=== PATIENT | female | born 1970 | race Caucasian/White ===

== ENCOUNTER 2023-02-04 13:00 | Outpatient (RCR) | payer BC, OTHER, SELFPAY | END 2023-06-04 23:59 | disposition home or self-care (01) | PROVIDERS: PCP Family Medicine; Visit Provider Physician Assistant Medical | DX: R32 Unspecified urinary incontinence (principal); N30.10 Interstitial cystitis (chronic) without hematuria; M54.50 Low back pain, unspecified; R10.2 Pelvic and perineal pain; N94.10 Unspecified dyspareunia; M79.18 Myalgia, other site; R53.1 Weakness; M53.3 Sacrococcygeal disorders, not elsewhere classified; M25.552 Pain in left hip; M25.551 Pain in right hip; N32.9 Bladder disorder, unspecified; Z51.89 Encounter for other specified aftercare | CPT/HCPCS: 97110; 97140 ==

== ENCOUNTER 2023-06-22 13:00 | Outpatient (RCR) | payer BC, SELFPAY | END 2023-10-20 23:59 | disposition home or self-care (01) | PROVIDERS: PCP Family Medicine; Visit Provider Physician Assistant Medical | DX: M79.18 Myalgia, other site (principal); R35.0 Frequency of micturition; N32.89 Other specified disorders of bladder; M54.50 Low back pain, unspecified; M25.552 Pain in left hip; M25.551 Pain in right hip; M53.3 Sacrococcygeal disorders, not elsewhere classified; R29.898 Other symptoms and signs involving the musculoskeletal system; Z51.89 Encounter for other specified aftercare | CPT/HCPCS: 97140; 97162 ==

== ENCOUNTER 2024-01-11 11:37 | Outpatient (CLI) | payer BC, SELFPAY ==
--- OUTSIDE RECORDS SUMMARY | 2024-01-15 19:14 | XMS_ITS | Data Portability ---
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 Plan of Treatment Reminders Order Date Submit Date Provider Last Modified By Organization Details Last Modified Time Details Appointments None recorded. Lab urinalysi s, dipstick 2022 023 [facility], [address], [address], [place], [address], 3 15:54:11 urinalysi s, microscop ic 2022 023 [facility], [address], [address], [place], [address], 4 05:01:52 culture, urine 2022 023 [facility], [address], [address], [place], [address], 3 11:21:33 urinalysi s, dipstick 2022 023 [facility], [address], [address], [place], [address], 3 16:23:41 culture, urine 2022 023 [facility], [address], [address], [place], [address], 3 15:46:03 infectiou s disease panel 2022 023 [email or web address] [facility], [address], [address], [place], [address], 15:19:39 Referral [email or web address] [email or web address] physical therapy referral - Please call patient to schedule Pelvic Floor Physical Therapy. Thank you 2022 023 [email or web address] [facility], [address], [place], [address], 3 14:20:24 Procedures None recorded. Surgeries None recorded. Imaging US, renal 2022 023 [facility], [address] [place], [address], 3 11:12:02 Medication Orders compounde d medicatio n 2022 023 [facility], [address] [place] [address], [address], [place], [place], [id number], 3 20:38:35 nitrofura ntoin macrocrys андрей 50 mg capsule 2022 023 [id number], [address] [place], [place], [id number], 3 16:54:58 Patient TargetsNo targets recorded. Patient Instructions Encounter Date Encounter Id Patient Instructions Last Modified By Organization Details Last Modified Time 04/05/2023 [id number] cystoscopy negative fu with Kierra as needed for pelvic pain/rUTIs/GSM. [email or web address] Not available 03/31/2023 15:40:43 01/14/2023 [id number] Recurrent UTIs: -Discussed recurrent UTIs and gave [...] have her see Dr. Arreguin for cysto. [email or web address] Not available 01/14/2023 17:02:42 Reason for Referral [...] uriscan NEGATI VE negati ve Not Available [facility] [address] [place] [address], [place], [address], 01/14/2023 16:23:41 01/15/20 23 01/14/2023 UA WITHO UT MICRO - CS URISC AN bilirubin - uriscan NEGATI VE mg/dL negati ve Not Available [facility] [address] [place] [facility] [address], [place], [address], 01/14/2023 16:23:41 01/15/20 23 01/14/2023 UA WITHO UT MICRO - CS URISC AN urobilinogen - uriscan NORMAL mg/dL normal Not Available [facility] [address] [place] [address] [address], [place], [address], 01/14/2023 16:23:41 01/15/20 23 01/14/2023 UA WITHO UT MICRO - CS URISC AN ketones - uriscan NEGATI VE mg/dL negati ve Not Available [facility] [address] [place] [address] [address], [place], [address], 01/14/2023 16:23:41 01/15/20 23 01/14/2023 UA WITHO UT MICRO - CS URISC AN protein - uriscan NEGATI VE mg/dL negati ve Not Available [facility] [address] [place] [address] [address], [place], [address], 01/14/2023 16:23:41 01/15/20 23 01/14/2023 UA WITHO UT MICRO - CS URISC AN nitrites - uriscan NEGATI VE negati ve Not Available [facility] [address] [place] [address] [address], [place], [address], 01/14/2023 16:23:41 01/15/20 23 01/14/2023 UA WITHO UT MICRO - CS URISC AN glucose - uriscan NEGATI VE mg/dL negati ve Not Available [facility] [address] [place] [address] [address], [place], [address], 01/14/2023 16:23:41 01/15/20 23 01/14/2023 UA WITHO UT MICRO - CS URISC AN pH - uriscan 5.50 5.00-9 .00 Not Available [facility] [address] [place] [address] [address], [place], [address], 01/14/2023 16:23:41 01/15/20 23 01/14/2023 UA WITHO UT MICRO - CS URISC AN sp. gravity - uriscan 1.01 1.01-1 .03 Not Available [facility] [address] [facility] [address], [place], [address], 01/14/2023 16:23:41 01/15/20 23 01/14/2023 UA WITHO UT MICRO - CS URISC AN leukocytes - uriscan NEGATI VE negati ve Not Available [facility] [address] [facility] [address] [address], [place], [address], 01/14/2023 16:23:41 01/15/20 23 01/14/2023 UA WITHO UT MICRO - CS URISC AN color - uriscan YELLOW lt. yellow ;yello w Not Available [facility] [address] [facility] [address], [place], [address], 01/14/2023 16:23:41 01/15/20 23 01/14/2023 UA WITHO UT MICRO - CS URISC AN clarity - uriscan CLEAR clear Not Available [facility] [address] [facility] [address], [place], [address], 01/14/2023 16:23:41 01/15/20 23 01/14/2023 UA WITHO UT MICRO - CS URISC AN total urine volume (mL) 60 /mL Not Available [facility] [address] [facility] [address], [place], [address], 01/14/2023 16:23:41 01/15/20 23 01/14/2023 URINE CULTU RE final report MICROB IOLOGY RESULT S abnormal Not Available [facility] [address] [facility] [address] [address], [place], [address], 01/17/2023 15:46:03 04/05/20 23 04/05/2023 UA WITHO UT MICRO - CS URISC AN blood - uriscan NEGATI VE negati ve Not Available [facility] [address] [facility] [address], [place], [address], 04/05/2023 15:54:11 04/05/20 23 04/05/2023 UA WITHO UT MICRO - CS URISC AN bilirubin - uriscan NEGATI VE mg/dL negati ve Not Available [facility] [address] [place] [facility] [address], [place], [address], 04/05/2023 15:54:11 04/05/20 23 04/05/2023 UA WITHO UT MICRO - CS URISC AN urobilinogen - uriscan NORMAL mg/dL normal Not Available [facility] [address] [facility] [address], [place], [address], 04/05/2023 15:54:11 04/05/20 23 04/05/2023 UA WITHO UT MICRO - CS URISC AN ketones - uriscan NEGATI VE mg/dL negati ve Not Available [facility] [address] [facility] [address], [place], [address], 04/05/2023 15:54:11 04/05/20 23 04/05/2023 UA WITHO UT MICRO - CS URISC AN protein - uriscan NEGATI VE mg/dL negati ve Not Available [facility] [address] [facility] [address], [place], [address], 04/05/2023 15:54:11 04/05/20 23 04/05/2023 UA WITHO UT MICRO - CS URISC AN nitrites - uriscan NEGATI VE negati ve Not Available [facility] [address] [facility] [address], [place], [address], 04/05/2023 15:54:11 04/05/20 23 04/05/2023 UA WITHO UT MICRO - CS URISC AN glucose - uriscan NEGATI VE mg/dL negati ve Not Available [facility] [address] [facility] [address], [place], [address], 04/05/2023 15:54:11 04/05/20 23 04/05/2023 UA WITHO UT MICRO - CS URISC AN pH - uriscan 5.50 5.00-9 .00 Not Available [facility] [address] [facility] [address], [place], [address], 04/05/2023 15:54:11 04/05/20 23 04/05/2023 UA WITHO UT MICRO - CS URISC AN sp. gravity - uriscan <=1.01 1.01-1 .03 Not Available [facility] [address] [place] [address] [address], [place], [address], 04/05/2023 15:54:11 04/05/20 23 04/05/2023 UA WITHO UT MICRO - CS URISC AN leukocytes - uriscan NEGATI VE negati ve Not Available [facility] [address] [place] [address] [address], [place], [address], 04/05/2023 15:54:11 04/05/20 23 04/05/2023 UA WITHO UT MICRO - CS URISC AN color - uriscan YELLOW lt. yellow ;yello w Not Available [facility] [address] [facility] [address], [place], [address], 04/05/2023 15:54:11 04/05/20 23 04/05/2023 UA WITHO UT MICRO - CS URISC AN clarity - uriscan CLEAR clear Not Available [facility] [address] [facility] [address], [place], [address], 04/05/2023 15:54:11 04/05/20 23 04/05/2023 UA WITHO UT MICRO - CS URISC AN total urine volume (mL) 100 /mL Not Available [facility] [address] [place] [address] [address], [place], [address], 04/05/2023 15:54:11 04/05/20 23 04/05/2023 URINE CULTU RE final report MICROB IOLOGY RESULT S Not Available [facility] [address] [place] [address] [address], [place], [address], 04/07/2023 11:21:33 01/07/20 23 10/16/2021 CT, abdom en + pelvi s, w/o contr ast No observ ation record ed. [email or web address] Not Available 01/06/2023 12:36:55 01/07/20 23 03/05/2022 US, abdom en, limit ed No observ ation record ed. [email or web address] Not Available 01/06/2023 12:36:55 01/19/20 23 01/18/2023 US, renal No observ ation record ed. [email or web address] [facility] [address], [place], [address], 01/18/2023 12:50:36 Result Notes None recorded. Procedures Surgical History Date Name Laterality Status Provider Name and Address Organization Details Recorded Time 04/05/20 23 Cystoscopy- female completed Nona Arreguin MD [address] [place] [address],[address], [place], [address], [facility] 03/31/2023 15:39:24 04/05/20 23 In and Out Catheterization- female completed Nona Arreguin MD [address] [place] [address],[address], [place], [address], [facility] 04/05/2023 15:44:49 01/15/20 23 Past Data Reviewed completed LISA IYER [address] [place] [address],[address], [place], [address], [facility] 01/13/2023 14:23:39 01/15/20 23 In and Out Catheterization- female completed LSIA IYER [address] [place] [address],[address], [place], [address], [facility] 01/14/2023 16:59:22 08/10/19 20 Oncology colorectal [...] available 01/06/2023 12:36:55 01/18/2023 US, renal completed [email or web address] [address] [place], [address], 01/18/2023 12:50:36 Procedure Notes None recorded. Medical [...] Address Organization Details Last Updated DateTime 01/14/2023 [id number] 09668 g 26.5 kg/m2 157.48 cm Not Available [...] When Did You Quit Smoking? 1-5yearssincel astcikeeley [email or web address] Information not available 01/14/2023 Number Of Pregnancies [...] neoplasm of ovary Medical History Condition Response High Blood Pressure N Kidney Stones N Depression Y Lung Disease N GERD/Acid Reflux N Sexually Transmitted Infection Y Cancer N High Cholesterol N Diabetes N Bleeding Disorder N Heart Disease N Gynecological History Statement/Question Response Irregular periods N Leaking urine with intercourse N Heavy periods N Sexually Active? Y Pain with intercourse Y Obstetrics History GPAL:G 0 P 0 0 0 0 Immunizations Vaccine Type Date Status Provider Name and Address Organization Details Recorded Time zoster recombinant 04/24/2020 completed Raven Villanueva [facility] 01/14/2023 16:12:49 zoster recombinant 06/25/2020 completed Raven Villanueva [facility] 01/14/2023 16:12:49 Past Encounters Encounter ID Performer Location Encounter Start Date Encounter Closed Date Diagnosis/Indication Diagnosis SNOMED-CT Code [id number] LISA IYER [address] [address] 01/14/2023 16:10:00 01/14/2023 17:10:08 Recurrent urinary tract infection [id number] Pelvic and perineal pain [id number] Myalgia of pelvic floor [id number] Nona Arreguin MD [facility] [address] [place] [address] 04/05/2023 15:26:30 04/05/2023 15:52:22 Pelvic and perineal pain [id number] Myalgia of pelvic floor 603782120 Chronic cystitis 6323064 2 Health Concerns Section Related Observation LastModified by Organization Detai ls LastModified Time None Recorded Concern Status LastModified by Organization Details LastModified Time None Recorded Advance Directives Directive None Recorded Payers Encounter Date Sequence Insurance Name Policy Number Policy Abrams Covered Member ID Abrams Member ID Guarantor Name 04/05/2023 1 [employer] [id number] Vince Newman [id number] Kailey Newman 01/14/2023 1 [facility] [id number] Vince Newman [id number] Kailey Newman Notes Date Note Type [...] this. History of IC - diagnosed in [place]. No scope recently. Last one at least [...] Incontinence Impact Questionnaire (IIQ-7): 0 LISA IYER [address] [place] [address],[address], [place], [address], [facility] 01/14/2023 17:02:53 04/05/2023 text/html HPI Notes: [...] this. History of IC - diagnosed in [place]. No scope recently. Last one at least [...] was on elavil --stopped Nona Arreguin MD [address] [facility], [place], [address], [place] [facility] 04/05/2023 15:45:43 OBGyn Episode No OBEpisode recorded.
--- OUTSIDE RECORDS SUMMARY | 2024-01-15 19:14 | XMS_ITS | Clinical Summary ---
Author Organization [employer] Address [place], [place] [address] Care Team Providers Care Ornamenter Name Role Phone Jolly Calabrese Unavailable Jovanna Kline DO Primary Care Provider [phone] Allergies Active Allergy Reactions Criticality Noted Date [...] last 3 months 15 Tablet 4 Active oxyCODONE (ROXICODONE) 5 mg [...] 01/11/2024 11:20 AM CDT Nurse/Clinic Staff Only [facility] [address] [place] [address] Chest Pain (Walked in with chest pain) 01/10/2024 10:35 AM CDT Office Visit [facility] [address] [place] [address] Jovanna Kline DO Physical (53 year old female); Medication Management 01/10/2024 9:40 AM CDT Ancillary Procedure [facility] [address] [place] [address] Arrived 01/10/2024 Travel 01/07/2024 1:50 PM CDT Nurse/Clinic Staff Only [facility] [address] [place] [address] Blood Pressure (140/71) 01/07/2024 Nurse Triage [facility] [address] [place] [address] Jovanna Kline DO High Blood Pressure; Chest Pain 01/07/2024 Travel 01/03/2024 12:31 PM CDT - 01/03/2024 4:09 PM CDT Emergency [facility] [address] [place] [address] Rufus Eastman PA Nausea (Primary Dx); Sleep difficulties; Feeling unwell Discharge Disposition: Home Self Care 01/03/2024 12:20 PM CDT Office Visit [facility] [address] [facility] [place] [id number] UTI; Fast Heartbeat; Shortness Of Breath; Nausea; Weak 01/03/2024 Travel 12/30/2023 Telephone [facility] [address] [place] [address] uJ Maynard, Results 12/27/2023 1:35 PM CDT Office Visit [facility] [address] [place] [address] Ju Maynard, Urinary Problem (Bladder pain, lower back pain, started 3 days ago) 12/27/2023 Travel 12/14/2023 Refill [facility] [address] [place] [address] Jovanna Kline DO Refill Request (Estradiol 0.01% vag cream) 11/24/2023 Telephone [facility] [address] [place] [address] Royer Malcolm MD Results 11/22/2023 1:25 PM CDT Office Visit [facility] [address] [place] [address] Royer Malcolm MD Urinary Problem (Took a home UTI test on 11/21/2023 and was POSITIVE. /Symptoms started about 2 weeks ago. Urgency frequency, up at night 3-4 times. Pressure pain, nausea. ) 11/22/2023 Travel 10/25/2023 Refill [facility] [address] [place] [address] Jovanna Kline DO Refill Request (Pregabalin) from [...] Outcome GA Total Labor Labor/2nd/3rd Weight Sex Type Anes PTL Jeimy A1 A5 Name Clin Term Term Term Term Last Filed Vital [...] 01/17/2024 8:15 AM CDT Nurse/Clinic Staff Only [facility] [address] [place] [address] 01/17/2024 10:10 AM CDT Office Visit [facility] [address] [place] [address] Jovanna Kline Jeimy, DO [address] [facility] [address] Health Maintenance Due Date Last Done Comments COVID-19 vaccine series ( season) 2023 Influenza for age 50-64 04/09/2024 05/15/20 13, 06/23/2010, 07/05/2009, Additional history exists BMI (ht and wt on same day) for age 18+ 01/09/2025 01/10/2024, 04/21/2023, 09/02/2022, Additional history exists Mammogram for age 45-75 01/09/2025 01/10/20 24, 06/19/2022, 04/30/2021, Additional history exists Depression screening for age 12+ 01/10/2025 01/11/2024, 01/10/2024, 12/03/2022, Additional history exists Tetanus booster 01/14/2026 01/15/2016, 12/31/2004 Fecal testing sDNA-FIT (Cologuard) for age 45-75 12/15/2026 12/16/2023, 05/23/2020 Lipids for age 45-75 01/09/2029 01/10/2024, 04/24/2020, 11/10/2018 Pap test for age 21-65 01/09/2029 , 02/25/2018, 02/25/2018 Tdap Completed 01/15/2016 Zoster (shingles) series for age 50+ Completed 06/25/2020, 04/24/2020 HIV for age 15-65 Completed 12/03/2022 Hepatitis C screening for age 18-79 Completed 12/03/2022 Pneumococcal series for age 6-64 Aged Out No longer eligible based on patient's age to complete this topic Procedures Procedure Name Priority Date/Time Associated Diagnosis Comments HPV THIN PREP Routine 01/10/2024 12:13 PM CDT Screening for cervical cancer T4,FREE Routine 01/10/2024 12:04 PM CDT Tachycardia VITAMIN D 25 (DEFICIENCY) Routine 01/10/2024 12:04 PM CDT Vitamin D deficiency LIPID PANEL W REFLEX MEASURED LDL Routine 01/10/2024 12:04 PM CDT Screening cholesterol level TSH WITH REFLEX Routine 01/10/2024 12:04 PM CDT Tachycardia URINE CULTURE Routine 01/10/2024 11:44 AM CDT Interstitial cystitis Recurrent UTI UA W/ SEDIMENT EXAM REFLEXED PER CRITERIA Routine 01/10/2024 11:44 AM CDT Interstitial cystitis Recurrent UTI XR MAMMO ERIKA BILAT SCREEN Routine 01/10/2024 9:56 AM CDT Visit for screening mammogram TROPONIN T (HS) ONE TIME Timed 01/03/2024 [...] CDT Need for hepatitis C screening test from Last 3 Months or Most Recently Relevant to Health Maintenance Results * HPV HIGH RISK (01/10/2024 12:13 PM CDT) TYPE 16 Negative Negative 01/13/2024 5:15 PM CDT [facility] TYPE 18 Negative Negative 01/13/2024 5:15 PM CDT [facility] OTHER HIGH RISK TYPES Negative Negative 01/13/2024 5:15 PM CDT [facility] Other (Cervical) Non-Blood / Unknown 01/10/2024 12:13 PM CDT 01/11/2024 2:12 PM CDT Narrative [facility] - 01/13/2024 5:15 PM CDT HPV types 16, 18, 31, 33, 35, 39, 45, 51, 52, 56, 58, 59, 66 and 68 DNA were undetectable or below the pre-set threshold. Methodology: Prosper Kg 4800 HPV Test Jovanna Kline DO MICROBIOLOGY [facility] [address] [place] [address], * (ABNORMAL) TSH WITH REFLEX (01/10/2024 12:04 PM CDT) TSH <0.01(L) 0.27 - 4.20 uIU/mL 01/11/2024 9:37 AM CDT [facility] Blood BLOOD SPECIMEN / Unknown Venipuncture / Unknown 01/10/2024 12:04 PM CDT 01/10/2024 12:05 PM CDT Narrative [facility] - 01/11/2024 9:37 AM CDT In Adults, TSH values between 5.00 and 10.00 uIU/ml do not necessarily indicate the presence of Hypothyroidism. Correlation with clinical findings such as presence of goiter and/or Thyroperoxidase (TPO) Antibody may be helpful. For more information please refer to SILVER 2004; 291: 228-238. JovannaCuroverse JadielBonsai AI DO CHEMISTRY Performing Organization Address City/[facility]/ZIP Co de Phone Number [facility] [address] [place] [address], [place] * LIPID PANEL W REFLEX MEASURED LDL (01/10/2024 12:04 PM CDT) [facility] CHOLESTEROL,TOTAL 171 100 - 199 mg/dL 01/11/2024 9:36 AM CDT [facility] Comment: Cholesterol, Total Reference Ranges Desirable <200 mg/dL Borderline 200-239 mg/dL High >=240 mg/dL TRIGLYCERIDES 116 <150 mg/dL 01/11/2024 9:36 AM CDT [facility] HDL CHOLESTEROL 64 >40 mg/dL 9:36 AM CDT [facility] NON-HDL CHOLESTEROL 107 <145 mg/dl 01/11/2024 9:36 AM CDT [facility] [employer] [facility] CHOL/HDL RATIO 2.67 <4.50 01/11/2024 9:36 AM CDT [facility] TR[facility] LDL CHOLESTEROL 84 <=130 mg/dL 01/11/2024 9:36 AM CDT [facility] VLDL CHOLESTEROL 23 <=30 mg/dL 01/11/2024 9:36 AM CDT [facility] TR[facility] PROVIDER ORDERED STATUS RANDOM 01/11/2024 9:36 AM CDT [facility] [employer] [facility] Blood BLOOD SPECIMEN / Unknown Venipuncture / Unknown 01/10/2024 12:04 PM CDT 01/10/2024 12:05 PM CDT [employer] CHEMISTRY Performing Organization Address City/[facility]/ZIP Co de Phone Number [facility] [address] [place] [address], [place] * (ABNORMAL) VITAMIN D 25 (DEFICIENCY) (01/10/2024 12:04 PM CDT) VITAMIN D TOTAL 101.0(H) 20.0 - 80.0 ng/mL 01/11/2024 3:12 PM CDT [facility] Blood BLOOD SPECIMEN / Unknown Venipuncture / Unknown 01/10/2024 12:04 PM CDT 01/10/2024 12:05 PM CDT Narrative [facility] - 01/11/2024 3:12 PM CDT ? Vitamin D Status Deficiency: ? <20 ng/mL Insufficiency: ?20-29 ng/mL Sufficiency: ?30-80 ng/mL Possible Toxicity: ??>80 ng/mL Based on [place] of Medicine recommendations Biotin supplements may cause clinically significant interference for this test assay. ??If interference is suspected, it is strongly recommended that biotin is discontinued for at least one week prior to retesting. Jovanna Kline DO SEND OUTS Performing Organization Address City/[facility]/ZIP Co de Phone Number [facility] [address] [place] [address] * (ABNORMAL) T4,FREE (01/10/2024 12:04 PM CDT) T4,FREE 3.05(H) 0.93 - 1.70 ng/dL 01/11/2024 9:37 AM CDT [facility] Blood BLOOD SPECIMEN / Unknown Venipuncture / Unknown 01/10/2024 12:04 PM CDT 01/10/2024 12:05 PM CDT Jovanna Kline DO CHEMISTRY [facility] [address] [place] [address], * URINE CULTURE (01/10/2024 11:44 AM CDT) Only the most recent of5 resultswithin the time period is included. CULTURE No growth (<1,000 CFU/mL) 01/12/2024 10:07 AM CDT [facility] Urine URINE SPECIMEN / Unknown Non-Blood / Unknown 01/10/2024 11:44 AM CDT 01/10/2024 11:45 AM CDT Jovanna Kline DO MICROBIOLOGY [facility] [address] [place] [address], [place] * UA W/ SEDIMENT EXAM REFLEXED PER CRITERIA (01/10/2024 11:44 AM CDT) Only the most recent of4 resultswithin the time period is included. COLOR Yellow Yellow Color 01/10/2024 11:48 AM CDT [facility] CLARITY Clear Clear Clarity 01/10/2024 11:48 AM CDT [facility] SPECIFIC GRAVITY,URINE 1.010 1.010, 1.015, 1.020, 1.025 01/10/2024 11:48 AM CDT [facility] PH,URINE 7.0 6.0, 7.0, 8.0, 5.5, 6.5, 7.5, 8.5 01/10/2024 11:48 AM CDT [facility] UROBILINOGEN, QUALITATIVE Normal Normal EU/dl 01/10/2024 11:48 AM CDT [facility] PROTEIN, URINE Negative Negative mg/dL 01/10/2024 11:48 AM CDT [facility] GLUCOSE, URINE Negative Negative mg/dL 01/10/2024 11:48 AM CDT [facility] KETONES,URINE Negative Negative mg/dL 01/10/2024 11:48 AM CDT [facility] BILIRUBIN,URI NE Negative Negative 01/10/2024 11:48 AM CDT [facility] OCCULT BLOOD,URINE Negative Negative 01/10/2024 11:48 AM CDT [facility] NITRITE Negative Negative 01/10/2024 11:48 AM CDT [facility] LEUKOCYTE ESTERASE Negative Negative 01/10/2024 11:48 AM CDT [facility] Urine URINE SPECIMEN / Unknown Non-Blood / Unknown 01/10/2024 11:44 AM CDT 01/10/2024 11:45 AM CDT Jovanna Jeimy Duvallq DO URINE [facility] [address] [place] [address], * XR MAMMO ERIKA BILAT SCREEN (01/10/2024 9:56 AM CDT) Anatomical Region Laterality Modality BREASTS, Breast Left, Breast Right Bilateral Mammography Impressions 01/11/2024 3:24 PM CDT ??There is no radiographic evidence for malignancy. ??Recommend annual mammograms. MAMMOGRAM ASSESSMENT: ??ACR 1 Negative PATIENTS: You will also receive a letter with your examination results in an easy to read format. ??If you have questions about your results, please contact your referring provider. Narrative 01/11/2024 3:24 PM CDT For Patients: As a result of the 21st Century Cures Act, medical imaging exams and procedure reports are released immediately into your electronic medical record. You may view this report before your referring provider. If you have questions, please contact your health care provider. XR MAMMO ERIKA BILAT SCREEN [[id number]] CLINICAL HISTORY: ??This is an asymptomatic 53 y.o. patient. INDICATION FOR EXAM: Mammogram Screening. TECHNIQUE: CC & MLO views were obtained. ??This study was evaluated with the assistance of Computer-Aided Detection. Breast Tomosynthesis was used in interpretation. COMPARISON FILM: [facility] FINDINGS: ??The breasts are heterogeneously dense, which may obscure small masses. There are no dominant masses, suspicious micro calcifications or areas of architectural distortion. Jovanna Jeimy Jadielqra DO MAMMO * (ABNORMAL) TROPONIN T (HS) ONE TIME (01/03/2024 3:03 PM CDT) [facility] TROPONIN T HS 11(H) 6-10 ng/L ng/L 01/03/2024 3:25 PM CDT [facility] Blood BLOOD SPECIMEN / Unknown Butterfly / Unknown 01/03/2024 3:03 PM CDT 01/03/2024 3:06 PM CDT Rufus GONZALEZ CHEMISTRY Performing Organization Address City/[facility]/ZIP Co de Phone Number [facility] [address] [place] [address] * COVID-19 MOLECULAR (01/03/2024 2:10 PM CDT) [facility] COVID 19 [place]INA MOLECULAR Not detected Not detected 01/03/2024 2:34 PM CDT [facility] TESTING LABORATORY [facility] 01/03/2024 2:34 PM CDT [facility] Comment:Specimen submitted t o [facility] Laboratory for testing. Other SPECIMEN FROM NASOPHARYNGEAL STRUCTURE / Unknown Non-Blood / Unknown 01/03/2024 2:10 PM CDT 01/03/2024 2:14 PM CDT Rufus GONZALEZ MICROBIOLOG Y Performing Organization Address [facility]/ZIP Co de Phone Number [facility] [address] [place] [address] * XR CHEST 1 VIEW PORTABLE (01/03/2024 1:14 PM CDT) Anatomical Region Laterality Modality HEART, THORAX, CHEST Digital Rad iography 01/03/2024 1:44 PM CDT Impressions 01/03/2024 1:44 PM CDT No consolidation. Dictated by Dustin James MD @ 01/03/2024 1:44:01 PM (Electronically Signed) Narrative 01/03/2024 1:44 PM CDT For Patients: ??As a result of the Century Cures Act, medical imaging exams and [...] 01/03/2024 1:44:01 PM (Electronically Signed) Rufus GONZALEZ [facility] * TROPONIN T (HS) ACUTE W/2HR REFLEX (01/03/2024 12:56 PM CDT) TROPONIN T HS 10 6-10 ng/L ng/L 01/03/2024 1:26 PM CDT [facility] Blood BLOOD SPECIMEN / Unknown Venipuncture / Unknown 01/03/2024 12:56 PM CDT 01/03/2024 1:00 PM CDT [facility] - 01/03/2024 1:26 PM [...] emergency department patient population. Rufus GONZALEZ CHEMISTRY [facility] [address] [place] [id number] * (ABNORMAL) CBC WITH AUTO DIFFERENTIAL (01/03/2024 12:56 PM CDT) [facility] WHITE BLOOD COUNT 11.1(H) 4.5 - 11.0 thou/cu mm 01/03/2024 1:03 PM CDT [facility] RED BLOOD COUNT 5.61(H) 4.00 - 5.20 mil/cu mm 01/03/2024 1:03 PM CDT [facility] HEMOGLOBIN 15.8 12.0 - 16.0 g/dL 01/03/2024 1:03 PM T [facility] HEMATOCRIT 47.0 33.0 - 51.0 % 01/03/2024 1:03 PM [facility] MCV 84 80 - 100 fL 01/03/2024 1:03 PM [facility] MCH 28.2 26.0 - 34.0 pg 01/03/2024 1:03 PM [facility] MCHC 33.6 32.0 - 36.0 g/dL 01/03/2024 1:03 PM [facility] RDW 13.0 11.5 - 15.5 % 01/03/2024 1:03 PM [facility] PLATELET COUNT 277 140 - 440 thou/cu mm 01/03/2024 1:03 PM [facility] MPV 10.1 6.5 - 11.0 fL 01/03/2024 1:03 PM [facility] % NEUT 81.7 % 01/03/2024 1:03 PM [facility] % LYMPH 12.3 % 01/03/2024 1:03 PM [facility] % MONO 5.2 % 01/03/2024 1:03 PM [facility] % EOS 0.5 % 01/03/2024 1:03 PM [facility] % BASO 0.3 % 01/03/2024 1:03 PM [facility] ABSOLUTE NEUTROPHILS 9.1(H) 1.7 - 7.0 thou/cu mm 01/03/2024 1:03 PM [facility] ABSOLUTE LYMPHOCYTES 1.4 0.9 - 2.9 thou/cu mm 01/03/2024 1:03 PM [facility] ABSOLUTE MONOCYTES 0.6 <0.9 thou/cu mm 01/03/2024 1:03 PM [facility] ABSOLUTE EOSINOPHILS 0.1 <0.5 thou/cu mm 01/03/2024 1:03 PM [facility] ABSOLUTE BASOPHILS 0.0 <0.3 thou/cu mm 01/03/2024 1:03 PM [facility] Blood BLOOD SPECIMEN / Unknown Venipuncture / Unknown 01/03/2024 12:56 PM CDT 01/03/2024 1:00 PM CDT Rufus GONZALEZ HEMATOLOGY [facility] [address] [place] [address] * LACTATE VENOUS (01/03/2024 12:56 PM CDT) Pathologist [facility] LACTATE,VENOUS 1.7 0.5 - 2.0 mmol/L 01/03/2024 1:24 PM CDT [facility] Blood BLOOD SPECIMEN / Unknown Venipuncture / Unknown 01/03/2024 12:56 PM CDT 01/03/2024 1:00 PM CDT Rufus GONZALEZ CHEMISTRY Performing Organization Address [facility]/ZIP Co de Phone Number [facility] [address] [place] [address] * (ABNORMAL) C-REACTIVE PROTEIN (01/03/2024 12:56 PM CDT) [facility] C-REACTIVE PROTEIN 0.6(H) <0.5 mg/dL 01/03/2024 1:26 PM CDT [facility] Blood BLOOD SPECIMEN / Unknown Venipuncture / Unknown 01/03/2024 12:56 PM CDT 01/03/2024 1:00 PM CDT Rufus GONZALEZ CHEMISTRY [facility] [address] [place] [address] * PROTIME-INR (01/03/2024 12:56 PM CDT) Pathologist [facility] INR 1.1 <1.3 01/03/2024 1:27 PM CDT [facility] PROTIME 12.3 10.3 - 12.3 sec 01/03/2024 1:27 PM CDT [facility] Blood BLOOD SPECIMEN / Unknown Venipuncture / Unknown 01/03/2024 12:56 PM CDT 01/03/2024 1:00 PM CDT Narrative [facility] - 01/03/2024 1:27 PM [...] UFH. Rufus GONZALEZ HEMATOLOGY Performing Organization Address [facility] de Phone Number [facility] [address] [place] [address] * MAGNESIUM (01/03/2024 12:56 PM CDT) MAGNESIUM 1.6 1.6 - 2.6 mg/dL 01/03/2024 1:26 PM CDT [facility] Blood BLOOD SPECIMEN / Unknown Venipuncture / Unknown 01/03/2024 12:56 PM CDT 01/03/2024 1:00 PM CDT Rufus GONZALEZ CHEMISTRY Performing Organization Address [facility] Co de Phone Number [facility] [address] [place] [address] * (ABNORMAL) HEPATIC FUNCTION PANEL (01/03/2024 12:56 PM CDT) ALBUMIN 4.5 4.0 - 4.9 g/dL 01/03/2024 1:26 PM CDT [facility] PROTEIN,TOTAL 7.5 6.0 - 8.0 g/dL 01/03/2024 1:26 PM CDT [facility] BILIRUBIN,TOTAL 0.9 0.0 - 1.2 mg/dL 01/03/2024 1:26 PM T [facility] BILIRUBIN,DIRECT 0.2 0.0 - 0.3 mg/dL 01/03/2024 1:26 PM [facility] BILIRUBIN,INDIRE CT 0.7 0.2 - 0.8 mg/dL 01/03/2024 1:26 PM [facility] ALK PHOSPHATASE 47 35 - 104 IU/L 01/03/2024 1:26 PM [facility] ALT (SGPT) 42(H) 10 - 35 IU/L 01/03/2024 1:26 PM [facility] AST (SGOT) 32 10 - 35 IU/L 01/03/2024 1:26 PM [facility] Blood BLOOD SPECIMEN / Unknown Venipuncture / Unknown 01/03/2024 12:56 PM CDT 01/03/2024 1:00 PM CDT Rufus GONZALEZ CHEMISTRY [facility] [address] [place] [address] * (ABNORMAL) BASIC METABOLIC PANEL (01/03/2024 12:56 PM CDT) SODIUM 138 136 - 145 mmol/L 01/03/2024 1:26 PM [facility] POTASSIUM 3.7 3.5 - 5.1 mmol/L 01/03/2024 1:26 PM [facility] CHLORIDE 102 98 - 107 mmol/L 01/03/2024 1:26 PM [facility] CO2,TOTAL 22 22 - 29 mmol/L 01/03/2024 1:26 PM [facility] ANION GAP 14 5 - 18 01/03/2024 1:26 PM [facility] GLUCOSE 148(H) 70 - 99 mg/dL 01/03/2024 1:26 PM [facility] CALCIUM 10.2(H) 8.6 - 10.0 mg/dL 01/03/2024 1:26 PM CDT [facility] BUN 13 6 - 20 mg/dL 01/03/2024 1:26 PM CDT [facility] CREATININE 0.63 0.50 - 0.90 mg/dL 01/03/2024 1:26 PM CDT [facility] BUN/CREAT RATIO 21(H) 10 - 20 1:26 PM CDT [facility] eGFR >90 >90 mL/min/1.7 3m2 01/03/2024 1:26 PM CDT [facility] Comment:As of 2021, eG FR is [...] CDT Rufus GONZALEZ CHEMISTRY Performing Organization Address City/[facility]/ZIP Co de Phone Number [facility] [address] [place] [address] * EKG 12 LEAD (01/03/2024 12:43 PM CDT) [facility] Interpretation Normal sinus rhythm Normal ECG No previous ECGs available BEYOND NOW Ventricular Rate 96 BPM BEYOND NOW Atrial Rate 96 BPM BEYOND NOW P-R Interval 126 ms BEYOND NOW QRS Duration 64 ms BEYOND NOW QT 328 ms BEYOND NOW QTc 414 ms BEYOND NOW P [place] 65 degrees BEYOND NOW R [place] 46 degrees BEYOND NOW T [place] 51 degrees BEYOND NOW 01/03/2024 12:4 3 PM CDT 01/03/2024 6:48 PM CDT Rufus GONZALEZ EKG ORD Performing Organization Address City/[facility]/ZIP Co de Phone Number BEY[facility] NOW [place], [place] * (ABNORMAL) URINALYSIS MICROSCOPIC (12/27/2023 1:39 PM CDT) [facility] RBC 0-2 0-2, None Seen /HPF 12/27/2023 1:53 PM CDT [facility] WBC 11-25(A) 0-2, 3-5, None Seen /HPF 12/27/2023 1:53 PM CDT [facility] BACTERIA Many(A) None Seen, Rare, Few Bacteria/H PF 12/27/2023 1:53 PM CDT [facility] EPITHELIAL CELLS Many(A) None Seen, Few Epi/HPF 12/27/2023 1:53 PM CDT [facility] Urine URINE SPECIMEN / Unknown Non-Blood / Unknown 12/27/2023 1:39 PM CDT 12/27/2023 1:46 PM CDT Ju Maynard DO URINE [facility] [address] [place] [address], * SDNA-FIT EXTERNAL (COLOGUARD) [[id number]] (12/16/2023 7:40 AM CDT) NONINV COLON CA DNA+OCC BLD SCRN STL-IMP Negative Negative 12/23/2023 5:48 PM CDT [employer] (CLIA #:[id number]) Comment: NEGATIVE TEST RESULT. A negative Cologuard [...] cancer. ??Following a negative Cologuard result, the [place] [employer] and U.S. Multi-Society Task Force screening guidelines recommend a Cologuard re-screening interval of 3 years. References: [place] [employer] Guideline for Colorectal Cancer Screening: https://www.cancer.org/cancer/kjzwz-yaiojg-levmmt/qnmcmvjnb-xkyiytuxf-rnwrjkk/ac s-rec ommendations.html.; Bala DK, Fozia CR, Gonzalo HardinK, Colorectal Cancer Screening: Recommendations for Physicians and Patients from the U.S. Multi-Society Task Force on Colorectal Cancer Screening , Am J Gastroenterology 2017; 112:7610-6225. TEST DESCRIPTION: Composite algorithmic analysis of stool [...] (Radha Mehta al, N Engl J Med 2014;370(14):7636-1995.) Cologuard may produce a false negative or false positive result (no colorectal cancer or precancerous polyp present at colonoscopy follow up). A negative Cologuard test result does not guarantee the absence of CRC or advanced adenoma (pre-cancer). The current Cologuard screening interval is every 3 years. ([place] [employer] and [place] Multi-Society Task Force). Cologuard performance data in a 10,000 patient pivotal study using colonoscopy as the reference method can be accessed at the following location: [email or web address]. Additional description of the Cologuard test process, warnings and precautions can be found at [email or web address]. Stool specimen (specimen) ([facility]) 12/16/2023 7:40 AM CDT 12/17/2023 12:25 PM CDT Jovanna Kline DO URINE Moblication (CLIA #:[id number]) [place] [address], * LC HCV ANTIBODY RFX TO QUANT PCR (12/03/2022 12:00 PM CDT) HCV Ab Non Reactive Non Reactive 12/05/2022 3:08 PM CDT [facility] ([facility]) Blood BLOOD SPECIMEN / Unknown Venipuncture / Unknown 12/03/2022 12:00 PM CDT 12/03/2022 12:02 PM CDT Narrative [facility] ([facility]ET) - 12/05/2022 3:08 PM CDT Performed at: ??01 - [address] ??[id number] Sales Branch Manager: Nelson Ruff MD, Phone: ??[phone] Justin [facility] (CET) [address] [place] [address], * LC HIV-1/O/2, 4TH GENERATION (12/03/2022 12:00 PM CDT) HIV Scr 4th Gen Non Reactive Non Reactive 12/05/2022 12:[address] [facility] ([facility]ET) Comment: HIV Negative HIV-1/HIV-2 antibodies and HIV-1 p24 antigen were NOT detected. There is no laboratory evidence of HIV infection. Blood BLOOD SPECIMEN / Unknown Venipuncture / Unknown 12/03/2022 12:00 PM CDT 12/03/2022 12:02 PM CDT [facility]ative [facility] - 12/05/2022 12:08 PM CDT Performed at: ??01 - [address] ??[id number] Sales Branch Manager: Nelson Ruff MD, Phone: ??[phone] Justin [facility] from Last 3 Months or Most Recently Relevant to Health Maintenance Care Teams Ornamenter Relationship Specialty Start Date End Date J[place]anna [place] [address] PCP - General Family Practice 09/02/22 Jolly Calabrese PA Physician Base Filler Operator 10/23/21
== END 2024-01-11 11:38 | disposition home or self-care (01) ==
LOC: AMB 01-15 19:11
PROVIDERS: PCP Family Medicine; Visit Provider Family Medicine
DX: R07.89 Other chest pain (principal)
CPT/HCPCS: A0425; A0427

== ENCOUNTER 2024-01-11 12:11 | Emergency (ER) | payer BC, SELFPAY ==
[2024-01-11] VITALS (14 sets, daily range): BP systolic 135–151; BP diastolic 77–85; PULSE 93–106; RESP 16; TEMP 36.2; O2SAT 95–100
--- OUTSIDE RECORDS SUMMARY | 2024-01-11 12:55 | XMS_ITS | Clinical Summary ---
Author Organization [facility] Address [place], [place] [address] Care Team Providers Care Vp Account Director Name Role Phone Jolly Calabrese Unavailable [phone] Jovanna Kline DO Primary Care Provider [phone] Allergies Active Allergy Reactions Criticality Noted Date Comments Adhesive Rash 07/25/2021 Meperidine Hallucinations 09/08/2016 Hydrocodone Rash,Itching 11/15/2010 Sulfa (Sulfonamide Antibiotics) Stomach Upset 09/08/2016 Sulfamethoxazole Other - Describe In Comment Field 11/15/2010 Cerner listed no reaction. Medications Medication Sig Dispensed Refills Start Date End Date Status nystatin powder (MYCOSTATIN) powderIndications :Candidiasis of anus Apply 1 Strip topically to affected area(s) 3 times daily. 60 g 5 8 Active phenazopyridine (PYRIDIUM) 100 mg tabletIndications :Chronic interstitial cystitis Take 1 tablet by mouth 3 times daily after meals. As needed for painful urination. 10 tablet 5 8 Active medication order composerIndicatio ns:Dyspareunia in female,Pelvic floor tension Diazepam [address] 1 vaginal suppository into the vagina once nightly or as directed 14 Suppository 1 Active lidocaine (XYLOCAINE) 2 % gelIndications:Pe lvic floor tension Insert into the urethra once daily if needed (for use with Therawand). 30 mL 1 1 Active liothyronine (CYTOMEL) 5 mcg tablet Take 1 Tablet by mouth once daily. 2 Active medication order composer Testosterone 10mg/gm cream-apply 1 click (1/4 gram)around vaginal area in the morning [address] times weekly prescribed [address] Dr. Yao Davis 0 2 Active triamcinolone (ARISTOCORT; KENALOG) 0.1 % creamIndications: Rash Apply topically to affected area(s) 3 times daily. 80 g 2 2 Active hydrOXYzine HCL (ATARAX) 25 mg tabletIndications :Anxiety disorder, unspecified type,Itching Take 1 Tablet (25 mg) by mouth every 6 hours if needed for Itching. 30 Tablet 2 2 Active ondansetron (ZOFRAN) 8 mg tabletIndications :Nausea Take 1 Tablet (8 mg) by mouth every 8 hours if needed for Nausea/Vomiting. 30 Tablet 2 Active progesterone micronized (PROMETRIUM) 100 mg capsule Take 1 Capsule (100 mg) by mouth at bedtime. 24 Capsule 2 Active nystatin (MYCOSTATIN) ointmentIndicatio ns:Yeast dermatitis Apply topically to affected area(s) two times daily. 60 g 3 Active diazePAM (Valium) 5 mg tablet take 1 suppository per rectum as needed for rectal spasms 1 Active Lactobacillus acidophilus 10 billion cell cap take as directed 1 Active valACYclovir (VALTREX) 1 gram tabletIndications :History of herpes genitalis Take 1 Tablet (1 g) by mouth once daily. 90 Tablet 3 Active polyethylene glycol-electrolyt e (GOLYTELY) 236-22.74-6.74 -5.86 gram suspensionIndicat ions:Encounter for screening colonoscopy Drink 2 liters the day before the procedure and 2 liters 6 hours prior to procedure. 4000 mL 3 Active amitriptyline (ELAVIL) 10 mg tabletIndications :Insomnia, idiopathic,Chroni c pain syndrome Take 2 Tablets (20 mg) by mouth at bedtime. 180 Tablet 3 3 Active cyclobenzaprine (FLEXERIL) 10 mg tabletIndications :Fibromyalgia TAKE 1 TABLET(10 MG) BY MOUTH AT BEDTIME NEEDED FOR MUSCLE SPASM 30 Tablet 5 4 Active pregabalin (LYRICA) 150 mg capsuleIndication s:Fibromyalgia Take 1 Capsule (150 mg) by mouth two times daily. 180 Capsule 1 4 Active nitrofurantoin macrocrystaL (MACRODANTIN) 50 mg capsule Take 50 mg by mouth once daily. Active estradioL (ESTRACE) 0.01% (0.1 mg/g) vaginal creamIndications: Vaginal atrophy Use a pea sized amount on labia at bedtime 42.5 g 4 Active metoclopramide HCl (REGLAN) 10 mg tabletIndications :Nausea Take 1 Tablet (10 mg) by mouth every 6 hours if needed for Nausea/Vomiting. 20 Tablet 4 Active oxyCODONE (ROXICODONE) 5 mg immediate release tabletIndications :Chronic pain syndrome Take 1 Tablet (5 mg) by mouth 3 times daily if needed for Pain. 15 tablets to last 3 months 15 Tablet 4 Active estradioL (ESTRACE) 0.01% (0.1 mg/g) vaginal creamIndications: Vaginal atrophy USE A PEA SIZED AMOUNT ON LABIA AT BEDTIME 42.5 g 1 3 12/14/19 24 Discontinue d(Reorder (E-cancel not sent)) oxyCODONE (ROXICODONE) 5 mg immediate release tabletIndications :Chronic pain syndrome Take 1 Tablet (5 mg) by mouth 3 times daily if needed for Pain. 15 tablets to last 3 months 15 Tablet 4 01/10/20 24 Discontinue d(Reorder (E-cancel not sent)) ciprofloxacin HCl (CIPRO) 500 mg tabletIndications :Dysuria Take 1 Tablet (500 mg) by mouth two times daily for 7 days. 14 Tablet 4 12/30/19 24 Discontinue d(*Medicati on adjustment) ciprofloxacin HCl (CIPRO) 750 mg tabletIndications :Dysuria Take 1 Tablet (750 mg) by mouth two times daily for 5 days. 10 Tablet 4 01/04/20 24 Hospital, Clinic, or Other Facility Administered Medication Ordered Dose Route Frequency Start Date End Date Status cefTRIAXone (ROCEPHIN) Intramuscular injection 1 gIndications:urinary tract infection 1 g IM ONE TIME 12/27/2023 12/27/2023 Ended Active Problems Problem Noted Date Diagnosed Date UTI (urinary tract infection), uncomplicated Overview: November 2023: Greater than 100,000 Klebsiella species. Treated with ciprofloxacin. Controlled substance agreement signed 11/10/2018 Overview: Signed 11/10/2018 Takes 1 tablet per day for chronic pain of either ms contin or percocet depending on severity of pain Interstitial cystitis 03/01/2018 Fibromyalgia 03/01/2018 Anxiety disorder 01/05/2018 Chronic pain syndrome 01/05/2018 Depressive disorder 10/13/2010 Overview: Overview: DEPRESSIVE DISORDER NEC Major depressive disorder, single episode, mild 02/23/2007 Overview: Overview: DEPRESS DISORDER-MILD Encounters Date Type Department Care Team Description 01/11/2024 11:20 AM CDT Nurse/Clinic Staff Only [address] [place] [address] Chest Pain (Walked in with chest pain) 01/10/2024 10:35 AM CDT Office Visit [address] [address] Jovanna Kline DO Physical (53 year old female); Medication Management 01/10/2024 9:40 AM CDT Ancillary Procedure [address] [address] Arrived 01/10/2024 Travel 01/07/2024 1:50 PM CDT Nurse/Clinic Staff Only [address] [address] Blood Pressure (140/71) 01/07/2024 Nurse Triage [address] [address] Jovanna Kline DO High Blood Pressure; Chest Pain 01/07/2024 Travel 01/03/2024 12:31 PM CDT - 01/03/2024 4:09 PM CDT Emergency [facility] [address] [place] [address] Rufus Eastman PA Nausea (Primary Dx); Sleep difficulties; Feeling unwell Discharge Disposition: Home Self Care 01/03/2024 12:20 PM CDT Office Visit [facility] [address] [place] [phone] UTI; Fast Heartbeat; Shortness Of Breath; Nausea; Weak 01/03/2024 Travel 12/30/2023 Telephone [facility] [address] [place] [address] Ju Maynard, Results 12/27/2023 1:35 PM CDT Office Visit [facility] [address] [place] [address] Ju Maynard, Urinary Problem (Bladder pain, lower back pain, started 3 days ago) 12/27/2023 Travel 12/14/[address] [address] Jovanna Kline DO Refill Request (Estradiol 0.01% vag cream) 11/24/2023 Telephone [facility] [address] [place] [address] Royer Malcolm MD Results 11/22/2023 1:25 PM CDT Office Visit [facility] [address] [place] [address] Royer Malcolm MD Urinary Problem (Took a home UTI test on 11/21/2023 and was POSITIVE. /Symptoms started about 2 weeks ago. Urgency frequency, up at night 3-4 times. Pressure pain, nausea. ) 11/22/2023 Travel 10/25/2023 Refill [facility] [address] [place] [address] Jovanna Kline DO Refill Request (Pregabalin) from Last 3 Months Immunizations Name Administration Dates Next Due DT (Age < 7 years) 12/31/2004 Influenza A (H1N1), Inactivated 07/05/2009,06/23 Influenza Virus, Unspecified 05/15/2013, 06/23/2010,04/23/2009,07/09/20 06,06/02/2004 Td (Age >=7 Years) 12/31/2004 Tdap 01/15/2016 Zoster (Shingrix-RZV, recombinant) 06/25/2020, Family History Medical History Relation Name Comments Alcoholism Brother Liver disease Brother Diabetes Father Lung cancer Father Cancer-breast Maternal Grandmother Obesity Mother Osteoarthritis Mother Other Mother back issues Cancer-pancreatic Paternal Grandfather Stroke Paternal Grandfather Cerebra l Art Occlusion Asthma Paternal Grandmother Diabetes Paternal Grandmother Relation Name Status Comments Brother Alive Father Alive Maternal Grandfather Maternal Grandmother Alive Mother Alive Paternal Grandfather Paternal Grandmother Alive Social History Tobacco Use Types Packs/Day Years Used Date Smoking Tobacco: Former Cigarettes Q uit: 10/21/2018 Smokeless Tobacco: Never Tobacco Cessation:Counseling Given: No Alcohol Use Standard Drinks/Week Comments Not Currently 2 (1 standard drink = 0.6 oz pur e alcohol) PHQ-2 Answer Date Recorded PHQ-2 TOTAL SCORE 4 01/10/2024 Social Connections Answer Date Recorded Frequency of Communication with Friends and Fami ly 0 12/27/2023 Financial Resource Strain Answer Date R ecorded Difficulty of Paying Living Expenses 3 12/27/2023 Difficulty of Paying Living Expenses Not on file 12/27/2023 Food Insecurity Answer Date Recorded Worried About Running Out of Food in the Last Ye ar 1 12/27/2023 Transportation Needs Answer Date Record ed Lack of Transportation (Medical) 1 12/27/2023 Housing Stability Answer Date Recorded Unable to Pay for Housing in the Last Year 1 12/27/2023 Sex and Gender Information Value Date Recorded Sex Assigned at Not on file Gender Identity Not on file Sexual Orientation Not on file Obstetrics History Para Term AB IAB SAB Ectopic Multiple Livin g Live Births 4 4 4 Date Outcome GA Total Labor Labor/2nd/3rd Weight Sex Delivery Anes PTL Jeimy A1 A5 Name Cl in Term Term Term Term Last Filed Vital Signs Vital Sign Reading Time Taken Comments Blood Pressure 157/80 01/11/2024 11:25 AM CDT Pulse 129 01/11/2024 11:25 AM CDT Temperature 37.2 ??C (98.9 ??F) 01/11/2024 11:25 AM C DT Respiratory Rate 24 01/03/2024 12:35 PM CDT Oxygen Saturation 98% 01/11/2024 11:25 AM CDT Inhaled Oxygen Concentration - - Weight 65.4 kg (144 lb 3.2 oz) 01/10/2024 10:45 AM CDT Height 157.2 cm (5' 1.89) 01/10/2024 10:45 AM C DT Body Mass Index 26.47 01/10/2024 10:45 AM CDT Plan of Treatment Upcoming Encounters Date Type Department Care Team (Late st Contact Info) Description 01/17/2024 8:15 AM CDT Nurse/Clinic Staff Only [facility] [address] [place] [address] Health Maintenance Due Date Last Done Comments Pap test for age 21-65 02/25/2023 02/25/2018, 2017 COVID-19 vaccine series (2022- season) 2023 Mammogram for age 45-75 06/19/2023 06/19/20 22, 04/30/2021, 04/29/2020, Additional history exists Influenza for age 50-64 04/09/2024 05/15/20 13, 06/23/2010, 07/05/2009, Additional history exists BMI (ht and wt on same day) for age 18+ 01/09/2025 01/10/2024, 04/21/2023, 09/02/2022, Additional history exists Depression screening for age 12+ 01/10/2025 01/11/2024, 01/10/2024, 12/03/2022, Additional history exists Tetanus booster 01/14/2026 01/15/2016, 12/31/2004 Fecal testing sDNA-FIT (Cologuard) for age 45-75 12/15/2026 12/16/2023, 05/23/2020 Lipids for age 45-75 01/09/2029 01/10/2024, 04/24/2020, 11/10/2018 Tdap Completed 01/15/2016 Zoster (shingles) series for age 50+ Completed 06/25/2020, 04/24/2020 HIV for age 15-65 Completed 12/03/2022 Hepatitis C screening for age 18-79 Completed 12/03/2022 Pneumococcal series for age 6-64 Aged Out No longer eligible based on patient's age to complete this topic Procedures Procedure Name Priority Date/Time Associated Diagnosis Comments T4,FREE Routine 01/10/2024 12:04 PM CDT Tachycardia LIPID PANEL W REFLEX MEASURED LDL Routine 01/10/2024 12:04 PM CDT Screening cholesterol level TSH WITH REFLEX Routine 01/10/2024 12:04 PM CDT Tachycardia UA W/ SEDIMENT EXAM REFLEXED PER CRITERIA Routine 01/10/2024 11:44 AM CDT Interstitial cystitis Recurrent UTI TROPONIN T (HS) ONE TIME Timed 01/03/2024 3:03 PM CDT COVID-19 MOLECULAR STAT 01/03/2024 2: 10 PM CDT XR CHEST 1 VIEW PORTABLE STAT 01/03/2024 1:14 PM CDT CBC WITH AUTO DIFFERENTIAL STAT 01/03/2024 12:56 PM CDT TROPONIN T (HS) ACUTE W/2HR REFLEX STAT 01/03/2024 12:56 PM CDT PROTIME-INR STAT 01/03/2024 12:56 PM CDT MAGNESIUM STAT 01/03/2024 12:56 PM CDT C-REACTIVE PROTEIN STAT 01/03/2024 12 :56 PM CDT LACTATE VENOUS Today 01/03/2024 12:56 PM CDT HEPATIC FUNCTION PANEL STAT 01/03/2024 12:56 PM CDT BASIC METABOLIC PANEL STAT 01/03/2024 12:56 PM CDT CBC WITH AUTO DIFFERENTIAL STAT 01/03/2024 12:56 PM CDT EKG 12 LEAD STAT 01/03/2024 12:43 PM CDT URINE CULTURE RADHA 01/03/2024 12:23 PM CDT URINE CULTURE STAT 01/03/2024 12:23 PM CDT Urinary tract infection symptoms UA W/ SEDIMENT EXAM REFLEXED PER CRITERIA STAT 01/03/2024 12:23 PM CDT Urinary tract infection symptoms URINALYSIS MICROSCOPIC Routine 12/27/2023 1:39 PM CDT Dysuria URINE CULTURE Routine 12/27/2023 1:39 PM CDT Dysuria UA W/ SEDIMENT EXAM REFLEXED PER CRITERIA Routine 12/27/2023 1:39 PM CDT Dysuria SDNA-FIT EXTERNAL (COLOGUARD) Routine 12/16/2023 7:40 AM CDT Screening for colorectal cancer URINE CULTURE Add On 11/22/2023 1:11 PM CDT Urinary tract infection symptoms UA W/ SEDIMENT EXAM REFLEXED PER CRITERIA Routine 11/22/2023 1:11 PM CDT Urinary tract infection symptoms LC HIV-1/O/2, 4TH GENERATION Routine 12/03/2022 12:00 PM CDT Screening for HIV (human immunodeficiency virus) LC HCV ANTIBODY RFX TO QUANT PCR Routine 12/03/2022 12:00 PM CDT Need for hepatitis C screening test XR MAMMO ERIKA BILAT SCREEN Routine 06/19/2022 4:01 PM CARGO BRACER Routine adult health maintenance RESEARCH CLERK THIN PREP PAP SCREEN IMAGED Routine 02/25/2018 4:56 PM CDT Screening for malignant neoplasm of cervix from Last 3 Months or Most Recently Relevant to Health Maintenance Results * (ABNORMAL) TSH WITH REFLEX (01/10/2024 12:04 PM CDT) TSH <0.01(L) 0.27 - 4.20 uIU/mL 01/11/2024 9:37 AM CDT [facility] Blood BLOOD SPECIMEN / Unknown Venipuncture / Unknown 01/10/2024 12:04 PM CDT 01/10/2024 12:05 PM CDT [facility] - 01/11/2024 9:37 AM CDT In Adults, TSH values between 5.00 and 10.00 uIU/ml do not necessarily indicate the presence of Hypothyroidism. Correlation with clinical findings such as presence of goiter and/or Thyroperoxidase (TPO) Antibody may be helpful. For more information please refer to SILVER 2004; 291: 228-238. Jovanna Kline DO CHEMISTRY [facility] [address] [place] [address], * LIPID PANEL W REFLEX MEASURED LDL (01/10/2024 12:04 PM CDT) CHOLESTEROL,TOTAL 171 100 - 199 mg/dL 01/11/2024 9:36 AM CDT [facility] Comment: Cholesterol, Total Reference Ranges Desirable <200 mg/dL Borderline 200-239 mg/dL High >=240 mg/dL TRIGLYCERIDES 116 <150 mg/dL 01/11/2024 9:36 AM CDT [facility] HDL CHOLESTEROL 64 >40 mg/dL 9:36 AM CDT [facility] NON-HDL CHOLESTEROL 107 <145 mg/dl 01/11/2024 9:36 AM CDT [facility] CHOL/HDL RATIO 2.67 <4.50 01/11/2024 9:36 AM CDT [facility] LDL CHOLESTEROL 84 <=130 mg/dL 01/11/2024 9:36 AM CDT [facility] VLDL CHOLESTEROL 23 <=30 mg/dL 01/11/2024 9:36 AM CDT [facility] PROVIDER ORDERED STATUS RANDOM 01/11/2024 9:36 AM CDT [facility] Blood BLOOD SPECIMEN / Unknown Venipuncture / Unknown 01/10/2024 12:04 PM CDT 01/10/2024 12:05 PM CDT [facility] Performing Organization Address [facility] Co de Phone Number [facility] [address] [place] [address], [place] * (ABNORMAL) T4,FREE (01/10/2024 12:04 PM CDT) T4,FREE 3.05(H) 0.93 - 1.70 ng/dL 01/11/2024 9:37 AM CDT [facility] Blood BLOOD SPECIMEN / Unknown Venipuncture / Unknown 01/10/2024 12:04 PM CDT 01/10/2024 12:05 PM CDT [facility] CHE[facility] Performing Organization Address [facility] Co de Phone Number [facility] [address] [place] [address], [place] * UA W/ SEDIMENT EXAM REFLEXED PER CRITERIA (01/10/2024 11:44 AM CDT) Only the most recent of4 resultswithin the time period is included. COLOR Yellow Yellow Color 01/10/2024 11:48 AM CDT [facility] CLARITY Clear Clear Clarity 01/10/2024 11:48 AM CDT [facility] SPECIFIC GRAVITY,URINE 1.010 1.010, 1.015, 1.020, 1.025 01/10/2024 11:48 AM CDT [facility] PH,URINE 7.0 6.0, 7.0, 8.0, 5.5, 6.5, 7.5, 8.5 01/10/2024 11:48 AM CDT [facility] UROBILINOGEN, QUALITATIVE Normal Normal EU/dl 01/10/2024 11:48 AM CDT [facility] PROTEIN, URINE Negative Negative mg/dL 01/10/2024 11:48 AM CDT [facility] GLUCOSE, URINE Negative Negative mg/dL 01/10/2024 11:48 AM CDT [facility] KETONES,URINE Negative Negative mg/dL 01/10/2024 11:48 AM CDT [facility] BILIRUBIN,URI NE Negative Negative 01/10/2024 11:48 AM CDT [facility] OCCULT BLOOD,URINE Negative Negative 01/10/2024 11:48 AM CDT [facility] NITRITE Negative Negative 01/10/2024 11:48 AM CDT [facility] LEUKOCYTE ESTERASE Negative Negative 01/10/2024 11:48 AM CDT [facility] Urine URINE SPECIMEN / Unknown Non-Blood / Unknown 01/10/2024 11:44 AM CDT 01/10/2024 11:45 AM CDT Jovanna Jeimy Duvallrudi DO URINE [facility] [address] [place] [address], * (ABNORMAL) TROPONIN T (HS) ONE TIME (01/03/2024 3:03 PM CDT) TROPONIN T HS 11(H) 6-10 ng/L ng/L 01/03/2024 3:25 PM CDT [facility] Blood BLOOD SPECIMEN / Unknown Butterfly / Unknown 01/03/2024 3:03 PM CDT 01/03/2024 3:06 PM CDT Rufus GONZALEZ CHEMISTRY [facility] [address] [place] [address] * COVID-19 MOLECULAR (01/03/2024 2:10 PM CDT) COVID 19 ALEJANDRO MOLECULAR Not detected Not detected 01/03/2024 2:34 PM CDT [facility] TESTING LABORATORY [facility] 01/03/2024 2:34 PM CDT [facility] Comment:Specimen submitted t o [facility] for testing. Other SPECIMEN FROM NASOPHARYNGEAL STRUCTURE / Unknown Non-Blood / Unknown 01/03/2024 2:10 PM CDT 01/03/2024 2:14 PM CDT Rufus GONZALEZ MICROBIOLOG Y [facility] [address] [place] [address] * XR CHEST 1 VIEW PORTABLE (01/03/2024 1:14 PM CDT) Anatomical Region Laterality Modality HEART, THORAX, CHEST Digital Rad iography 01/03/2024 1:44 PM CDT Impressions 01/03/2024 1:44 PM CDT No consolidation. Dictated by Dustin James MD @ 01/03/2024 1:44:01 PM (Electronically Signed) Narrative 01/03/2024 1:44 PM CDT For Patients: ??As a result of the Cures Act, medical imaging exams and procedure reports are released immediately into your electronic medical record. ??You may view this report before your referring provider. ??If you have questions, please contact your health care provider. INDICATION: Chest pain. TECHNIQUE: Chest 1 views. COMPARISON: January 2022. FINDINGS: Lungs: Normal lung volume. No consolidation. The tracheobronchial tree and hilar structures are unremarkable. Pleura: No pleural effusion or pneumothorax. Heart and Mediastinum: Normal heart size. The great vessels of the thorax are unremarkable. Bones: No acute displaced osseous process. Procedure Note Dustin James MD - 01/03/2024 For Patients: As a result of the Cures Act, medical imagingexams and procedure reports are released immediately into your electronicmedical record. You may view this report before your referring provider.If you have questions, please contact your health care provider. INDICATION: Chest pain. TECHNIQUE: Chest 1 views. COMPARISON: January 2022. FINDINGS: Lungs: Normal lung volume. No consolidation. The tracheobronchial tree andhilar structures are unremarkable. Pleura: No pleural effusion or pneumothorax. Heart and Mediastinum: Normal heart size. The great vessels of the thoraxare unremarkable. Bones: No acute displaced osseous process. IMPRESSION: No consolidation. Dictated by Dustin James MD @ 01/03/2024 1:44:01 PM (Electronically Signed) Rufus GONZALEZ [facility] * TROPONIN T (HS) ACUTE W/2HR REFLEX (01/03/2024 12:56 PM CDT) TROPONIN T HS 10 6-10 ng/L ng/L 01/03/2024 1:26 PM CDT [facility] Blood BLOOD SPECIMEN / Unknown Venipuncture / Unknown 01/03/2024 12:56 PM CDT 01/03/2024 1:00 PM CDT [facility] - 01/03/2024 1:26 PM CDT hs-cTnT (Elecsys Troponin T Gen 5) concentration (s) above the sex-specific 99th percentile (16 ng/L or greater for males or 11 ng/L or greater for females) are indicative of myocardial injury. If initial hs-cTnT <=100 ng/L at presentation, a 0h/2h ABSOLUTE (ng/L) delta change (rising or falling) of >=10 ng/L suggests a significant change, whereas a 0h/2h delta change <=3 ng/L suggests no significant change. If initial hs-cTnT >100 ng/L at presentation, a 0h/2h/ RELATIVE (percent, %) delta change of 20% is suggested to distinguish patients with acute vs. chronic myocardial injury. There are multiple etiologies that can cause hs-cTnT increases above the 99th percentile (myocardial injury) other than acute myocardial infarction. Clinical context and careful clinical evaluation are critical for diagnosis and risk-stratification. The diagnosis of acute myocardial infarction requires a rising and/or falling pattern in hs-cTnT concentrations with at least one value above the sex-specific 99th percentile PLUS at least one of the following clinical criteria: ischemic symptoms, new or presumed new significant ST-T wave changes or new LBBB, development of pathological Q waves, imaging evidence of new loss of viable myocardium or new regional wall motion abnormality, or identification of intracoronary atherothrombosis or an acute angiographic culprit on coronary angiography. In appropriate low-risk patients with a non-ischemic electrocardiogram without active chest pain with a symptom onset >3-hours without recurrence, a single initial hs-cTnT<6 ng/L identifies patient with a very low risk in emergency department patient population. Rufus GONZALEZ CHEMISTRY [facility] [address] [place] [address] * (ABNORMAL) CBC WITH AUTO DIFFERENTIAL (01/03/2024 12:56 PM CDT) WHITE BLOOD COUNT 11.1(H) 4.5 - 11.0 thou/cu mm 01/03/2024 1:03 PM [facility] RED BLOOD COUNT 5.61(H) 4.00 - 5.20 mil/cu mm 01/03/2024 1:03 PM [facility] HEMOGLOBIN 15.8 12.0 - 16.0 g/dL 01/03/2024 1:03 PM [facility] HEMATOCRIT 47.0 33.0 - 51.0 % 01/03/2024 1:03 PM [facility] MCV 84 80 - 100 fL 01/03/2024 1:03 PM [facility] MCH 28.2 26.0 - 34.0 pg 01/03/2024 1:03 PM [facility] MCHC 33.6 32.0 - 36.0 g/dL 01/03/2024 1:03 PM [facility] RDW 13.0 11.5 - 15.5 % 01/03/2024 1:03 PM [facility] PLATELET COUNT 277 140 - 440 thou/cu mm 01/03/2024 1:03 PM [facility] MPV 10.1 6.5 - 11.0 fL 01/03/2024 1:03 PM [facility] % NEUT 81.7 % 01/03/2024 1:03 PM [facility] % LYMPH 12.3 % 01/03/2024 1:03 PM [facility] % MONO 5.2 % 01/03/2024 1:03 PM [facility] % EOS 0.5 % 01/03/2024 1:03 PM [facility] % BASO 0.3 % 01/03/2024 1:03 PM [facility] ABSOLUTE NEUTROPHILS 9.1(H) 1.7 - 7.0 thou/cu mm 01/03/2024 1:03 PM [facility] ABSOLUTE LYMPHOCYTES 1.4 0.9 - 2.9 thou/cu mm 01/03/2024 1:03 PM [facility] ABSOLUTE MONOCYTES 0.6 <0.9 thou/cu mm 01/03/2024 1:03 PM [facility] ABSOLUTE EOSINOPHILS 0.1 <0.5 thou/cu mm 01/03/2024 1:03 PM [facility] ABSOLUTE BASOPHILS 0.0 <0.3 thou/cu mm 01/03/2024 1:03 PM [facility] [facility] Blood BLOOD SPECIMEN / Unknown Venipuncture / Unknown 01/03/2024 12:56 PM CDT 01/03/2024 1:00 PM CDT Rufus GONZALEZ HEMATOLOGY [facility] [address] [place] [address] * LACTATE VENOUS (01/03/2024 12:56 PM CDT) LACTATE,VENOUS 1.7 0.5 - 2.0 mmol/L 01/03/2024 1:24 PM T [facility] Blood BLOOD SPECIMEN / Unknown Venipuncture / Unknown 01/03/2024 12:56 PM CDT 01/03/2024 1:00 PM CDT Rufus GONZALEZ CHEMISTRY Performing Organization Address [facility] Co de Phone Number [facility] [address] [place] [address] * (ABNORMAL) C-REACTIVE PROTEIN (01/03/2024 12:56 PM CDT) C-REACTIVE PROTEIN 0.6(H) <0.5 mg/dL 01/03/2024 1:26 PM CDT [facility] Blood BLOOD SPECIMEN / Unknown Venipuncture / Unknown 01/03/2024 12:56 PM CDT 01/03/2024 1:00 PM CDT Rufus GONZALEZ CHEMISTRY Performing Organization Address [facility] de Phone Number [facility] [address] [place] [address] * PROTIME-INR (01/03/2024 12:56 PM CDT) Pathologist [facility] INR 1.1 <1.3 01/03/2024 1:27 PM CDT [facility] PROTIME 12.3 10.3 - 12.3 sec 01/03/2024 1:27 PM CDT [facility] Blood BLOOD SPECIMEN / Unknown Venipuncture / Unknown 01/03/2024 12:56 PM CDT 01/03/2024 1:00 PM CDT Narrative [facility] - 01/03/2024 1:27 PM CDT ?Therapeutic Range 2.0-3.0 for most anticoagulated patients 2.5-3.5 or 4.0 for high risk patients The INR is only used for patients on stable oral anticoagulant therapy. It makes no significant contribution to the diagnosis or treatment of patients whose Protime is prolonged for other reasons. INR results are increased when heparin levels exceed 1.0 U/mL, which corresponds to an aPTT >125 seconds if the patient is on UFH. Rufus GONZALEZ HEMATOLOGY Performing Organization Address City/[facility]/ZIP Co de Phone Number [facility] [address] [place] [address] * MAGNESIUM (01/03/2024 12:56 PM CDT) MAGNESIUM 1.6 1.6 - 2.6 mg/dL 01/03/2024 1:26 PM T [facility] Blood BLOOD SPECIMEN / Unknown Venipuncture / Unknown 01/03/2024 12:56 PM CDT 01/03/2024 1:00 PM CDT Rufus GONZALEZ CHEMISTRY Performing Organization Address [facility] Co de Phone Number [facility] [address] [place] [address] * (ABNORMAL) HEPATIC FUNCTION PANEL (01/03/2024 12:56 PM CDT) ALBUMIN 4.5 4.0 - 4.9 g/dL 01/03/2024 1:26 PM [facility] PROTEIN,TOTAL 7.5 6.0 - 8.0 g/dL 01/03/2024 1:26 PM [facility] BILIRUBIN,TOTAL 0.9 0.0 - 1.2 mg/dL 01/03/2024 1:26 PM [facility] BILIRUBIN,DIRECT 0.2 0.0 - 0.3 mg/dL 01/03/2024 1:26 PM [facility] BILIRUBIN,INDIRE CT 0.7 0.2 - 0.8 mg/dL 01/03/2024 1:26 PM [facility] ALK PHOSPHATASE 47 35 - 104 IU/L 01/03/2024 1:26 PM [facility] ALT (SGPT) 42(H) 10 - 35 IU/L 01/03/2024 1:26 PM [facility] AST (SGOT) 32 10 - 35 IU/L 01/03/2024 1:26 PM [facility] Blood BLOOD SPECIMEN / Unknown Venipuncture / Unknown 01/03/2024 12:56 PM CDT 01/03/2024 1:00 PM CDT Rufus GONZALEZ CHEMISTRY [facility] [address] [place] [address] * (ABNORMAL) BASIC METABOLIC PANEL (01/03/2024 12:56 PM CDT) SODIUM 138 136 - 145 mmol/L 01/03/2024 1:26 PM [facility] POTASSIUM 3.7 3.5 - 5.1 mmol/L 01/03/2024 1:26 PM [facility] CHLORIDE 102 98 - 107 mmol/L 01/03/2024 1:26 PM [facility] CO2,TOTAL 22 22 - 29 mmol/L 01/03/2024 1:26 PM [facility] ANION GAP 14 5 - 18 01/03/2024 1:26 PM [facility] GLUCOSE 148(H) 70 - 99 mg/dL 01/03/2024 1:26 PM [facility] CALCIUM 10.2(H) 8.6 - 10.0 mg/dL 01/03/2024 1:26 PM [facility] BUN 13 6 - 20 mg/dL 01/03/2024 1:26 PM [facility] CREATININE 0.63 0.50 - 0.90 mg/dL 01/03/2024 1:26 PM [facility] BUN/CREAT RATIO 21(H) 10 - 20 1:26 PM [facility] eGFR >90 >90 mL/min/1.7 3m2 01/03/2024 1:26 PM [facility] Comment:As of 2021, eG FR is calculated by the CKD-EPI creatinine equation without race adjustment. ??eGFR can be influenced by muscle mass, exercise, and diet. ??The reported eGFR is an estimation only and is only applicable if the renal function is stable. Blood BLOOD SPECIMEN / Unknown Venipuncture / Unknown 01/03/2024 12:56 PM CDT 01/03/2024 1:00 PM CDT Rufus GONZALEZ CHEMISTRY Performing Organization Address [facility] de Phone Number [facility] [address] [place] [address] * EKG 12 LEAD (01/03/2024 12:43 PM CDT) Pathologist [facility] Interpretation Normal sinus rhythm Normal ECG No previous ECGs available BEYOND NOW Ventricular Rate 96 BPM BEYOND NOW Atrial Rate 96 BPM BEYOND NOW P-R Interval 126 ms BEYOND NOW QRS Duration 64 ms BEYOND NOW QT 328 ms [facility]YOND NOW QTc 414 ms BEYOND NOW P Twining 65 degrees BEYOND NOW R Twining 46 degrees BEYOND NOW T Twining 51 degrees BEYOND NOW 01/03/2024 12:4 3 PM CDT 01/03/2024 6:48 PM CDT Rufus GONZALEZ EKG ORD Performing Organization Address [facility] Phone Number [place], [place] * URINE CULTURE (01/03/2024 12:23 PM CDT) Only the most recent of4 resultswithin the time period is included. Pathologist [facility] CULTURE No growth (<1,000 CFU/mL) 01/04/2024 2:03 PM CDT [facility] Urine URINE SPECIMEN / Unknown Non-Blood / Unknown 01/03/2024 12:23 PM CDT 01/03/2024 12:27 PM CDT Rufus GONZALEZ MICROBIOLOG Y Performing Organization Address [facility] Co de Phone Number [facility] [address] [place] [address], [place] * (ABNORMAL) URINALYSIS MICROSCOPIC (12/27/2023 1:39 PM CDT) RBC 0-2 0-2, None Seen /HPF 12/27/2023 1:53 PM CDT [facility] WBC 11-25(A) 0-2, 3-5, None Seen /HPF 12/27/2023 1:53 PM CDT [facility] BACTERIA Many(A) None Seen, Rare, Few Bacteria/H PF 12/27/2023 1:53 PM CDT [facility] EPITHELIAL CELLS Many(A) None Seen, Few Epi/HPF 12/27/2023 1:53 PM CDT [facility] Urine URINE SPECIMEN / Unknown Non-Blood / Unknown 12/27/2023 1:39 PM CDT 12/27/2023 1:46 PM CDT Ju Maynard DO URINE [facility] [address] [place] [address], * SDNA-FIT EXTERNAL (COLOGUARD) [[id number]] (12/16/2023 7:40 AM CDT) NONINV COLON CA DNA+OCC BLD SCRN STL-IMP Negative Negative 12/23/2023 5:48 PM CDT [facility] (CLIA #:[id number]) Comment: NEGATIVE TEST RESULT. A negative Cologuard result indicates a low likelihood that a colorectal cancer (CRC) or advanced adenoma (adenomatous polyps with more advanced pre-malignant features) ??is present. The chance that a person with a negative Cologuard test has a colorectal cancer is less than 1 in 1500 (negative predictive value >99.9%) or has an ??advanced adenoma is less than ??5.3% (negative predictive value 94.7%). These data are based on a prospective cross-sectional study of 10,000 individuals at average risk for colorectal cancer who were screened with both Cologuard and colonoscopy. (Radha Mehta al, N Engl J Med 2014;370(14):1286- 1297) The normal value (reference range) for this assay is negative. COLOGUARD RE-SCREENING RECOMMENDATION: Periodic colorectal cancer screening is an important part of preventive healthcare for asymptomatic individuals at average risk for colorectal cancer. ??Following a negative Cologuard result, the [place] [employer] and U.S. Multi-Society Task Force screening guidelines recommend a Cologuard re-screening interval of 3 years. References: [place] [employer] Guideline for Colorectal Cancer Screening: https://www.cancer.org/cancer/rntre-ohvdtf-kjaert/lzwrduriy-dcgihvcqf-xxpnelk/ac s-rec ommendations.html.; Bala DK, Fozia PITTS, Gonzalo HardinK, Colorectal Cancer Screening: Recommendations for Physicians and Patients from the U.S. Multi-Society Task Force on Colorectal Cancer Screening , Am J Gastroenterology 2017; 112:7264-1759. TEST DESCRIPTION: Composite algorithmic analysis of stool DNA-biomarkers with hemoglobin immunoassay. ?? Quantitative values of individual biomarkers are not reportable and are not associated with individual biomarker result reference ranges. Cologuard is intended for colorectal cancer screening of adults of either sex, 45 years or older, who are at average-risk for colorectal cancer (CRC). Cologuard has been approved for use by the U.S. FDA. The performance of Cologuard was established in a cross sectional study of average-risk adults aged 50-84. Cologuard performance in patients ages 45 to 49 years was estimated by sub-group analysis of near-age groups. Colonoscopies performed for a positive result may find as the most clinically significant lesion: colorectal cancer [4.0%], advanced adenoma (including sessile serrated polyps greater than or equal to 1cm diameter) [20%] or non- advanced adenoma [31%]; or no colorectal neoplasia [45%]. These estimates are derived from a prospective cross-sectional screening study of 10,000 individuals at average risk for colorectal cancer who were screened with both Cologuard and colonoscopy. (Radha Mehta al, N Engl J Med 2014;370(14):7919-7120.) Cologuard may produce a false negative or false positive result (no colorectal cancer or precancerous polyp present at colonoscopy follow up). A negative Cologuard test result does not guarantee the absence of CRC or advanced adenoma (pre-cancer). The current Cologuard screening interval is every 3 years. ([place] [employer] and U.S. Multi-Society Task Force). Cologuard performance data in a 10,000 patient pivotal study using colonoscopy as the reference method can be accessed at the following location: www.Fligoo.Fwd: Power/results. Additional description of the Cologuard test process, warnings and precautions can be found at www.cologuard.com. Stool specimen (specimen) (Rectum) 12/16/2023 7:40 AM CDT 12/17/2023 12:25 PM CDT Jovanna Kline URINE [facility] (CLIA #:[id number]) [place] [address], * LC HCV ANTIBODY RFX TO QUANT PCR (12/03/2022 12:00 PM CDT) Pathologist [facility] HCV Ab Non Reactive Non Reactive 12/05/2022 3:08 PM CDT [facility] ([facility]) Blood BLOOD SPECIMEN / Unknown Venipuncture / Unknown 12/03/2022 12:00 PM CDT 12/03/2022 12:02 PM CDT Narrative [facility] ([facility]) - 12/05/2022 3:08 PM CDT Performed at: ??01 - [address] ??[id number] Transmission Worker: Nelson Ruff MD, Phone: ??[phone] Justin GONZALEZ LABORATORY [facility] ([facility]) [address] [place] [address] * LC HIV-1/O/2, 4TH GENERATION (12/03/2022 12:00 PM CDT) Pathologist [facility] HIV Scr 4th Gen Non Reactive Non Reactive 12/05/2022 12:08 PM CDT [facility] ([facility]) Comment: HIV Negative HIV-1/HIV-2 antibodies and HIV-1 p24 antigen were NOT detected. There is no laboratory evidence of HIV infection. Blood BLOOD SPECIMEN / Unknown Venipuncture / Unknown 12/03/2022 12:00 PM CDT 12/03/2022 12:02 PM CDT Narrative [facility] ([facility]) - 12/05/2022 12:08 PM CDT Performed at: ??01 - [facility] [address] [place] [address] ??[phone] Transmission Worker: Nelson Ruff MD, Phone: ??[phone] Justin GONZALEZ LABORATORY [facility] ([facility]) [facility] [place] [address], * XR MAMMO ERIKA BILAT SCREEN (06/19/2022 4:01 PM CAR[facility]) Anatomical Region Laterality Modality BREASTS, Breast Left, Breast Right Bilateral Mammography Impressions 06/22/2022 4:20 PM CAR[facility]ER ??There is no radiographic evidence for malignancy. ??Recommend annual mammograms. MAMMOGRAM ASSESSMENT: ??ACR 1 Negative PATIENTS: You will also receive a letter with your examination results in an easy to read format. ??If you have questions about your results, please contact your referring provider. Narrative 06/22/2022 4:20 PM [facility] For Patients: As a result of the 21st Century Cures Act, medical imaging exams and procedure reports are released immediately into your electronic medical record. You may view this report before your referring provider. If you have questions, please contact your health care provider. XR MAMMO ERIKA BILAT SCREEN [[id number]] CLINICAL HISTORY: ??This is an asymptomatic 52 y.o. patient. INDICATION FOR EXAM: Mammogram Screening. TECHNIQUE: CC & MLO views were obtained. ??This study was evaluated with the assistance of Computer-Aided Detection. Breast Tomosynthesis was used in interpretation. COMPARISON FILM: Yes 04/30/21 [employer] 04/29/20 [employer] FINDINGS: ??The breasts are heterogeneously dense, which may obscure small masses. There are no dominant masses, suspicious micro calcifications or areas of architectural distortion. Jovanna Kline DO MAMMO * RESEARCH CLERK THIN PREP PAP SCREEN IMAGED [[id number]] (02/25/2018 4:56 PM CDT) Case Report Gynecologic Cytology Report ? Case: [id number] ? Authorizing Provider: ??Myriam Patel, ??Collected: ? 02/25/2018 1656 ? PA ? Ordering Location: ? [facility] ?? Received: ?02/25/2018 1703 ? Clinic ? First Screen: ?Darian, Killian ? Pathologist: ? Kamila Wasserman DO ? Specimen: ?RESEARCH CLERK ThinPrep Vial Screening, Cervical ? 03/09/2018 7:14 AM CDT [facility]-C ENTRAL LABORATORY INTERPRETATION/ RESULT NEGATIVE FOR INTRAEPITHELIAL LESION OR MALIGNANCY (NIL) (none) 03/09/2018 7:14 AM CDT [facility]-C ENTRAL LABORATORY IMEN ADEQUACY Satisfactory for evaluation 03/09/2018 7:14 AM CDT [facility]-C ENTRAL LABORATORY HPV REQUEST HPV and PAP 03/09/2018 7:14 AM CDT [facility]-C ENTRAL LABORATORY Date of LMP s/p hysterectomy 018 7:14 AM CDT [facility]-C ENTRAL LABORATORY Last Pap Date 200903/09/2018 7:14 AM CDT [facility]-C ENTRAL LABORATORY Last Pap Result First Pap/Unknown 7:14 AM CDT [facility]-C ENTRAL LABORATORY Abnormal Pap or Dana Bx in last 5 years No 03/09/2018 7:14 AM CDT [facility]-C ENTRAL LABORATORY Menstrual Status Postmenopausal 03/09/2018 7:14 AM CDT [facility]-C ENTRAL LABORATORY Dana Bx Done Today No 03/09/2018 7:14 AM CDT [facility]-C ENTRAL LABORATORY Additional Information None given 03/09/2018 7:14 AM CDT [facility]-C ENTRAL LABORATORY Automated Review Successful 03/09/2018 7:14 AM CDT [facility] Comment:Specimen processed s uccessfully by automated lead shipper device, ThinPrep Imaging System, [employer] ANCILLARY TESTING RESEARCH CLERK HPV Ordered, Please see separate report 03/09/2018 7:14 AM CDT [facility] Note The pap test is a screening technique, not a diagnostic procedure. ??It is used primarily to screen for squamous cancers and precursor lesions. ??Published studies have shown that it is subject to both false negative and false positive results. ??The pap test should not be used as the sole means to diagnose or exclude pre-malignant and malignant lesions. Cytology is screened and interpreted at [facility] - [address], [place] [address] and [facility] - [address]; [place] [address] and [facility] - [address]; [place] [address] and [facility] [address]; [place] [address] 03/09/2018 7:14 AM CDT [facility] Other (Cervical) Non-Blood / Unknown 02/25/2018 4:56 PM CDT 02/25/2018 5:03 PM CDT Myriam GONZALEZ PATHOLOGY/CYT OLOG[facility] [address] [place] [address], [place] from Last 3 Months or Most Recently Relevant to Health Maintenance Care Teams Vp Account Director Relationship Specialty Start Date End Date Jovanna Kline DO [facility] [place], [place] [id number] PCP - General Family Practice 09/02/22 Jolly Calabrese PA Physician Math Specialist 10/23/21
--- OUTSIDE RECORDS SUMMARY | 2024-01-11 12:55 | XMS_ITS | Data Portability ---
Author Organization [facility], [facility] Address [address] [place] [address] Care Team Providers Care Photo Tech Name Role Phone MONICA CAO Primary Care Provider Assessment No assessment recorded. Plan of Treatment Reminders Order Date Submit Date Provider Last Modified By Organization Details Last Modified Time Details Appointments None recorded. Lab urinalysi s, dipstick 2022 023 [facility], [address], [address], [place], [address], 3 15:54:11 urinalysi s, microscop ic 2022 023 [facility], [address], [address], [place], [address], 4 05:01:52 culture, urine 2022 023 [facility], [address], [address], [place], [address], 3 11:21:33 urinalysi s, dipstick 2022 023 [facility], [address], [address], [place], [address], 3 16:23:41 culture, urine 2022 023 [facility], [address], [address], [place], [address], 3 15:46:03 infectiou s disease panel 2022 023 [email or web address] [facility], [address] [facility], [address], [place], [address], 15:19:39 Referral [email or web address] logy physical therapy referral - Please call patient to schedule Pelvic Floor Physical Therapy. Thank you 2022 023 [facility], [address], [place], [address], 3 14:20:24 Procedures None recorded. Surgeries None recorded. Imaging US, renal 2022 023 [facility], [address] [place], [address], 3 11:12:02 Medication Orders compounde d medicatio n 2022 023 [facility], [address] [place] [address], [address], [place], [place], [id number], 3 20:38:35 nitrofura ntoin macrocrys андрей 50 mg capsule 2022 023 [id number], [address], [place], [id number], 3 16:54:58 Patient TargetsNo targets recorded. Patient Instructions Encounter Date Encounter Id Patient Instructions Last Modified By Organization Details Last Modified Time 04/05/2023 [id number] cystoscopy negative fu with Kierra as needed for pelvic pain/rUTIs/GSM. [email or web address] Not available 03/31/2023 15:40:43 01/14/2023 [id number] Recurrent UTIs: -Discussed recurrent UTIs and gave handout. -Symptomatic of infection today. Will do standard urine culture and PCR testing for atypicals. Will do this on straight cath specimen. UA with no infection so will treat according to cultures. -Discussed prophylactic antibiotics to break cycle of infection. We still start low-dose antibiotic x 3 months. Recommended nitrofurantoin 50mg daily as she gets yeast infections with keflex. -Continue vaginal estrogen three times per week at night. -Discussed cranberry tablets and probiotics. -Taking D-mannose -Will obtain renal US to evaluate for nidus for infection Pelvic pain/myalgia of pelvic floor: -History of IC. Has seen many urologists previously. -Has been on amitriptyline, thinks this made it more difficult to empty bladder so stopped this. Using hydroxyzine. -Discussed vaginal valium, has done this previously with benefit so Rx sent to pharmacy. -Discussed heating pads, hot tub soaks -Avoid bladder irritants, adequate fluids -Previously did hydrodistention and PTNM -Recommend resuming PFPT. Has session set up in 2 weeks. May need new referral so this was placed. -Has not had cysto for at least 15 years so will have her see Dr. Arreguin for cysto. [email or web address] Not available 01/14/2023 17:02:42 Reason for Referral Urogynecology Physical Thera py Referral for Myalgia of pelvic floor Please call patient to schedule Pelvic Floor Physical Therapy. Thank you Referring Physician: Ruchi Plaza, Urology, Encounter Date: 01/14/2023 Results Created Date Observation Date Name Description Value Unit Range Abnormal Flag LastModifiedBy Organization Detail LastModifiedTime 01/15/2001/14/2023 UA WITHO UT MICRO - CS URISC AN blood - uriscan NEGATI VE negati ve Not Available [facility] [address] [facility] [address], [place], [address], 01/14/2023 16:23:41 01/15/20 23 01/14/2023 UA WITHO UT MICRO - CS URISC AN bilirubin - uriscan NEGATI VE mg/dL negati ve Not Available [facility] [address] [facility] [address], [place], [address], 01/14/2023 16:23:41 01/15/20 23 01/14/2023 UA WITHO UT MICRO - CS URISC AN urobilinogen - uriscan NORMAL mg/dL normal Not Available [facility] [address] [place] [address] [address], [place], [address], 01/14/2023 16:23:41 01/15/20 23 01/14/2023 UA WITHO UT MICRO - CS URISC AN ketones - uriscan NEGATI VE mg/dL negati ve Not Available [facility] [address] [place] [address] [address], [place], [address], 01/14/2023 16:23:41 01/15/20 23 01/14/2023 UA WITHO UT MICRO - CS URISC AN protein - uriscan NEGATI VE mg/dL negati ve Not Available [facility] [address] [place] [address] [address], [place], [address], 01/14/2023 16:23:41 01/15/20 23 01/14/2023 UA WITHO UT MICRO - CS URISC AN nitrites - uriscan NEGATI VE negati ve Not Available [facility] [address] [place] [address] [address], [place], [address], 01/14/2023 16:23:41 01/15/20 23 01/14/2023 UA WITHO UT MICRO - CS URISC AN glucose - uriscan NEGATI VE mg/dL negati ve Not Available [facility] [address] [place] [address] [address], [place], [address], 01/14/2023 16:23:41 01/15/20 23 01/14/2023 UA WITHO UT MICRO - CS URISC AN pH - uriscan 5.50 5.00-9 .00 Not Available [facility] [address] [place] [address] [address], [place], [address], 01/14/2023 16:23:41 01/15/20 23 01/14/2023 UA WITHO UT MICRO - CS URISC AN sp. gravity - uriscan 1.01 1.01-1 .03 Not Available [facility] [address] [facility] [address], [place], [address], 01/14/2023 16:23:41 01/15/20 23 01/14/2023 UA WITHO UT MICRO - CS URISC AN leukocytes - uriscan NEGATI VE negati ve Not Available [facility] [address] [facility] [address], [place], [address], 01/14/2023 16:23:41 01/15/20 23 01/14/2023 UA WITHO UT MICRO - CS URISC AN color - uriscan YELLOW lt. yellow ;yello w Not Available [facility] [address] [facility] [address], [place], [address], 01/14/2023 16:23:41 01/15/20 23 01/14/2023 UA WITHO UT MICRO - CS URISC AN clarity - uriscan CLEAR clear Not Available [facility] [address] [facility] [address], [place], [address], 01/14/2023 16:23:41 01/15/20 23 01/14/2023 UA WITHO UT MICRO - CS URISC AN total urine volume (mL) 60 /mL Not Available [facility] [address] [facility] [address], [place], [address], 01/14/2023 16:23:41 01/15/20 23 01/14/2023 URINE CULTU RE final report MICROB IOLOGY RESULT S abnormal Not Available [facility] [address] [facility] [address], [place], [address], 01/17/2023 15:46:03 04/05/20 23 04/05/2023 UA WITHO UT MICRO - CS URISC AN blood - uriscan NEGATI VE negati ve Not Available [facility] [address] [facility] [address], [place], [address], 04/05/2023 15:54:11 04/05/20 23 04/05/2023 UA WITHO UT MICRO - CS URISC AN bilirubin - uriscan NEGATI VE mg/dL negati ve Not Available [facility] [address] [facility] [address], [place], [address], 04/05/2023 15:54:11 04/05/20 23 04/05/2023 UA WITHO UT MICRO - CS URISC AN urobilinogen - uriscan NORMAL mg/dL normal Not Available [facility] [address] [facility] [address], [place], [address], 04/05/2023 15:54:11 04/05/20 23 04/05/2023 UA WITHO UT MICRO - CS URISC AN ketones - uriscan NEGATI VE mg/dL negati ve Not Available [facility] [address] [facility] [address], [place], [address], 04/05/2023 15:54:11 04/05/20 23 04/05/2023 UA WITHO UT MICRO - CS URISC AN protein - uriscan NEGATI VE mg/dL negati ve Not Available [facility] [address] [facility] [address], [place], [address], 04/05/2023 15:54:11 04/05/20 23 04/05/2023 UA WITHO UT MICRO - CS URISC AN nitrites - uriscan NEGATI VE negati ve Not Available [facility] [address] [facility] [address], [place], [address], 04/05/2023 15:54:11 04/05/20 23 04/05/2023 UA WITHO UT MICRO - CS URISC AN glucose - uriscan NEGATI VE mg/dL negati ve Not Available [facility] [address] [facility] [address], [place], [address], 04/05/2023 15:54:11 04/05/20 23 04/05/2023 UA WITHO UT MICRO - CS URISC AN pH - uriscan 5.50 5.00-9 .00 Not Available [facility] [address] [facility] [address], [place], [address], 04/05/2023 15:54:11 04/05/20 23 04/05/2023 UA WITHO UT MICRO - CS URISC AN sp. gravity - uriscan <=1.01 1.01-1 .03 Not Available [facility] [address] [place] [address] [address], [place], [address], 04/05/2023 15:54:11 04/05/20 23 04/05/2023 UA WITHO UT MICRO - CS URISC AN leukocytes - uriscan NEGATI VE negati ve Not Available [facility] [address] [place] [address] [address], [place], [address], 04/05/2023 15:54:11 04/05/20 23 04/05/2023 UA WITHO UT MICRO - CS URISC AN color - uriscan YELLOW lt. yellow ;yello w Not Available [facility] [address] [facility] [address], [place], [address], 04/05/2023 15:54:11 04/05/20 23 04/05/2023 UA WITHO UT MICRO - CS URISC AN clarity - uriscan CLEAR clear Not Available [facility] [address] [facility] [address], [place], [address], 04/05/2023 15:54:11 04/05/20 23 04/05/2023 UA WITHO UT MICRO - CS URISC AN total urine volume (mL) 100 /mL Not Available [facility] [address] [place] [address] [address], [place], [address], 04/05/2023 15:54:11 04/05/20 23 04/05/2023 URINE CULTU RE final report MICROB IOLOGY RESULT S Not Available [facility] [address] [place] [address] [address], [place], [address], 04/07/2023 11:21:33 01/07/20 23 10/16/2021 CT, abdom en + pelvi s, w/o contr ast No observ ation record ed. [email or web address] Not Available 01/06/2023 12:36:55 01/07/20 23 03/05/2022 US, abdom en, limit ed No observ ation record ed. [email or web address] Not Available 01/06/2023 12:36:55 01/19/20 23 01/18/2023 US, renal No observ ation record ed. [email or web address] [facility] [address], [place], [address], 01/18/2023 12:50:36 Result Notes None recorded. Procedures Surgical History Date Name Laterality Status Provider Name and Address Organization Details Recorded Time 04/05/20 23 Cystoscopy- female completed Nona Arreguin MD [address] [place] [address],[address], [address], [facility] 03/31/2023 15:39:24 04/05/20 23 In and Out Catheterization- female completed Nona Arreguin MD [address] [place] [address],[address], [place], [address], [facility] 04/05/2023 15:44:49 01/15/20 23 Past Data Reviewed completed LISA IYER [address] [place] [address],[address], [place], [address], [facility] 01/13/2023 14:23:39 01/15/20 23 In and Out Catheterization- female completed LISA IYER [address] [place] [address],[address], [place], [address], [facility] 01/14/2023 16:59:22 08/10/19 20 Oncology colorectal scr completed Not Available Health Note 01/13/2023 16:55:40 08/10/19 10 Occult blood feces completed Not Available Health Note 01/13/2023 16:55:40 Cystoscopy completed Not Available Health Note 0 01/13/2023 16:55:40 delivery completed Not Available Health Note 01/13/2023 16:55:40 Partial hysterectomy completed Not Available Health Note 01/13/2023 16:55:40 Imaging Results Imaging Date Name Status LastModified by Organiz ation Details LastModified Time 10/16/2021 CT, abdomen + pelvis, w/o contrast completed Information not available 01/06/2023 12:36:55 03/05/2022 US, abdomen, limited completed Information not available 01/06/2023 12:36:55 01/18/2023 US, renal completed [email or web address] [address] [place], [address], 01/18/2023 12:50:36 Procedure Notes None recorded. Medical Equipment None Reported. Allergies No known drug allergies Medications Name Sig Start Date Stop Date Status Note LastModified by Organization Details LastModified Time compounded medication 1 Supp per vagina QHS at bedtime 2022 active Not Available Not Available Not Avai lable cyclobenzap rine 10 mg tablet active Not Available Not Available Not Available amoxicillin 500 mg capsule TAKE 2 CAPSULES BY MOUTH TO START THEN 1 CAPSULE EVERY 8 HOURS UNTIL ALL TAKEN 01/14 completed Not Available Not Available Not Available clotrimazol e 10 mg fam DISSOLVE 1 LOZENGE IN MOUTH FIVE TIMES DAILY FOR 14 DAYS active Not Available Not Available No t Available bupropion HCl SR 150 mg tablet,12 hr sustained-r elease active Not Available Not Available Not Available nitrofurant oin macrocrysta l 50 mg capsule TAKE 1 CAPSULE BY MOUTH EVERY DAY active Not Available Not Available No t Available ketoconazol e 2 % shampoo WASH LEG AND TRUNK IN THE SHOWER 3-4X WEEKLY LATHER AND LET SIT FOR SEVERAL MINUTES BEFORE RINSING active Not Available Not Available No t Available amitriptyli ne 75 mg tablet active Not Available Not Available Not Available nystatin 100,000 unit/gram topical ointment APPLY TOPICALLY TO THE AFFECTED AREA TWICE DAILY active Not Available Not Available No t Available fluconazole 150 mg tablet TAKE 1 TABLET BY MOUTH FOR 1 DOSE. REPEAT IN 3 DAYS IF NEEDED active Not Available Not Available No t Available valacyclovi r 1 gram tablet active Not Available Not Available Not Available ondansetron HCl 8 mg tablet active Not Available Not Available Not Available ondansetron HCl 4 mg tablet active Not Available Not Available Not Available ciprofloxac in 250 mg tablet 01/14 completed Not Available Not Available Not Available peg-electro lyte solution 420 gram oral solution active Not Available Not Available Not Available liothyronin e 5 mcg tablet TAKE 2 TABLETS BY MOUTH EVERY MORNING AND 1 TABLET EVERY EVENING ON AN EMPTY STOMACH active Not Available Not Available No t Available amitriptyli ne 50 mg tablet active Not Available Not Available Not Available triamcinolo ne acetonide 0.1 % topical cream APPLY THIN LAYER TO AFFECTED AREA ON TRUNK AND LEGS TWICE A DAY FOR 2 WEEKS AT A TIME , TAKE A 2 WEEK BREAK. REPEAT NEEDED FOR FLARES active Not Available Not Available No t Available oxycodone-a cetaminophe n 5 mg-325 mg tablet TAKE 1 TABLET BY MOUTH DAILY NEEDED FOR SEVERE PAIN active Not Available Not Available No t Available amoxicillin 875 mg tablet 01/14 completed Not Available Not Available Not Available famotidine 20 mg tablet active Not Available Not Available Not Available amitriptyli ne 25 mg tablet TAKE 1 TABLET BY MOUTH AT BEDTIME FOR 1 WEEK. THEN INCREASE TO 2 TABLETS BY MOUTH AT BEDTIME THEREAFTE R active Not Available Not Available No t Available amitriptyli ne 10 mg tablet active Not Available Not Available Not Available phenazopyri dine 100 mg tablet TAKE 1 TABLET BY MOUTH THREE TIMES DAILY AFTER MEALS FOR 3 DAYS active Not Available Not Available No t Available cephalexin 500 mg capsule 01/14 completed Not Available Not Available Not Available nortriptyli ne 10 mg capsule active Not Available Not Available Not Available conjugated estrogens 0.625 mg/gram vaginal cream ESTROGEN CREAM 3 times a week active Not Available Not Available No t Available gabapentin 300 mg capsule active Not Available Not Available Not Available hydroxyzine HCl 25 mg tablet active Not Available Not Available Not Available estradiol 0.01% (0.1 mg/gram) vaginal cream USE A PEA SIZED AMOUNT ON LABIA AT BEDTIME active Not Available Not Available No t Available ondansetron 4 mg disintegrat ing tablet active Not Available Not Available N ot Available progesteron e micronized 100 mg capsule TAKE 1 CAPSULE BY MOUTH EVERY EVENING active Not Available Not Available No t Available oxycodone 5 mg tablet active Not Available Not Available No t Available nitrofurant oin monohydrate /macrocryst als 100 mg capsule TAKE 1 CAPSULE BY MOUTH EVERY 12 HOURS FOR 5 DAYS active Not Available Not Available No t Available pregabalin 150 mg capsule active Not Available Not Available Not Available testosteron e 25mg of 1% 1/day active Not Available Not Available No t Available progesteron e 150 1/day active Not Available Not Available No t Available liothyronin e 5mcg 2 in the am 1 in pm active Not Available Not Available No t Available Vitals Date Recorded Body weight Body mass index (BMI) Body height Provider Name and Address Organization Details Last Updated DateTime 01/14/2023 92716.94249 14184 g 26.5 kg/m2 157.48 cm Not Available Health Note 01/14/2023 16:11:29 Social History Question Answer Notes LastModified by Organizat ion Details LastModified Time Tobacco Smoking Status Former Smoker Not Available Health Note 01/13/2023 16:55:41 What Is Your Level Of Alcohol Consumption? Occasional [email or web address] Information not available 01/13/2023 What Is Your Level Of Caffeine Consumption? Occasional [email or web address] Information not available 01/13/2023 How Much Tobacco Do You Chew? None [email or web address] Information not available 01/13/2023 Do You Or Have You Ever Used E-cigarettes Or Vape? Former User Of Electronic Cigarettes [email or web address] Information not available 01/13/2023 When Did You Quit Smoking? 1-5yearssincel astcikeeley [email or web address] Information not available 01/14/2023 Number Of Pregnancies 4 [email or web address] Information not available 01/13/2023 Number Of Vaginal Deliveries 3 [email or web address] Information not available 01/13/2023 Number Of Caesarean Sections 1 [email or web address] Information not available 01/13/2023 Could You Be ? No [email or web address] Information not available 01/13/2023 What Was The Date Of Your Most Recent Tobacco Screening? 01/14/2023 [email or web address] Information not available 01/13/2023 What Is Your Relationship Status? [email or web address] Information not available 01/13/2023 Are You Sexually Active? Yes [email or web address] Information not available 01/13/2023 Do You Or Have You Ever Used Smokeless Tobacco? Never Used Smokeless Tobacco [email or web address] Information not available 01/13/2023 Do You Use Any Illicit Or Recreational Drugs? No [email or web address] Information not available 01/13/2023 How Many Years Have You Smoked Tobacco? 15 [email or web address] Information not available 01/13/2023 Sex: Female Functional Status None recorded. Mental Status None recorded. Family History Relationship Description Onset Age of this Age Resolved Age Notes Maternal Grandmother Family history of breast cancer Father Family history of diabetes mellitus Unspecified Relation Family history of neoplasm of ovary Medical History Condition Response Diabetes N Sexually Transmitted Infection Y Bleeding Disorder N High Blood Pressure N Kidney Stones N Cancer N Depression Y Lung Disease N High Cholesterol N GERD/Acid Reflux N Heart Disease N Gynecological History Statement/Question Response Irregular periods N Leaking urine with intercourse N Heavy periods N Sexually Active? Y Pain with intercourse Y Obstetrics History GPAL:G 0 P 0 0 0 0 Immunizations Vaccine Type Date Status Provider Name and Address Organization Details Recorded Time zoster recombinant 04/24/2020 completed Raven Villanueva [facility] 01/14/2023 16:12:49 zoster recombinant 06/25/2020 completed Raven Villanueva [facility] 01/14/2023 16:12:49 Past Encounters Encounter ID Performer Location Encounter Start Date Encounter Closed Date Diagnosis/Indication Diagnosis SNOMED-CT Code [id number] LISA IYER [address] [address] 01/14/2023 16:10:00 01/14/2023 17:10:08 Recurrent urinary tract infection [id number] Pelvic and perineal pain [id number] Myalgia of pelvic floor [id number] Nona Arreguin MD [facility] [address] [place] [id number] 04/05/2023 15:26:30 04/05/2023 15:52:22 Pelvic and perineal pain [id number] Myalgia of pelvic floor [id number] Chronic cystitis [id number] 2 Health Concerns Section Related Observation LastModified by Organization Detai ls LastModified Time None Recorded Concern Status LastModified by Organization Details LastModified Time None Recorded Advance Directives Directive None Recorded Payers Encounter Date Sequence Insurance Name Policy Number Policy Abrams Covered Member ID Abrams Member ID Guarantor Name 04/05/2023 1 [employer] [id number] Vince Newman [id number] Kailey Newman 01/14/2023 1 [facility] [id number] Vince Newman [id number] Kailey Newman Notes Date Note Type Note Provider Name and Address Organization Details Recorded Time 01/14/2023 text/html HPI Notes: Vin washburn seen today for recurrent UTI's. Thinks she has an infection today. Pain in flanks, urgency, going 30 times per day. Pain with urination. Usually uses medical marijuana which can help Pain in her back is not new and continues to be at 6/10 Recently stopped amitriptyline because she thought she couldn't empty her bladder while taking this. History of IC - diagnosed in [place]. No scope recently. Last one at least 15 years ago Symptoms with UTI: urgency and pain Improves with antibiotics: yes History of kidney stones: no Previous abdominal surgeries: oopherectomy, , cyst removal Takes vaginal estrogen cream 3 times per week Has seen ID and he said he didn't know if she has ever had a true infection as it is always the same infection. Sexually active: yes - occasionally has dyspareunia Has not done PFPT lately. Seems to help. Has session set up in 2 weeks again Fluids: 6-8 glasses per day Constipation: occasional Has done hydrodistention (15 years ago) Has done PTNM before Has done abx instillations in her bladder for her UTI's in the past Has recurrent yeast infections and C. diff previously for infections Urine testin11/28/22: >100k E. coli (pansensitive) 11/18/22: 50-100k Coli (pansensitive) 09/02/22: >100k E. coli (pansensitive) Imagin10/15/21: CT w/o Kidney/ureters: Kidneys are normal in caliber. No kidney or ureteral stones and no hydronephrosis. No sign of perinephric inflammation. Ureters are normal in caliber. Cr 0.86 Urogenital Distress Inventory (HENRY-6): 6 Incontinence Impact Questionnaire (IIQ-7): 0 LISA IYER [address] [place] [address],[address], [place], [address], [facility] 01/14/2023 17:02:53 04/05/2023 text/html HPI Notes: Vin washburn seen today for recurrent UTI's. Thinks she has an infection today. Pain in flanks, urgency, going 30 times per day. Pain with urination. Usually uses medical marijuana which can help Pain in her back is not new and continues to be at 6/10 Recently stopped amitriptyline because she thought she couldn't empty her bladder while taking this. History of IC - diagnosed in [place]. No scope recently. Last one at least 15 years ago Symptoms with UTI: urgency and pain Improves with antibiotics: yes History of kidney stones: no Previous abdominal surgeries: oopherectomy, , cyst removal Takes vaginal estrogen cream 3 times per week Has seen ID and he said he didn't know if she has ever had a true infection as it is always the same infection. Sexually active: yes - occasionally has dyspareunia Has not done PFPT lately. Seems to help. Has session set up in 2 weeks again Fluids: 6-8 glasses per day Constipation: occasional Has done hydrodistention (15 years ago) Has done PTNM before Has done abx instillations in her bladder for her UTI's in the past Has recurrent yeast infections and C. diff previously for infections Urine testin11/28/22: >100k E. coli (pansensitive) 11/18/22: 50-100k Coli (pansensitive) 09/02/22: >100k E. coli (pansensitive) Imagin10/15/21: CT w/o Kidney/ureters: Kidneys are normal in caliber. No kidney or ureteral stones and no hydronephrosis. No sign of perinephric inflammation. Ureters are normal in caliber. Cr 0.86 Urogenital Distress Inventory (HENRY-6): 6 Incontinence Impact Questionnaire (IIQ-7): 0 04-05-23 here for cysto IC and UTIs CT neg on extrogren cream doing PT was on elavil --stopped Nona Arreguin MD [address] [facility],[address], [place], [address], [place] [facility] 04/05/2023 15:45:43 OBGyn Episode No OBEpisode recorded.
[2024-01-11 13:11] LABS: Amphetamine Screen Urine Negative (Negative); Barbiturate Screen Urine Negative (Negative); Benzodiazepines Screen Urine Negative (Negative); Cannabinoid Screen Urine POSITIVE (Negative); Cocaine Screen Urine Negative (Negative); Methadone Screen Urine Negative (Negative); Methamphetamines Screen Urine Negative (Negative); Opiate Screen Urine Negative (Negative); Oxycodone Screen Urine POSITIVE (Negative); Phencyclidine Screen Urine Negative (Negative); Tricyclic Antidepressant Urine POSITIVE (Negative)
[2024-01-11 13:26] LABS: Troponin, Point-of-Care* 0.01 ng/ml (0.01-0.04)
[2024-01-11 13:36] LABS: Chloride* 104 mmol/L (96-114); INR 0.98 (0.91-1.10); Partial Thromboplastin Time* 30 Seconds (23-33); Potassium* 3.9 mmol/L (3.6-5.1); Prothrombin Time 13.6 Seconds; Sodium* 140 mmol/L (135-149)
[2024-01-11] MEDS: 0.9 % SODIUM CHLORIDE 1000 ml 1,000 ML IV (13:36)
[2024-01-11 13:39] LABS: Anion Gap 10 mEq/L (7-15); Blood Urea Nitrogen* 12 mg/dL (7-30); Carbon Dioxide* 26 mmol/L (20-32); Creatinine* 0.6 mg/dL (0.5-1.5); Estimated Glomerular Filt Rate 107 ml/min
[2024-01-11 13:40] LABS: Calcium* 9.9 mg/dL (8.4-10.6); Glucose* 94 mg/dL (60-115)
[2024-01-11 13:44] LABS: D Dimer Quantitative* 0.22 ug/ml (0.00-0.50)
[2024-01-11 14:09] LABS: Basophils Absolute Auto 0.03 K/uL (0.00-0.30); Basophils Percent Auto 0.3 % (0.0-3.0); Eosinophils Absolute Auto 0.07 K/uL (0.00-0.50); Eosinophils Percent Auto 0.7 % (0.0-7.0); Hematocrit 43.7 % (33.0-51.0); Hemoglobin* 14.1 gm/dL (12.0-16.0); Immature Granulocytes Abs Auto 0.01 K/uL (0.00-0.30); Immature Granulocytes Pct Auto 0.1 %; Lymphocytes Percent Auto 17.2 % (20-44); Mean Corpuscular HGB Conc 32 gm/dL (32-36); Mean Corpuscular Hemoglobin 28 pg (26-34); Mean Corpuscular Volume 85 fL (80-100); Monocytes Percent Auto 6.6 % (0.0-11.0); Neutrophils Percent Auto 75.1 % (42.0-72.0); Platelet Count* 277 K/uL (140-440); Red Blood Count 5.12 m/uL (4.00-5.20); White Blood Count* 9.93 K/uL (4.50-11.00)
[2024-01-11 14:11] LABS: Slide Review Reflex No
--- NOTE | 2024-01-11 14:22 | ED.CHESTPAIN ---
HPI - Chest Pain General Chief Complaint: Chest Pain Stated Complaint: chest pain Time Seen by Provider: 01/11/24 12:32 Source: patient, EMS, RN notes reviewed and old records reviewed Mode of arrival: EMS Limitations: no limitations History of Present Illness HPI narrative: Pt was at [facility] today for appt related to ongoing hyperthyroidism . Had some pressure in her chest, amb was called. Amb did give pt 324mg of ASA and 1 tab of SL Nitro. Nitro did not improve pt's chest pressure. Pt rates pressure in chest at 3/ 10. Pt has ongoing health issues including interstitial cystitis and fibromyalgia, chronic pain issues. Pt's brother yesterday. BG was 129 per EMS. 20G IV Patient is a very nice lady, who presents here with the chest discomfort, she was initially at the clinic, transferred over here by EMS, because of these symptoms. She describes pressure in her chest. She is unsure if this is her heart she tells me. She has had this on off for quite some time. Not seemingly worse with exertion. She was being followed up there for possible hyperthyroidism, she has noted she is mildly tachycardic her has a fast heart rate, denies any fevers or chills, denies any leg swelling. She has had no syncopal episodes. She does not describe radiation of the pain anywhere. Denies any significant shortness of breath with this, but feels that she would have a hard time doing regular stress test with this tachycardia. She did not take any medications for this. No previous history of heart issues. Personal denies a history of smoking, illicit drug use, hyperlipidemia, hypertension, or diabetes MD complaint: chest pain and chest discomfort Onset (ago): hour(s) Timing of current episode: constant Prior episodes: Yes Onset: during rest and during exertion Pain location: substernal and left chest Pain radiation: none Severity: moderate Quality: tightness, heaviness and sharp Relieving factors: nothing Exacerbating factors: nothing Treatment prior to arrival: aspirin Risk Factors Coronary artery disease risk factors: none Thoracic aortic dissection risk factors: none Related Data On Oral Contraceptives: No Home Medications ?Medication ?Instructions ?Recorded ?Confirmed amitriptyline 10 mg tablet mg PO 01/11/24 cyclobenzaprine 10 mg tablet 10 mg PO QPM 01/11/24 01/11/24 estradiol 0.01% (0.1 mg/gram) vaginal QPM 01/11/24 vaginal cream liothyronine 5 mcg tablet mcg PO 01/11/24 metoclopramide HCl 10 mg tablet 10 mg PO Q6H PRN nausea/vomiting 01/11/24 01/11/24 nitrofurantoin macrocrystal 50 mg 50 mg PO DAILY 01/11/24 01/11/24 capsule oxycodone 5 mg tablet PO 01/11/24 pregabalin 150 mg capsule 150 mg PO BID 01/11/24 01/11/24 triamcinolone acetonide 0.1 % 1 applic topical BID-TID 01/11/24 01/11/24 topical cream valacyclovir 1 gram tablet 1,000 mg PO DAILY 01/11/24 01/11/24 Previous Rx's ?Medication ?Instructions ?Recorded atenolol 50 mg tablet 50 mg PO DAILY #30 tabs 01/11/24 Allergies Allergy/AdvReac Type Severity Reaction Status Date / Time adhesive Allergy Unknown Verified 01/11/24 12:34 hydrocodone Allergy Unknown Verified 01/11/24 12:34 meperidine [From Demerol] Allergy Unknown Verified 01/11/24 12:34 Sulfa (Sulfonamide Allergy Unknown Verified 01/11/24 12:34 Antibiotics) Review of Systems Status of ROS Reports: 10 or more systems reviewed and unremarkable except as noted in History and below [facility] Social History Smoking Status: Current some day smoker Non-prescribed substance use: marijuana (any form) Exam Narrative Exam Narrative: I find her in room 8 she is in no apparent distress. Speaking to me normally, pupils equal round reactive to light there is no scleral icterus redness or TMs are normal, oropharynx is normal her JVP is flat her neck is supple full range of motion her chest is good air entry bilaterally no wheezing crackles noted her heart sounds are normal. Abdomen is soft there is no guarding no organomegaly bowel sounds are normal P she moves all extremities independently well she does not have a tremor, palpation of her thyroid shows a little bit full, but there is no specific pain with palpation. Skin reveals no rashes Const Vital Signs, click to edit/add: Vital Signs - 24 hr 01/11/24 12:17 01/11/24 12:34 01/11/24 12:35 Temperature 97.2 F L Pulse Rate 93 105 H Pulse Rate [Pulse Oximeter] 101 H Respiratory Rate 16 Blood Pressure 151/79 H Blood Pressure [Right Upper Arm] 139/85 Pulse Oximetry 98 98 95 Oxygen Delivery Method Room Air 01/11/24 12:38 01/11/24 12:45 01/11/24 13:30 Temperature Pulse Rate 100 95 Pulse Rate [Pulse Oximeter] Respiratory Rate Blood Pressure Blood Pressure [Right Upper Arm] Pulse Oximetry 99 100 99 Oxygen Delivery Method 01/11/24 13:34 01/11/24 13:45 01/11/24 14:00 Temperature Pulse Rate 95 105 H 102 H Pulse Rate [Pulse Oximeter] Respiratory Rate Blood Pressure 135/77 Blood Pressure [Right Upper Arm] Pulse Oximetry 95 98 100 Oxygen Delivery Method 01/11/24 14:25 01/11/24 14:26 01/11/24 14:30 Temperature Pulse Rate 106 H 98 100 Pulse Rate [Pulse Oximeter] Respiratory Rate Blood Pressure 135/78 Blood Pressure [Right Upper Arm] Pulse Oximetry 99 99 99 Oxygen Delivery Method 01/11/24 14:45 Temperature Pulse Rate 100 Pulse Rate [Pulse Oximeter] Respiratory Rate Blood Pressure Blood Pressure [Right Upper Arm] Pulse Oximetry 100 Oxygen Delivery Method Documenting provider has reviewed patient's vital signs: yes Course Vital Signs Vital signs: Initial Vital Signs Temperature 97.2 F L 01/11/24 12:17 Temperature Source Temporal Artery Scan 01/11/24 12:17 Pulse Rate 101 H 01/11/24 12:17 Respiratory Rate 16 01/11/24 12:17 Blood Pressure 139/85 01/11/24 12:17 Blood Pressure Mean 103 01/11/24 12:17 Blood Pressure Position Sitting 01/11/24 12:17 Pulse Oximetry 98 01/11/24 12:17 Oxygen Delivery Method Room Air 01/11/24 12:17 Vital Signs Temperature 97.2 F L 01/11/24 12:17 Pulse Rate 101 H 01/11/24 12:17 Respiratory Rate 16 01/11/24 12:17 Blood Pressure 139/85 01/11/24 12:17 Pulse Oximetry 98 01/11/24 12:17 Oxygen Delivery Method Room Air 01/11/24 12:17 Temperature 97.2 F L 01/11/24 12:17 Pulse Rate 100 01/11/24 14:45 Respiratory Rate 16 01/11/24 12:17 Blood Pressure 135/78 01/11/24 14:26 Pulse Oximetry 100 01/11/24 14:45 Oxygen Delivery Method Room Air 01/11/24 12:17 Medications Administered Medications: Discontinued Medications Generic Name Dose Route Start Last Admin Trade Name Andra PRN Reason Stop Dose Admin Atenolol 50 mg 01/11/24 14:34 01/11/24 14:50 Atenolol 50 Mg Tablet PO 01/11/24 14:35 50 mg ONCE ONE Administration Sodium Chloride 1,000 mls @ 1,000 mls/hr 01/11/24 12:45 01/11/24 14:30 0.9 % Sodium Chloride 1000 Ml IV 01/11/24 13:44 Infused .Q1H TAM Infusion MDM - Chest Pain MDM Narrative Medical decision making narrative: During the evaluation of this patient I considered multiple differential diagnosis is. The life-threatening differential diagnosis include coronary disease/GA, pulmonary embolism, pneumothorax, pneumonia, and aortic dissection. Other differential diagnosis included but were not limited to pericarditis, myocarditis, chest wall pain, GERD, esophageal rupture, rib fracture contusion, pleurisy, as well as other etiologies. Her laboratory work from a ladder shows she has an elevated free T4. I do believe there is the likelihood this is part and parcel with hyperthyroidism. She probably will need further workup for this, reassuring that her initial troponin is normal for follow-up troponin is normal I do not think there is a myocardial component to this. Pending the chest x-ray of normal size. I discussed with her the use of beta-roxanne, I think some atenolol would be helpful or propranolol. Is more long-acting. And less of a chance to induced bronchospasm. Pending her 2nd set of enzymes being normal. I think we can let her go home. Medical Records Data Attestation: I reviewed the patient's medical records. Lab Data Attestation: I reviewed the patient's lab results. Labs: Lab Results 01/11/24 01/11/24 01/11/24 Range/Units 13:05 15:00 Unknown WBC 9.93 (4.50-11.00) K/uL RBC 5.12 (4.00-5.20) m/uL Hgb 14.1 (12.0-16.0) gm/dL Hct 43.7 (33.0-51.0) % MCV 85 (80-100) fL MCH 28 (26-34) pg MCHC 32 (32-36) gm/dL RDW Coeff of Lauri 12.0 (11.5-15.5) % Plt Count 277 (140-440) K/uL Neut % (Auto) 75.1 H (42.0-72.0) % Lymph % (Auto) 17.2 L (20-44) % Ferry % (Auto) 6.6 (0.0-11.0) % Eos % (Auto) 0.7 (0.0-7.0) % Baso % (Auto) 0.3 (0.0-3.0) % Neut # (Auto) 7.50 H (1.7-7.0) K/uL Lymph # (Auto) 1.70 (0.90-2.90) K/uL Ferry # (Auto) 0.70 (0.00-0.90) K/UL Eos # (Auto) 0.07 (0.00-0.50) K/uL Baso # (Auto) 0.03 (0.00-0.30) K/uL Abs Immat Gran (auto) 0.01 (0.00-0.30) K/uL Imm/Tot Granulo (auto) 0.1 % INR 0.98 (0.91-1.10) APTT 30 (23-33) Seconds D-Dimer Quant (PE/DVT) 0.22 (0.00-0.50) ug/ml Sodium 140 (135-149) mmol/L Potassium 3.9 (3.6-5.1) mmol/L Chloride 104 (96-114) mmol/L Carbon Dioxide 26 (20-32) mmol/L Anion Gap 10 (7-15) mEq/L BUN 12 (7-30) mg/dL Creatinine 0.6 (0.5-1.5) mg/dL Estimated GFR 107 ml/min Glucose 94 (60-115) mg/dL Lactate 2.0 H (0.5-1.9) mmol/L Calcium 9.9 (8.4-10.6) mg/dL C-Reactive Protein 1.0 (0.5-1.0) mg/dL Urine Opiates Screen Negative (Negative) Ur Oxycodone Screen POSITIVE A (Negative) Urine Methadone Screen Negative (Negative) Ur Barbiturates Screen Negative (Negative) U Tricyclic Antidepress POSITIVE A (Negative) Ur Phencyclidine Scrn Negative (Negative) Ur Amphetamines Screen Negative (Negative) U Methamphetamines Scrn Negative (Negative) U Benzodiazepines Scrn Negative (Negative) Urine Cocaine Screen Negative (Negative) U Marijuana (THC) Screen POSITIVE A (Negative) Ur Drug Screen Comment See Note POC Troponin I 0.01 0.02 (0.01-0.04) ng/ml ECG Data Attestation: I personally reviewed and interpreted this ECG as follows: ECG interpretation date: 01/11/24 Prior ECG tracings: not available for review Interpretation: EKG shows normal sinus rhythm with a ventricular rate of 98, no acute ST wave changes, QRS QT and CO intervals are normal Assessment: Normal EKG 2nd in EKG shows stability, with no acute ST wave changes Discharge Plan Discharge Clinical Impression: Chest pain, Hyperthyroidism Patient Disposition: Home w/ Parent or Adult Condition: Stable Instructions: Chest Pain (DC), Hyperthyroidism (ED) Additional Instructions: Your troponins are negative, EKG looks very reassuring, chest x-ray looks reassuring also. However there is from your blood work at the [facility] evidence of hyperthyroidism. Would suggest use of the medication, this will slow down her heart can make you tired. This is not a treatment for the hyperthyroidism in just a symptomatic treatment. He still will need follow-up for the hyperthyroidism with your primary care physician and possibly endocrinology if ongoing. We generally recommend stress testing after being seen for chest pain in the emergency room. This can come through your regular physician. There are variety of nonwalking options for this. Activity Level: Light activity Prescriptions: New atenolol 50 mg tablet 50 mg PO DAILY Qty: 30 3RF No Action cyclobenzaprine 10 mg tablet 10 mg PO QPM nitrofurantoin macrocrystal 50 mg capsule 50 mg PO DAILY valacyclovir 1 gram tablet 1,000 mg PO DAILY liothyronine 5 mcg tablet PO triamcinolone acetonide 0.1 % cream 1 applic topical BID-TID amitriptyline 10 mg tablet PO estradiol 0.01 % (0.1 mg/gram) cream vaginal QPM metoclopramide HCl 10 mg tablet 10 mg PO Q6H PRN (Reason: nausea/vomiting) oxycodone 5 mg tablet PO pregabalin 150 mg capsule 150 mg PO BID Follow Up/Referrals: Rangel Spaulding MD [Staff Physician] - Jovanna Kline DO [Primary Care Provider] - Stand Alone Forms: [employer] Info Instructions
--- NOTE | 2024-01-11 14:28 | CRLHL7_ITS ---
For Patients: As a result of the Century Cures Act, medical imaging exams and procedure reports are released immediately into your electronic medical record. You may view this report before your referring provider. If you have questions, please contact your health care provider. Indication: Chest pain Technique: Chest 2 views Comparison: None Findings/Impression: Cardiovascular and mediastinum: Heart size and vasculature are normal in caliber and appearance. Mediastinum is within normal limits. Lungs and pleural spaces: Lungs are clear. No sign of infiltrate or mass. No sign of pleural effusion. No pneumothorax. Bones and soft tissues: No significant findings. Dictated by Killian Stuart MD @ 01/11/2024 3:32:56 PM (Electronically Signed)
[2024-01-11] MEDS: atenoloL 50 MG TABLET PO (14:50)
[2024-01-11 15:20] LABS: Troponin, Point-of-Care* 0.02 ng/ml (0.01-0.04)
== END 2024-01-11 15:34 | disposition home or self-care (01) ==
PROVIDERS: Emergency Provider Family Medicine; PCP Family Medicine
DX: R07.9 Chest pain, unspecified (principal); E03.9 Hypothyroidism, unspecified
CPT/HCPCS: 36415; 71046; 80048; 80306; 83605; 84484; 85025; 85379; 85610; 85730; 86140; 93005; 94761; 96360; 99284; 99285; A9270; J7030

== ENCOUNTER 2024-10-09 20:08 | Emergency (ER) | payer BC, SELFPAY ==
--- OUTSIDE RECORDS SUMMARY | 2024-10-09 20:11 | XMS_ITS | Data Portability ---
Author Organization [facility], [facility] Address [address] [place] [address] Care Team Providers Care Bonbon Cream Warmer Name Role Phone MONICA CAO Primary Care Provider [phone] Assessment No assessment recorded. Plan of Treatment Reminders Order Date Submit Date Provider Last Modified By Organization Details Last Modified Time Details Appointments None recorded. Lab urinalysi s, dipstick 2022 023 [facility], [address], [address], [place], [address], 3 15:54:11 urinalysi s, microscop ic 2022 023 [facility], [address], [address], [place], [address], 4 05:01:52 culture, urine 2022 023 [facility], [address], [address], [place], [address], 3 11:21:33 urinalysi s, dipstick 2022 023 [facility], [address], [address], [place], [address], 3 16:23:41 culture, urine 2022 023 [facility], [address], [address], [place], [address], 3 15:46:03 infectiou s disease panel 2022 023 [email or web address] [facility], [address], [address], [place], [address], 3 15:19:39 Referral urogyneco logy physical therapy referral - Please call patient to schedule Pelvic Floor Physical Therapy. Thank you [email or web address] [facility], [address], [place], [address], 3 14:20:24 Procedures None recorded. Surgeries None recorded. Imaging US, renal 2022 023 [facility], [address] [place], [address], 3 11:12:02 Medication Orders compounde d medicatio n 2022 023 [facility], [address] [place] [address], [address], [place], [place], [id number], 3 20:38:35 nitrofura ntoin macrocrys андрей 50 mg capsule 2022 023 [id number], [address] [place], [place], [id number], 3 16:54:58 Patient TargetsNo targets recorded. Patient Instructions Encounter Date Encounter Id Patient Instructions Last Modified By Organization Details Last Modified Time 01/14/2023 [id number] Recurrent UTIs: -Discussed recurrent UTIs and gave [...] have her see Dr. Arreguin for cysto. [email or web address] Not available 01/14/2023 17:02:42 04/05/2023 [id number] cystoscopy negative fu with Kierra as needed for pelvic pain/rUTIs/GSM. [email or web address] Not available 03/31/2023 15:40:43 Reason for Referral Urogynecology Physical Thera py Referral for Myalgia of pelvic floor Please call patient to schedule Pelvic Floor Physical Therapy. Thank you Referring Physician: Ruchi Plaza, Urology, Encounter Date: 01/14/2023 Results Created Date Observation Date Name Description Value Unit Range Abnormal Flag Note LastModifiedBy Organization Detail LastModifiedTime 01/15/2001/14/2023 UA WITHO UT MICRO - CS URISC AN blood - uriscan NEGATI VE negati ve Not Available [facility] [address] [facility] [address], [place], [address], 01/14/2023 16:23:41 01/15/2001/14/2023 UA WITHO UT MICRO - CS URISC AN bilirubin - uriscan NEGATI VE mg/dL negati ve Not Available [facility] [address] [facility] [address], [place], [address], 01/14/2023 16:23:41 01/15/20 23 01/14/2023 UA WITHO UT MICRO - CS URISC AN urobilinogen - uriscan NORMAL mg/dL normal Not Available [facility] [address] [place] [address] [address], [place], [address], 01/14/2023 16:23:41 01/15/20 23 01/14/2023 UA WITHO UT MICRO - CS URISC AN ketones - uriscan NEGATI VE mg/dL negati ve Not Available [facility] [address] [place] [address] [address], [place], [address], 01/14/2023 16:23:41 01/15/20 23 01/14/2023 UA WITHO UT MICRO - CS URISC AN protein - uriscan NEGATI VE mg/dL negati ve Not Available [facility] [address] [place] [address] [address], [place], [address], 01/14/2023 16:23:41 01/15/20 23 01/14/2023 UA WITHO UT MICRO - CS URISC AN nitrites - uriscan NEGATI VE negati ve Not Available [facility] [address] [place] [address] [address], [place], [address], 01/14/2023 16:23:41 01/15/20 23 01/14/2023 UA WITHO UT MICRO - CS URISC AN glucose - uriscan NEGATI VE mg/dL negati ve Not Available [facility] [address] [place] [address] [address], [place], [address], 01/14/2023 16:23:41 01/15/20 23 01/14/2023 UA WITHO UT MICRO - CS URISC AN pH - uriscan 5.50 5.00-9 .00 Not Available [facility] [address] [place] [address] [address], [place], [address], 01/14/2023 16:23:41 01/15/20 23 01/14/2023 UA WITHO UT MICRO - CS URISC AN sp. gravity - uriscan 1.01 1.01-1 .03 Not Available [facility] [address] [facility] [address], [place], [address], 01/14/2023 16:23:41 01/15/20 23 01/14/2023 UA WITHO UT MICRO - CS URISC AN leukocytes - uriscan NEGATI VE negati ve Not Available [facility] [address] [place] [address] [address], [place], [address], 01/14/2023 16:23:41 01/15/20 23 01/14/2023 UA WITHO UT MICRO - CS URISC AN color - uriscan YELLOW lt. yellow ;yello w Not Available [facility] [address] [place] [address] [address], [place], [address], 01/14/2023 16:23:41 01/15/20 23 01/14/2023 UA WITHO UT MICRO - CS URISC AN clarity - uriscan CLEAR clear Not Available [facility] [address] [place] [address] [address], [place], [address], 01/14/2023 16:23:41 01/15/20 23 01/14/2023 UA WITHO UT MICRO - CS URISC AN total urine volume (mL) 60 /mL ----- ----- ----- ----- ----- ----- ----- ----- ----- ----- ----- ----- ----- ----- ---- *Plea se note the follo wing minim um quant ities for addit ional urine testi ng: - Atypi cals: 3 mL - Cytol ogy: 20 mL - GC/CH : 2 mL - FISH: 30 mL - Atypi cals w/ GC/CH : 5 mL - Cytol ogy PLUS FISH: 50 mL - Urine Cultu re: 3 mL ----- ----- ----- ----- ----- ----- ----- ----- ----- ----- ----- ----- ----- ----- ---- This lab resul t is being provi ded to you and your provi abram at the same time in compl iance with the Centu ry Cures Act. Your provi abram may not have had time to revie w and make recom menda tions based on the resul t. Jordan tong allow up to one week for provi abram revie w. Not Available [facility] [address], [place], [address], 01/14/2023 16:23:41 01/15/20 23 01/14/2023 URINE CULTU RE final report MICROB IOLOGY RESULT S abnormal SOURC E Karen jammie ed- [facility] KNOWN ALLER GIES see chart TREAT MENT see chart MEDIA PLATE D AT: Media plate d on 023 @ 3:54 PM COLON Y COUNT 20,00 0-50, 000 cfu/m l RESUL T Esche angela a coli (Isol ate 1) Sensi tivit y Toña sis [place] te 1 ----- ----- ----- ----- ----- ----- ----- - AMOX/ K CLAV <=8/4 *S AMP/S ULBAC SWANSON >16/8 R AMPIC ILLIN >16 R AZTRE ONAM <=4*S CEFAZ NEVIN 4*S CEFTA ZIDIM E <=1*S CEFTR IAXON E <=1*S CEFUR OXIME 8*S CIPRO FLOXA ZACHARIAH >2 R LEVOF LOXAC IN >4 R NITRO FURAN TOIN <=32* S PIP/T AZO <=16* S TETRA CYCLI NE <=4*S TRIME TH/REBOLLAR LFA >2/38 R TRIME THOPR IM >8 R Orga nisms that are susce ptibl e to tetra cycli ne are gener ally also susce ptibl e to doxyc yclin e and minoc yclin e. Any subst ituti on of drugs which have not been teste d for sensi tivit y shoul d be consi dered based on appro ulysses usage of the drugs . Infor sammy olivia on doxyc yclin e and minoc yclin e can be found in the Physi jorgito' s Desk Refer ence or from the [facility]. S= Susce ptibl e;I= Inter media te;R= Resis tant; ESBL= Resis tance due to confi rmed ESBL This lab resul t is being provi ded to you and your provi abram at the same time in compl iance with the Centu ry Cures Act. Your provi abram may not have had time to revie w and make recom menda tions based on the resul t. Plejitendra e allow up to one week for provi abram revie w. Not Available [facility] [address] [facility] [address], [place], [address], 01/17/2023 15:46:03 04/05/20 23 04/05/2023 UA WITHO UT MICRO - CS URISC AN blood - uriscan NEGATI VE negati ve Not Available [facility] [address] [place] [address] [address], [place], [address], 04/05/2023 15:54:11 04/05/20 23 04/05/2023 UA WITHO UT MICRO - CS URISC AN bilirubin - uriscan NEGATI VE mg/dL negati ve Not Available [facility] [address] [facility] [address], [place], [address], 04/05/2023 15:54:11 04/05/20 23 04/05/2023 UA WITHO UT MICRO - CS URISC AN urobilinogen - uriscan NORMAL mg/dL normal Not Available [facility] [address] [facility] [address], [place], [address], 04/05/2023 15:54:11 04/05/20 23 04/05/2023 UA WITHO UT MICRO - CS URISC AN ketones - uriscan NEGATI VE mg/dL negati ve Not Available [facility] [address] [facility] [address], [place], [address], 04/05/2023 15:54:11 04/05/20 23 04/05/2023 UA WITHO UT MICRO - CS URISC AN protein - uriscan NEGATI VE mg/dL negati ve Not Available [facility] [address] [place] [address] [address], [place], [address], 04/05/2023 15:54:11 04/05/20 23 04/05/2023 UA WITHO UT MICRO - CS URISC AN nitrites - uriscan NEGATI VE negati ve Not Available [facility] [address] [place] [address] [address], [place], [address], 04/05/2023 15:54:11 04/05/20 23 04/05/2023 UA WITHO UT MICRO - CS URISC AN glucose - uriscan NEGATI VE mg/dL negati ve Not Available [facility] [address] [place] [address] [address], [place], [address], 04/05/2023 15:54:11 04/05/20 23 04/05/2023 UA WITHO UT MICRO - CS URISC AN pH - uriscan 5.50 5.00-9 .00 Not Available [facility] [address] [place] [address] [address], [place], [address], 04/05/2023 15:54:11 04/05/20 23 04/05/2023 UA WITHO UT MICRO - CS URISC AN sp. gravity - uriscan <=1.01 1.01-1 .03 Not Available [facility] [address] [place] [address] [address], [place], [address], 04/05/2023 15:54:11 04/05/20 23 04/05/2023 UA WITHO UT MICRO - CS URISC AN leukocytes - uriscan NEGATI VE negati ve Not Available [facility] [address] [place] [address] [address], [place], [address], 04/05/2023 15:54:11 04/05/20 23 04/05/2023 UA WITHO UT MICRO - CS URISC AN color - uriscan YELLOW lt. yellow ;yello w Not Available [facility] [address] [facility] [address], [place], [address], 04/05/2023 15:54:11 04/05/20 23 04/05/2023 UA WITHO UT MICRO - CS URISC AN clarity - uriscan CLEAR clear Not Available [facility] [address], [place], [address], 04/05/2023 15:54:11 04/05/2004/05/2023 UA WITHO UT MICRO - CS URISC AN total urine volume (mL) 100 /mL ----- ----- ----- ----- ----- ----- ----- ----- ----- ----- ----- ----- ----- ----- ---- *Ramsey kendall note the follo wing minim um quant ities for addit ional urine testi ng: - Atypi cals: 3 mL - Cytol ogy: 20 mL - GC/CH : 2 mL - FISH: 30 mL - Atypi cals w/ GC/CH : 5 mL - Cytol ogy PLUS FISH: 50 mL - Urine Cultu re: 3 mL ----- ----- ----- ----- ----- ----- ----- ----- ----- ----- ----- ----- ----- ----- ---- This lab resul t is being provi ded to you and your provi abram at the same time in compl iance with the 21st Centu ry Cures Act. Your provi abram may not have had time to revie w and make recom menda tions based on the roque Ortega e allow up to one week for provi abram revie w. Not Available [facility] [address] [facility] [address], [place], [address], 04/05/2023 15:54:11 04/05/20 23 04/05/2023 URINE CULTU RE final report MICROB IOLOGY RESULT S SOURC E Karen teriz ed- [facility] KNOWN ALLER GIES see chart TREAT MENT see chart MEDIA PLATE D AT: Media plate d on 2022 @ 3:07 PM RESUL T No Growt h This lab resul t is being provi ded to you and your provi abram at the same time in compl iance with the Centu ry Cures Act. Your provi abram may not have had time to revie w and make recom menda tions based on the resul t. Pleas e allow up to one week for provi abram revie w. Not Available [facility] [address] [facility] [address], [place], [address], 04/07/2023 11:21:33 01/07/20 23 10/16/2021 CT, abdom en + pelvi s, w/o contr ast No observ ation record ed. [email or web address] Not Available 2022 12:36:55 01/07/20 23 03/05/2022 US, abdom en, limit ed No observ ation record ed. [email or web address] Not Available 2022 12:36:55 01/19/20 23 01/18/2023 US, renal No observ ation record ed. [email or web address] [address], [address], 01/18/2023 12:50:36 Result Notes None recorded. Procedures Surgical History Date Name Laterality Status Provider Name and Address Organization Details Recorded Time 023 Cystoscopy- female completed Nona Arreguin MD [address] [facility],[address], [place], [address], [place] [facility] 03/31/2023 15:39:24 023 In and Out Catheterization- female completed Nona Arreguin MD [address] [facility],[address], [place], [address], [facility] 04/05/2023 15:44:49 023 Past Data Reviewed completed LISA IYER [address] [facility],[address], [place], [address], [facility] 01/13/2023 14:23:39 023 In and Out Catheterization- female completed LISA IYER [address] [facility],[address], [place], [address], [facility] 01/14/2023 16:59:22 020 Oncology colorectal scr completed Not Available Health Note 01/13/2023 16:55:40 010 Occult blood feces completed Not Available Health Note 01/13/2023 16:55:40 Cystourethroscopy completed Not Available Health Note 01/13/2023 16:55:40 delivery completed Not Available Health Note 01/13/2023 16:55:40 Partial hysterectomy completed Not Available Health Note 01/13/2023 16:55:40 Imaging Results Imaging Date Name Status LastModified by Organiz ation Details LastModified Time 10/16/2021 CT, abdomen + pelvis, w/o contrast completed Information not available 01/06/2023 12:36:55 03/05/2022 US, abdomen, limited completed Information not available 01/06/2023 12:36:55 01/18/2023 US, renal completed [email or web address] [address], [address], 01/18/2023 12:50:36 Procedure Notes None recorded. Medical [...] Address Organization Details Last Updated DateTime 01/14/2023 86133.76115 21547 g 26.5 kg/m2 157.48 cm Not Available [...] 01/13/2023 When Did You Quit Smoking? 1-5yearssincel sultana Information not available 01/14/2023 Number Of Pregnancies [...] Age of this Age Resolved Age Notes LastModified by Organization Details LastModified Time Maternal Grandmother Family history of breast cancer [email or web address] Not available 2022 16:55:38 Father Family history of diabetes mellitus [email or web address] Not available 2022 16:55:38 Unspecified Relation Family history of neoplasm of ovary [email or web address] Not available 2022 16:55:38 Medical History Condition Response Diabetes N Sexually Transmitted Infection Y Bleeding Disorder N High Blood Pressure N Kidney Stones N Cancer N Lung Disease N Depression Y High Cholesterol N GERD/Acid Reflux N Heart Disease N Gynecological History Statement/Question Response Irregular periods N Leaking urine with intercourse N Heavy periods N Sexually Active? Y Pain with intercourse Y Obstetrics History GPAL:G 0 P 0 0 0 0 Immunizations Vaccine Type Date Status Note Provider Nam e and Address Organization Details Recorded Time zoster recombinant 04/24/2020 completed DEACON Dexter [facility] 01/14/2023 16:12:49 zoster recombinant 06/25/2020 completed DEACON Dexter - [facility] 01/14/2023 16:12:49 Past Encounters Encounter ID Performer Location Encounter Start Date Encounter Closed Date Diagnosis/Indication Diagnosis SNOMED-CT Code Diagnosis ICD10 Code Diagnosis Note [id number] LISA IYER [employer] [address] [place] [address],[facility] e [address] [place] [phone] 01/14/2023 16:10:00 01/14/2023 17:10:08 Recurrent urinary tract infection 649835677 N39.0 new, worse Pelvic and perineal pain 208525185 R10.2 chronic, worse 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 M79.18 chronic, worse [id number] MD Renée [employer] [address] [place] [phone] 04/05/2023 15:26:30 04/05/2023 15:52:22 Pelvic and perineal pain 443789591 R10.2 chronic, worse Myalgia of pelvic floor 382169655 M79.18 chronic, worse Chronic cystitis 3997559 2 N30.20 chornic worse Health Concerns Section Related Observation LastModified by Organization Detai ls LastModified Time None Recorded Concern Status LastModified by Organization Details LastModified Time None Recorded Advance Directives Directive None Recorded Payers Encounter Date Sequence Insurance Name Policy Number Policy Abrams Covered Member ID Abrams Member ID Guarantor Name 01/14/2023 1 [facility] [id number] Vince Newman [id number] Kailey Newman 04/05/2023 1 [facility] [id number] Vince Newman [id number] Kailey A Trent Notes Date Note Type Note Provider Name and Address Organization Details Recorded Time 01/14/2023 text/html Patient seen toclarissa will for recurrent UTI's.Thinks she has an infection today. Pain in flanks, urgency, going 30 times per day. Pain with urination.Usually uses medical marijuana which can helpPain in her back is not new and continues to be at 6/10Recently stopped amitriptyline because she thought she couldn't empty her bladder while taking this.History of IC - diagnosed in [place]. No scope recently. Last one at least 15 years agoSymptoms with UTI: urgency and painImproves with antibiotics: yesHistory of kidney stones: noPrevious abdominal surgeries: oopherectomy, , cyst removalTakes vaginal estrogen cream 3 times per weekHas seen ID and he said he didn't know if she has ever had a true infection as it is always the same infection.Sexually active: yes - occasionally has dyspareuniaHas not done PFPT lately. Seems to help. Has session set up in 2 weeks againFluids: 6-8 glasses per dayConstipation: occasionalHas done hydrodistention (15 years ago)Has done PTNM beforeHas done abx instillations in her bladder for her UTI's in the pastHas recurrent yeast infections and C. diff previously for infections Urine testin11/28/22: >100k E. coli (pansensitive)11/18/22 : 50-100k Coli (pansensitive)09/02/22 : >100k E. coli (pansensitive) Imagin10/15/21: CT w/oKidney/ureters: Kidneys are normal in caliber. No kidney or ureteral stones and no hydronephrosis. No sign of perinephric inflammation. Ureters are normal in caliber. Cr 0.86 Urogenital Distress Inventory (HENRY-6): 6Incontinence Impact Questionnaire (IIQ-7): 0 LISA IYER [address] [place] [address],[facility] [address], [address], [facility] 01/14/2023 17:02:53 04/05/2023 text/html Patient seen shanelle will for recurrent UTI's.Thinks she has an infection today. Pain in flanks, urgency, going 30 times per day. Pain with urination.Usually uses medical marijuana which can helpPain in her back is not new and continues to be at 6/10Recently stopped amitriptyline because she thought she couldn't empty her bladder while taking this.History of IC - diagnosed in [place]. No scope recently. Last one at least 15 years agoSymptoms with UTI: urgency and painImproves with antibiotics: yesHistory of kidney stones: noPrevious abdominal surgeries: oopherectomy, , cyst removalTakes vaginal estrogen cream 3 times per weekHas seen ID and he said he didn't know if she has ever had a true infection as it is always the same infection.Sexually active: yes - occasionally has dyspareuniaHas not done PFPT lately. Seems to help. Has session set up in 2 weeks againFluids: 6-8 glasses per dayConstipation: occasionalHas done hydrodistention (15 years ago)Has done PTNM beforeHas done abx instillations in her bladder for her UTI's in the pastHas recurrent yeast infections and C. diff previously for infections Urine testin11/28/22: >100k E. coli (pansensitive)11/18/22 : 50-100k Coli (pansensitive)09/02/22 : >100k E. coli (pansensitive) Imagin10/15/21: CT w/Roseanneney/ureters: Kidneys are normal in caliber. No kidney or ureteral stones and no hydronephrosis. No sign of perinephric inflammation. Ureters are normal in caliber. Cr 0.86 Urogenital Distress Inventory (HENRY-6): 6Incontinence Impact Questionnaire (IIQ-7): 0 04-05-23here for cystoIC and UTIsCT negon extrogren creamdoing PTwas on elavil --stopped Nona Arreguin MD [address] [facility],[address], [place], [address], [facility] 04/05/2023 15:45:43 OBGyn Episode No OBEpisode recorded.
[2024-10-09 20:21] VITALS: BP 160/92; PULSE 91; RESP 16; TEMP 36.8; O2SAT 100; BMI 29.7
[2024-10-09 20:28] LABS: Appearance Urine Turbid (Clear); Bilirubin Urine Negative (Negative); Blood Urine Negative (Negative); Color Urine Yellow (Yellow); Glucose Urine Negative (Negative); Ketones Urine Negative (Negative); Leukocyte Esterase Urine Trace (Negative); Nitrite Urine Negative (Negative); Protein Urine Negative (Negative); Specific Gravity Urine 1.015 (1.000-1.030); Urobilinogen Urine 0.2 (0.2-1.0); pH Urine 7.5 (5.0-8.5)
[2024-10-09 20:35] LABS: Bacteria Urine Moderate; RBC Urine 0-2 (0-2); Squamous Epithelial Cell Urine Few (None-Few)
--- NOTE | 2024-10-09 21:01 | ED.FEMALEGU ---
HPI - Female Genitourinary General Chief complaint: Urogenital Problems, Female Stated complaint: severe UTI, back pain Time Seen by Provider: 10/09/24 20:35 History of Present Illness HPI Narrative: This 54-year-old female comes in reporting symptoms of dysuria and states that she has recurrent urinary tract infections. She reports more pain in her abdominal and low back area then typically she experiences. She arrives here with normal vital signs. Her symptoms began today. Related Data Home Medications ?Medication ?Instructions ?Recorded ?Confirmed amitriptyline 10 mg tablet mg PO 01/11/24 03/18/24 cyclobenzaprine 10 mg tablet 10 mg PO QPM 01/11/24 03/18/24 estradiol 0.01% (0.1 mg/gram) vaginal QPM 01/11/24 03/18/24 vaginal cream liothyronine 5 mcg tablet mcg PO 01/11/24 03/18/24 metoclopramide HCl 10 mg tablet 10 mg PO Q6H PRN nausea/vomiting 01/11/24 03/18/24 nitrofurantoin macrocrystal 50 mg 50 mg PO DAILY 01/11/24 03/18/24 capsule oxycodone 5 mg tablet PO 01/11/24 03/18/24 pregabalin 150 mg capsule 150 mg PO BID 01/11/24 03/18/24 triamcinolone acetonide 0.1 % 1 applic topical BID-TID 01/11/24 03/18/24 topical cream valacyclovir 1 gram tablet 1,000 mg PO DAILY 01/11/24 03/18/24 Previous Rx's ?Medication ?Instructions ?Recorded atenolol 50 mg tablet 50 mg PO DAILY #30 tabs 01/11/24 fluconazole 150 mg tablet 150 mg PO Q3D 2 doses #2 tabs 03/18/24 nystatin 100,000 unit/gram topical 1 applic topical BID #30 grams 03/18/24 cream ciprofloxacin HCl 500 mg tablet 500 mg PO BID #14 tabs 10/09/24 (Cipro) fluconazole 100 mg tablet 100 mg PO DAILY #10 tabs 10/09/24 (Diflucan) Allergies Allergy/AdvReac Type Severity Reaction Status Date / Time adhesive Allergy Unknown Verified 03/18/24 14:17 hydrocodone Allergy Unknown Verified 03/18/24 14:17 meperidine (From Demerol) Allergy Unknown Verified 03/18/24 14:17 Sulfa (Sulfonamide Allergy Unknown Verified 03/18/24 14:17 Antibiotics) Review of Systems Status of ROS: Reports: 10 or more systems reviewed and unremarkable except as noted in History and below Narrative: Constitutional: No fevers, no weight gain or loss. Eyes: No discharge. No vision changes. HENT: No congestion, no sore throat, no ear pain. Cardiovascular: No chest pain, no palpitations. Respiratory: No shortness of breath, no wheezes, no cough. Gastrointestinal: No diarrhea. Abdominal pain with nausea and vomiting. Genitourinary: No dysuria, no hematuria. Musculoskeletal: Normal range of motion. Skin: No rashes, no pruritis. Neurological: No dizziness, weakness, sensory change, speech change. Endo/Heme/Allergies: No bruising or bleeding. No polydipsia. Pysch: no suicidality, no anxiety, no insomnia. All other systems reviewed and are negative. [facility] Social History Smoking Status: Current some day smoker Non-prescribed substance use: marijuana (any form) Exam Narrative: Exam Narrative: Constitutional: Well-developed, well-nourished, no acute distress. HEENT: Normocephalic, atraumatic. Neck: Normal range of motion. Nontender. Supple. Heart: Regular. No murmurs. Normal rate. Intact distal pulses. Lungs: Clear to auscultation. No chest discomfort. No wheezes, rhonchi, or rales. Abdomen: Normal bowel sounds. Nontender. No rebound tenderness. Genitalia: Deferred. Back: No midline tenderness. Normal range of motion. Extremities: Normal range of motion. No injury. Skin: Intact. No rash. Warm. No erythema or pallor. Neurologic: No altered sensation. No weakness. Alert and oriented. Psychiatric: No suicidality. No anxiety or depression. No insomnia. Nursing notes and vitals signs are reviewed. Const: Vital Signs, click to edit/add: Vital Signs - 24 hr 10/09/24 20:21 Temperature 98.2 F Pulse Rate [Pulse Oximeter] 91 Respiratory Rate 16 Blood Pressure [Ri ght Upper Arm] 160/92 H Pulse Oximetry 100 Oxygen Delivery Me thod Room Air Course Vital Signs Vital signs: Initial Vital Signs Temperature 98.2 F 10/09/24 20:21 Temperature Source Temporal Artery Scan 10/09/24 20:21 Pulse Rate 91 10/09/24 20:21 Respiratory Rate 16 10/09/24 20:21 Blood Pressure 160/92 H 10/09/24 20:21 Blood Pressure Mean 114 H 10/09/24 20:21 Blood Pressure Position Sitting 10/09/24 20:21 Pulse Oximetry 100 10/09/24 20:21 Oxygen Delivery Method Room Air 10/09/24 20:21 Vital Signs Temperature 98.2 F 10/09/24 20:21 Pulse Rate 91 10/09/24 20:21 Respiratory Rate 16 10/09/24 20:21 Blood Pressure 160/92 H 10/09/24 20:21 Pulse Oximetry 100 10/09/24 20:21 Oxygen Delivery Method Room Air 10/09/24 20:21 Temperature 98.2 F 10/09/24 20:21 Pulse Rate 91 10/09/24 20:21 Respiratory Rate 16 10/09/24 20:21 Blood Pressure 160/92 H 10/09/24 20:21 Pulse Oximetry 100 10/09/24 20:21 Oxygen Delivery Method Room Air 10/09/24 20:21 MDM - Female Genitourinary MDM Narrative Medical decision making narrative: This patient comes in reporting dysuria symptoms and states that she has frequent recurrent urinary tract infections. She arrives here with normal vital signs and her exam is reassuring. Urinalysis does show some evidence of urinary tract infection. Her symptoms just started today so the findings on urinalysis may be increasing over time. The patient did receive an intramuscular injection of Rocephin an oral dose of Zofran 4 mg. I did provide prescriptions for Keflex and Diflucan. Lab Data Labs: Lab Results 10/09/24 Range/Units 20:20 Urine Color Yellow (Yellow) Urine Appearance Turbid A (Clear) Urine pH 7.5 (5.0-8.5) Ur Specific [place] 1.015 (1.000-1.030) Urine Protein Negative (Negative) Urine Glucose (UA) Negative (Negative) Urine Ketones Negative (Negative) Urine Blood Negative (Negative) Urine Nitrite Negative (Negative) Urine Bilirubin Negative (Negative) Urine Urobilinogen 0.2 (0.2-1.0) Ur Leukocyte Esterase Trace A (Negative) Urine RBC 0-2 (0-2) Urine WBC 5-10 A (0-5) Ur Squamous Epith Cells Few (None-Few) Urine Bacteria Moderate A (None) Discharge Plan Discharge Clinical Impression: Urinary tract infection Patient Disposition: Home, Self-Care Condition: Stable Additional Instructions: Take medication as prescribed. Follow up with MD return if worsening symptoms occur. Prescriptions: New fluconazole [Diflucan] 100 mg tablet 100 mg PO DAILY Qty: 10 0RF ciprofloxacin HCl [Cipro] 500 mg tablet 500 mg PO BID Qty: 14 0RF No Action nystatin 100,000 unit/gram cream 1 applic topical BID Qty: 30 0RF fluconazole 150 mg tablet 150 mg PO Q3D Qty: 2 0RF Rx Instructions: Take one tablet on first day. OK to repeat dose in 72 hours if symptoms persist. Follow up if symptoms persist after second dose. cyclobenzaprine 10 mg tablet 10 mg PO QPM nitrofurantoin macrocrystal 50 mg capsule 50 mg PO DAILY valacyclovir 1 gram tablet 1,000 mg PO DAILY liothyronine 5 mcg tablet PO triamcinolone acetonide 0.1 % cream 1 applic topical BID-TID amitriptyline 10 mg tablet PO estradiol 0.01 % (0.1 mg/gram) cream vaginal QPM metoclopramide HCl 10 mg tablet 10 mg PO Q6H PRN (Reason: nausea/vomiting) oxycodone 5 mg tablet PO pregabalin 150 mg capsule 150 mg PO BID atenolol 50 mg tablet 50 mg PO DAILY Qty: 30 3RF Follow Up/Referrals: Jovanna Kline DO [Primary Care Provider] - Stand Alone Forms: [facility] Inst[facility]
[2024-10-09] MEDS: ONDANSETRON ODT 4 MG TAB PO (21:18)
[2024-10-09] MEDS: LIDOCAINE 1% 5 ml (pf) 5 ML VIAL 2.1 ML IM (21:19)
[2024-10-09] MEDS: cefTRIAXone 1 GM VIAL IM (21:19)
--- OUTSIDE RECORDS SUMMARY | 2024-10-09 21:29 | XMS_ITS | Clinical Summary ---
Author Organization [facility] Address [address] [place] [id number] Care Team Providers Care Brilliandeer Looper Name Role Phone Jolly Calabrese Unavailable [phone] Jovanna Kline DO Primary Care Provider [phone] Ward Che Unavailable [phone] Allergies Active Allergy Reactions Criticality Noted Date Comments Adhesive Rash 07/25/2021 Meperidine Hallucinations 09/08/2016 Hydrocodone Rash,Itching 11/15/2010 Sulfa (Sulfonamide Antibiotics) Stomach Upset 09/08/2016 Sulfamethoxazole Other - Describe In Comment Field 11/15/2010 Cerner listed no reaction. Medications nystatin powder (MYCOSTATIN) powderIndication s:Candidiasis of anus Apply 1 Strip topically to affected area(s) 3 times daily. 60 g 5 02/26/20 18 Active phenazopyridine (PYRIDIUM) 100 mg tabletIndication s:Chronic interstitial cystitis Take 1 tablet by mouth 3 times daily after meals. As needed for painful urination. 10 tablet 5 02/26/20 18 Active medication order composerIndicati ons:Dyspareunia in female,Pelvic floor tension Diazepam [address] 1 vaginal suppository into the vagina once nightly or as directed 14 Suppository 05/22/20 21 Active lidocaine (XYLOCAINE) 2 % gelIndications:P elvic floor tension Insert into the urethra once daily if needed (for use with Therawand). 30 mL 1 05/22/20 21 Active triamcinolone (ARISTOCORT; KENALOG) 0.1 % creamIndications :Rash Apply topically to affected area(s) 3 times daily. 80 g 2 10/09/19 22 Active hydrOXYzine HCL (ATARAX) 25 mg tabletIndication s:Anxiety disorder, unspecified type,Itching Take 1 Tablet (25 mg) by mouth every 6 hours if needed for Itching. 30 Tablet 2 01/24/20 22 Active ondansetron (ZOFRAN) 8 mg tabletIndication s:Nausea Take 1 Tablet (8 mg) by mouth every 8 hours if needed for Nausea/Vomiting . 30 Tablet 02/21/20 22 Active nystatin (MYCOSTATIN) ointmentIndicati ons:Yeast dermatitis Apply topically to affected area(s) two times daily. 60 g 09/02/19 23 Active diazePAM (Valium) 5 mg tablet take 1 suppository per rectum as needed for rectal spasms 07/25/20 21 Active Lactobacillus acidophilus 10 billion cell cap take as directed 07/25/20 21 Active valACYclovir (VALTREX) 1 gram tabletIndication s:History of herpes genitalis Take 1 Tablet (1 g) by mouth once daily. 90 Tablet 03/22/20 23 Active polyethylene glycol-electroly te (GOLYTELY) 236-22.74-6.74 -5.86 gram suspensionIndica tions:Encounter for screening colonoscopy Drink 2 liters the day before the procedure and 2 liters 6 hours prior to procedure. 4000 mL 07/21/20 23 Active atenoloL (TENORMIN) 25 mg tabletIndication s:Tachycardia,Hy perthyroidism Take 1 tablet (25 mg) once daily; take up to 1 additional tablet (25 mg) daily as needed for heart rate >100. 90 Tablet 2 01/17/20 24 Active cyclobenzaprine (FLEXERIL) 10 mg tabletIndication s:Fibromyalgia Take 1 Tablet (10 mg) by mouth 2 times daily if needed for Muscle Spasm. 60 Tablet 5 04/11/20 24 Active estradioL (ESTRACE) 1 mg tabletIndication s:Vasomotor symptoms due to menopause Take 1 Tablet (1 mg) by mouth once daily. 90 Tablet 3 05/02/20 24 Active estradioL (ESTRACE) 0.01% (0.1 mg/g) vaginal creamIndications :Vaginal atrophy Insert 1 g into the vagina every Wednesday and Wednesday. Use a pea sized amount on labia at bedtime 42.5 g 2 05/05/20 24 Active fluconazole (DIFLUCAN) 150 mg tabletIndication s:Vaginal yeast infection Take one tablet now and repeat 1 tablet in 72 hours if symptoms have not resolved. 2 Tablet 06/01/20 24 Active oxyCODONE (ROXICODONE) 5 mg immediate release tabletIndication s:Chronic pain syndrome Take 1 Tablet (5 mg) by mouth 3 times daily if needed for Pain (May use 2 tablets for severe pain as needed). 30 Tablet 07/28/20 24 Active methIMAzole (TAPAZOLE) 5 mg tabletIndication s:Graves' disease Take 1 Tablet (5 mg) by mouth once daily. 90 Tablet 1 08/10/19 25 Active nortriptyline (PAMELOR) 25 mg capsuleIndicatio ns:Fibromyalgia, Chronic pain syndrome Take 1 Capsule (25 mg) by mouth at bedtime. 90 Capsule 3 08/18/19 25 Active methenamine hippurate (HIPREX) 1 gram tabletIndication s:Recurrent UTI Take 1 Tablet (1 g) by mouth two times daily. 180 Tablet 3 08/24/19 25 Active pregabalin (LYRICA) 150 mg capsuleIndicatio ns:Fibromyalgia TAKE 1 CAPSULE BY MOUTH IN THE AM AND 2 CAPSULES BY MOUTH IN THE EVENING BEFORE BEDTIME 90 Capsule 5 09/05/19 25 Active fluconazole (DIFLUCAN) 150 mg tabletIndication s:Vaginal discharge Take one tablet now and repeat second tablet in 72 hours if symptoms persist 2 Tablet 09/21/19 25 Active Active Problems Problem Noted Date Diagnosed Date Recurrent UTI 06/29/2024 Overview (06/29/2024): Darionro works best. Hyperthyroidism 02/17/2024 Overview (02/17/2024): Positive TSI, no nodules on RAIU Pap smear for cervical cancer screening 01/21/20 24 Overview (01/21/2024): 01/2024 NIL/HPV negative Plan: PAP/HPV due 01/2029 UTI (urinary tract infection), uncomplicated Overview (11/24/2023): November 2023: Greater than 100,000 Klebsiella species. Treated with ciprofloxacin. Controlled substance agreement signed 11/10/2018 Overview (11/10/2018): Signed 11/10/2018 Takes 1 tablet per day for chronic pain of either ms contin or percocet depending on severity of pain Interstitial cystitis 03/01/2018 Fibromyalgia 03/01/2018 Anxiety disorder 01/05/2018 Chronic pain syndrome 01/05/2018 Depressive disorder 10/13/2010 Overview (02/25/2018): Overview: DEPRESSIVE DISORDER NEC Major depressive disorder, single episode, mild 02/23/2007 Overview (02/25/2018): Overview: DEPRESS DISORDER-MILD Encounters Date Type Department Care Team Description 10/06/2024 Travel 09/21/2024 2:20 PM LEGAL ASSISTANT E-Visit [facility] [address] [place] [address] Jovanna Kline, DO eVisit for Vaginal Discharge / Irritation 09/19/2024 7:30 AM LEGAL ASSISTANT Nurse/Clinic Staff Only [address] [address] Testing (HST Return/Download.) 09/18/2024 2:15 PM LEGAL ASSISTANT Nurse/Clinic Staff Only [address] [address] Testing (HST Set-up) 09/18/2024 Procedure Only [facility] [address] [place] [address] Ward Castillo MD Results (HST) 09/18/2024 Travel 09/04/2024 Refill [facility] [address] [place] [address] Jovanna Kline DO Refill Request (Pregabalin) 08/24/2024 3:00 PM LEGAL ASSISTANT Office Visit [facility] [address] [place] [address] Amie Lindo MD Consult (Recurring UTI) 08/24/2024 Travel 08/18/2024 2:10 PM LEGAL ASSISTANT Office Visit [facility] [address] [facility] [place] [address] Jovanna Kline DO Medication Management (Oxycodone renew - change amitriptyline to nortriptyline due to weight gain) 08/18/2024 Travel 08/08/2024 4:15 PM LEGAL ASSISTANT Orders Only [address] [address] Lab, [facility] <No scans attached> 08/08/2024 Travel 08/07/2024 Refill [facility] [address] [facility] [place] [address] Jovanna Kline DO Refill Request (Pregabalin) 07/20/2024 4:10 PM LEGAL ASSISTANT Orders Only [address] [address] Lab, [facility] Lab 07/20/2024 Travel from Last 3 Months Immunizations Name Administration [...] 10/21/2018 Smokeless Tobacco: Never Tobacco Cessation:Counseling Given: Yes Alcohol Use Standard Drinks/Week Comments Not Currently 2 (1 standard drink = 0.6 oz pur e alcohol) PHQ-2 Answer Date Recorded PHQ-2 TOTAL SCORE 4 01/10/2024 Social Connections Answer Date Recorded Do you often feel lonely or isolated from those around you? 0 12/27/2023 Financial Resource Strain Answer Date R ecorded Difficulty of Paying Living Expenses 3 12/27/2023 Difficulty of Paying Living Expenses Not on file 12/27/2023 Food Insecurity Answer Date Recorded Do you worry your food will run out before you are able to buy more? 1 12/27/2023 Transportation Needs Answer Date Record ed Does lack of transportation keep you from medica l appointments? 1 12/27/2023 Does lack of transportation keep you from work, meetings or getting things that you need? 1 12/27/2023 Housing Stability Answer Date Recorded What is your housing situation today? 1 12/27/2023 Interpersonal Safety Answer Date Record ed Are you being hit, kicked, p ushed or yelled at (see row info)? No 01/03/2024 Interpersonal Safety Abuse 12 - 18 Not on file 01/03/2024 Interpersonal Safety Ambulatory Vulnerability No t on file 01/03/2024 Utilities Answer Date Recorded Do you have trouble paying f or utilities (for example, heat, electricity, water, phone)? 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 Not on file Not on file Not on file Obstetrics History Para Term AB IAB SAB Ectopic Multiple Livin g Live Births 4 4 4 Date Outcome GA Total Labor Labor/2nd/3rd Weight Sex Type Anes PTL Jeimy A1 A5 Name Clin Term Term Term Term Last Filed Vital Signs Vital Sign Reading Time Taken Comments Blood Pressure 124/88 08/24/2024 3:02 PM LEGAL ASSISTANT Pulse 84 08/24/2024 3:02 PM LEGAL ASSISTANT Temperature 36.9 C (98.5 F) 06/20/2024 4:37 PM LEGAL ASSISTANT Respiratory Rate 18 06/20/2024 4:37 PM LEGAL ASSISTANT Oxygen Saturation 100% 08/18/2024 2:11 PM LEGAL ASSISTANT Inhaled Oxygen Concentration - - Weight 69.9 kg (154 lb) 08/24/2024 3:02 PM LEGAL ASSISTANT Height 159.4 cm (5' 2.75) 08/24/2024 3:02 PM CS T Body Mass Index 27.5 08/24/2024 3:02 PM LEGAL ASSISTANT Plan of Treatment Upcoming Encounters Date Type Department Care Team (Late st Contact Info) Description 10/27/2024 2:20 PM CDT Telemedicine [facility] [address] [place] [address] Ward Che PA [address] [place] [address] 11/13/2024 4:00 PM CDT Office Visit [facility] [address] [place] [address] Ward Castillo MD [address] [place] [address] Health Maintenance Due Date Last Done Comments Pneumococcal series for age 50+ (1 of - PCV) 2019 COVID-19 vaccine series (2023- season) 2024 Influenza for age 50-64 04/09/2024 05/15/20 13, 06/23/2010, 07/05/2009, Additional history exists Mammogram for age 45-75 01/09/2025 01/10/20 24, 06/19/2022, 04/30/2021, Additional history exists Depression screening for age 12+ 01/10/2025 01/11/2024, 01/10/2024, 12/03/2022, Additional history exists BMI (ht and wt on same day) for age 18+ 08/24/2025 08/24/2024, 01/10/2024, 04/21/2023, Additional history exists Tetanus booster 01/14/2026 01/15/2016, 12/31/2004 Fecal testing sDNA-FIT ([place]ne guard) for age 45-75 12/15/2026 12/16/2023, 05/23/2020 Lipids for age 45-75 01/09/2029 01/10/2024, 04/24/2020, 11/10/2018 Pap test for age 21-65 01/09/2029 , 01/10/2024, 02/25/2018, Additional history exists Tdap Completed 01/15/2016 Zoster (shingles) series for age 50+ Completed 06/25/2020, 04/24/2020 HIV for age 15-65 Completed 12/03/2022 Hepatitis C screening for ag e 18-79 Completed 12/03/2022 Procedures Procedure Name Priority Date/Time Associated Diagnosis Comments ALT (SGPT) Routine 10/06/2024 4:26 PM LEGAL ASSISTANT Graves' disease AST (SGOT) Routine 10/06/2024 4:26 PM LEGAL ASSISTANT Graves' disease CBC WITH AUTO DIFFERENTIAL Routine 10/06/2024 4:26 PM LEGAL ASSISTANT Graves' disease T3,TOTAL Routine 10/06/2024 4:26 PM LEGAL ASSISTANT Graves' disease T4,FREE Routine 10/06/2024 4:26 PM LEGAL ASSISTANT Graves' disease TSH Routine 10/06/2024 4:26 PM LEGAL ASSISTANT Graves' disease HOME SLEEP TEST TYPE 3 PORTABLE Routine 09/18/2024 11:59 PM LEGAL ASSISTANT Suspected sleep apnea TSH Routine 08/08/2024 4:11 PM LEGAL ASSISTANT Graves' disease T3,TOTAL Routine 08/08/2024 4:11 PM LEGAL ASSISTANT Graves' disease T4,FREE Routine 08/08/2024 4:11 PM LEGAL ASSISTANT Graves' disease URINE CULTURE Routine 07/20/2024 3:50 PM LEGAL ASSISTANT Recurrent UTI BALLISTICS EXPERT FORENSIC THIN PREP PAP SCREEN IMAGED Routine 01/10/2024 12:13 PM CDT Screening for cervical cancer LIPID PANEL W REFLEX MEASURED LDL Routine 01/10/2024 12:04 PM CDT Screening cholesterol level XR MAMMO ERIKA BILAT SCREEN Routine 01/10/2024 9:56 AM CDT Visit for screening mammogram SDNA-FIT EXTERNAL (COLOGUARD) Routine 12/16/2023 7:40 AM CDT Screening for colorectal cancer LC HIV-1/O/2, 4TH GENERATION Routine 12/03/2022 12:00 PM CDT Screening for HIV (human immunodeficiency virus) LC HCV ANTIBODY RFX TO QUANT PCR Routine 12/03/2022 12:00 PM CDT Need for hepatitis C screening test from Last 3 Months or Most Recently Relevant to Health Maintenance Results * TSH (10/06/2024 4:26 PM LEGAL ASSISTANT) Only the most recent of2 resultswithin the time period is included. Pathologist [facility] TSH 1.63 mIU/L [facility] Comment: Reference Range > or = 20 Years 0.40-4.50 Ranges First trimester 0.26-2.66 Second trimester 0.55-2.73 Third trimester 0.43-2.91 Blood BLOOD SPECIMEN / Unknown 10/06/2024 4:26 PM LEGAL ASSISTANT 10/06/2024 4:28 PM LEGAL ASSISTANT Narrative [facility] - 10/07/2024 5:08 AM LEGAL ASSISTANT FASTING:NO FASTING: NO us Ward GONZALEZ CHEMISTRY Final Resu lt [facility] [address] [place] [address], [facility] [address] [place] [address] * CBC AND DIFFERENTIAL (10/06/2024 4:26 PM LEGAL ASSISTANT) Pathologist [facility] WHITE BLOOD CELL COUNT 10.0 3.8 - 10.8 Thousand/u L [facility] RED BLOOD CELL COUNT 4.75 3.80 - 5.10 Million/uL [facility] HEMOGLOBIN 13.4 11.7 - 15.5 g/dL [facility] HEMATOCRIT 41.7 35.0 - 45.0 % [facility] MCV 87.8 80.0 - 100.0 fL [facility] MCH 28.2 27.0 - 33.0 pg [facility] MCHC 32.1 32.0 - 36.0 g/dL [facility] Comment: For adults, a slight decrease in the calculated MCHC value (in the range of 30 to 32 g/dL) is most likely not clinically significant; however, it should be interpreted with caution in correlation with other red cell parameters and the patient's clinical condition. RDW 13.2 11.0 - 15.0 % [facility] PLATELET COUNT 315 140 - 400 Thousand/u L [facility] MPV 10.8 7.5 - 12.5 fL [facility] ABSOLUTE NEUTROPHILS 5,930 1,500 - 7,800 cells/uL [facility] ABSOLUTE LYMPHOCYTES 2,920 850 - 3,900 cells/uL [facility] ABSOLUTE MONOCYTES 650 200 - 950 cells/uL [facility] ABSOLUTE EOSINOPHILS 420 15 - 500 cells/uL [facility] ABSOLUTE BASOPHILS 80 0 - 200 cells/uL [facility] NEUTROPHILS 59.3 % [facility] LYMPHOCYTES 29.2 % [facility] MONOCYTES 6.5 % [facility] EOSINOPHILS 4.2 % [facility] BASOPHILS 0.8 % [facility] Blood BLOOD SPECIMEN / Unknown 10/06/2024 4:26 PM LEGAL ASSISTANT 10/06/2024 4:28 PM LEGAL ASSISTANT Narrative [facility] - 10/07/2024 2:58 AM LEGAL ASSISTANT FASTING:NO FASTING: NO us Ward Che PA HEMATOLOGY Final Resu lt [facility] [address] [place] [address], [place] [phone] [facility] [address] [address] * T3,TOTAL (10/06/2024 4:26 PM LEGAL ASSISTANT) Only the most recent of2 resultswithin the time period is included. Pathologist [facility] T3, TOTAL 106 76 - 181 ng/dL [facility] Blood BLOOD SPECIMEN / Unknown 10/06/2024 4:26 PM LEGAL ASSISTANT 10/06/2024 4:28 PM LEGAL ASSISTANT Narrative [facility] - 10/07/2024 5:08 AM LEGAL ASSISTANT FASTING:NO FASTING: NO Ward GONZALEZ CHEMISTRY Final Resu lt [facility] [address] [place] [address], [facility] [address] [place] [address] * ALT (SGPT) (10/06/2024 4:26 PM LEGAL ASSISTANT) [facility] ALT 15 6 - 29 U/L [facility] Blood BLOOD SPECIMEN / Unknown 10/06/2024 4:26 PM LEGAL ASSISTANT 10/06/2024 4:28 PM LEGAL ASSISTANT Narrative [facility] - 10/07/2024 3:29 AM LEGAL ASSISTANT FASTING:NO FASTING: NO Ward GONZALEZ CHEMISTRY Final Resu lt [facility] [address] [place] [address], [facility] [address] [place] [address] * AST (SGOT) (10/06/2024 4:26 PM LEGAL ASSISTANT) AST 19 10 - 35 U/L [facility] Blood BLOOD SPECIMEN / Unknown 10/06/2024 4:26 PM LEGAL ASSISTANT 10/06/2024 4:28 PM LEGAL ASSISTANT Narrative [facility] - 10/07/2024 3:29 AM LEGAL ASSISTANT FASTING:NO FASTING: NO Ward GONZALEZ CHEMISTRY Final Resu lt [facility] [address] [place] [address], [facility] [address] [place] [address] * T4,FREE (10/06/2024 4:26 PM LEGAL ASSISTANT) Only the most recent of2 resultswithin the time period is included. T4, FREE 0.9 0.8 - 1.8 ng/dL [facility] Blood BLOOD SPECIMEN / Unknown 10/06/2024 4:26 PM LEGAL ASSISTANT 10/06/2024 4:28 PM LEGAL ASSISTANT Narrative [facility] - 10/07/2024 5:08 AM LEGAL ASSISTANT FASTING:NO FASTING: NO Ward GONZALEZ CHEMISTRY Final Resu lt Performing Organization Address [facility]/ZIP Co de Phone Number [facility] [address] [place] [address], [facility] [address] [place] [address] * HOME SLEEP TEST TYPE 3 PORTABLE (09/18/2024 11:59 PM LEGAL ASSISTANT) Ward Medrano MD - 09/18/2024 11:59 PM LEGAL ASSISTANT Ward Castillo MD 09/19/2024 4:53 PM Home Sleep Test Name: Kailey Newman Location: [facility] Study notes: This is a single night home sleep apnea test. The study is performed in the context of a clinical suspicion for sleep apnea. Kailey Newman ( 1970) is studied using a T3 Device using nasal pressure transducer, thoracoabdominal respiratory impedence plethysmography belts, pulse oximetry, snore microphone and actigraphy for body position. The study is scored by a RPSGT and interpreted by a Diplomate of the [place] [employer]. Raw summary data is scanned into this report as a separate document. An epoch by epoch review of the data has been performed by the interpreting physician. Scored following the AASM Manual for the Scoring of Sleep and Associated Events, V3. Respiratory Event Index (PRERNA) Oxygen Desaturation Index (VAN) REI4% 2.1 ODI4%: 3 REI3% 4.4 ODI3%: 7.2 Supine PRERNA: 10.1 Curt Saturation 85 % Lateral PRERNA: 0.6 Time Below 88% 4.4 minutes Weight: Wt Readings from Last 1 Encounters: 08/24/24 69.9 kg (154 lb) Other data: Recording Duration: 524.9 minutes Time in Bed: 489.4 minutes Estimated sleep efficiency [%]: 96 % Oximeter Quality: 99.5 % Flow Quality: 100.0 % RIP Quality: 100.0 % Supine time: 189.6 minutes Average SpO2: 93.2 % Pulse Average: 67.4 bpm Additional Comments: None IMPRESSION: Excessive Daytime Sleepiness (780.54, G47.10) - No Evidence of Obstructive Sleep Apnea RECOMMENDATIONS: - This is a negative home sleep study. - A formal polysomnogram should be considered given a high false negative rate to home sleep testing. - However, if there is low clinical suspicion for obstructive sleep apnea, a negative home sleep test can be diagnostic. - Consider a referral to [facility] for patients with a BMI > 30. - Follow-up with a provider to discuss results is recommended. - Patients should be advised to avoid critical tasks, such as driving, whenever drowsy. - Patients should try to achieve at least 7-8 hours of sleep on a consistent basis. - The PRERNA is a surrogate for AHI. For reimbursement and/or prior authorization purposes, it would be appropriate to list the PRERNA as an AHI when the latter is accepted, but not the former. Ward Meltone, Board of Sleep Medicine Recording Information Recording Date: 09/18/2024 Analysis Start Time: 10:35 PM Recording Tags: Analysis Stop Time: 6:45 AM Device Type: T3S Analysis Duration (TRT): 8h 9m Est. Total Sleep Time: 8h 2m Position and Analysis Time Duration Percentage Supine (in TST): 189.6 m 39.3 % Non-Supine (in TST): 292.9 m 60.7 % Upright (in TRT): 6.8 m 1.4 % Movement (in TST): 20.5 m 4.2 % Invalid Data (Excluded): 0 m 0 % Respiratory Indices Index Total Supine Non-supine Count Apneas + Hypopneas (REI3%): 4.4 /h 10.1 /h 0.6 /h 35 Apneas + Hypopneas (REI4%) 2.1 /h /h /h Apneas: 0 /h 0 /h 0 /h 0 Obstructive (OA): 0 /h 0 /h 0 /h 0 Mixed (MA): 0 /h 0 /h 0 /h 0 Central (CA): 0 /h 0 /h 0 /h 0 Hypopneas 3%: 4.4 /h 10.1 /h 0.6 /h 35 Hypopneas 4%: 0 /h 32 /h 3 /h 0 Respiration Rate (per m): 14.4 /m 14.5 /m 14.3 /m Percentage of Sleep Duration Snore: 3.9 % 3.6 % 4.1 % 18.8 m Flow Limitation: 0 % 0 % 0 % 0 m Average Snore Volume 65.7 dB Percent of time greater than 80dB: Percent of 5.9 % Oxygen Saturation (SpO2) Total Supine Non-supine Oxygen Desaturation Index (VAN): 7.2 /h 16.1 /h 1.4 /h Average SpO2: 93.2 % 92.1 % 94 % Minimum SpO2: 85 % 85 % 90 % SpO2 Duration < 90% 2.9 % (13.8m) 7.3 % 0 % SpO2 Duration <= 88% 0.9 % (4.4m) 2.3 % 0 % Pulse in TST Quality Average: 67.4 bpm Oximeter: 99.5 % Maximum: 96 bpm Nasal Cannula: 100 % Minimum: 56 bpm Abdomen RIP: 100 % Duration < 40 bpm: 0 m Thorax RIP: 100 % Duration > 100 bpm: 0 m Aurelia Kline DO [facility] Final Result * URINE CULTURE (07/20/2024 3:50 PM LEGAL ASSISTANT) CULTURE 10-50,000 CFU/mL of multiple organisms, probable contaminants 07/21/2024 3:49 PM LEGAL ASSISTANT [facility] Urine URINE SPECIMEN / Unknown Non-Blood / Unknown 07/20/2024 3:50 PM LEGAL ASSISTANT 07/20/2024 4:23 PM LEGAL ASSISTANT [facility] Jadielmaribel MC MICROBIOLOGY Final Result [facility] [address] [place] [address], [place] * BALLISTICS EXPERT FORENSIC THIN PREP PAP SCREEN IMAGED [[id number]] (01/10/2024 12:13 PM CDT) Case Report Gynecologic Cytology Report Case: [id number] Authorizing Provider: Jovanna Kline DO Collected: 01/10/2024 1213 Ordering Location: [facility] Received: 01/10/2024 1213 Clinic First Screen: Charo Paredes Specimen: BALLISTICS EXPERT FORENSIC ThinPrep Vial Screening, Cervical 01/20/2024 8:40 AM CDT [facility] INTERPRETATION/ RESULT NEGATIVE FOR INTRAEPITHELIAL LESION OR MALIGNANCY (NIL) (none) 01/20/2024 8:40 AM CDT [facility] IMEN ADEQUACY Satisfactory for evaluation Endocervical component present 01/20/2024 8:40 AM CDT [facility] [facility] HPV REQUEST HPV and PAP 01/20/2024 8:40 AM CDT [facility] Date of LMP postmenopausal 4 8:40 AM CDT [facility] Last Pap Date 02/25/18 01/20/2024 8:40 AM CDT [facility] Last Pap Result NIL 8:40 AM CDT [facility] Abnormal Pap or [place] Bx in last 5 years No 01/20/2024 8:40 AM CDT [facility] Menstrual Status Postmenopausal 01/20/2024 8:40 AM CDT [facility] [place] Bx Done Today No 01/20/2024 8:40 AM CDT [facility] Additional Information None given 01/20/2024 8:40 AM CDT [facility] Comment: Cytology is screened at [facility] - [address], [place] [address] and [facility] - [address], [place] [address] and [facility] - [address] [place] [address]ed [address] [facility] Laboratory - [address], [place] [address] Automated Review Successful 01/20/2024 8:40 AM T [facility] Comment:Specimen processed s uccessfully by automated nutrition instructor device, ThinPrep Imaging System, [employer] ANCILLARY TESTING BALLISTICS EXPERT FORENSIC HPV Ordered, Please see separate report 01/20/2024 8:40 AM T [facility] Note The pap test is a screening technique, not a diagnostic procedure. It is used primarily to screen for squamous cancers and precursor lesions. Published studies have shown that it is subject to both false negative and false positive results. The pap test should not be used as the sole means to diagnose or exclude pre-malignant and malignant lesions. 01/20/2024 8:40 AM CDT [facility] Other (Cervical) Non-Blood / Unknown 01/10/2024 12:13 PM CDT 01/10/2024 12:13 PM CDT us Jovanna Kline DO PATHOLOGY/CYTOLOGY Final Resu lt [facility] [address] [place] [address], [place] * LIPID PANEL W REFLEX MEASURED LDL (01/10/2024 12:04 PM CDT) CHOLESTEROL,TOTAL 171 100 - 199 mg/dL 01/11/2024 9:36 AM CDT [facility] Comment: Cholesterol, Total Reference Ranges Desirable <200 mg/dL Borderline 200-239 mg/dL High >=240 mg/dL TRIGLYCERIDES 116 <150 mg/dL 01/11/2024 9:36 AM CDT [facility] HDL CHOLESTEROL 64 >40 mg/dL 9:36 AM CDT [facility] NON-HDL CHOLESTEROL 107 <145 mg/dl 01/11/2024 9:36 AM CDT [facility] CHOL/HDL RATIO 2.67 <4.50 01/11/2024 9:36 AM CDT [facility] LDL CHOLESTEROL 84 <=130 mg/dL 01/11/2024 9:36 AM CDT [facility] VLDL CHOLESTEROL 23 <=30 mg/dL 01/11/2024 9:36 AM CDT [facility] PROVIDER ORDERED STATUS RANDOM 01/11/2024 9:36 AM CDT [facility] Blood BLOOD SPECIMEN / Unknown Venipuncture / Unknown 01/10/2024 12:04 PM CDT 01/10/2024 12:05 PM CDT Jovanna Kline DO CHEMISTRY Final Result [facility] [address] [place] [address], [place] * XR MAMMO ERIKA BILAT SCREEN (01/10/2024 9:56 AM CDT) Anatomical Region Laterality Modality BREASTS, Breast Left, Breast Right Bilateral Mammography Impressions 01/11/2024 3:24 PM CDT There is no radiographic evidence for malignancy. Recommend annual mammograms. MAMMOGRAM ASSESSMENT: ACR 1 Negative PATIENTS: You will also receive a letter with your examination results in an easy to read format. If you have questions about your results, please [...] care provider. XR MAMMO ERIKA BILAT SCREEN [[id number]] CLINICAL HISTORY: This is an asymptomatic 53 y.o. patient. INDICATION FOR EXAM: Mammogram Screening. TECHNIQUE: CC & MLO views were obtained. This study was evaluated with the assistance of Computer-Aided Detection. Breast Tomosynthesis was used in interpretation. COMPARISON FILM: Yes 06/19/22 [facility] 04/30/21 [facility] FINDINGS: The breasts are heterogeneously dense, which may obscure small masses. There are no dominant masses, suspicious micro calcifications or areas of architectural distortion. us Jovanna Jeimy Shaqra DO MAMMO Final Result * SDNA-FIT EXTERNAL (COLOGUARD) [[id number]] (12/16/2023 7:40 AM CDT) NONINV COLON CA DNA+OCC BLD SCRN STL-IMP Negative Negative 12/23/2023 5:48 PM CDT [facility] (CLIA #:[id number]) Comment: NEGATIVE TEST RESULT. A negative Cologuard result indicates a low likelihood that a colorectal cancer (CRC) or advanced adenoma (adenomatous polyps with more advanced pre-malignant features) is present. The chance that a person with a negative Cologuard test has a colorectal cancer is less than 1 in 1500 (negative predictive value >99.9%) or has an advanced adenoma is less than 5.3% (negative predictive value 94.7%). These data are based on a prospective cross-sectional study of 10,000 individuals at average risk for colorectal cancer who were screened with both Cologuard and colonoscopy. (Radha Mehta al, N Engl J Med 2014;370(14):3770-1176) The normal value (reference range) for this assay is negative. COLOGUARD RE-SCREENING RECOMMENDATION: Periodic colorectal cancer screening is an important part of preventive healthcare for asymptomatic individuals at average risk for colorectal cancer. Following a negative Cologuard result, the [place] [employer] and U.S. Multi-Society Task Force screening guidelines recommend a Cologuard re-screening interval of 3 years. References: [place] [employer] Guideline for Colorectal Cancer Screening: https://www.cancer.org/cancer/eneze-iedbla-dnygup/dvwxjtbdu-zxhrrrylk-twalljd/ac s-rec ommendations.html.; Bala DK, Fozia CR, Gonzalo HardinK, Colorectal Cancer Screening: Recommendations for Physicians and Patients from the U.S. Multi-Society Task Force on Colorectal Cancer Screening , Am J Gastroenterology 2017; 112:3449-5138. TEST DESCRIPTION: Composite algorithmic analysis of stool DNA-biomarkers with hemoglobin immunoassay. Quantitative values of individual biomarkers are not [...] (Radha Mehta al, N Engl J Med 2014;370(14):7556-1172.) Cologuard may produce a false negative or false positive result (no colorectal cancer or precancerous polyp present at colonoscopy follow up). A negative Cologuard test result does not guarantee the absence of CRC or advanced adenoma (pre-cancer). The current Cologuard screening interval is every 3 years. ([place] [employer] and U.S. Multi-Society Task Force). Cologuard performance data in a 10,000 patient pivotal study using colonoscopy as the reference method can be accessed at the following location: www.GoNetYourself.com/results. Additional description of the Cologuard test process, warnings and precautions can be found at www.cologuard.com. Stool specimen (specimen) (Rectum) 12/16/2023 7:40 AM CDT 12/17/2023 12:25 PM CDT Jovanna Duvallrudi DO URINE Final Result [facility] (CLIA #:[id number]) [place] [address], * LC HCV ANTIBODY RFX TO QUANT PCR (12/03/2022 12:00 PM CDT) HCV Ab Non Reactive Non Reactive 12/05/2022 3:08 PM CDT [facility] Blood BLOOD SPECIMEN / Unknown Venipuncture / Unknown 12/03/2022 12:00 PM CDT 12/03/2022 12:02 PM CDT Narrative [facility] ([facility]) - 12/05/2022 3:08 PM CDT Performed at: [address] [place] [id number] Electric[employer] Supervisor: Nelson Ruff MD, Phone: [phone] [facility] Fin al Result Performing Organization Address City/[facility]/ZIP Co de Phone Number [facility] ([facility]) [address] [place] [phone], * LC HIV-1/O/2, 4TH GENERATION (12/03/2022 12:00 PM CDT) HIV Scr 4th Gen Non Reactive Non Reactive 12/05/2022 12:08 PM CDT [facility] ([facility]) Comment: HIV Negative HIV-1/HIV-2 antibodies and HIV-1 p24 antigen were NOT detected. There is no laboratory evidence of HIV infection. Blood BLOOD SPECIMEN / Unknown Venipuncture / Unknown 12/03/2022 12:00 PM CDT 12/03/2022 12:02 PM CDT Narrative [facility] ([facility]) - 12/05/2022 12:08 PM CDT Performed at: 01 - [address] [id number] Electric[employer] Supervisor: Nelson Ruff MD, Phone: [phone] us [facility] Fin al Result [facility] ([facility]) [facility] [place] [address], from Last 3 Months or Most Recently Relevant to Health Maintenance Insurance [facility] Care Teams Brilliandeer Looper Relationship Specialty Start Date End Date J[place] [address] PCP - General Family Practice 09/02/22 Jolly Calabrese PA Physician Eyelet Cutter 10/23/21 Ward Che PA [address] [place] [address] Endocrinology Physician Eyelet Cutter 06/29/24
== END 2024-10-09 21:27 | disposition home or self-care (01) ==
LOC: ED 21:26
PROVIDERS: Emergency Provider Emergency Medicine Emergency Medical Services; PCP Family Medicine
DX: N39.0 Urinary tract infection, site not specified (principal)
CPT/HCPCS: 81001; 87086; 96372; 99284; A9270; J0696

== ENCOUNTER 2024-10-14 13:59 | Emergency (ER) | payer BC, SELFPAY ==
--- OUTSIDE RECORDS SUMMARY | 2024-10-14 14:02 | XMS_ITS | Clinical Summary ---
Author Organization [employer] [facility] Address [address] [place] [id number] Care Team Providers Care Electronic Heat Seal Operator Name Role Phone Jolly Calabrese Unavailable [phone] Jovanna Kline DO Primary Care Provider Ward Che Unavailable [phone] Allergies Active Allergy Reactions Criticality Noted Date Comments Adhesive Rash 07/25/2021 Meperidine Hallucinations 09/08/2016 Hydrocodone Rash,Itching 11/15/2010 Sulfa (Sulfonamide Antibiotics) Stomach Upset 09/08/2016 Sulfamethoxazole Other - Describe In Comment Field 11/15/2010 Cerner listed no reaction. Medications nystatin powder (MYCOSTATIN) powderIndications: Candidiasis of anus Apply 1 Strip topically to affected area(s) 3 times daily. 60 g 5 02/26/20 18 Active phenazopyridine (PYRIDIUM) 100 mg tabletIndications: Chronic interstitial cystitis Take 1 tablet by mouth 3 times daily after meals. As needed for painful urination. 10 tablet 5 02/26/20 18 Active medication order composerIndication s:Dyspareunia in female,Pelvic floor tension Diazepam [address] 1 vaginal suppository into the vagina once nightly or as directed 14 Suppository 05/22/20 21 Active lidocaine (XYLOCAINE) 2 % gelIndications:Pel marce floor tension Insert into the urethra once daily if needed (for use with Therawand). 30 mL 1 05/22/20 21 Active triamcinolone (ARISTOCORT; KENALOG) 0.1 % creamIndications:R kathleen Apply topically to affected area(s) 3 times daily. 80 g 2 10/09/19 22 Active hydrOXYzine HCL (ATARAX) 25 mg tabletIndications: Anxiety disorder, unspecified type,Itching Take 1 Tablet (25 mg) by mouth every 6 hours if needed for Itching. 30 Tablet 2 01/24/20 22 Active ondansetron (ZOFRAN) 8 mg tabletIndications: Nausea Take 1 Tablet (8 mg) by mouth every 8 hours if needed for Nausea/Vomitin g. 30 Tablet 02/21/20 22 Active nystatin (MYCOSTATIN) ointmentIndication s:Yeast dermatitis Apply topically to affected area(s) two times daily. 60 g 09/02/19 23 Active diazePAM (Valium) 5 mg tablet take 1 suppository per rectum as needed for rectal spasms 07/25/20 21 Active Lactobacillus acidophilus 10 billion cell cap take as directed 07/25/20 21 Active valACYclovir (VALTREX) 1 gram tabletIndications: History of herpes genitalis Take 1 Tablet (1 g) by mouth once daily. 90 Tablet 03/22/20 23 Active polyethylene glycol-electrolyte (GOLYTELY) 236-22.74-6.74 -5.86 gram suspensionIndicati ons:Encounter for screening colonoscopy Drink 2 liters the day before the procedure and 2 liters 6 hours prior to procedure. 4000 mL 07/21/20 23 Active atenoloL (TENORMIN) 25 mg tabletIndications: Tachycardia,Hypert hyroidism Take 1 tablet (25 mg) once daily; take up to 1 additional tablet (25 mg) daily as needed for heart rate >100. 90 Tablet 2 01/17/20 24 Active cyclobenzaprine (FLEXERIL) 10 mg tabletIndications: Fibromyalgia Take 1 Tablet (10 mg) by mouth 2 times daily if needed for Muscle Spasm. 60 Tablet 5 04/11/20 24 Active estradioL (ESTRACE) 1 mg tabletIndications: Vasomotor symptoms due to menopause Take 1 Tablet (1 mg) by mouth once daily. 90 Tablet 3 05/02/20 24 Active estradioL (ESTRACE) 0.01% (0.1 mg/g) vaginal creamIndications:V aginal atrophy Insert 1 g into the vagina every Wednesday and [place]. Use a pea sized amount on labia at bedtime 42.5 g 2 05/05/20 24 Active fluconazole (DIFLUCAN) 150 mg tabletIndications: Vaginal yeast infection Take one tablet now and repeat 1 tablet in 72 hours if symptoms have not resolved. 2 Tablet 06/01/20 24 Active oxyCODONE (ROXICODONE) 5 mg immediate release tabletIndications: Chronic pain syndrome Take 1 Tablet (5 mg) by mouth 3 times daily if needed for Pain (May use 2 tablets for severe pain as needed). 30 Tablet 07/28/20 24 Active methIMAzole (TAPAZOLE) 5 mg tabletIndications: Graves' disease Take 1 Tablet (5 mg) by mouth once daily. 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 90 Capsule 3 08/18/19 25 Active methenamine hippurate (HIPREX) 1 gram tabletIndications: Recurrent UTI Take 1 Tablet (1 g) by mouth two times daily. 180 Tablet 3 08/24/19 25 Active pregabalin (LYRICA) 150 mg capsuleIndications :Fibromyalgia TAKE 1 CAPSULE BY MOUTH IN THE AM AND 2 CAPSULES BY MOUTH IN THE EVENING BEFORE BEDTIME 90 Capsule 5 09/05/19 25 Active fluconazole (DIFLUCAN) 150 mg tabletIndications: Vaginal discharge Take one tablet now and repeat second tablet in 72 hours if symptoms persist 2 Tablet 09/21/19 25 Active ciprofloxacin (CIPRO) 500 mg tablet Take 1 Tablet by mouth two times daily. 10/11/19 25 Active ondansetron (ZOFRAN ODT) [address] 4 mg on the tongue every 8 hours if needed for Nausea/Vomitin g. Active metoclopramide HCl (REGLAN) 10 mg tabletIndications: Nausea Take 1 Tablet (10 mg) by mouth every 6 hours if needed for Nausea/Vomitin g. 12 Tablet 10/13/19 25 Active HYDROmorphone 2 mg tabletIndications: Flank pain,Bladder pain Take 1 Tablet (2 mg) by mouth every 4 hours if needed for Pain. 12 Tablet 10/14/19 25 Active Hospital, Clinic, or Other Facility Administered Medication Ordered Dose Route Frequency Start Date End Date Status ketorolac 30 mg injection (TORADOL)Indications:Flank pain 30 mg IM ONE TIME 10/11/2024 10/11/2024 Ended Active Problems Problem Noted Date Diagnosed Date Recurrent UTI 06/29/2024 Overview (06/29/2024): Cipro works best. Hyperthyroidism 02/17/2024 Overview (02/17/2024): Positive TSI, no nodules on RAIU Pap smear for cervical cancer screening 01/21/20 Overview (01/21/2024): 01/2024 NIL/HPV negative Plan: PAP/HPV [...] Encounters Date Type Department Care Team Description 10/13/2024 8:30 AM TRENCHER DRIVER - 10/13/2024 10:46 AM TRENCHER DRIVER Emergency [facility] [address] [place] [address] Sacha Wren MD Flank pain (Primary Dx); Bladder pain; Nausea Discharge Disposition: Home Self Care 10/13/2024 Telephone [facility] [address] [facility] [address] [place] [address] Amie Lindo MD Questions (appointment//nurse visit) 10/13/2024 Telephone [facility] [address] [facility] [address] [place] [address] Amie Lindo MD Appointment 10/13/2024 Travel 10/12/2024 10:14 AM TRENCHER DRIVER - 10/12/2024 1:51 PM TRENCHER DRIVER Emergency [facility] [address] [place] [address] Miko Siddiqui MD Pain of upper extremity, unspecified laterality (Primary Dx); Back pain, unspecified back location, unspecified back pain laterality, unspecified chronicity; Myalgia; Nausea; Abdominal pain, unspecified abdominal location Discharge Disposition: Home Self Care 10/12/2024 Nurse Triage [facility] [address] [facility] [address] [place] [address] Amie Lindo MD Medication Management (methenamine hippurate (HIPREX) 1 gram tablet) 10/11/2024 3:00 PM TRENCHER DRIVER Ancillary Procedure [facility] [address] [place] [address] Arrived 10/11/2024 1:15 PM TRENCHER DRIVER Office Visit [address] [address] Yao Vail MD ER Follow up ([facility], 10/09/2024, UTI - symptoms getting worse) 10/11/2024 Travel 10/11/2024 Nurse Triage [facility] [address] [place] [address] Sir Klinei Jeimy, DO Flank Pain; Urinary Tract Infection 10/06/2024 Travel 09/21/2024 2:20 PM TRENCHER DRIVER E-Visit [facility] [address] [place] [address] Eliud Jovanna Jeimy, DO eVisit for Vaginal Discharge / Irritation 09/19/2024 7:30 AM TRENCHER DRIVER Nurse/Clinic Staff Only [address] [address] Testing (HST Return/Download.) 09/18/2024 2:15 PM TRENCHER DRIVER Nurse/Clinic Staff Only [facility] [address] [place] [address] Testing (HST Set-up) 09/18/2024 Procedure Only [facility] [address] [place] [address] Ward Castillo MD Results (HST) 09/18/2024 Travel 09/04/2024 Refill [facility] [address] [place] [address] Jadielqra Jovanna Jeimy, DO Refill Request (Pregabalin) 08/24/2024 3:00 PM TRENCHER DRIVER Office Visit [facility] [address] [address] Amie Lindo MD Consult (Recurring UTI) 08/24/2024 Travel 08/18/2024 2:10 PM TRENCHER DRIVER Office Visit [facility] [address] [place] [address] [place] Jovanna Jeimy, DO Medication Management (Oxycodone renew - change amitriptyline to nortriptyline due to weight gain) 08/18/2024 Travel 08/08/2024 4:15 PM TRENCHER DRIVER Orders Only [address] [address] Lab, [facility] <No scans attached> 08/08/2024 Travel 08/07/2024 Refill [facility] [address] [place] [address] Eliud Jovanna Jeimy, DO Refill Request (Pregabalin) 07/20/2024 4:10 PM TRENCHER DRIVER Orders Only [address] [place] [address] Lab, [facility] Lab 07/20/2024 Travel from Last 3 Months Immunizations Immunization Administration Dates Next Due DT (Age < [...] or yelled at (see row info)? No 10/13/2024 Interpersonal Safety Abuse 12 - 18 Not on file 10/13/2024 Interpersonal Safety Ambulatory Vulnerability No t on file 10/13/2024 Utilities Answer Date Recorded Do you have trouble paying f or utilities (for example, heat, electricity, water, phone)? 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 Not on file Not on file Not on file Obstetrics History Para Term AB IAB SAB Ectopic Multiple Livin g Live Births 4 4 4 Date Outcome GA Total Labor Labor/2nd/3rd Weight Sex Type Anes PTL Jeimy A1 A5 Name Clin Term Term Term Term Last Filed Vital Signs Vital Sign Reading Time Taken Comments Blood Pressure 145/91 10/13/2024 10:10 AM TRENCHER DRIVER Pulse 90 10/13/2024 10:10 AM TRENCHER DRIVER Temperature 36.7 C (98 F) 10/13/2024 8:36 AM TRENCHER DRIVER Respiratory Rate 20 10/13/2024 8:36 AM TRENCHER DRIVER Oxygen Saturation 97% 10/13/2024 10:10 AM TRENCHER DRIVER Inhaled Oxygen Concentration - - Weight 70.8 kg (156 lb) 10/13/2024 8:47 AM TRENCHER DRIVER Height 162.6 cm (5' 4) 10/13/2024 8:47 AM TRENCHER DRIVER Body Mass Index 26.78 10/13/2024 8:47 AM TRENCHER DRIVER Plan of Treatment Upcoming Encounters Date Type Department Care Team (Late st Contact Info) Description 10/16/2024 11:25 AM CDT Office Visit [facility] [address] [place] [address] Jovanna Kline Jeimy, DO [address] [place] [address] 10/16/2024 3:00 PM CDT Nurse/Clinic Staff Only [address] [facility] [place] [address] 10/27/2024 2:20 PM CDT Telemedicine [address] [place] [id number] Ward Che PA [address] [place] [address] 11/13/2024 4:00 PM CDT Office Visit [facility] [address] [place] [address] Ward Castillo MD [address] [place] [address] Health Maintenance Due Date Last Done Comments Pneumococcal series for age 50+ (1 of 1 - PCV) 2019 COVID-19 vaccine series ( - 2023- season) 2024 Influenza Vaccine (#1) 2024 3, 06/23/2010, 04/23/2009, Additional history exists Mammogram for age 45-75 01/09/2025 01/10/20 24, 06/19/2022, 04/30/2021, Additional history exists Depression screening for age 12+ 01/10/2025 01/11/2024, 01/10/2024, 12/03/2022, Additional history exists BMI (ht and wt on same day) for age 18+ 08/24/2025 08/24/2024, 01/10/2024, 04/21/2023, Additional history exists Tetanus booster 01/14/2026 01/15/2016, 12/31/2004 Fecal testing sDNA-FIT ([place] guard) for age 45-75 12/15/2026 12/16/2023, 05/23/2020 Lipids for age 45-75 01/09/2029 01/10/2024, 04/24/2020, 11/10/2018 Pap test for age 21-65 01/09/2029 , 01/10/2024, 02/25/2018, Additional history exists Tdap Completed 01/15/2016 Zoster (shingles) series for age 50+ Completed 06/25/2020, 04/24/2020 HIV for age 15-65 Completed 12/03/2022 Hepatitis C screening for ag e 18-79 Completed 12/03/2022 Procedures Procedure Name Priority Date/Time Associated Diagnosis Comments UA W/ SEDIMENT EXAM REFLEXED PER CRITERIA STAT 10/13/2024 9:10 AM TRENCHER DRIVER PROCALCITONIN STAT 10/13/2024 8:57 AM TRENCHER DRIVER C-REACTIVE PROTEIN STAT 10/13/2024 8: 57 AM TRENCHER DRIVER CBC W PLT NO DIFF STAT 10/13/2024 8:5 7 AM TRENCHER DRIVER TROPONIN T (HS) ONE TIME Timed 10/12/2024 12:43 PM TRENCHER DRIVER EKG 12 LEAD STAT 10/12/2024 10:52 AM TRENCHER DRIVER TROPONIN T (HS) ACUTE W/2HR REFLEX STAT 10/12/2024 10:43 AM TRENCHER DRIVER HEPATIC FUNCTION PANEL STAT 10/12/2024 10:43 AM TRENCHER DRIVER LIPASE STAT 10/12/2024 10:43 AM TRENCHER DRIVER BASIC METABOLIC PANEL STAT 10/12/2024 10:43 AM TRENCHER DRIVER CBC W PLT NO DIFF STAT 10/12/2024 10: [address] ABDOMEN PELVIS STONE PROTOCOL WO STAT 10/11/2024 2:31 PM TRENCHER DRIVER Flank pain [facility] ([facility]) Routine 10/11/2024 2:13 PM TRENCHER DRIVER Flank pain URINALYSIS MICROSCOPIC Routine 10/11/2024 2:11 PM TRENCHER DRIVER Flank pain URINE CULTURE Routine 10/11/2024 2:11 PM TRENCHER DRIVER Flank pain CBC WITH AUTO DIFFERENTIAL Routine 10/11/2024 2:11 PM TRENCHER DRIVER Flank pain HEPATIC FUNCTION PANEL Routine 10/11/2024 2:11 PM TRENCHER DRIVER Flank pain BASIC METABOLIC PANEL Routine 10/11/2024 2:11 PM TRENCHER DRIVER Flank pain COVID/FLU/RSV PANEL Routine 10/11/2024 2 :04 PM TRENCHER DRIVER Cough, unspecified type ALT (SGPT) Routine 10/06/2024 4:26 PM TRENCHER DRIVER Graves' disease AST (SGOT) Routine 10/06/2024 4:26 PM TRENCHER DRIVER Graves' disease CBC WITH AUTO DIFFERENTIAL Routine 10/06/2024 4:26 PM TRENCHER DRIVER Graves' disease T3,TOTAL Routine 10/06/2024 4:26 PM TRENCHER DRIVER Graves' disease T4,FREE Routine 10/06/2024 4:26 PM TRENCHER DRIVER Graves' disease TSH Routine 10/06/2024 4:26 PM TRENCHER DRIVER Graves' disease HOME SLEEP TEST TYPE 3 PORTABLE Routine 09/18/2024 11:59 PM TRENCHER DRIVER Suspected sleep apnea TSH Routine 08/08/2024 4:11 PM TRENCHER DRIVER Graves' disease T3,TOTAL Routine 08/08/2024 4:11 PM TRENCHER DRIVER Graves' disease T4,FREE Routine 08/08/2024 4:11 PM TRENCHER DRIVER Graves' disease URINE CULTURE Routine 07/20/2024 3:50 PM TRENCHER DRIVER Recurrent UTI APPLICATIONS SUPPORT LEAD THIN PREP PAP SCREEN IMAGED Routine 01/10/2024 [...] Relevant to Health Maintenance Results * (ABNORMAL) UA W/ SEDIMENT EXAM REFLEXED PER CRITERIA (10/13/2024 9:10 AM [facility]) COLOR Yellow Yellow Color 10/13/2024 9:16 AM [facility] CLARITY Clear Clear Clarity 10/13/2024 9:16 AM [facility] SPECIFIC GRAVITY,URINE <=1.005(A) 1.010, 1.015, 1.020, 1.025 10/13/2024 9:16 AM [facility] PH,URINE 6.0 6.0, 7.0, 8.0, 5.5, 6.5, 7.5, 8.5 10/13/2024 9:16 AM [facility] UROBILINOGEN, QUALITATIVE Normal Normal EU/dl 10/13/2024 9:16 AM [facility] PROTEIN, URINE Negative Negative mg/dL 10/13/2024 9:16 AM [facility] GLUCOSE, URINE Negative Negative mg/dL 10/13/2024 9:16 AM [facility] KETONES,URINE Negative Negative mg/dL 10/13/2024 9:16 AM [facility] BILIRUBIN,URI NE Negative Negative 10/13/2024 9:16 AM [facility] OCCULT BLOOD,URINE Negative Negative 10/13/2024 9:16 AM [facility] NITRITE Negative Negative 10/13/2024 9:16 AM [facility] LEUKOCYTE ESTERASE Negative Negative 10/13/2024 9:16 AM [facility] Urine URINE SPECIMEN / Unknown Non-Blood / Unknown 10/13/2024 9:10 AM TRENCHER DRIVER 10/13/2024 9:13 AM TRENCHER DRIVER us Sacha Wren MD URINE Geetha l Result [facility] [address] [place] [id number] * PROCALCITONIN (10/13/2024 8:57 AM TRENCHER DRIVER) PROCALCITONIN 0.02 ng/ml 10/13/2024 9:47 AM TRENCHER DRIVER [facility] Blood BLOOD SPECIMEN / Unknown Butterfly / Unknown 10/13/2024 8:57 AM TRENCHER DRIVER 10/13/2024 9:15 AM TRENCHER DRIVER Narrative [facility] - 10/13/2024 9:47 AM TRENCHER DRIVER Procalcitonin for initial assessment of Lower Respiratory Tract Infection: Results Interpretation <0.10 ng/mL Antibiotic therapy strongly discoraged. Indicates absent of bacterial infection. * 0.10 - 0.25 ng/mL Antibiotic therapy discouraged. Bacterial infection unlikely. * 0.26 - 0.50 ng/mL Antibiotic therapy encouraged. Bacterial infection possible. >0.50 ng/mL Antibiotic therapy strongly encouraged. Suggestive of presence of bacterial infection. *Antibiotic therapy should be considered regardless of PCT result if the patient is clinically unstable, is at high risk for adverse outcome, has strong evidence of bacterial pathogen, or the clinical context indicates antibiotic therapy is warranted. If antibiotics are withheld, reassess if symptoms persist/worsen and/or repeat PCT measurement within 6-24 hours. In order to assess treatment success and to support a decision to discontinue antibiotic therapy, follow up samples should be tested once every 1-2 days, based upon physician discretion taking into account patient's evolution and progress. Procalcitonin for initial assessment of severe sepsis risk: Results Interpretation <0.5 ng/ml A PCT level below 0.5 ng/ml on the first day of ICU admission is associated with a low risk for progression to severe sepsis and/or septic shock. > 2.0 ng/mL A PCT level above 2.0 ng/mL on the first day of ICU admission is associated with a high risk for progression to severe sepsis and/or septic shock. Note: Concentrations < 0.5 ng/mL do not exclude an infection, on account of localized infections (without systemic signs) which can be associated with such low concentrations, or a systemic infection in its initial stages(< 6 hours). Furthermore, increased procalcitonin can occur without infection. PCT concentrations between 0.5 and 2.0 ng/mL should be interpreted taking into account the patient's history. It is recommended to retest PCT within 6-24 hours if any concentrations < 2 ng/mL are obtained. Sacha Wren MD SEND OUTS Geetha gonsalez Result [facility] [address] [place] [address] * (ABNORMAL) CBC W PLT NO DIFF (10/13/2024 8:57 AM TRENCHER DRIVER) Only the most recent of2 resultswithin the time period is included. WHITE BLOOD COUNT 10.0 4.5 - 11.0 thou/cu mm 10/13/2024 9:37 AM [facility] RED BLOOD COUNT 5.09 4.00 - 5.20 mil/cu mm 10/13/2024 9:37 AM [facility] HEMOGLOBIN 14.2 12.0 - 16.0 g/dL 10/13/2024 9:37 AM [facility] HEMATOCRIT 45.0 33.0 - 51.0 % 10/13/2024 9:37 AM [facility] MCV 88 80 - 100 fL 10/13/2024 9:37 AM [facility] MCH 27.9 26.0 - 34.0 pg 10/13/2024 9:37 AM [facility] MCHC 31.6(L) 32.0 - 36.0 g/dL 10/13/2024 9:37 AM [facility] RDW 14.7 11.5 - 15.5 % 10/13/2024 9:37 AM [facility] PLATELET COUNT 266 140 - 440 thou/cu mm 10/13/2024 9:37 AM [facility] MPV 10.5 6.5 - 11.0 fL 10/13/2024 9:37 AM TRENCHER DRIVER [facility] Blood BLOOD SPECIMEN / Unknown Butterfly / Unknown 10/13/2024 8:57 AM TRENCHER DRIVER 10/13/2024 9:33 AM TRENCHER DRIVER Sacha Wren MD HEMATOLOGY Geetha l Result Performing Organization Address City/[facility]/ZIP Co de Phone Number [facility] [address] [place] [address] * (ABNORMAL) C-REACTIVE PROTEIN (10/13/2024 8:57 AM TRENCHER DRIVER) [facility] C-REACTIVE PROTEIN 1.3(H) <0.5 mg/dL 10/13/2024 9:35 AM TRENCHER DRIVER [facility] Blood BLOOD SPECIMEN / Unknown Butterfly / Unknown 10/13/2024 8:57 AM TRENCHER DRIVER 10/13/2024 9:15 AM TRENCHER DRIVER Sacha Wren MD CHEMISTRY Geetha l Result Performing Organization Address [facility]/ZIP Co de Phone Number [facility] [address] [place] [address] * TROPONIN T (HS) ONE TIME (10/12/2024 12:43 PM TRENCHER DRIVER) [facility] TROPONIN T HS 7 6-10 ng/L ng/L 10/12/2024 1:07 PM TRENCHER DRIVER [facility] Blood BLOOD SPECIMEN / Unknown Butterfly / Unknown 10/12/2024 12:43 PM TRENCHER DRIVER 10/12/2024 12:46 PM TRENCHER DRIVER Miko Siddiqui MD CHEMISTRY Final R esult Performing Organization Address [facility]/ZIP Co de Phone Number [facility] [address] [place] [address] * EKG 12 LEAD (10/12/2024 10:52 AM TRENCHER DRIVER) [facility] Interpretation Normal sinus rhythm Normal ECG When compared with ECG of 03-Jan-2024 12:43, No significant change was found no ST elevation BEYOND NOW Ventricular Rate 84 BPM BEYOND NOW Atrial Rate 84 BPM BEYOND NOW P-R Interval 138 ms BEYOND NOW QRS Duration 70 ms BEYOND NOW QT 360 ms BEYOND NOW QTc 425 ms BEYOND NOW P [place] 53 degrees BEYOND NOW R [place] 51 degrees BEYOND NOW T [place] 44 degrees BEYOND NOW 10/12/2024 10:5 2 AM TRENCHER DRIVER 10/12/2024 11:15 AM TRENCHER DRIVER Miko Siddiqui MD EKG ORD Final R esult BEYOND NOW [place], [place] * TROPONIN T (HS) ACUTE W/2HR REFLEX (10/12/2024 10:43 AM TRENCHER DRIVER) TROPONIN T HS <6 6-10 ng/L ng/L 10/12/2024 11:11 AM TRENCHER DRIVER [facility] Blood BLOOD SPECIMEN / Unknown Venipuncture / Unknown 10/12/2024 10:43 AM TRENCHER DRIVER 10/12/2024 10:48 AM TRENCHER DRIVER Narrative [facility] - 10/12/2024 11:11 AM TRENCHER DRIVER hs-cTnT (Elecsys Troponin T Gen 5) concentration [...] low risk in emergency department patient population. Miko Siddiqui MD CHEMISTRY [facility] Performing Organization Address [facility]/ZIP Co de Phone Number [facility] [address] [place] [address] * LIPASE (10/12/2024 10:43 AM TRENCHER DRIVER) LIPASE 29.8 13.0 - 60.0 IU/L 10/12/2024 11:11 AM [facility] Blood BLOOD SPECIMEN / Unknown Venipuncture / Unknown 10/12/2024 10:43 AM TRENCHER DRIVER 10/12/2024 10:48 AM TRENCHER DRIVER Miko Siddiqui MD CHEMISTRY Final R esult Performing Organization Address [facility] Co de Phone Number [facility] [address] [place] [address] * HEPATIC FUNCTION PANEL (10/12/2024 10:43 AM TRENCHER DRIVER) Only the most recent of2 resultswithin the time period is included. ALBUMIN 4.5 4.0 - 4.9 g/dL 10/12/2024 11:11 AM [facility] PROTEIN,TOTAL 7.6 6.0 - 8.0 g/dL 10/12/2024 11:11 AM [facility] BILIRUBIN,TOTAL 0.5 0.0 - 1.2 mg/dL 10/12/2024 11:11 AM [facility] BILIRUBIN,DIRECT 0.2 0.0 - 0.2 mg/dL 10/12/2024 11:11 AM [facility] BILIRUBIN,INDIRE CT 0.3 0.2 - 0.8 mg/dL 10/12/2024 11:11 AM [facility] ALK PHOSPHATASE 46 35 - 104 IU/L 10/12/2024 11:11 AM [facility] ALT (SGPT) 13 10 - 35 IU/L 10/12/2024 11:11 AM [facility] AST (SGOT) 19 10 - 35 IU/L 10/12/2024 11:11 AM [facility] Blood BLOOD SPECIMEN / Unknown Venipuncture / Unknown 10/12/2024 10:43 AM TRENCHER DRIVER 10/12/2024 10:48 AM [facility] Miko Siddiqui MD CHEMISTRY Final R esult [facility] [address] [place] [address] * (ABNORMAL) BASIC METABOLIC PANEL (10/12/2024 10:43 AM [facility]) Only the most recent of2 resultswithin the time period is included. SODIUM 138 136 - 145 mmol/L 10/12/2024 11:11 AM [facility] LABORATORY POTASSIUM 4.4 3.5 - 5.1 mmol/L 10/12/2024 11:11 AM [facility] CHLORIDE 104 98 - 107 mmol/L 10/12/2024 11:11 AM [facility] CO2,TOTAL 27 22 - 29 mmol/L 10/12/2024 11:11 AM [facility] ANION GAP 7 5 - 18 10/12/2024 11:11 AM [facility] GLUCOSE 125(H) 70 - 99 mg/dL 10/12/2024 11:11 AM [facility] CALCIUM 9.4 8.8 - 10.4 mg/dL 10/12/2024 11:11 AM [facility] Comment: Reference ranges for this test were updated on 06/13/2024 to reflect our healthy population more accurately. Reference range changes are not retroactively applied to results, but previous results using the same methodology can be interpreted in the context of the new reference range. BUN 4(L) 6 - 20 mg/dL 10/12/2024 11:11 AM [facility] CREATININE 0.76 0.50 - 0.90 mg/dL 10/12/2024 11:11 AM [facility] BUN/CREAT RATIO 5(L) 10 - 20 11:11 AM [facility] eGFR >90 >90 mL/min/1. 73m2 10/12/2024 11:11 AM [facility] Comment:As of 2021, eG FR is calculated by the CKD-EPI creatinine equation without race adjustment. eGFR can be influenced by muscle mass, exercise, and diet. The reported eGFR is an estimation only and is only applicable if the renal function is stable. Blood BLOOD SPECIMEN / Unknown Venipuncture / Unknown 10/12/2024 10:43 AM TRENCHER DRIVER 10/12/2024 10:48 AM TRENCHER DRIVER us Miko Siddiqui MD CHEMISTRY Final R esult [facility] [address] [place] [address] * CT ABDOMEN PELVIS STONE PROTOCOL WO (10/11/2024 2:31 PM TRENCHER DRIVER) Anatomical Region Laterality Modality Abdomen, Pelvis, AORTA, LIVER, SPLEEN Computed Tomography 10/11/2024 3:00 PM TRENCHER DRIVER Impressions 10/11/2024 3:00 PM TRENCHER DRIVER No acute intra-abdominal process identified. No renal stones. No hydronephrosis. Please note that all CT scans at this facility use dose modulation, iterative reconstruction, and/or weight-based dosing when appropriate to reduce radiation dose to as low as reasonably achievable. Dictated by Kamran Blanco MD @ 10/11/2024 3:00:01 PM (Electronically Signed) Narrative 10/11/2024 3:00 PM TRENCHER DRIVER For Patients: As a result of the Cures Act, medical imaging exams and procedure reports are released immediately into your electronic medical record. You may view this report before your referring provider. If you have questions, please contact your health care provider. INDICATION: Flank pain. UTI. TECHNIQUE: CT abdomen and pelvis without contrast. COMPARISON: October 16, 2021. FINDINGS: Limited evaluation of the intra-abdominal solid organs without IV contrast. Lower chest: Unremarkable. Liver: Normal in size and attenuation. No suspicious masses. Gallbladder and bile ducts: No stones or inflammation. No biliary dilatation. Pancreas: Unremarkable. No mass or inflammation. Spleen: Normal in size. No masses. Adrenal glands: Normal in size. No nodules. Kidneys: Normal in size. No suspicious masses, stones, or hydronephrosis. GI tract: Unremarkable. Normal in caliber. No sign of mass or inflammation. Normal appendix. Vasculature: Abdominal aorta is normal in caliber. Lymph nodes: No lymphadenopathy. Peritoneum/Abdominal Wall: Unremarkable. No sign of mass or infiltration. No free air or significant free fluid. Pelvis: Unremarkable. No pelvic masses. Bones: Unremarkable for age. Procedure Note BlancoKamran MD - 10/11/2024 For Patients: As a result of the Cures Act, medical imagingexams and procedure reports are released immediately into your electronicmedical record. You may view this report before your referring provider.If you have questions, please contact your health care provider. INDICATION: Flank pain. UTI. TECHNIQUE: CT abdomen and pelvis without contrast. COMPARISON: October 16, 2021. FINDINGS: Limited evaluation of the intra-abdominal solid organs without IVcontrast. Lower chest: Unremarkable. Liver: Normal in size and attenuation. No suspicious masses. Gallbladder and bile ducts: No stones or inflammation. No biliarydilatation. Pancreas: Unremarkable. No mass or inflammation. Spleen: Normal in size. No masses. Adrenal glands: Normal in size. No nodules. Kidneys: Normal in size. No suspicious masses, stones, or hydronephrosis. GI tract: Unremarkable. Normal in caliber. No sign of mass orinflammation. Normal appendix. Vasculature: Abdominal aorta is normal in caliber. Lymph nodes: No lymphadenopathy. Peritoneum/Abdominal Wall: Unremarkable. No sign of mass or infiltration.No free air or significant free fluid. Pelvis: Unremarkable. No pelvic masses. Bones: Unremarkable for age. IMPRESSION: No acute intra-abdominal process identified. No renal stones. Nohydronephrosis. Please note that all CT scans at this facility use dose modulation,iterative reconstruction, and/or weight-based dosing when appropriate toreduce radiation dose to as low as reasonably achievable. Dictated by Kamran Blanco MD @ 10/11/2024 3:00:01 PM (Electronically Signed) Yao Vail MD CT Final Result * POCT Urinalysis Dipstick Only (10/11/2024 2:13 PM TRENCHER DRIVER) Pathologist [facility] PH 6.0 5.0 - 8.0 [facility] SPECIFIC GRAVITY < OR = 1.005 1.001 - 1.035 [facility] Comment: Specific [place] values resulted are outside the analytical measurement range of this device. Recommend repeat/additional testing as clinically indicated. GLUCOSE NEGATIVE NEGATIVE [facility] BILIRUBIN NEGATIVE NEGATIVE [facility] KETONES NEGATIVE NEGATIVE [facility] OCCULT BLOOD NEGATIVE NEGATIVE [facility] PROTEIN NEGATIVE NEGATIVE [facility] NITRITE NEGATIVE NEGATIVE [facility] LEUKOCYTE ESTERASE NEGATIVE NEGATIVE [facility] Urine URINE SPECIMEN / Unknown 10/11/2024 2:13 PM TRENCHER DRIVER 10/11/2024 2:13 PM TRENCHER DRIVER Yao Vail MD URINE Final Result [facility] [address] [place] [address], [facility] [address] [place] [address] * URINALYSIS MICROSCOPIC (10/11/2024 2:11 PM TRENCHER DRIVER) Pathologist [facility] RBC 0-2 0-2, None Seen /HPF 10/11/2024 11:20 PM TRENCHER DRIVER [facility] WBC 0-2 0-2, 3-5, None Seen /HPF 10/11/2024 11:20 PM TRENCHER DRIVER [facility] BACTERIA None Seen None Seen, Rare, Few Bacteria/ HPF 10/11/2024 11:20 PM TRENCHER DRIVER [facility] EPITHELIAL CELLS None Seen None Seen, Few Epi/HPF 10/11/2024 11:20 PM TRENCHER DRIVER [facility] HYALINE CASTS 0-2 0-2, 3-5 /LPF 10/11/2024 11:20 PM TRENCHER DRIVER [facility] Urine URINE SPECIMEN / Unknown Non-Blood / Unknown 10/11/2024 2:11 PM TRENCHER DRIVER 10/11/2024 2:11 PM TRENCHER DRIVER Yoa Vail MD URINE Final Result Performing Organization Address [facility] Co de Phone Number [facility] [address] [place] [address], [place] * URINE CULTURE (10/11/2024 2:11 PM TRENCHER DRIVER) Only the most recent of2 resultswithin the time period is included. CULTURE No growth (<1,000 CFU/mL) 10/13/2024 9:31 AM TRENCHER DRIVER [facility] Urine URINE SPECIMEN / Unknown Non-Blood / Unknown 10/11/2024 2:11 PM TRENCHER DRIVER 10/11/2024 2:11 PM TRENCHER DRIVER us Yao Vail MD MICROBIOLOGY Final Result Performing Organization Address City/[facility] Co de Phone Number [facility] [address] [place] [address], * CBC AND DIFFERENTIAL (10/11/2024 2:11 PM TRENCHER DRIVER) Only the most recent of2 resultswithin the time period is included. WHITE BLOOD CELL COUNT 10.8 3.8 - 10.8 Thousand/u L [facility] RED BLOOD CELL COUNT 5.03 3.80 - 5.10 Million/uL [facility] HEMOGLOBIN 14.4 11.7 - 15.5 g/dL [facility] HEMATOCRIT 44.3 35.0 - 45.0 % [facility] MCV 88.1 80.0 - 100.0 fL [facility] MCH 28.6 27.0 - 33.0 pg [facility] MCHC 32.5 32.0 - 36.0 g/dL [facility] Comment: For adults, a slight decrease in the calculated MCHC value (in the range of 30 to 32 g/dL) is most likely not clinically significant; however, it should be interpreted with caution in correlation with other red cell parameters and the patient's clinical condition. RDW 13.1 11.0 - 15.0 % [facility] PLATELET COUNT 318 140 - 400 Thousand/u L [facility] MPV 11.0 7.5 - 12.5 fL [facility] ABSOLUTE NEUTROPHILS 7,700 1,500 - 7,800 cells/uL [facility] ABSOLUTE LYMPHOCYTES 2,344 850 - 3,900 cells/uL [facility] ABSOLUTE MONOCYTES 626 200 - 950 cells/uL [facility] ABSOLUTE EOSINOPHILS 86 15 - 500 cells/uL [facility] ABSOLUTE BASOPHILS 43 0 - 200 cells/uL [facility] NEUTROPHILS 71.3 % [facility] LYMPHOCYTES 21.7 % [facility] MONOCYTES 5.8 % [facility] EOSINOPHILS 0.8 % [facility] BASOPHILS 0.4 % [facility] Blood BLOOD SPECIMEN / Unknown 10/11/2024 2:11 PM TRENCHER DRIVER 10/11/2024 2:12 PM TRENCHER DRIVER Yao Vail MD HEMATOLOGY Final Result [employer] [facility] [address] [place] [address], [facility] [address] [place] [address] * COVID/FLU/RSV PANEL (10/11/2024 2:04 PM TRENCHER DRIVER) COVID 19 [facility] Negative Negative 10/11/2024 11:37 PM TRENCHER DRIVER [facility] Comment:All PCR tests are chauhan bject to false negative result due to variability in viral load and collection technique. A negative result does not rule out a SARS-CoV-2 infection. Clinical correlation required. INFLUENZA A PCR Negative 11:37 PM TRENCHER DRIVER [facility] INFLUENZA B PCR Negative 11:37 PM TRENCHER DRIVER [facility] Respiratory Syncytial Virus Negative 10/11/2024 11:37 PM TRENCHER DRIVER [facility] Swab NASOPHARYNGEAL SWAB / Unknown Non-Blood / Unknown 10/11/2024 2:04 PM TRENCHER DRIVER 10/11/2024 2:04 PM TRENCHER DRIVER Yao Vail MD MICROBIOLOGY Final Result [facility] [address] [place] [address], * TSH (10/06/2024 4:26 PM TRENCHER DRIVER) Only the most recent of2 resultswithin the time period is included. Pathologist [facility] TSH 1.63 mIU/L [facility] Comment: Reference Range > or = 20 Years 0.40-4.50 Ranges First trimester 0.26-2.66 Second trimester 0.55-2.73 Third trimester 0.43-2.91 Blood BLOOD SPECIMEN / Unknown 10/06/2024 4:26 PM TRENCHER DRIVER 10/06/2024 4:28 PM TRENCHER DRIVER Narrative [facility] - 10/07/2024 5:08 AM TRENCHER DRIVER FASTING:NO FASTING: NO Ward GONZALEZ CHEMISTRY Final Resu lt [employer] [address] [address], [facility] [address] [place] [address] * T3,TOTAL (10/06/2024 4:26 PM TRENCHER DRIVER) Only the most recent of2 resultswithin the time period is included. T3, TOTAL 106 76 - 181 ng/dL [facility] Blood BLOOD SPECIMEN / Unknown 10/06/2024 4:26 PM TRENCHER DRIVER 10/06/2024 4:28 PM TRENCHER DRIVER Narrative [facility] - 10/07/2024 5:08 AM TRENCHER DRIVER FASTING:NO FASTING: NO Ward GONZALEZ CHEMISTRY Final Resu lt [facility] [address] [place] [address], [place] [phone] [facility] [address] [place] [address] * ALT (SGPT) (10/06/2024 4:26 PM TRENCHER DRIVER) ALT 15 6 - 29 U/L [facility] Blood BLOOD SPECIMEN / Unknown 10/06/2024 4:26 PM TRENCHER DRIVER 10/06/2024 4:28 PM TRENCHER DRIVER Narrative [facility] - 10/07/2024 3:29 AM TRENCHER DRIVER FASTING:NO FASTING: NO Ward GONZALEZ CHEMISTRY Final Resu lt [facility] [address] [place] [address], [place] [phone] [facility] [address] [place] [address] * AST (SGOT) (10/06/2024 4:26 PM TRENCHER DRIVER) AST 19 10 - 35 U/L [facility] Blood BLOOD SPECIMEN / Unknown 10/06/2024 4:26 PM TRENCHER DRIVER 10/06/2024 4:28 PM TRENCHER DRIVER Narrative [facility] - 10/07/2024 3:29 AM TRENCHER DRIVER FASTING:NO FASTING: NO Ward GONZALEZ CHEMISTRY Final Resu lt Performing Organization Address [facility]/ZIP Co de Phone Number [facility] [address] [place] [address], [facility] [address] [place] [address] * T4,FREE (10/06/2024 4:26 PM TRENCHER DRIVER) Only the most recent of2 resultswithin the time period is included. T4, FREE 0.9 0.8 - 1.8 ng/dL [facility] [place] Blood BLOOD SPECIMEN / Unknown 10/06/2024 4:26 PM TRENCHER DRIVER 10/06/2024 4:28 PM TRENCHER DRIVER Narrative [facility] - 10/07/2024 5:08 AM TRENCHER DRIVER FASTING:NO FASTING: NO Ward GONZALEZ CHEMISTRY Final Resu lt Performing Organization Address [facility]/ZIP Co de Phone Number [employer] [facility] [address] [place] [address], [employer] [facility] [address] [place] [address] * HOME SLEEP TEST TYPE 3 PORTABLE (09/18/2024 11:59 PM TRENCHER DRIVER) Ward Medrano MD - 09/18/2024 11:59 PM TRENCHER DRIVER Ward Castillo MD 09/19/2024 4:53 PM Home Sleep Test Name: Kailey Newman Location: [facility] Study notes: This is a single night [...] and interpreted by a Diplomate of the [place] Board of Sleep Medicine. Raw summary data [...] > 100 bpm: 0 m [facility] Final Result * APPLICATIONS SUPPORT LEAD THIN PREP PAP SCREEN IMAGED [[id number]] (01/10/2024 12:13 PM CDT) Case Report Gynecologic Cytology Report Case: [id number] Authorizing Provider: Jovanna Kline DO Collected: 01/10/2024 1213 Ordering Location: [facility] Received: 01/10/2024 1213 Clinic First Screen: Charo Paredes Specimen: APPLICATIONS SUPPORT LEAD ThinPrep Vial Screening, Cervical 01/20/2024 8:40 AM CDT [facility] INTERPRETATION/ RESULT NEGATIVE FOR INTRAEPITHELIAL LESION OR MALIGNANCY (NIL) (none) 01/20/2024 8:40 AM CDT [facility] IMEN ADEQUACY Satisfactory for evaluation Endocervical component present 01/20/2024 8:40 AM CDT [facility] HPV REQUEST HPV and PAP 01/20/2024 8:40 AM CDT [facility] Date of LMP postmenopausal 8:40 AM CDT [facility] Last Pap Date 02/25/18 01/20/2024 8:40 AM CDT [facility] Last Pap Result NIL 8:40 AM CDT [facility] Abnormal Pap or [facility] Bx in last 5 years No 01/20/2024 8:40 AM CDT [facility] Menstrual Status Postmenopausal 01/20/2024 8:40 AM CDT [facility] Bx Done Today No 01/20/2024 8:40 AM CDT [facility] Additional Information None given 01/20/2024 8:40 AM CDT [facility] Comment: [facility] - [address], [place] [address] and [facility] - [address] [place] [address], [place] [address] and [facility] - [address] [place] [address] Interpreted at [facility] - [address], [place] [address] Automated Review Successful 01/20/2024 8:40 AM CDT [facility] Comment:Specimen processed s uccessfully by automated mechanical systems engineer device, ThinPrep Imaging System, [employer] ANCILLARY TESTING APPLICATIONS SUPPORT LEAD HPV Ordered, Please see separate report 01/20/2024 8:40 AM CDT [facility] Note The pap test is a screening technique, not a diagnostic procedure. It is used primarily to screen for squamous cancers and precursor lesions. Published studies have shown that it is subject to both false negative and false positive results. The pap test should not be used as the sole means to diagnose or exclude pre-malignant and malignant lesions. 01/20/2024 8:40 AM T [facility] Other (Cervical) Non-Blood / Unknown 01/10/2024 12:13 PM CDT 01/10/2024 12:13 PM CDT us Jovanna Kline DO PATHOLOGY/CYTOLOGY Final Resu lt [facility] [address] [place] [address], * LIPID PANEL W REFLEX MEASURED LDL (01/10/2024 12:04 PM CDT) CHOLESTEROL,TOTAL 171 100 - 199 mg/dL 01/11/2024 9:36 AM T [facility] Comment: Cholesterol, Total Reference Ranges Desirable <200 mg/dL Borderline 200-239 mg/dL High >=240 mg/dL TRIGLYCERIDES 116 <150 mg/dL 01/11/2024 9:36 AM CDT [facility] HDL CHOLESTEROL 64 >40 mg/dL 9:36 AM CDT [facility] NON-HDL CHOLESTEROL 107 <145 mg/dl 01/11/2024 9:36 AM T [facility] CHOL/HDL RATIO 2.67 <4.50 01/11/2024 9:36 AM CDT [facility] LDL CHOLESTEROL 84 <=130 mg/dL 01/11/2024 9:36 AM CDT [facility] VLDL CHOLESTEROL 23 <=30 mg/dL 01/11/2024 9:36 AM CDT [facility] PROVIDER ORDERED STATUS RANDOM 01/11/2024 9:36 AM CDT [facility] Blood BLOOD SPECIMEN / Unknown Venipuncture / Unknown 01/10/2024 12:04 PM CDT 01/10/2024 12:05 PM CDT us Jovanna Kline DO CHEMISTRY Final Result [facility] [address] [place] [address], [place] * XR MAMMO ERIKA BILAT SCREEN [...] For Patients: As a result of the Century Cures Act, medical imaging exams and procedure reports are released immediately into your electronic medical record. You may view this report before your referring provider. If you have questions, please contact your health care provider. XR MAMMO ERIKA BILAT SCREEN [[id number]] CLINICAL HISTORY: This is an asymptomatic 53 y.o. patient. INDICATION FOR EXAM: Mammogram Screening. TECHNIQUE: CC & MLO views were obtained. This study was evaluated with the assistance of Computer-Aided Detection. Breast Tomosynthesis was used in interpretation. COMPARISON FILM: Yes 06/19/22 [facility] 04/30/21 [facility] FINDINGS: The breasts are heterogeneously dense, which may obscure small masses. There are no dominant masses, suspicious micro calcifications or areas of architectural distortion. us Jovanna Kline DO MAMMO Final Result * SDNA-FIT EXTERNAL (COLOGUARD) [[id number]] (12/16/2023 7:40 AM CDT) NONINV COLON CA DNA+OCC BLD SCRN STL-IMP Negative Negative 12/23/2023 5:48 PM CDT [employer] (CLIA #:[id number]) Comment: NEGATIVE TEST RESULT. A negative Cologuard [...] (Radha Mehta al, N Engl J Med 2014;370(14):1321-7789) The normal value (reference range) for this assay is negative. COLOGUARD RE-SCREENING RECOMMENDATION: Periodic colorectal cancer screening is an important part of preventive healthcare for asymptomatic individuals at average risk for colorectal cancer. Following a negative Cologuard result, the [place] Cancer Society and U.S. Multi-Society Task Force screening guidelines recommend a Cologuard re-screening interval of 3 years. References: [place] Cancer Society Guideline for Colorectal Cancer Screening: https://www.cancer.org/cancer/lyeta-whcftz-fccmtk/jikvygbbn-pgjutatrg-zycqtga/ac s-rec ommendations.html.; Bala DK, Fozia CR, Gonzalo HardinK, Colorectal Cancer Screening: Recommendations for Physicians and Patients from the U.S. Multi-Society Task Force on Colorectal Cancer Screening , Am J Gastroenterology 2017; 112:5326-1439. TEST DESCRIPTION: Composite algorithmic analysis of stool [...] (Radha Mehta al, N Engl J Med 2014;370(14):6135-1728.) Cologuard may produce a false negative or false positive result (no colorectal cancer or precancerous polyp present at colonoscopy follow up). A negative Cologuard test result does not guarantee the absence of CRC or advanced adenoma (pre-cancer). The current Cologuard screening interval is every 3 years. ([place] Cancer Society and U.S. Multi-Society Task Force). Cologuard performance data in a 10,000 patient pivotal study using colonoscopy as the reference method can be accessed at the following location: www.mPowa.Fanzter/results. Additional description of the Cologuard test process, warnings and precautions can be found at www.Cozioguard.com. Stool specimen (specimen) (Rectum) 12/16/2023 7:40 AM CDT 12/17/2023 12:25 PM CDT us Jovanna Kline DO URINE Final Result [employer] (CLIA #:[id number]) [address] [place] [address], * LC HCV ANTIBODY RFX TO QUANT PCR (12/03/2022 12:00 PM CDT) Pathologist [facility] HCV Ab Non Reactive Non Reactive 12/05/2022 3:08 PM CDT [facility] ([facility]) Blood BLOOD SPECIMEN / Unknown Venipuncture / Unknown 12/03/2022 12:00 PM CDT 12/03/2022 12:02 PM CDT [facility] ([facility]) - 12/05/2022 3:08 PM CDT Performed at: [address] [place] [id number] Cleaning Machine Operator: Nelson Ruff MD, Phone: [phone] [facility] Fin al Result Performing Organization Address City/[facility]/ZIP Co de Phone Number [facility] ([facility]) [address] [place] [address], * HIV-1/O/2, 4TH GENERATION (12/03/2022 12:00 PM CDT) [facility] HIV Scr 4th Gen Non Reactive Non Reactive 12/05/2022 12:08 PM CDT [facility] ([facility]) Comment: HIV Negative HIV-1/HIV-2 antibodies and HIV-1 p24 antigen were NOT detected. There is no laboratory evidence of HIV infection. Blood BLOOD SPECIMEN / Unknown Venipuncture / Unknown 12/03/2022 12:00 PM CDT 12/03/2022 12:02 PM CDT [facility] ([facility]) - 12/05/2022 12:08 PM CDT Performed at: [address] [place] [id number] Cleaning Machine Operator: Nelson Ruff MD, Phone: [phone] [facility] Fin al Result Performing Organization Address City/[facility]/ZIP Co de Phone Number [facility] ([facility]) [address] [place] [address] from Last 3 Months or Most Recently Relevant to Health Maintenance Insurance [place] [address] Care Teams Electronic Heat Seal Operator Relationship Specialty Start Date End Date Jovanna Kline DO [address] [place] [phone] PCP - General Family Practice 09/02/22 Jolly Calabrese PA Physician Lead Based Paint Technician 10/23/21 Ward Che PA [address] [place] [address] Endocrinology Physician Lead Based Paint Technician 06/29/24
--- OUTSIDE RECORDS SUMMARY | 2024-10-14 14:02 | XMS_ITS | Data Portability ---
Author Organization [facility], [facility] Address [address] [place] [address] Care Team Providers Care Section Supervisor Name Role Phone MONICA CAO Primary Care Provider Assessment No assessment recorded. Plan of Treatment Reminders Order Date Submit Date Provider Last Modified By Organization Details Last Modified Time Details Appointments None recorded. Lab urinalysi s, dipstick 2022 023 [facility], [address], [address], [place], [address], 3 15:54:11 urinalysi s, microscop ic 2022 023 [facility], [address], [address], [place], [address], 4 05:01:52 culture, urine 2022 023 [facility], [address], [address], [place], [address], 3 11:21:33 urinalysi s, dipstick 2022 023 [facility], [address], [address], [place], [address], 3 16:23:41 culture, urine 2022 023 [facility], [address], [address], [place], [address], 3 15:46:03 infectiou s disease panel 2022 023 [email or web address] [facility], [address], [address], [place], [address], 3 15:19:39 Referral urogyneco logy physical therapy referral - Please call patient to schedule Pelvic Floor Physical Therapy. Thank you 2022 023 [email or web address] [facility], [address], [place], [address], 3 14:20:24 Procedures None recorded. Surgeries None recorded. Imaging US, renal 2022 023 [facility], [address] [place], [address], 3 11:12:02 Medication Orders compounde d medicatio n 2022 023 [facility], [address] [place] [address], [address], [place], [place], [id number], 3 20:38:35 nitrofura ntoin macrocrys андрей 50 mg capsule 2022 023 [id number], [address] [place], [place], [id number], 3 16:54:58 Patient TargetsNo targets recorded. Patient Instructions Encounter Date Encounter Id Patient Instructions Last Modified By Organization Details Last Modified Time 01/14/2023 [id number] Recurrent UTIs: -Discussed recurrent UTIs and gave [...] have her see Dr. Arreguin for cysto. [email or web address] Not available 01/14/2023 17:02:42 04/05/2023 [id number] cystoscopy negative fu with Kierra as needed [...] uriscan NEGATI VE negati ve Not Available [facility] [address], [place], [address], 01/14/2023 16:23:41 01/15/2001/14/2023 UA WITHO UT MICRO - CS URISC AN bilirubin - uriscan NEGATI VE mg/dL negati ve Not Available [facility] [address] [facility] [address], [place], [address], 01/14/2023 16:23:41 01/15/20 23 01/14/2023 UA WITHO UT MICRO - CS URISC AN urobilinogen - uriscan NORMAL mg/dL normal Not Available [facility] [address] [place] [address] [address], [place], [address], 01/14/2023 16:23:41 01/15/20 23 01/14/2023 UA WITHO UT MICRO - CS URISC AN ketones - uriscan NEGATI VE mg/dL negati ve Not Available [facility] [address] [place] [address] [address], [place], [address], 01/14/2023 16:23:41 01/15/20 23 01/14/2023 UA WITHO UT MICRO - CS URISC AN protein - uriscan NEGATI VE mg/dL negati ve Not Available [facility] [address] [place] [address] [address], [place], [address], 01/14/2023 16:23:41 01/15/20 23 01/14/2023 UA WITHO UT MICRO - CS URISC AN nitrites - uriscan NEGATI VE negati ve Not Available [facility] [address] [place] [address] [address], [place], [address], 01/14/2023 16:23:41 01/15/20 23 01/14/2023 UA WITHO UT MICRO - CS URISC AN glucose - uriscan NEGATI VE mg/dL negati ve Not Available [facility] [address] [place] [address] [address], [place], [address], 01/14/2023 16:23:41 01/15/20 23 01/14/2023 UA WITHO UT MICRO - CS URISC AN pH - uriscan 5.50 5.00-9 .00 Not Available [facility] [address] [place] [address] [address], [place], [address], 01/14/2023 16:23:41 01/15/20 23 01/14/2023 UA WITHO UT MICRO - CS URISC AN sp. gravity - uriscan 1.01 1.01-1 .03 Not Available [facility] [address] [facility] [address], [place], [address], 01/14/2023 16:23:41 01/15/20 23 01/14/2023 UA WITHO UT MICRO - CS URISC AN leukocytes - uriscan NEGATI VE negati ve Not Available [facility] [address] [place] [address] [address], [place], [address], 01/14/2023 16:23:41 01/15/20 23 01/14/2023 UA WITHO UT MICRO - CS URISC AN color - uriscan YELLOW lt. yellow ;yello w Not Available [facility] [address] [place] [address] [address], [place], [address], 01/14/2023 16:23:41 01/15/20 23 01/14/2023 UA WITHO UT MICRO - CS URISC AN clarity - uriscan CLEAR clear Not Available [facility] [address] [place] [address] [address], [place], [address], 01/14/2023 16:23:41 01/15/20 23 01/14/2023 UA WITHO [...] for provi abram revie w. Not Available [facility] [address], [place], [address], 01/14/2023 16:23:41 01/15/20 23 01/14/2023 URINE CULTU RE final report MICROB IOLOGY RESULT S abnormal SOURC E Karen jammie ed- [facility] KNOWN ALLER GIES see chart TREAT MENT see chart MEDIA PLATE D AT: Media plate d on 023 @ 3:54 PM COLON Y COUNT 20,00 0-50, 000 cfu/m l RESUL T Esche angela a coli (Isol ate 1) Sensi tivit y Toña sis [place] te 1 ----- ----- ----- ----- ----- [...] s Desk Refer ence or from the [facility] thumb [facility] actur er. S= Susce ptibl e;I= Inter [...] for provi abram revie w. Not Available [facility] [address] [facility] [address], [place], [address], 01/17/2023 15:46:03 04/05/20 23 04/05/2023 UA WITHO UT MICRO - CS URISC AN blood - uriscan NEGATI VE negati ve Not Available [facility] [address] [place] [address] [address], [place], [address], 04/05/2023 15:54:11 04/05/20 23 04/05/2023 UA WITHO UT MICRO - CS URISC AN bilirubin - uriscan NEGATI VE mg/dL negati ve Not Available [facility] [address] [facility] [address], [place], [address], 04/05/2023 15:54:11 04/05/20 23 04/05/2023 UA WITHO UT MICRO - CS URISC AN urobilinogen - uriscan NORMAL mg/dL normal Not Available [facility] [address] [facility] [address], [place], [address], 04/05/2023 15:54:11 04/05/20 23 04/05/2023 UA WITHO UT MICRO - CS URISC AN ketones - uriscan NEGATI VE mg/dL negati ve Not Available [facility] [address] [facility] [address], [place], [address], 04/05/2023 15:54:11 04/05/20 23 04/05/2023 UA WITHO UT MICRO - CS URISC AN protein - uriscan NEGATI VE mg/dL negati ve Not Available [facility] [address] [place] [address] [address], [place], [address], 04/05/2023 15:54:11 04/05/20 23 04/05/2023 UA WITHO UT MICRO - CS URISC AN nitrites - uriscan NEGATI VE negati ve Not Available [facility] [address] [place] [address] [address], [place], [address], 04/05/2023 15:54:11 04/05/20 23 04/05/2023 UA WITHO UT MICRO - CS URISC AN glucose - uriscan NEGATI VE mg/dL negati ve Not Available [facility] [address] [place] [address] [address], [place], [address], 04/05/2023 15:54:11 04/05/20 23 04/05/2023 UA WITHO UT MICRO - CS URISC AN pH - uriscan 5.50 5.00-9 .00 Not Available [facility] [address] [place] [address] [address], [place], [address], 04/05/2023 15:54:11 04/05/20 23 04/05/2023 UA WITHO UT MICRO - CS URISC AN sp. gravity - uriscan <=1.01 1.01-1 .03 Not Available [facility] [address] [place] [address] [address], [place], [address], 04/05/2023 15:54:11 04/05/20 23 04/05/2023 UA WITHO UT MICRO - CS URISC AN leukocytes - uriscan NEGATI VE negati ve Not Available [facility] [address] [place] [address] [address], [place], [address], 04/05/2023 15:54:11 04/05/20 23 04/05/2023 UA WITHO UT MICRO - CS URISC AN color - uriscan YELLOW lt. yellow ;yello w Not Available [facility] [address] [facility] [address], [place], [address], 04/05/2023 15:54:11 04/05/20 23 04/05/2023 UA WITHO UT MICRO - CS URISC AN clarity - uriscan CLEAR clear Not Available [facility] [address], [place], [address], 04/05/2023 15:54:11 04/05/2004/05/2023 UA WITHO UT MICRO [...] for provi abram revie w. Not Available [facility] [address] [facility] [address], [place], [address], 04/05/2023 15:54:11 04/05/20 23 04/05/2023 URINE CULTU RE final report MICROB IOLOGY RESULT S SOURC E Karen teriz ed- [facility] t KNOWN ALLER GIES see chart TREAT [...] for provi abram revie w. Not Available [facility] [address] [facility] [address], [place], [address], 04/07/2023 11:21:33 01/07/20 23 10/16/2021 CT, abdom en + pelvi s, w/o contr ast No observ ation record ed. [email or web address] Not Available 2022 12:36:55 01/07/20 23 03/05/2022 US, abdom en, limit ed No observ ation record ed. [email or web address] Not Available 2022 12:36:55 01/19/20 23 01/18/2023 US, renal No observ ation record ed. [email or web address] [address], [address], 01/18/2023 12:50:36 Result Notes None recorded. Procedures Surgical History Date Name Laterality Status Provider Name and Address Organization Details Recorded Time 023 Cystoscopy- female completed Nona Arreguin MD [address] [facility], [place], [address], [place] [facility] 03/31/2023 15:39:24 023 In and Out Catheterization- female completed Nona Arreguin MD [address] [facility],[address], [place], [address], [facility] 04/05/2023 15:44:49 023 Past Data Reviewed completed LISA IYER [address] [facility],[address], [place], [address], [facility] 01/13/2023 14:23:39 023 In and Out Catheterization- female completed LISA IYER [address] [facility],[address], [place], [address], [facility] 01/14/2023 16:59:22 020 Oncology colorectal scr [...] available 01/06/2023 12:36:55 01/18/2023 US, renal completed [email or web address] [address], [address], 01/18/2023 12:50:36 Procedure Notes None recorded. Medical [...] Address Organization Details Last Updated DateTime 01/14/2023 [id number] 01897 g 26.5 kg/m2 157.48 cm Not Available [...] When Did You Quit Smoking? 1-5yearssincel sultana [email or web address] Information not available 01/14/2023 Number Of Pregnancies [...] Time zoster recombinant 04/24/2020 completed DEACON Dexter [facility] 01/14/2023 16:12:49 zoster recombinant 06/25/2020 completed DEACON Dexter - [facility] 01/14/2023 16:12:49 Past Encounters Encounter ID Performer Location Encounter Start Date Encounter Closed Date Diagnosis/Indication Diagnosis SNOMED-CT Code Diagnosis ICD10 Code Diagnosis Note [id number] LISA IYER [facility] ???[employer] [address] [place] [address],[facility] e [address] [place] [phone] 01/14/2023 16:10:00 01/14/2023 17:10:08 Recurrent urinary tract infection 799469916 N39.0 new, worse Pelvic and perineal pain 264509637 R10.2 chronic, worse 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, worse [id number] MD Renée [facility] ???o [employer] [address] [place] [id number] 04/05/2023 15:26:30 04/05/2023 15:52:22 Pelvic and perineal pain 096480922 R10.2 chronic, worse Myalgia of pelvic floor 398982183 M79.18 chronic, worse Chronic cystitis 1987786 2 N30.20 chornic worse Health Concerns Section Related Observation LastModified by Organization Detai ls LastModified Time None Recorded Concern Status LastModified by Organization Details LastModified Time None Recorded Advance Directives Directive None Recorded Payers Encounter Date Sequence Insurance Name Policy Number Policy Abrams Covered Member ID Abrams Member ID Guarantor Name 01/14/2023 1 [facility] [id number] Vince Newman [id number] Kailey Newman 04/05/2023 1 [facility] [id number] Vince Newman [id number] Kailey A Trent Notes Date Note [...] taking this.History of IC - diagnosed in [place]. No scope recently. Last one at least [...] Inventory (HENRY-6): 6Incontinence Impact Questionnaire (IIQ-7): 0 LSIA IYER [address] [place] [address],[facility] [address], [address], [facility] 01/14/2023 17:02:53 04/05/2023 text/html Patient seen [...] taking this.History of IC - diagnosed in [place]. No scope recently. Last one at least [...] on elavil --stopped Nona Arreguin MD [address] [facility],[address], [place], [address], [facility] 04/05/2023 15:45:43 OBGyn Episode No OBEpisode recorded.
[2024-10-14 14:04] VITALS: BP 161/94; PULSE 105; RESP 20; TEMP 36.4; O2SAT 98; BMI 29.7
[2024-10-14 14:35] LABS: Appearance Urine Clear (Clear); Bilirubin Urine Negative (Negative); Blood Urine Negative (Negative); Color Urine Yellow (Yellow); Glucose Urine Negative (Negative); Ketones Urine Negative (Negative); Leukocyte Esterase Urine Negative (Negative); Nitrite Urine Positive (Negative); Protein Urine Negative (Negative); Specific Gravity Urine <= 1.005 (1.000-1.030); Urobilinogen Urine 0.2 (0.2-1.0)
[2024-10-14 14:53] LABS: Bacteria Urine Few; RBC Urine 0-2 (0-2); Squamous Epithelial Cell Urine Few (None-Few); WBC Urine 0-2 (0-5)
--- NOTE | 2024-10-14 15:13 | ED.GENADULT ---
HPI - General Adult General Chief complaint: Flank Pain Stated complaint: Fever, nausea, back pain, high BP Time Seen by Provider: 10/14/24 15:02 History of Present Illness HPI narrative: Pt reports recent eval for UTI, dc home on abx. Pt reports hx of complex UTIs related to interstitial cystitis. Seen twice at [facility] since and also at the clinic. Had CT done that was unremarkable. [facility] also did cardiac workup , they also advised pt to DC abx as they did not suspect a UTI any longer. Pt states [facility] sent her home with Dilaudid rx. Pt wants new rx for abx as she believes she still has a UTI . Oral temp in triage was 97. 5F, pt states her temp is usually 96F. Pt 's current symptoms: pain in back, flank pain, chills, nausea. 54-year-old woman presenting to the emergency department with concern of recurrent urinary tract infection. Does have a history of half-way interstitial cystitis. Has relationship with urologist as well. Contacted them and pending possible treatment. Was seen in this facility 5 days ago was suspected to have had a urinary tract infection however urine culture was negative and was recommended to stop ciprofloxacin after having taken 2 days. Currently was seen a couple of days ago with increased severe pain in the mid abdomen [facility] imaging including cardiac workup was reportedly negative. She was sent home with Dilaudid. She does have oxycodone available for primary care provider when initial cystitis related pain flares beyond a ?5?. She does not need more pain medications but is worried that is actually having a urinary tract infection. Apparently cephalexin was discussed during most recent emergency department visit but were concerned about making her worse. She has felt chilled and nauseated has not been vomiting. This pain in mid abdomen and flank. Has not technically measured a fever but notes resting temperature is usually 96 so has had temperatures up to 98 or 99. Background concern is new sexual activity with partner but that was a couple or few weeks ago. Had been given a medication she notes is an antiseptic Hytrin? by urology for the urinary tract/bladder and there was question at emergency department visit as to whether not that might be exacerbating her symptoms and was also advised to discontinue that. She has been taking phenazopyridine along with pain pills as prescribed. Has also been taking Zofran and metoclopramide. She says the only time she feels like this, and this is familiar discomfort, is when she has neglected urinary tract infection and or cystitis is flaring terribly. She did take 1 more ciprofloxacin this morning. Related Data Home Medications ?Medication ?Instructions ?Recorded ?Confirmed amitriptyline 10 mg tablet mg PO 01/11/24 03/18/24 cyclobenzaprine 10 mg tablet 10 mg PO QPM 01/11/24 03/18/24 estradiol 0.01% (0.1 mg/gram) vaginal QPM 01/11/24 03/18/24 vaginal cream liothyronine 5 mcg tablet mcg PO 01/11/24 03/18/24 metoclopramide HCl 10 mg tablet 10 mg PO Q6H PRN nausea/vomiting 01/11/24 03/18/24 nitrofurantoin macrocrystal 50 mg 50 mg PO DAILY 01/11/24 03/18/24 capsule oxycodone 5 mg tablet PO 01/11/24 03/18/24 pregabalin 150 mg capsule 150 mg PO BID 01/11/24 03/18/24 triamcinolone acetonide 0.1 % 1 applic topical BID-TID 01/11/24 03/18/24 topical cream valacyclovir 1 gram tablet 1,000 mg PO DAILY 01/11/24 03/18/24 Previous Rx's ?Medication ?Instructions ?Recorded atenolol 50 mg tablet 50 mg PO DAILY #30 tabs 01/11/24 fluconazole 150 mg tablet 150 mg PO Q3D 2 doses #2 tabs 03/18/24 nystatin 100,000 unit/gram topical 1 applic topical BID #30 grams 03/18/24 cream ciprofloxacin HCl 500 mg tablet 500 mg PO BID #14 tabs 10/09/24 (Cipro) fluconazole 100 mg tablet 100 mg PO DAILY #10 tabs 10/09/24 (Diflucan) hyoscyamine sulfate 0.125 mg tablet 0.25 mg (2 x 0.125 mg) PO QID PRN 10/14/24 cramping #30 tabs Allergies Allergy/AdvReac Type Severity Reaction Status Date / Time adhesive Allergy Unknown Verified 03/18/24 14:17 hydrocodone Allergy Unknown Verified 03/18/24 14:17 meperidine (From Demerol) Allergy Unknown Verified 03/18/24 14:17 Sulfa (Sulfonamide Allergy Unknown Verified 03/18/24 14:17 Antibiotics) Review of Systems Status of ROS: Reports: 6 or more systems reviewed and unremarkable except as noted in History and below [facility] Social History Smoking Status: Current some day smoker How often do you have a drink containing alcohol: never AUDIT-C Alcohol total score: 0 Non-prescribed substance use: marijuana (any form) Exam Narrative: Exam Narrative: Pleasant. Clearly uncomfortable. Verbose. Breathing easily Abdomen is soft. No peritoneal signs. She is tender palpation mid abdomen and to percussion right flank. On auscultation heart is in regular rate and rhythm. Const: Vital Signs, click to edit/add: Vital Signs - 24 hr 10/14/24 14:04 Temperature 97.5 F L Pulse Rate [Pulse Oximeter] 105 H Respiratory Rate 20 Blood Pressure [Ri ght Upper Arm] 161/94 H Pulse Oximetry 98 Oxygen Delivery Me thod Room Air Documenting provider has reviewed patient's vital signs: yes Course Vital Signs Vital signs: Initial Vital Signs Temperature 97.5 F L 10/14/24 14:04 Temperature Source Oral 10/14/24 14:04 Pulse Rate 105 H 10/14/24 14:04 Respiratory Rate 20 10/14/24 14:04 Blood Pressure 161/94 H 10/14/24 14:04 Blood Pressure Mean 116 H 10/14/24 14:04 Blood Pressure Position Sitting 10/14/24 14:04 Pulse Oximetry 98 10/14/24 14:04 Oxygen Delivery Method Room Air 10/14/24 14:04 Vital Signs Temperature 97.5 F L 10/14/24 14:04 Pulse Rate 105 H 10/14/24 14:04 Respiratory Rate 20 10/14/24 14:04 Blood Pressure 161/94 H 10/14/24 14:04 Pulse Oximetry 98 10/14/24 14:04 Oxygen Delivery Method Room Air 10/14/24 14:04 Temperature 97.5 F L 10/14/24 14:04 Pulse Rate 79 10/14/24 16:44 Respiratory Rate 16 10/14/24 16:44 Blood Pressure 148/91 H 10/14/24 16:44 Pulse Oximetry 97 10/14/24 16:44 Oxygen Delivery Method Room Air 10/14/24 16:44 Medications Administered Medications: Discontinued Medications Generic Name Dose Route Start Last Admin Trade Name Andra PRN Reason Stop Dose Admin Ceftriaxone Sodium 1 gm 10/14/24 16:18 10/14/24 16:43 Ceftriaxone 1 Gm Vial IM 10/14/24 16:19 1 gm ONCE ONE Administration Hyoscyamine 0.25 mg 10/14/24 15:29 10/14/24 16:44 Hyoscyamine Sulfate 0.125 Mg Tab SUBLINGUAL 10/14/24 15:30 Not Given ONCE ONE Lidocaine HCl 2.1 ml 10/14/24 16:18 10/14/24 16:43 Lidocaine 1% 5 Ml (Pf) 5 Ml Vial IM 2.1 ml DIRECTED PRN Administration Pain Ondansetron HCl 4 mg 10/14/24 15:38 10/14/24 15:50 Ondansetron Odt 4 Mg Tab PO 10/14/24 15:39 4 mg ONCE ONE Administration Medical Decision Making MDM Narrative Medical decision making narrative: Complicated past medical with chronic interstitial cystitis, chronic pain and fibromyalgia. Given recent extensive workup and absence of fever and improved vitals, just checking for potential urinary tract infection. Offering symptom relief in the meantime. No renal stones were noted in imaging. Was reluctant to take hyoscyamine. Over time in the emergency department symptoms did improve. Ketorolac she took earlier may have been related. Later in conversation says does not feel like this/as urinary tract infection. Did review records from [place] emergency department with an reassuring workup including CT imaging. Reports that also tends to have some cognitive impairment or confusion ?get like this? only when I have a urinary tract infection. Urinalysis here today is with nitrate but otherwise without sign of infection. This might represent urinary tract infection not fully treated. I would recommend culturing urine. Mrs. Newman would like to treat with Rocephin IM as has been done before and consider antibiotic changed to cephalexin. I think that is fine. Pending urine culture. See patient discharge plan for further discussion I appreciate that the ketorolac appears to have helped somewhat. It does function as anti-inflammatory. Am sending in some hyoscyamine for you that you are welcome to take if you decide for cramping type urinary tract pain. A urine culture will be pending here. Per your preference am also prescribing cephalexin from [facility] Medical Records Medical records reviewed: Yes I reviewed the patient's medical records Lab Data Lab results reviewed: Yes I reviewed the patient's lab results Labs: Lab Results 10/14/24 Range/Units 14:18 Urine Color Yellow (Yellow) Urine Appearance Clear (Clear) Urine pH 6.0 (5.0-8.5) Ur Specific Lena <= 1.005 (1.000-1.030) Urine Protein Negative (Negative) Urine Glucose (UA) Negative (Negative) Urine Ketones Negative (Negative) Urine Blood Negative (Negative) Urine Nitrite Positive A (Negative) Urine Bilirubin Negative (Negative) Urine Urobilinogen 0.2 (0.2-1.0) Ur Leukocyte Esterase Negative (Negative) Urine RBC 0-2 (0-2) Urine WBC 0-2 (0-5) Ur Squamous Epith Cells Few (None-Few) Urine Bacteria Few A (None) Discharge Plan Discharge Clinical Impression: Cystitis, Abdominal pain Patient Disposition: Home w/ Parent or Adult Condition: Improved Additional Instructions: I appreciate that the ketorolac appears to have helped somewhat. It does function as anti-inflammatory. Am sending in some hyoscyamine for you that you are welcome to take if you decide for cramping type urinary tract pain. A urine culture will be pending here. Per your preference am also prescribing cephalexin from [facility] Prescriptions: New hyoscyamine sulfate 0.125 mg tablet 0.25 mg PO QID PRN (Reason: cramping) Qty: 30 0RF No Action nystatin 100,000 unit/gram cream 1 applic topical BID Qty: 30 0RF fluconazole 150 mg tablet 150 mg PO Q3D Qty: 2 0RF Rx Instructions: Take one tablet on first day. OK to repeat dose in 72 hours if symptoms persist. Follow up if symptoms persist after second dose. cyclobenzaprine 10 mg tablet 10 mg PO QPM nitrofurantoin macrocrystal 50 mg capsule 50 mg PO DAILY valacyclovir 1 gram tablet 1,000 mg PO DAILY liothyronine 5 mcg tablet PO triamcinolone acetonide 0.1 % cream 1 applic topical BID-TID amitriptyline 10 mg tablet PO estradiol 0.01 % (0.1 mg/gram) cream vaginal QPM metoclopramide HCl 10 mg tablet 10 mg PO Q6H PRN (Reason: nausea/vomiting) oxycodone 5 mg tablet PO pregabalin 150 mg capsule 150 mg PO BID atenolol 50 mg tablet 50 mg PO DAILY Qty: 30 3RF fluconazole [Diflucan] 100 mg tablet 100 mg PO DAILY Qty: 10 0RF ciprofloxacin HCl [Cipro] 500 mg tablet 500 mg PO BID Qty: 14 0RF Follow Up/Referrals: Jovanna Kline DO [Primary Care Provider] - Stand Alone [facility] Info Instructions
--- OUTSIDE RECORDS SUMMARY | 2024-10-14 15:35 | XMS_ITS | Clinical Summary ---
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 Manager rio pain syndrome Take 1 Capsule (25 [...] Department Care Team Description 10/13/2024 8:30 AM INBOUND SALES MANAGER - 10/13/2024 10:46 AM INBOUND SALES MANAGER Emergency [facility] [address] [place] [address] Sacha Wren MD Flank pain (Primary Dx); Bladder pain; Nausea Discharge Disposition: Home Self Care 10/13/2024 Telephone [facility] [address] [facility] [address] [place] [address] Amie Lindo MD Questions (appointment//nurse visit) 10/13/2024 Telephone [facility] [address] [facility] [address] [place] [address] Amie Lindo MD Appointment 10/13/2024 Travel 10/12/2024 10:14 AM INBOUND SALES MANAGER - 10/12/2024 1:51 PM INBOUND SALES MANAGER Emergency [facility] [address] [place] [address] Miko Siddiqui MD Pain of upper extremity, unspecified laterality (Primary Dx); Back pain, unspecified back location, unspecified back pain laterality, unspecified chronicity; Myalgia; Nausea; Abdominal pain, unspecified abdominal location Discharge Disposition: Home Self Care 10/12/2024 Nurse Triage [facility] [address] [facility] [address] [place] [address] Amie Lindo MD Medication Management (methenamine hippurate (HIPREX) 1 gram tablet) 10/11/2024 3:00 PM INBOUND SALES MANAGER Ancillary Procedure [facility] [address] [place] [address] Arrived 10/11/2024 1:15 PM INBOUND SALES MANAGER Office Visit [address] [address] Yao Vail MD ER Follow up ([facility], 10/09/2024, UTI - symptoms getting worse) 10/11/2024 Travel 10/11/2024 Nurse Triage [facility] [address] [place] [address] Sir Klinei Jeimy, DO Flank Pain; Urinary Tract Infection 10/06/2024 Travel 09/21/2024 2:20 PM INBOUND SALES MANAGER E-Visit [facility] [address] [place] [address] Eliud Jovanna Jeimy, DO eVisit for Vaginal Discharge / Irritation 09/19/2024 7:30 AM INBOUND SALES MANAGER Nurse/Clinic Staff Only [address] [address] Testing (HST Return/Download.) 09/18/2024 2:15 PM INBOUND SALES MANAGER Nurse/Clinic Staff Only [facility] [address] [place] [address] Testing (HST Set-up) 09/18/2024 Procedure Only [facility] [address] [place] [address] Ward Castillo MD Results (HST) 09/18/2024 Travel 09/04/2024 Refill [facility] [address] [place] [address] Jadielqra Jovanna Jeimy, DO Refill Request (Pregabalin) 08/24/2024 3:00 PM INBOUND SALES MANAGER Office Visit [facility] [address] [address] Amie Lindo MD Consult (Recurring UTI) 08/24/2024 Travel 08/18/2024 2:10 PM INBOUND SALES MANAGER Office Visit [facility] [address] [place] [address] Troyra Jovanna Jeimy, DO Medication Management (Oxycodone renew - change amitriptyline to nortriptyline due to weight gain) 08/18/2024 Travel 08/08/2024 4:15 PM INBOUND SALES MANAGER Orders Only [address] [address] Lab, [facility] <No scans attached> 08/08/2024 Travel 08/07/2024 Refill [facility] [address] [place] [address] Eliud Jovanna Jeimy, DO Refill Request (Pregabalin) 07/20/2024 4:10 PM INBOUND SALES MANAGER Orders Only [address] [place] [address] Lab, [facility] Lab 07/20/2024 Travel from Last [...] on file Legal Sex Female 4:43 PM INBOUND SALES MANAGER Gender Identity Not on file Sexual Orientation Not on file 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 on file Not on file Not on file Obstetrics History Para Term AB IAB SAB Ectopic Multiple Livin g Live Births 4 4 4 Date Outcome GA Total Labor Labor/2nd/3rd Weight Sex Type Anes PTL Jeimy A1 A5 Name Clin Term Term Term Term Last Filed Vital Signs Vital Sign Reading Time Taken Comments Blood Pressure 145/91 10/13/2024 10:10 AM INBOUND SALES MANAGER Pulse 90 10/13/2024 10:10 AM INBOUND SALES MANAGER Temperature 36.7 C (98 F) 10/13/2024 8:36 AM INBOUND SALES MANAGER Respiratory Rate 20 10/13/2024 8:36 AM INBOUND SALES MANAGER Oxygen Saturation 97% 10/13/2024 10:10 AM INBOUND SALES MANAGER Inhaled Oxygen Concentration - - Weight 70.8 kg (156 lb) 10/13/2024 8:47 AM INBOUND SALES MANAGER Height 162.6 cm (5' 4) 10/13/2024 8:47 AM INBOUND SALES MANAGER Body Mass Index 26.78 10/13/2024 8:47 AM INBOUND SALES MANAGER Plan of Treatment Upcoming Encounters Date Type Department Care Team (Late st Contact Info) Description 10/16/2024 11:25 AM CDT Office Visit [facility] [address] [place] [address] Jovanna Kline Jeimy, DO [address] [place] [address] 10/16/2024 3:00 PM CDT Nurse/Clinic Staff Only [address] [facility] [place] [address] 10/27/2024 2:20 PM CDT Telemedicine [address] [place] [address] Ward Che PA [address] [place] [address] 11/13/2024 4:00 PM CDT Office Visit [facility] [address] [place] [address] Ward Castillo MD [address] [place] [address] Health Maintenance Due Date Last Done Comments [...] booster 01/14/2026 01/15/2016, 12/31/2004 Fecal testing sDNA-FIT ([place] guard) for age 45-75 12/15/2026 12/16/2023, 05/23/2020 [...] REFLEXED PER CRITERIA STAT 10/13/2024 9:10 AM INBOUND SALES MANAGER PROCALCITONIN STAT 10/13/2024 8:57 AM INBOUND SALES MANAGER C-REACTIVE PROTEIN STAT 10/13/2024 8: 57 AM INBOUND SALES MANAGER CBC W PLT NO DIFF STAT 10/13/2024 8:5 7 AM INBOUND SALES MANAGER TROPONIN T (HS) ONE TIME Timed 10/12/2024 12:43 PM INBOUND SALES MANAGER EKG 12 LEAD STAT 10/12/2024 10:52 AM INBOUND SALES MANAGER TROPONIN T (HS) ACUTE W/2HR REFLEX STAT 10/12/2024 10:43 AM INBOUND SALES MANAGER HEPATIC FUNCTION PANEL STAT 10/12/2024 10:43 AM INBOUND SALES MANAGER LIPASE STAT 10/12/2024 10:43 AM INBOUND SALES MANAGER BASIC METABOLIC PANEL STAT 10/12/2024 10:43 AM INBOUND SALES MANAGER CBC W PLT NO DIFF STAT 10/12/2024 10: 43 AM INBOUND SALES MANAGER CT ABDOMEN PELVIS STONE PROTOCOL WO STAT 10/11/2024 2:31 PM INBOUND SALES MANAGER Flank pain [facility] POC DIP ([facility]) Routine 10/11/2024 2:13 PM INBOUND SALES MANAGER Flank pain URINALYSIS MICROSCOPIC Routine 10/11/2024 2:11 PM INBOUND SALES MANAGER Flank pain URINE CULTURE Routine 10/11/2024 2:11 PM INBOUND SALES MANAGER Flank pain CBC WITH AUTO DIFFERENTIAL Routine 10/11/2024 2:11 PM INBOUND SALES MANAGER Flank pain HEPATIC FUNCTION PANEL Routine 10/11/2024 2:11 PM INBOUND SALES MANAGER Flank pain BASIC METABOLIC PANEL Routine 10/11/2024 2:11 PM INBOUND SALES MANAGER Flank pain COVID/FLU/RSV PANEL Routine 10/11/2024 2 :04 PM INBOUND SALES MANAGER Cough, unspecified type ALT (SGPT) Routine 10/06/2024 4:26 PM INBOUND SALES MANAGER Graves' disease AST (SGOT) Routine 10/06/2024 4:26 PM INBOUND SALES MANAGER Graves' disease CBC WITH AUTO DIFFERENTIAL Routine 10/06/2024 4:26 PM INBOUND SALES MANAGER Graves' disease T3,TOTAL Routine 10/06/2024 4:26 PM INBOUND SALES MANAGER Graves' disease T4,FREE Routine 10/06/2024 4:26 PM INBOUND SALES MANAGER Graves' disease TSH Routine 10/06/2024 4:26 PM INBOUND SALES MANAGER Graves' disease HOME SLEEP TEST TYPE 3 PORTABLE Routine 09/18/2024 11:59 PM INBOUND SALES MANAGER Suspected sleep apnea TSH Routine 08/08/2024 4:11 PM INBOUND SALES MANAGER Graves' disease T3,TOTAL Routine 08/08/2024 4:11 PM INBOUND SALES MANAGER Graves' disease T4,FREE Routine 08/08/2024 4:11 PM INBOUND SALES MANAGER Graves' disease URINE CULTURE Routine 07/20/2024 3:50 PM INBOUND SALES MANAGER Recurrent UTI MEDICAL TRANSCRIPTION THIN PREP PAP SCREEN IMAGED Routine 01/10/2024 [...] EXAM REFLEXED PER CRITERIA (10/13/2024 9:10 AM [facility]) COLOR Yellow Yellow Color 10/13/2024 9:16 AM [facility] CLARITY Clear Clear Clarity 10/13/2024 9:16 AM [facility] SPECIFIC GRAVITY,URINE <=1.005(A) 1.010, 1.015, 1.020, 1.025 10/13/2024 9:16 AM [facility] PH,URINE 6.0 6.0, 7.0, 8.0, 5.5, 6.5, 7.5, 8.5 10/13/2024 9:16 AM [facility] UROBILINOGEN, QUALITATIVE Normal Normal EU/dl 10/13/2024 9:16 AM [facility] PROTEIN, URINE Negative Negative mg/dL 10/13/2024 9:16 AM [facility] GLUCOSE, URINE Negative Negative mg/dL 10/13/2024 9:16 AM [facility] KETONES,URINE Negative Negative mg/dL 10/13/2024 9:16 AM [facility] BILIRUBIN,URI NE Negative Negative 10/13/2024 9:16 AM [facility] OCCULT BLOOD,URINE Negative Negative 10/13/2024 9:16 AM [facility] NITRITE Negative Negative 10/13/2024 9:16 AM [facility] LEUKOCYTE ESTERASE Negative Negative 10/13/2024 9:16 AM [facility] Urine URINE SPECIMEN / Unknown Non-Blood / Unknown 10/13/2024 9:10 AM INBOUND SALES MANAGER 10/13/2024 9:13 AM INBOUND SALES MANAGER us Sacha Wren MD URINE Geetha l Result [facility] [address] [place] [id number] * PROCALCITONIN (10/13/2024 8:57 AM INBOUND SALES MANAGER) PROCALCITONIN 0.02 ng/ml 10/13/2024 9:47 AM INBOUND SALES MANAGER [facility] Blood BLOOD SPECIMEN / Unknown Butterfly / Unknown 10/13/2024 8:57 AM INBOUND SALES MANAGER 10/13/2024 9:15 AM INBOUND SALES MANAGER Narrative [facility] - 10/13/2024 9:47 AM INBOUND SALES MANAGER Procalcitonin for initial assessment of Lower Respiratory [...] Wren MD SEND OUTS Geetha gonsalez Result [facility] [address] [place] [address] * (ABNORMAL) CBC W PLT NO DIFF (10/13/2024 8:57 AM INBOUND SALES MANAGER) Only the most recent of2 resultswithin the time period is included. WHITE BLOOD COUNT 10.0 4.5 - 11.0 thou/cu mm 10/13/2024 9:37 AM [facility] RED BLOOD COUNT 5.09 4.00 - 5.20 mil/cu mm 10/13/2024 9:37 AM [facility] HEMOGLOBIN 14.2 12.0 - 16.0 g/dL 10/13/2024 9:37 AM [facility] HEMATOCRIT 45.0 33.0 - 51.0 % 10/13/2024 9:37 AM [facility] MCV 88 80 - 100 fL 10/13/2024 9:37 AM [facility] MCH 27.9 26.0 - 34.0 pg 10/13/2024 9:37 AM [facility] MCHC 31.6(L) 32.0 - 36.0 g/dL 10/13/2024 9:37 AM [facility] RDW 14.7 11.5 - 15.5 % 10/13/2024 9:37 AM [facility] PLATELET COUNT 266 140 - 440 thou/cu mm 10/13/2024 9:37 AM [facility] MPV 10.5 6.5 - 11.0 fL 10/13/2024 9:37 AM INBOUND SALES MANAGER [facility] Blood BLOOD SPECIMEN / Unknown Butterfly / Unknown 10/13/2024 8:57 AM INBOUND SALES MANAGER 10/13/2024 9:33 AM INBOUND SALES MANAGER Sacha Wren MD HEMATOLOGY Geetha l Result Performing Organization Address City/[facility]/ZIP Co de Phone Number [facility] [address] [place] [address] * (ABNORMAL) C-REACTIVE PROTEIN (10/13/2024 8:57 AM INBOUND SALES MANAGER) [facility] C-REACTIVE PROTEIN 1.3(H) <0.5 mg/dL 10/13/2024 9:35 AM INBOUND SALES MANAGER [facility] Blood BLOOD SPECIMEN / Unknown Butterfly / Unknown 10/13/2024 8:57 AM INBOUND SALES MANAGER 10/13/2024 9:15 AM INBOUND SALES MANAGER Sacha Wren MD CHEMISTRY Geetha l Result Performing Organization Address [facility]/ZIP Co de Phone Number [facility] [address] [place] [address] * TROPONIN T (HS) ONE TIME (10/12/2024 12:43 PM INBOUND SALES MANAGER) [facility] TROPONIN T HS 7 6-10 ng/L ng/L 10/12/2024 1:07 PM INBOUND SALES MANAGER [facility] Blood BLOOD SPECIMEN / Unknown Butterfly / Unknown 10/12/2024 12:43 PM INBOUND SALES MANAGER 10/12/2024 12:46 PM INBOUND SALES MANAGER Miko Siddiqui MD CHEMISTRY Final R esult Performing Organization Address [facility]/ZIP Co de Phone Number [facility] [address] [place] [address] * EKG 12 LEAD (10/12/2024 10:52 AM INBOUND SALES MANAGER) [facility] Interpretation Normal sinus rhythm Normal ECG When compared with ECG of 03-Jan-2024 12:43, No significant change was found no ST elevation BEYOND NOW Ventricular Rate 84 BPM BEYOND NOW Atrial Rate 84 BPM BEYOND NOW P-R Interval 138 ms BEYOND NOW QRS Duration 70 ms BEYOND NOW QT 360 ms BEYOND NOW QTc 425 ms BEYOND NOW P Titus 53 degrees BEYOND NOW R Titus 51 degrees BEYOND NOW T Titus 44 degrees BEYOND NOW 10/12/2024 10:5 2 AM INBOUND SALES MANAGER 10/12/2024 11:15 AM INBOUND SALES MANAGER Miko Siddiqui MD EKG ORD Final R esult [place] NOW [place], [place] * TROPONIN T (HS) ACUTE W/2HR REFLEX (10/12/2024 10:43 AM INBOUND SALES MANAGER) TROPONIN T HS <6 6-10 ng/L ng/L 10/12/2024 11:11 AM INBOUND SALES MANAGER [facility] Blood BLOOD SPECIMEN / Unknown Venipuncture / Unknown 10/12/2024 10:43 AM INBOUND SALES MANAGER 10/12/2024 10:48 AM INBOUND SALES MANAGER Narrative [facility] - 10/12/2024 11:11 AM INBOUND SALES MANAGER hs-cTnT (Elecsys Troponin T Gen 5) concentration [...] population. Miko Siddiqui MD CHEMISTRY Final R [facility] Performing Organization Address [facility]/ZIP Co de Phone Number [facility] [address] [place] [address] * LIPASE (10/12/2024 10:43 AM INBOUND SALES MANAGER) LIPASE 29.8 13.0 - 60.0 IU/L 10/12/2024 11:11 AM [facility] Blood BLOOD SPECIMEN / Unknown Venipuncture / Unknown 10/12/2024 10:43 AM INBOUND SALES MANAGER 10/12/2024 10:48 AM INBOUND SALES MANAGER Miko Siddiqui MD CHEMISTRY Final R esult Performing Organization Address [facility] Co de Phone Number [facility] [address] [place] [address] * HEPATIC FUNCTION PANEL (10/12/2024 10:43 AM INBOUND SALES MANAGER) Only the most recent of2 resultswithin the time period is included. ALBUMIN 4.5 4.0 - 4.9 g/dL 10/12/2024 11:11 AM [facility] PROTEIN,TOTAL 7.6 6.0 - 8.0 g/dL 10/12/2024 11:11 AM [facility] BILIRUBIN,TOTAL 0.5 0.0 - 1.2 mg/dL 10/12/2024 11:11 AM [facility] BILIRUBIN,DIRECT 0.2 0.0 - 0.2 mg/dL 10/12/2024 11:11 AM [facility] BILIRUBIN,INDIRE CT 0.3 0.2 - 0.8 mg/dL 10/12/2024 11:11 AM [facility] ALK PHOSPHATASE 46 35 - 104 IU/L 10/12/2024 11:11 AM [facility] ALT (SGPT) 13 10 - 35 IU/L 10/12/2024 11:11 AM [facility] AST (SGOT) 19 10 - 35 IU/L 10/12/2024 11:11 AM [facility] Blood BLOOD SPECIMEN / Unknown Venipuncture / Unknown 10/12/2024 10:43 AM INBOUND SALES MANAGER 10/12/2024 10:48 AM [facility] Miko Siddiqui MD CHEMISTRY Final R esult [facility] [address] [place] [address] * (ABNORMAL) BASIC METABOLIC PANEL (10/12/2024 10:43 AM [facility]) Only the most recent of2 resultswithin the time period is included. SODIUM 138 136 - 145 mmol/L 10/12/2024 11:11 AM [facility] POTASSIUM 4.4 3.5 - 5.1 mmol/L 10/12/2024 11:11 AM [facility] CHLORIDE 104 98 - 107 mmol/L 10/12/2024 11:11 AM [facility] CO2,TOTAL 27 22 - 29 mmol/L 10/12/2024 11:11 AM [facility] ANION GAP 7 5 - 18 10/12/2024 11:11 AM [facility] GLUCOSE 125(H) 70 - 99 mg/dL 10/12/2024 11:11 AM [facility] CALCIUM 9.4 8.8 - 10.4 mg/dL 10/12/2024 11:11 AM [facility] Comment: Reference ranges for this test were updated on 06/13/2024 to reflect our healthy population more accurately. Reference range changes are not retroactively applied to results, but previous results using the same methodology can be interpreted in the context of the new reference range. BUN 4(L) 6 - 20 mg/dL 10/12/2024 11:11 AM [facility] CREATININE 0.76 0.50 - 0.90 mg/dL 10/12/2024 11:11 AM [facility] BUN/CREAT RATIO 5(L) 10 - 20 11:11 AM [facility] eGFR >90 >90 mL/min/1. 73m2 10/12/2024 11:11 AM [facility] Comment:As of 2021, eG FR is calculated by the CKD-EPI creatinine equation without race adjustment. eGFR can be influenced by muscle mass, exercise, and diet. The reported eGFR is an estimation only and is only applicable if the renal function is stable. Blood BLOOD SPECIMEN / Unknown Venipuncture / Unknown 10/12/2024 10:43 AM INBOUND SALES MANAGER 10/12/2024 10:48 AM INBOUND SALES MANAGER us Miko Siddiqui MD CHEMISTRY Final R esult [facility] [address] [place] [address] * CT ABDOMEN PELVIS STONE PROTOCOL WO (10/11/2024 2:31 PM INBOUND SALES MANAGER) Anatomical Region Laterality Modality Abdomen, Pelvis, AORTA, LIVER, SPLEEN Computed Tomography 10/11/2024 3:00 PM INBOUND SALES MANAGER Impressions 10/11/2024 3:00 PM INBOUND SALES MANAGER No acute intra-abdominal process identified. No renal stones. No hydronephrosis. Please note that all CT scans at this facility use dose modulation, iterative reconstruction, and/or weight-based dosing when appropriate to reduce radiation dose to as low as reasonably achievable. Dictated by Kamran Blanco MD @ 10/11/2024 3:00:01 PM (Electronically Signed) Narrative 10/11/2024 3:00 PM INBOUND SALES MANAGER For Patients: As a result of the [...] POCT Urinalysis Dipstick Only (10/11/2024 2:13 PM INBOUND SALES MANAGER) Pathologist [facility] PH 6.0 5.0 - 8.0 [facility] SPECIFIC GRAVITY < OR = 1.005 1.001 - 1.035 [facility] Comment: Specific [place] values resulted are outside the analytical measurement range of this device. Recommend repeat/additional testing as clinically indicated. GLUCOSE NEGATIVE NEGATIVE [facility] BILIRUBIN NEGATIVE NEGATIVE [facility] KETONES NEGATIVE NEGATIVE [facility] OCCULT BLOOD NEGATIVE NEGATIVE [facility] PROTEIN NEGATIVE NEGATIVE [facility] NITRITE NEGATIVE NEGATIVE [facility] LEUKOCYTE ESTERASE NEGATIVE NEGATIVE [facility] Urine URINE SPECIMEN / Unknown 10/11/2024 2:13 PM INBOUND SALES MANAGER 10/11/2024 2:13 PM INBOUND SALES MANAGER Yao Vail MD URINE Final Result [facility] [address] [place] [address], [facility] [address] [place] [address] * URINALYSIS MICROSCOPIC (10/11/2024 2:11 PM INBOUND SALES MANAGER) Pathologist [facility] RBC 0-2 0-2, None Seen /HPF 10/11/2024 11:20 PM INBOUND SALES MANAGER [facility] WBC 0-2 0-2, 3-5, None Seen /HPF 10/11/2024 11:20 PM INBOUND SALES MANAGER [facility] BACTERIA None Seen None Seen, Rare, Few Bacteria/ HPF 10/11/2024 11:20 PM INBOUND SALES MANAGER [facility] EPITHELIAL CELLS None Seen None Seen, Few Epi/HPF 10/11/2024 11:20 PM INBOUND SALES MANAGER [facility] HYALINE CASTS 0-2 0-2, 3-5 /LPF 10/11/2024 11:20 PM INBOUND SALES MANAGER [facility] Urine URINE SPECIMEN / Unknown Non-Blood / Unknown 10/11/2024 2:11 PM INBOUND SALES MANAGER 10/11/2024 2:11 PM INBOUND SALES MANAGER Yao Vail MD URINE Final Result Performing Organization Address [facility] Co de Phone Number [facility] [address] [place] [address], [place] * URINE CULTURE (10/11/2024 2:11 PM INBOUND SALES MANAGER) Only the most recent of2 resultswithin the time period is included. CULTURE No growth (<1,000 CFU/mL) 10/13/2024 9:31 AM INBOUND SALES MANAGER [facility] Urine URINE SPECIMEN / Unknown Non-Blood / Unknown 10/11/2024 2:11 PM INBOUND SALES MANAGER 10/11/2024 2:11 PM INBOUND SALES MANAGER us Yao Vail MD MICROBIOLOGY Final Result Performing Organization Address City/[facility] Co de Phone Number [facility] [address] [place] [address], * CBC AND DIFFERENTIAL (10/11/2024 2:11 PM INBOUND SALES MANAGER) Only the most recent of2 resultswithin the [...] BLOOD SPECIMEN / Unknown 10/11/2024 2:11 PM INBOUND SALES MANAGER 10/11/2024 2:12 PM INBOUND SALES MANAGER Yao Vail MD HEMATOLOGY Final Result [employer] [facility] [address] [place] [address], [employer] [address] [place] [address] * COVID/FLU/RSV PANEL (10/11/2024 2:04 PM INBOUND SALES MANAGER) COVID 19 [facility] Negative Negative 10/11/2024 11:37 PM INBOUND SALES MANAGER [facility] Comment:All PCR tests are chauhan bject to false negative result due to variability in viral load and collection technique. A negative result does not rule out a SARS-CoV-2 infection. Clinical correlation required. INFLUENZA A PCR Negative 11:37 PM INBOUND SALES MANAGER [facility] INFLUENZA B PCR Negative 11:37 PM INBOUND SALES MANAGER [facility] Respiratory Syncytial Virus Negative 10/11/2024 11:37 PM INBOUND SALES MANAGER [facility] Swab NASOPHARYNGEAL SWAB / Unknown Non-Blood / Unknown 10/11/2024 2:04 PM INBOUND SALES MANAGER 10/11/2024 2:04 PM INBOUND SALES MANAGER Yao Vail MD MICROBIOLOGY Final Result [facility] [address] [place] [address], * TSH (10/06/2024 4:26 PM INBOUND SALES MANAGER) Only the most recent of2 resultswithin the time period is included. Pathologist [facility] TSH 1.63 mIU/L [employer] Comment: Reference Range > or = 20 Years 0.40-4.50 Ranges First trimester 0.26-2.66 Second trimester 0.55-2.73 Third trimester 0.43-2.91 Blood BLOOD SPECIMEN / Unknown 10/06/2024 4:26 PM INBOUND SALES MANAGER 10/06/2024 4:28 PM INBOUND SALES MANAGER Narrative [facility] - 10/07/2024 5:08 AM INBOUND SALES MANAGER FASTING:NO FASTING: NO Ward GONZALEZ CHEMISTRY Final Resu lt [employer] [address] [address], [facility] [address] [place] [address] * T3,TOTAL (10/06/2024 4:26 PM INBOUND SALES MANAGER) Only the most recent of2 resultswithin the time period is included. T3, TOTAL 106 76 - 181 ng/dL [facility] d Marco Antonio Blood BLOOD SPECIMEN / Unknown 10/06/2024 4:26 PM INBOUND SALES MANAGER 10/06/2024 4:28 PM INBOUND SALES MANAGER Narrative [facility] - 10/07/2024 5:08 AM INBOUND SALES MANAGER FASTING:NO FASTING: NO Ward GONZALEZ CHEMISTRY Final Resu lt [facility] [address] [place] [address], [place] [phone] [facility] [address] [place] [address] * ALT (SGPT) (10/06/2024 4:26 PM INBOUND SALES MANAGER) ALT 15 6 - 29 U/L [facility] clarissa Coatse Blood BLOOD SPECIMEN / Unknown 10/06/2024 4:26 PM INBOUND SALES MANAGER 10/06/2024 4:28 PM INBOUND SALES MANAGER Narrative [facility] - 10/07/2024 3:29 AM INBOUND SALES MANAGER FASTING:NO FASTING: NO Ward GONZALEZ CHEMISTRY Final Resu lt [facility] [facility] [address] [place] [address], [place] [phone] [facility] [address] [place] [address] * AST (SGOT) (10/06/2024 4:26 PM INBOUND SALES MANAGER) AST 19 10 - 35 U/L [facility] Marco Antonio Blood BLOOD SPECIMEN / Unknown 10/06/2024 4:26 PM INBOUND SALES MANAGER 10/06/2024 4:28 PM INBOUND SALES MANAGER Narrative [facility] - 10/07/2024 3:29 AM INBOUND SALES MANAGER FASTING:NO FASTING: NO Ward GONZALEZ CHEMISTRY Final Resu lt Performing Organization Address [facility]/ZIP Co de Phone Number [facility] [address] [place] [address], [facility] [address] [place] [address] * T4,FREE (10/06/2024 4:26 PM INBOUND SALES MANAGER) Only the most recent of2 resultswithin the time period is included. T4, FREE 0.9 0.8 - 1.8 ng/dL [employer] [place] Blood BLOOD SPECIMEN / Unknown 10/06/2024 4:26 PM INBOUND SALES MANAGER 10/06/2024 4:28 PM INBOUND SALES MANAGER Narrative [facility] - 10/07/2024 5:08 AM INBOUND SALES MANAGER FASTING:NO FASTING: NO Ward GONZALEZ CHEMISTRY Final Resu lt Performing Organization Address [facility]/ZIP Co de Phone Number [employer] [facility] [address] [place] [address], [facility] [address] [place] [address] * HOME SLEEP TEST TYPE 3 PORTABLE (09/18/2024 11:59 PM INBOUND SALES MANAGER) Ward Medrano MD - 09/18/2024 11:59 PM INBOUND SALES MANAGER Ward Castillo MD 09/19/2024 4:53 PM Home Sleep Test Name: Kailey Newman Location: [facility] Study notes: This is a single night [...] and interpreted by a Diplomate of the [place] [employer]. Raw summary data [...] [facility] Final Result * MEDICAL TRANSCRIPTION THIN PREP PAP SCREEN IMAGED [[id number]] (01/10/2024 12:13 PM CDT) Case Report Gynecologic Cytology Report Case: [id number] Authorizing Provider: Jovanna Kline DO Collected: 01/10/2024 1213 Ordering Location: [facility] Received: 01/10/2024 1213 Clinic First Screen: Charo Paredes Specimen: MEDICAL TRANSCRIPTION ThinPrep Vial Screening, Cervical 01/20/2024 8:40 AM CDT [facility] INTERPRETATION/ RESULT NEGATIVE FOR INTRAEPITHELIAL LESION OR MALIGNANCY (NIL) (none) 01/20/2024 8:40 AM CDT [facility] IMEN ADEQUACY Satisfactory for evaluation Endocervical component present 01/20/2024 8:40 AM CDT [facility] HPV REQUEST HPV and PAP 01/20/2024 8:40 AM CDT [facility] Date of LMP postmenopausal 8:40 AM CDT [facility] Last Pap Date 02/25/18 01/20/2024 8:40 AM CDT [facility] Last Pap Result NIL 8:40 AM CDT [facility] Abnormal Pap or [place] Bx in last 5 years No 01/20/2024 8:40 AM CDT [facility] Menstrual Status Postmenopausal 01/20/2024 8:40 AM CDT [facility] [place] Bx Done Today No 01/20/2024 8:40 AM CDT [facility] Additional Information None given 01/20/2024 8:40 AM CDT [facility] Comment: [facility], Central Laboratory - [address], [place] [address] and [facility] - [address] [place] [address], [place] [address] and [facility] - [address] [place] [address] Interpreted at [facility] - [address], [place] [address] Automated Review Successful 01/20/2024 8:40 AM CDT [facility] Comment:Specimen processed s uccessfully by automated professor of finance device, ThinPrep Imaging System, [employer] ANCILLARY TESTING MEDICAL TRANSCRIPTION HPV Ordered, Please see separate report 01/20/2024 8:40 AM CDT [facility] Note The pap test is a [...] and malignant lesions. 01/20/2024 8:40 AM T [facility] Other (Cervical) Non-Blood / Unknown 01/10/2024 12:13 PM CDT 01/10/2024 12:13 PM CDT us Jovanna Kline DO PATHOLOGY/CYTOLOGY Final Resu lt [facility] [address] [place] [address], * LIPID PANEL W REFLEX MEASURED LDL (01/10/2024 12:04 PM CDT) CHOLESTEROL,TOTAL 171 100 - 199 mg/dL 01/11/2024 9:36 AM T [facility] Comment: Cholesterol, Total Reference Ranges Desirable <200 mg/dL Borderline 200-239 mg/dL High >=240 mg/dL TRIGLYCERIDES 116 <150 mg/dL 01/11/2024 9:36 AM CDT [facility] HDL CHOLESTEROL 64 >40 mg/dL 9:36 AM CDT [facility] NON-HDL CHOLESTEROL 107 <145 mg/dl 01/11/2024 9:36 AM T [facility] CHOL/HDL RATIO 2.67 <4.50 01/11/2024 9:36 AM CDT [facility] LDL CHOLESTEROL 84 <=130 mg/dL 01/11/2024 9:36 AM CDT [facility] VLDL CHOLESTEROL 23 <=30 mg/dL 01/11/2024 9:36 AM CDT [facility] PROVIDER ORDERED STATUS RANDOM 01/11/2024 9:36 AM CDT [facility] Blood BLOOD SPECIMEN / Unknown Venipuncture / Unknown 01/10/2024 12:04 PM CDT 01/10/2024 12:05 PM CDT us Jovanna Kline DO CHEMISTRY Final Result [facility] [address] [place] [address], [place] * XR MAMMO ERIKA BILAT SCREEN [...] care provider. XR MAMMO ERIKA BILAT SCREEN [[id number]] CLINICAL HISTORY: This is an asymptomatic 53 y.o. patient. INDICATION FOR EXAM: Mammogram Screening. TECHNIQUE: CC & MLO views were obtained. This study was evaluated with the assistance of Computer-Aided Detection. Breast Tomosynthesis was used in interpretation. COMPARISON FILM: Yes 06/19/22 [facility] 04/30/21 [facility] FINDINGS: The breasts are heterogeneously dense, which may obscure small masses. There are no dominant masses, suspicious micro calcifications or areas of architectural distortion. us Jovanna Kline DO MAMMO Final Result * SDNA-FIT EXTERNAL (COLOGUARD) [[id number]] (12/16/2023 7:40 AM CDT) NONINV COLON CA DNA+OCC BLD SCRN STL-IMP Negative Negative 12/23/2023 5:48 PM CDT [email or web address] (CLIA #:[id number]) Comment: NEGATIVE TEST RESULT. A negative Cologuard [...] (Radha Mehta al, N Engl J Med 2014;370(14):7560-8047) The normal value (reference range) for this assay is negative. COLOGUARD RE-SCREENING RECOMMENDATION: Periodic colorectal cancer screening is an important part of preventive healthcare for asymptomatic individuals at average risk for colorectal cancer. Following a negative Cologuard result, the [place] [employer] Society and U.S. Multi-Society Task Force screening guidelines recommend a Cologuard re-screening interval of 3 years. References: [place] [employer] Guideline for Colorectal Cancer Screening: https://www.cancer.org/cancer/txiha-ihabet-cgzsrn/ekvepnodz-whaxtcink-uaqfskx/ac s-rec ommendations.html.; Bala DK, Fozia CR, Gonzalo HardinK, Colorectal Cancer Screening: Recommendations for Physicians and Patients from the U.S. Multi-Society Task Force on Colorectal Cancer Screening , Am J Gastroenterology 2017; 112:4375-8245. TEST DESCRIPTION: Composite algorithmic analysis of stool [...] (Radha Mehta al, N Engl J Med 2014;370(14):7450-7371.) Cologuard may produce a false negative or false positive result (no colorectal cancer or precancerous polyp present at colonoscopy follow up). A negative Cologuard test result does not guarantee the absence of CRC or advanced adenoma (pre-cancer). The current Cologuard screening interval is every 3 years. ([place] [employer] Society and U.S. Multi-Society Task Force). Cologuard performance data in a 10,000 patient pivotal study using colonoscopy as the reference method can be accessed at the following location: www.Rpptrip.com.[employer]/results. Additional description of the Cologuard test process, warnings and precautions can be found at www.Influitiveoguard.com. Stool specimen (specimen) (Rectum) 12/16/2023 7:40 AM CDT 12/17/2023 12:25 PM CDT us Jovanna Kline DO URINE Final Result [email or web address] (CLIA #:[id number]) [address] [place] [address], * LC HCV ANTIBODY RFX TO QUANT PCR (12/03/2022 12:00 PM CDT) Pathologist [facility] HCV Ab Non Reactive Non Reactive 12/05/2022 3:08 PM CDT [facility] ([facility]) Blood BLOOD SPECIMEN / Unknown Venipuncture / Unknown 12/03/2022 12:00 PM CDT 12/03/2022 12:02 PM CDT [facility] ([facility]) - 12/05/2022 3:08 PM CDT Performed at: [address] [place] [address] [id number] Salvage Winder: Nelson Ruff MD, Phone: [phone] Justin GONZALEZ LABORATORY Fin al Result Performing Organization Address City/[facility]/ZIP Co de Phone Number [facility] ([facility]) [address] [place] [address], * HIV-1/O/2, 4TH GENERATION (12/03/2022 12:00 PM CDT) [facility] HIV Scr 4th Gen Non Reactive Non Reactive 12/05/2022 12:08 PM CDT [facility] ([facility]) Comment: HIV Negative HIV-1/HIV-2 antibodies and HIV-1 p24 antigen were NOT detected. There is no laboratory evidence of HIV infection. Blood BLOOD SPECIMEN / Unknown Venipuncture / Unknown 12/03/2022 12:00 PM CDT 12/03/2022 12:02 PM CDT [facility] ([facility]) - 12/05/2022 12:08 PM CDT Performed at: [address] [place] [address] [id number] Salvage Winder: Nelson Ruff MD, Phone: [phone] Justin GONZALE[facility] LABORAT[facility] Fin al Result Performing Organization Address City/[facility]/ZIP Co de Phone Number [facility] ([facility]) [address] [place] [id number] from Last 3 Months or Most Recently Relevant to Health Maintenance Insurance BLUE CROSS OF NON-OR-ITS Care Teams 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
[2024-10-14] MEDS: ONDANSETRON ODT 4 MG TAB PO (15:50)
[2024-10-14] MEDS: cefTRIAXone 1 GM VIAL IM (16:43)
[2024-10-14] MEDS: LIDOCAINE 1% 5 ml (pf) 5 ML VIAL 2.1 ML IM (16:43)
[2024-10-14 16:44] VITALS: BP 148/91; PULSE 79; RESP 16; O2SAT 97
== END 2024-10-14 16:57 | disposition home or self-care (01) ==
PROVIDERS: Emergency Provider Family Medicine; PCP Family Medicine
DX: N30.90 Cystitis, unspecified without hematuria (principal); R10.9 Unspecified abdominal pain
CPT/HCPCS: 81001; 87086; 96372; 99284; A9270; J0696

== ENCOUNTER 2024-10-16 02:19 | Emergency (ER) | payer BC, SELFPAY ==
[2024-10-16] VITALS (20 sets, daily range): BP systolic 95–146; BP diastolic 54–86; PULSE 65–90; RESP 16; TEMP 36.6; O2SAT 91–98; BMI 26.9
--- NOTE | 2024-10-16 02:32 | ED.GENADULT ---
HPI - General Adult General Chief complaint: Unspecified Complaint, Adult Stated complaint: confusion with UTI Time Seen by Provider: 10/16/24 02:32 History of Present Illness HPI narrative: chills diarrhea confusion. in and out of [facility] and this ER. on multiple abx. 54-year-old woman presenting to the emergency department again with her . Last seen here by myself a couple of days ago following repeated visits with concern of urinary tract infection. Underlying history of chronic pain and interstitial cystitis fibromyalgia. Was requesting a change of antibiotics which was done from for Cipro to cephalexin. Review of record shows that this latest urine culture was negative. Pain has escalated in her back. She feels generally weak. Actually has pain diffusely. Both arms with pain. Abdomen with pain. She is not complaining of a headache. She is complaining however of being quite confused noting how her woke up to her calling out her /prior 's name and apparently having diarrhea on the floor. She is concerned that she has C difficile and might be ?septic?. Has been feeling chills. She says that she just never has felt this bad. Continues to struggle with nausea At prior visit had noted how with infections has had altered mental status or confused before. She says ?narcotics? do not do this to her like this. had recorded treatments over the last couple of days I see that this morning she started taking ciprofloxacin again. Has return to taking her cranberry pill as well. Early this morning took a Dilaudid and another around noon. Subsequently hydroxyzine and Zofran. Cipro this evening and along with Toradol another dose of Dilaudid and azo. Took amitriptyline sounds like usually takes 25 mg but took 50 mg tonight. Later another azo and hydroxyzine and a gas pill Later information reveals remote history of C difficile colitis. Related Data Home Medications ?Medication ?Instructions ?Recorded ?Confirmed amitriptyline 10 mg tablet mg PO 01/11/24 03/18/24 cyclobenzaprine 10 mg tablet 10 mg PO QPM 01/11/24 03/18/24 estradiol 0.01% (0.1 mg/gram) vaginal QPM 01/11/24 03/18/24 vaginal cream liothyronine 5 mcg tablet mcg PO 01/11/24 03/18/24 metoclopramide HCl 10 mg tablet 10 mg PO Q6H PRN nausea/vomiting 01/11/24 03/18/24 nitrofurantoin macrocrystal 50 mg 50 mg PO DAILY 01/11/24 03/18/24 capsule oxycodone 5 mg tablet PO 01/11/24 03/18/24 pregabalin 150 mg capsule 150 mg PO BID 01/11/24 03/18/24 triamcinolone acetonide 0.1 % 1 applic topical BID-TID 01/11/24 03/18/24 topical cream valacyclovir 1 gram tablet 1,000 mg PO DAILY 01/11/24 03/18/24 Previous Rx's ?Medication ?Instructions ?Recorded atenolol 50 mg tablet 50 mg PO DAILY #30 tabs 01/11/24 fluconazole 150 mg tablet 150 mg PO Q3D 2 doses #2 tabs 03/18/24 nystatin 100,000 unit/gram topical 1 applic topical BID #30 grams 03/18/24 cream ciprofloxacin HCl 500 mg tablet 500 mg PO BID #14 tabs 10/09/24 (Cipro) fluconazole 100 mg tablet 100 mg PO DAILY #10 tabs 10/09/24 (Diflucan) hyoscyamine sulfate 0.125 mg tablet 0.25 mg (2 x 0.125 mg) PO QID PRN 10/14/24 cramping #30 tabs fidaxomicin 200 mg tablet (Dificid) 200 mg PO BID 10 days #20 tabs 10/16/24 Allergies Allergy/AdvReac Type Severity Reaction Status Date / Time adhesive Allergy Unknown Verified 03/18/24 14:17 hydrocodone Allergy Unknown Verified 03/18/24 14:17 meperidine (From Demerol) Allergy Unknown Verified 03/18/24 14:17 Sulfa (Sulfonamide Allergy Unknown Verified 03/18/24 14:17 Antibiotics) Review of Systems Status of ROS: Reports: 6 or more systems reviewed and unremarkable except as noted in History and below [facility] Social History Smoking Status: Current some day smoker How often do you have a drink containing alcohol: never AUDIT-C Alcohol total score: 0 Non-prescribed substance use: marijuana (any form) Exam Narrative: Exam Narrative: Keeping eyes closed often in conversation. Clearly uncomfortable. It appears quite lucid in this a conversation. Speaking fluidly in clearly. Oropharynx is a little sticky. Abdomen is soft. Mildly diffusely tender without peritoneal signs. Heart is in regular rate and rhythm. Lungs are clear. Pain is not reproducible to the back. Able to raise her legs from bed without difficulty. Skin is warm and dry without rash. Const: Vital Signs, click to edit/add: Vital Signs - 24 hr 10/16/24 02:29 10/16/24 03:21 10/16/24 03:38 Temperature 98 F Pulse Rate 78 77 Pulse Rate [Pulse Oximeter] 86 Respiratory Rate 16 Blood Pressure Blood Pressure [Le ft Upper Arm] 146/86 H Pulse Oximetry 98 97 Oxygen Delivery Me thod Room Air 10/16/24 03:45 10/16/24 04:00 10/16/24 04:02 Temperature Pulse Rate 82 77 80 Pulse Rate [Pulse Oximeter] Respiratory Rate Blood Pressure 119/73 Blood Pressure [Le ft Upper Arm] Pulse Oximetry 94 96 96 Oxygen Delivery Me thod 10/16/24 04:15 10/16/24 04:30 10/16/24 04:45 Temperature Pulse Rate 70 70 69 Pulse Rate [Pulse Oximeter] Respiratory Rate Blood Pressure Blood Pressure [Le ft Upper Arm] Pulse Oximetry 94 95 95 Oxygen Delivery Me thod 10/16/24 05:00 10/16/24 05:01 10/16/24 05:15 Temperature Pulse Rate 67 68 68 Pulse Rate [Pulse Oximeter] Respiratory Rate 16 Blood Pressure 95/54 L Blood Pressure [Le ft Upper Arm] Pulse Oximetry 94 95 93 Oxygen Delivery Me thod 10/16/24 05:30 10/16/24 05:45 10/16/24 06:00 Temperature Pulse Rate 65 67 79 Pulse Rate [Pulse Oximeter] Respiratory Rate Blood Pressure Blood Pressure [Le ft Upper Arm] Pulse Oximetry 93 91 91 Oxygen Delivery Me thod 10/16/24 06:01 10/16/24 07:04 10/16/24 07:05 Temperature Pulse Rate 78 89 87 Pulse Rate [Pulse Oximeter] Respiratory Rate 16 Blood Pressure 107/69 130/79 Blood Pressure [Le ft Upper Arm] Pulse Oximetry 95 97 Oxygen Delivery Me thod 10/16/24 07:15 10/16/24 07:30 Temperature Pulse Rate 83 90 Pulse Rate [Pulse Oximeter] Respiratory Rate Blood Pressure Blood Pressure [Le ft Upper Arm] Pulse Oximetry 96 97 Oxygen Delivery Me thod Documenting provider has reviewed patient's vital signs: yes Course Vital Signs Vital signs: Initial Vital Signs Temperature 98 F 10/16/24 02:29 Temperature Source Temporal Artery Scan 10/16/24 02:29 Pulse Rate 86 10/16/24 02:29 Respiratory Rate 16 10/16/24 02:29 Blood Pressure 146/86 H 10/16/24 02:29 Blood Pressure Mean 106 H 10/16/24 02:29 Blood Pressure Position Sitting 10/16/24 02:29 Pulse Oximetry 98 10/16/24 02:29 Oxygen Delivery Method Room Air 10/16/24 02:29 Vital Signs Temperature 98 F 10/16/24 02:29 Pulse Rate 86 10/16/24 02:29 Respiratory Rate 16 10/16/24 02:29 Blood Pressure 146/86 H 10/16/24 02:29 Pulse Oximetry 98 10/16/24 02:29 Oxygen Delivery Method Room Air 10/16/24 02:29 Temperature 98 F 10/16/24 02:29 Pulse Rate 90 10/16/24 07:30 Respiratory Rate 16 10/16/24 06:01 Blood Pressure 130/79 10/16/24 07:05 Pulse Oximetry 97 10/16/24 07:30 Oxygen Delivery Method Room Air 10/16/24 02:29 Medications Administered Medications: Discontinued Medications Generic Name Dose Route Start Last Admin Trade Name Freq PRN Reason Stop Dose Admin Ketamine HCl 20 mg/ Sodium 100.2 mls @ 200.4 mls/hr 10/16/24 02:46 10/16/24 04:07 Chloride IVPB 10/16/24 02:47 Infused ONCE ONE Infusion Sodium Chloride 1,000 mls @ 1,000 mls/hr 10/16/24 02:46 10/16/24 04:07 0.9 % Sodium Chloride 1000 Ml IV 10/16/24 03:45 Infused .Q1H ONE Infusion Lorazepam 0.5 mg 10/16/24 02:49 10/16/24 03:04 Lorazepam 2 Mg/Ml Inj IVP 10/16/24 02:50 0.5 mg ONCE ONE Administration Medical Decision Making MDM Narrative Medical decision making narrative: Declined COVID swab noting recently done. Could there be infection in the spine/spinal abscess? Symptoms of colitis perhaps. C difficile would be in differential and certainly would be a candidate given frequent rounds of antibiotics. Medication related otherwise? Opiate related? Recheck urinalysis. Did have stool collection from home which we will test for C difficile. Initiate IV fluids. Does appear understandably mildly anxious. Will give lorazepam and I think a dose of ketamine in this case. Labs show CRP elevated 1.5. CBC not elevated at 16.9. Have obtained blood cultures. Lactate reassuring at 1.1. I did request CT of the lumbar spine given degree of pain that she is complaining of without reproducibility. There are no lower radicular symptoms however. Complaint frequently though of just weakness in her legs in general. While not ideal test CT scan looks to be negative for infectious change in the lumbar spine. INDICATION: Severe low back pain. TECHNIQUE: CT of the lumbar spine without contrast. COMPARISON: None. FINDINGS: Vertebral alignment: 5 lumbar type vertebral bodies. Trace retrolisthesis of L3 on L4. Vertebrae: Vertebral body heights are maintained. No acute fracture. No suspicious osseous lesion. Multilevel intervertebral disc space narrowing endplate osteophytes, most pronounced and moderate L4-L5 is disc vacuum phenomena. Broad-based disc bulge and facet arthropathy L4-L5 and L5-S1 results in minimal spinal canal narrowing. Left and mild-moderate right neural foraminal stenosis at L4-L5. Extraspinal findings: Prevertebral and posterior paraspinal soft tissues are unremarkable. Visualized retroperitoneum is unremarkable. IMPRESSION: 1. No acute osseous abnormality identified in the lumbar spine. 2. Multilevel lumbar spondylosis, most pronounced at L4-L5. Please note that all CT scans at this facility use dose modulation, iterative reconstruction, and/or weight-based dosing when appropriate to reduce radiation dose to as low as reasonably achievable. Dictated by Shana Simmons MD @ 10/16/2024 4:07:53 AM C difficile is positive from stool collection Has reported improvement in her symptoms in general and has been sleeping in the ER. Will discontinue all other antibiotics and initiate Dificid Vitals well, stable during time in the emergency department. Safe for discharge. See patient discharge plan for further discussion Initiating course of <del>vancomycin</del> Dificid. Please stop all other antibiotics. Recommendations would be to not take loperamide for diarrhea in this case. Consider hydration with reconstituted powdered Powerade or Gatorade. Stay well-hydrated. Be seen for inability to maintain hydration in the setting of copious diarrhea, uncontrolled fever, uncontrolled pain. Medical Records Medical records reviewed: Yes I reviewed the patient's medical records Lab Data Lab results reviewed: Yes I reviewed the patient's lab results Labs: Lab Results 10/16/24 10/16/24 Range/Units 03:05 03:15 WBC 16.91 H (4.50-11.00) K/uL RBC 4.78 (4.00-5.20) m/uL Hgb 13.6 (12.0-16.0) gm/dL Hct 42.7 (33.0-51.0) % MCV 89 (80-100) fL MCH 29 (26-34) pg MCHC 32 (32-36) gm/dL RDW Coeff of Lauri 13.9 (11.5-15.5) % Plt Count 252 (140-440) K/uL Neut % (Auto) 83.4 H (42.0-72.0) % Lymph % (Auto) 9.3 L (20-44) % Crenshaw % (Auto) 4.5 (0.0-11.0) % Eos % (Auto) 1.7 (0.0-7.0) % Baso % (Auto) 0.3 (0.0-3.0) % Neut # (Auto) 14.10 H (1.7-7.0) K/uL Lymph # (Auto) 1.60 (0.90-2.90) K/uL Crenshaw # (Auto) 0.80 (0.00-0.90) K/UL Eos # (Auto) 0.30 (0.00-0.50) K/uL Baso # (Auto) 0.10 (0.00-0.30) K/uL Abs Immat Gran (auto) 0.10 (0.00-0.30) K/uL Imm/Tot Granulo (auto) 0.8 % Sodium 137 (135-149) mmol/L Potassium 4.0 (3.6-5.1) mmol/L Chloride 101 (96-114) mmol/L Carbon Dioxide 29 (20-32) mmol/L Anion Gap 7 (7-15) mEq/L BUN 8 (7-30) mg/dL Creatinine 0.7 (0.5-1.5) mg/dL Estimated Creat Clear 78.41 Estimated GFR 102 ml/min Glucose 138 H (60-115) mg/dL Lactate 1.1 (0.5-1.9) mmol/L Calcium 9.3 (8.4-10.6) mg/dL C-Reactive Protein 1.5 H (0.5-1.0) mg/dL Stl C. diff Tox B Gene POSITIVE A* (Negative) Stl C. diff [id number] PRESUMPTIVE NEGATIVE (Negative) Discharge Plan Discharge Clinical Impression: Clostridium difficile infection Patient Disposition: Home w/ Parent or Adult Condition: Improved Additional Instructions: Initiating course of <del>vancomycin</del> Dificid. Please stop all other antibiotics. Recommendations would be to not take loperamide for diarrhea in this case. Consider hydration with reconstituted powdered Powerade or Gatorade. Stay well-hydrated. Be seen for inability to maintain hydration in the setting of copious diarrhea, uncontrolled fever, uncontrolled pain. Prescriptions: New Dificid 200 mg tablet 200 mg PO BID 10 Days Qty: 20 0RF No Action nystatin 100,000 unit/gram cream 1 applic topical BID Qty: 30 0RF fluconazole 150 mg tablet 150 mg PO Q3D Qty: 2 0RF Rx Instructions: Take one tablet on first day. OK to repeat dose in 72 hours if symptoms persist. Follow up if symptoms persist after second dose. cyclobenzaprine 10 mg tablet 10 mg PO QPM nitrofurantoin macrocrystal 50 mg capsule 50 mg PO DAILY valacyclovir 1 gram tablet 1,000 mg PO DAILY liothyronine 5 mcg tablet PO triamcinolone acetonide 0.1 % cream 1 applic topical BID-TID amitriptyline 10 mg tablet PO estradiol 0.01 % (0.1 mg/gram) cream vaginal QPM metoclopramide HCl 10 mg tablet 10 mg PO Q6H PRN (Reason: nausea/vomiting) oxycodone 5 mg tablet PO pregabalin 150 mg capsule 150 mg PO BID atenolol 50 mg tablet 50 mg PO DAILY Qty: 30 3RF hyoscyamine sulfate 0.125 mg tablet 0.25 mg PO QID PRN (Reason: cramping) Qty: 30 0RF fluconazole [Diflucan] 100 mg tablet 100 mg PO DAILY Qty: 10 0RF ciprofloxacin HCl [Cipro] 500 mg tablet 500 mg PO BID Qty: 14 0RF Follow Up/Referrals: Jovanna Kline DO [Primary Care Provider] - Stand Alone Forms: [facility] Info Instructions
--- OUTSIDE RECORDS SUMMARY | 2024-10-16 02:57 | XMS_ITS | Clinical Summary ---
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 [address] [facility] [address] [place] [address] Amie Lindo MD Questions (appointment//nurse visit) 10/13/[address] [facility] [address] [facility] [address] [place] [address] Amie Lindo MD Appointment 10/13/2024 Travel 10/12/2024 10:14 AM MELT DOWN FURNACE OPERATOR - 10/12/2024 1:51 PM MELT DOWN FURNACE OPERATOR Emergency [facility] [address] [place] [address] Miko Siddiqui MD Pain of upper extremity, unspecified laterality (Primary Dx); Back pain, unspecified back location, unspecified back pain laterality, unspecified chronicity; Myalgia; Nausea; Abdominal pain, unspecified abdominal location Discharge Disposition: Home Self Care 10/12/[address] [facility] [address] [facility] [address] [place] [address] Amie Lindo MD Medication Management (methenamine hippurate (HIPREX) 1 gram tablet) 10/11/2024 3:00 PM MELT DOWN FURNACE OPERATOR Ancillary Procedure [facility] [address] [place] [address] Arrived 10/11/2024 1:15 PM MELT DOWN FURNACE OPERATOR Office Visit [address] [address] Yao Vail MD ER Follow up ([facility], 10/09/2024, UTI - symptoms getting worse) 10/11/2024 Travel 10/11/2024 Nurse Triage [facility] [address] [place] [address] Sir Klinei Jeimy, DO Flank Pain; Urinary Tract Infection 10/06/2024 Travel 09/21/2024 2:20 PM MELT DOWN FURNACE OPERATOR E-Visit [facility] [address] [place] [address] Eliud Jovanna Jeimy, DO eVisit for Vaginal Discharge / Irritation 09/19/2024 7:30 AM MELT DOWN FURNACE OPERATOR Nurse/Clinic Staff Only [address] [address] Testing (HST Return/Download.) 09/18/2024 2:15 PM MELT DOWN FURNACE OPERATOR Nurse/Clinic Staff Only [facility] [address] [place] [address] Testing (HST Set-up) 09/18/2024 Procedure Only [facility] [address] [place] [address] Ward Castillo MD Results (HST) 09/18/2024 Travel 09/04/2024 Refill [facility] [address] [place] [address] Jadielqra Jovanna Jeimy, DO Refill Request (Pregabalin) 08/24/2024 3:00 PM MELT DOWN FURNACE OPERATOR Office Visit [facility] [address] [address] Amie Lindo MD Consult (Recurring UTI) 08/24/2024 Travel 08/18/2024 2:10 PM MELT DOWN FURNACE OPERATOR Office Visit [facility] [address] [place] [address] Troyra Jovanna Jeimy, DO Medication Management (Oxycodone renew - change amitriptyline to nortriptyline due to weight gain) 08/18/2024 Travel 08/08/2024 4:15 PM MELT DOWN FURNACE OPERATOR Orders Only [address] [address] Lab, [facility] <No scans attached> 08/08/2024 Travel 08/07/2024 Refill [facility] [address] [place] [address] Eliud Jovanna Jeimy, DO Refill Request (Pregabalin) 07/20/2024 4:10 PM MELT DOWN FURNACE OPERATOR Orders Only [address] [place] [address] Lab, [facility] Lab 07/20/2024 Travel from Last [...] on file Legal Sex Female 4:43 PM MELT DOWN FURNACE OPERATOR Gender Identity Not on file Sexual Orientation Not on file 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 Not on file Not on file Obstetrics History Para Term AB IAB SAB Ectopic Multiple Livin g Live Births 4 4 4 Date Outcome GA Total Labor Labor/2nd/3rd Weight Sex Type Anes PTL Jeimy A1 A5 Name Clin Term Term Term Term Last Filed Vital Signs Vital Sign Reading Time Taken Comments Blood Pressure 145/91 10/13/2024 10:10 AM MELT DOWN FURNACE OPERATOR Pulse 90 10/13/2024 10:10 AM MELT DOWN FURNACE OPERATOR Temperature 36.7 C (98 F) 10/13/2024 8:36 AM MELT DOWN FURNACE OPERATOR Respiratory Rate 20 10/13/2024 8:36 AM MELT DOWN FURNACE OPERATOR Oxygen Saturation 97% 10/13/2024 10:10 AM MELT DOWN FURNACE OPERATOR Inhaled Oxygen Concentration - - Weight 70.8 kg (156 lb) 10/13/2024 8:47 AM MELT DOWN FURNACE OPERATOR Height 162.6 cm (5' 4) 10/13/2024 8:47 AM MELT DOWN FURNACE OPERATOR Body Mass Index 26.78 10/13/2024 8:47 AM MELT DOWN FURNACE OPERATOR Plan of Treatment Upcoming Encounters Date Type Department Care Team (Late st Contact Info) Description 10/16/2024 11:25 AM CDT Office Visit [facility] [address] [place] [address] Jovanna Kline Jeimy, DO [address] [place] [address] 10/16/2024 3:00 PM CDT Nurse/Clinic Staff Only [address] [facility] [place] [address] 10/27/2024 2:20 PM CDT Telemedicine [address] [place] [address] Ward Che PA [address] [place] [address] 11/13/2024 4:00 PM CDT Office Visit [facility] [address] [place] [address] Ward Castillo MD [address] [place] [address] Health Maintenance Due Date Last Done Comments [...] booster 01/14/2026 01/15/2016, 12/31/2004 Fecal testing sDNA-FIT (Crescent guard) for age 45-75 12/15/2026 12/16/2023, 05/23/2020 [...] REFLEXED PER CRITERIA STAT 10/13/2024 9:10 AM MELT DOWN FURNACE OPERATOR PROCALCITONIN STAT 10/13/2024 8:57 AM MELT DOWN FURNACE OPERATOR C-REACTIVE PROTEIN STAT 10/13/2024 8: 57 AM MELT DOWN FURNACE OPERATOR CBC W PLT NO DIFF STAT 10/13/2024 8:5 7 AM MELT DOWN FURNACE OPERATOR TROPONIN T (HS) ONE TIME Timed 10/12/2024 12:43 PM MELT DOWN FURNACE OPERATOR EKG 12 LEAD STAT 10/12/2024 10:52 AM MELT DOWN FURNACE OPERATOR TROPONIN T (HS) ACUTE W/2HR REFLEX STAT 10/12/2024 10:43 AM MELT DOWN FURNACE OPERATOR HEPATIC FUNCTION PANEL STAT 10/12/2024 10:43 AM MELT DOWN FURNACE OPERATOR LIPASE STAT 10/12/2024 10:43 AM MELT DOWN FURNACE OPERATOR BASIC METABOLIC PANEL STAT 10/12/2024 10:43 AM MELT DOWN FURNACE OPERATOR CBC W PLT NO DIFF STAT 10/12/2024 10: 43 AM MELT DOWN FURNACE OPERATOR CT ABDOMEN PELVIS STONE PROTOCOL WO STAT 10/11/2024 2:31 PM MELT DOWN FURNACE OPERATOR Flank pain [facility] P[facility] DIP ([facility]) Routine 10/11/2024 2:13 PM MELT DOWN FURNACE OPERATOR Flank pain URINALYSIS MICROSCOPIC Routine 10/11/2024 2:11 PM MELT DOWN FURNACE OPERATOR Flank pain URINE CULTURE Routine 10/11/2024 2:11 PM MELT DOWN FURNACE OPERATOR Flank pain CBC WITH AUTO DIFFERENTIAL Routine 10/11/2024 2:11 PM MELT DOWN FURNACE OPERATOR Flank pain HEPATIC FUNCTION PANEL Routine 10/11/2024 2:11 PM MELT DOWN FURNACE OPERATOR Flank pain BASIC METABOLIC PANEL Routine 10/11/2024 2:11 PM MELT DOWN FURNACE OPERATOR Flank pain COVID/FLU/RSV PANEL Routine 10/11/2024 2 :04 PM MELT DOWN FURNACE OPERATOR Cough, unspecified type ALT (SGPT) Routine 10/06/2024 4:26 PM MELT DOWN FURNACE OPERATOR Graves' disease AST (SGOT) Routine 10/06/2024 4:26 PM MELT DOWN FURNACE OPERATOR Graves' disease CBC WITH AUTO DIFFERENTIAL Routine 10/06/2024 4:26 PM MELT DOWN FURNACE OPERATOR Graves' disease T3,TOTAL Routine 10/06/2024 4:26 PM MELT DOWN FURNACE OPERATOR Graves' disease T4,FREE Routine 10/06/2024 4:26 PM MELT DOWN FURNACE OPERATOR Graves' disease TSH Routine 10/06/2024 4:26 PM MELT DOWN FURNACE OPERATOR Graves' disease HOME SLEEP TEST TYPE 3 PORTABLE Routine 09/18/2024 11:59 PM MELT DOWN FURNACE OPERATOR Suspected sleep apnea TSH Routine 08/08/2024 4:11 PM MELT DOWN FURNACE OPERATOR Graves' disease T3,TOTAL Routine 08/08/2024 4:11 PM MELT DOWN FURNACE OPERATOR Graves' disease T4,FREE Routine 08/08/2024 4:11 PM MELT DOWN FURNACE OPERATOR Graves' disease URINE CULTURE Routine 07/20/2024 3:50 PM MELT DOWN FURNACE OPERATOR Recurrent UTI SAP HANA ARCHITECT THIN PREP PAP SCREEN IMAGED Routine 01/10/2024 [...] EXAM REFLEXED PER CRITERIA (10/13/2024 9:10 AM [facility]) COLOR Yellow Yellow Color 10/13/2024 9:16 AM [facility] CLARITY Clear Clear Clarity 10/13/2024 9:16 AM [facility] SPECIFIC GRAVITY,URINE <=1.005(A) 1.010, 1.015, 1.020, 1.025 10/13/2024 9:16 AM [facility] PH,URINE 6.0 6.0, 7.0, 8.0, 5.5, 6.5, 7.5, 8.5 10/13/2024 9:16 AM [facility] UROBILINOGEN, QUALITATIVE Normal Normal EU/dl 10/13/2024 9:16 AM [facility] PROTEIN, URINE Negative Negative mg/dL 10/13/2024 9:16 AM [facility] GLUCOSE, URINE Negative Negative mg/dL 10/13/2024 9:16 AM [facility] KETONES,URINE Negative Negative mg/dL 10/13/2024 9:16 AM [facility] BILIRUBIN,URI NE Negative Negative 10/13/2024 9:16 AM [facility] OCCULT BLOOD,URINE Negative Negative 10/13/2024 9:16 AM [facility] NITRITE Negative Negative 10/13/2024 9:16 AM [facility] LEUKOCYTE ESTERASE Negative Negative 10/13/2024 9:16 AM [facility] Urine URINE SPECIMEN / Unknown Non-Blood / Unknown 10/13/2024 9:10 AM MELT DOWN FURNACE OPERATOR 10/13/2024 9:13 AM MELT DOWN FURNACE OPERATOR us Sacha Wren MD URINE Geetha l Result [facility] [address] [place] [id number] * PROCALCITONIN (10/13/2024 8:57 AM MELT DOWN FURNACE OPERATOR) PROCALCITONIN 0.02 ng/ml 10/13/2024 9:47 AM MELT DOWN FURNACE OPERATOR [facility] Blood BLOOD SPECIMEN / Unknown Butterfly / Unknown 10/13/2024 8:57 AM MELT DOWN FURNACE OPERATOR 10/13/2024 9:15 AM MELT DOWN FURNACE OPERATOR Narrative [facility] - 10/13/2024 9:47 AM MELT DOWN FURNACE OPERATOR Procalcitonin for initial assessment of Lower Respiratory [...] Wren MD SEND OUTS Geetha gonsalez Result [facility] [address] [place] [address] * (ABNORMAL) CBC W PLT NO DIFF (10/13/2024 8:57 AM MELT DOWN FURNACE OPERATOR) Only the most recent of2 resultswithin the time period is included. WHITE BLOOD COUNT 10.0 4.5 - 11.0 thou/cu mm 10/13/2024 9:37 AM [facility] RED BLOOD COUNT 5.09 4.00 - 5.20 mil/cu mm 10/13/2024 9:37 AM [facility] HEMOGLOBIN 14.2 12.0 - 16.0 g/dL 10/13/2024 9:37 AM [facility] HEMATOCRIT 45.0 33.0 - 51.0 % 10/13/2024 9:37 AM [facility] MCV 88 80 - 100 fL 10/13/2024 9:37 AM [facility] MCH 27.9 26.0 - 34.0 pg 10/13/2024 9:37 AM [facility] MCHC 31.6(L) 32.0 - 36.0 g/dL 10/13/2024 9:37 AM [facility] RDW 14.7 11.5 - 15.5 % 10/13/2024 9:37 AM [facility] PLATELET COUNT 266 140 - 440 thou/cu mm 10/13/2024 9:37 AM [facility] MPV 10.5 6.5 - 11.0 fL 10/13/2024 9:37 AM MELT DOWN FURNACE OPERATOR [facility] Blood BLOOD SPECIMEN / Unknown Butterfly / Unknown 10/13/2024 8:57 AM MELT DOWN FURNACE OPERATOR 10/13/2024 9:33 AM MELT DOWN FURNACE OPERATOR Sacha Wren MD HEMATOLOGY Geetha l Result Performing Organization Address City/[facility]/ZIP Co de Phone Number [facility] [address] [place] [address] * (ABNORMAL) C-REACTIVE PROTEIN (10/13/2024 8:57 AM MELT DOWN FURNACE OPERATOR) [facility] C-REACTIVE PROTEIN 1.3(H) <0.5 mg/dL 10/13/2024 9:35 AM MELT DOWN FURNACE OPERATOR [facility] Blood BLOOD SPECIMEN / Unknown Butterfly / Unknown 10/13/2024 8:57 AM MELT DOWN FURNACE OPERATOR 10/13/2024 9:15 AM MELT DOWN FURNACE OPERATOR Sacha Wren MD CHEMISTRY Geetha l Result Performing Organization Address [facility]/ZIP Co de Phone Number [facility] [address] [place] [address] * TROPONIN T (HS) ONE TIME (10/12/2024 12:43 PM MELT DOWN FURNACE OPERATOR) [facility] TROPONIN T HS 7 6-10 ng/L ng/L 10/12/2024 1:07 PM MELT DOWN FURNACE OPERATOR [facility] Blood BLOOD SPECIMEN / Unknown Butterfly / Unknown 10/12/2024 12:43 PM MELT DOWN FURNACE OPERATOR 10/12/2024 12:46 PM MELT DOWN FURNACE OPERATOR Miko Siddiqui MD CHEMISTRY Final R esult Performing Organization Address [facility]/ZIP Co de Phone Number [facility] [address] [place] [address] * EKG 12 LEAD (10/12/2024 10:52 AM MELT DOWN FURNACE OPERATOR) [facility] Interpretation Normal sinus rhythm Normal ECG When compared with ECG of 03-Jan-2024 12:43, No significant change was found no ST elevation BEYOND NOW Ventricular Rate 84 BPM BEYOND NOW Atrial Rate 84 BPM BEYOND NOW P-R Interval 138 ms BEYOND NOW QRS Duration 70 ms BEYOND NOW QT 360 ms BEYOND NOW QTc 425 ms BEYOND NOW P [place] 53 degrees BEYOND NOW R [place] 51 degrees BEYOND NOW T [place] 44 degrees BEYOND NOW 10/12/2024 10:5 2 AM MELT DOWN FURNACE OPERATOR 10/12/2024 11:15 AM MELT DOWN FURNACE OPERATOR Miko Siddiqui MD EKG ORD Final R esult [place], [place] * TROPONIN T (HS) ACUTE W/2HR REFLEX (10/12/2024 10:43 AM MELT DOWN FURNACE OPERATOR) TROPONIN T HS <6 6-10 ng/L ng/L 10/12/2024 11:11 AM MELT DOWN FURNACE OPERATOR [facility] Blood BLOOD SPECIMEN / Unknown Venipuncture / Unknown 10/12/2024 10:43 AM MELT DOWN FURNACE OPERATOR 10/12/2024 10:48 AM MELT DOWN FURNACE OPERATOR Narrative [facility] - 10/12/2024 11:11 AM MELT DOWN FURNACE OPERATOR hs-cTnT (Elecsys Troponin T Gen 5) concentration [...] population. Miko Siddiqui MD CHEMISTRY Final R [facility] Performing Organization Address [facility]/ZIP Co de Phone Number [facility] [address] [place] [address] * LIPASE (10/12/2024 10:43 AM MELT DOWN FURNACE OPERATOR) LIPASE 29.8 13.0 - 60.0 IU/L 10/12/2024 11:11 AM [facility] Blood BLOOD SPECIMEN / Unknown Venipuncture / Unknown 10/12/2024 10:43 AM MELT DOWN FURNACE OPERATOR 10/12/2024 10:48 AM MELT DOWN FURNACE OPERATOR Miko Siddiqui MD CHEMISTRY Final R esult Performing Organization Address [facility] [[email or web address]] Co de Phone Number [facility] [address] [place] [address] * HEPATIC FUNCTION PANEL (10/12/2024 10:43 AM MELT DOWN FURNACE OPERATOR) Only the most recent of2 resultswithin the time period is included. ALBUMIN 4.5 4.0 - 4.9 g/dL 10/12/2024 11:11 AM [facility] PROTEIN,TOTAL 7.6 6.0 - 8.0 g/dL 10/12/2024 11:11 AM [facility] BILIRUBIN,TOTAL 0.5 0.0 - 1.2 mg/dL 10/12/2024 11:11 AM [facility] BILIRUBIN,DIRECT 0.2 0.0 - 0.2 mg/dL 10/12/2024 11:11 AM [facility] BILIRUBIN,INDIRE CT 0.3 0.2 - 0.8 mg/dL 10/12/2024 11:11 AM [facility] ALK PHOSPHATASE 46 35 - 104 IU/L 10/12/2024 11:11 AM [facility] ALT (SGPT) 13 10 - 35 IU/L 10/12/2024 11:11 AM [facility] AST (SGOT) 19 10 - 35 IU/L 10/12/2024 11:11 AM [facility] Blood BLOOD SPECIMEN / Unknown Venipuncture / Unknown 10/12/2024 10:43 AM MELT DOWN FURNACE OPERATOR 10/12/2024 10:48 AM [facility] Miko Siddiqui MD CHEMISTRY Final R esult [facility] [address] [place] [address] * (ABNORMAL) BASIC METABOLIC PANEL (10/12/2024 10:43 AM [facility]) Only the most recent of2 resultswithin the time period is included. SODIUM 138 136 - 145 mmol/L 10/12/2024 11:11 AM [facility] POTASSIUM 4.4 3.5 - 5.1 mmol/L 10/12/2024 11:11 AM [facility] CHLORIDE 104 98 - 107 mmol/L 10/12/2024 11:11 AM [facility] CO2,TOTAL 27 22 - 29 mmol/L 10/12/2024 11:11 AM [facility] ANION GAP 7 5 - 18 10/12/2024 11:11 AM [facility] GLUCOSE 125(H) 70 - 99 mg/dL 10/12/2024 11:11 AM [facility] CALCIUM 9.4 8.8 - 10.4 mg/dL 10/12/2024 11:11 AM [facility] Comment: Reference ranges for this test were updated on 06/13/2024 to reflect our healthy population more accurately. Reference range changes are not retroactively applied to results, but previous results using the same methodology can be interpreted in the context of the new reference range. BUN 4(L) 6 - 20 mg/dL 10/12/2024 11:11 AM [facility] CREATININE 0.76 0.50 - 0.90 mg/dL 10/12/2024 11:11 AM [facility] BUN/CREAT RATIO 5(L) 10 - 20 11:11 AM [facility] eGFR >90 >90 mL/min/1. 73m2 10/12/2024 11:11 AM [facility] Comment:As of 2021, eG FR is calculated by the CKD-EPI creatinine equation without race adjustment. eGFR can be influenced by muscle mass, exercise, and diet. The reported eGFR is an estimation only and is only applicable if the renal function is stable. Blood BLOOD SPECIMEN / Unknown Venipuncture / Unknown 10/12/2024 10:43 AM MELT DOWN FURNACE OPERATOR 10/12/2024 10:48 AM MELT DOWN FURNACE OPERATOR us Miko Siddiqui MD CHEMISTRY Final R esult [facility] [address] [place] [address] * CT ABDOMEN PELVIS STONE PROTOCOL WO (10/11/2024 2:31 PM MELT DOWN FURNACE OPERATOR) Anatomical Region Laterality Modality Abdomen, Pelvis, AORTA, LIVER, SPLEEN Computed Tomography 10/11/2024 3:00 PM MELT DOWN FURNACE OPERATOR Impressions 10/11/2024 3:00 PM MELT DOWN FURNACE OPERATOR No acute intra-abdominal process identified. No renal stones. No hydronephrosis. Please note that all CT scans at this facility use dose modulation, iterative reconstruction, and/or weight-based dosing when appropriate to reduce radiation dose to as low as reasonably achievable. Dictated by Kamran Blanco MD @ 10/11/2024 3:00:01 PM (Electronically Signed) Narrative 10/11/2024 3:00 PM MELT DOWN FURNACE OPERATOR For Patients: As a result of the [...] POCT Urinalysis Dipstick Only (10/11/2024 2:13 PM MELT DOWN FURNACE OPERATOR) Pathologist [facility] PH 6.0 5.0 - 8.0 [facility] SPECIFIC GRAVITY < OR = 1.005 1.001 - 1.035 [facility] Comment: Specific [place] values resulted are outside the analytical measurement range of this device. Recommend repeat/additional testing as clinically indicated. GLUCOSE NEGATIVE NEGATIVE [facility] BILIRUBIN NEGATIVE NEGATIVE [facility] KETONES NEGATIVE NEGATIVE [facility] OCCULT BLOOD NEGATIVE NEGATIVE [facility] PROTEIN NEGATIVE NEGATIVE [facility] NITRITE NEGATIVE NEGATIVE [facility] LEUKOCYTE ESTERASE NEGATIVE NEGATIVE [facility] Urine URINE SPECIMEN / Unknown 10/11/2024 2:13 PM MELT DOWN FURNACE OPERATOR 10/11/2024 2:13 PM MELT DOWN FURNACE OPERATOR Yao Vail MD URINE Final Result [facility] [address] [place] [address], [facility] [address] [place] [address] * URINALYSIS MICROSCOPIC (10/11/2024 2:11 PM MELT DOWN FURNACE OPERATOR) Pathologist [facility] RBC 0-2 0-2, None Seen /HPF 10/11/2024 11:20 PM MELT DOWN FURNACE OPERATOR [facility] WBC 0-2 0-2, 3-5, None Seen /HPF 10/11/2024 11:20 PM MELT DOWN FURNACE OPERATOR [facility] BACTERIA None Seen None Seen, Rare, Few Bacteria/ HPF 10/11/2024 11:20 PM MELT DOWN FURNACE OPERATOR [facility] EPITHELIAL CELLS None Seen None Seen, Few Epi/HPF 10/11/2024 11:20 PM MELT DOWN FURNACE OPERATOR [facility] HYALINE CASTS 0-2 0-2, 3-5 /LPF 10/11/2024 11:20 PM MELT DOWN FURNACE OPERATOR [facility] Urine URINE SPECIMEN / Unknown Non-Blood / Unknown 10/11/2024 2:11 PM MELT DOWN FURNACE OPERATOR 10/11/2024 2:11 PM MELT DOWN FURNACE OPERATOR Yao Vail MD URINE Final Result Performing Organization Address [facility] [[email or web address]] Co de Phone Number [facility] [address] [place] [address], [place] * URINE CULTURE (10/11/2024 2:11 PM MELT DOWN FURNACE OPERATOR) Only the most recent of2 resultswithin the time period is included. CULTURE No growth (<1,000 CFU/mL) 10/13/2024 9:31 AM MELT DOWN FURNACE OPERATOR [facility] Urine URINE SPECIMEN / Unknown Non-Blood / Unknown 10/11/2024 2:11 PM MELT DOWN FURNACE OPERATOR 10/11/2024 2:11 PM MELT DOWN FURNACE OPERATOR us Yao Vail MD MICROBIOLOGY Final Result Performing Organization Address City/[facility] [[email or web address] Co de Phone Number [facility] [address] [place] [address], * CBC AND DIFFERENTIAL (10/11/2024 2:11 PM MELT DOWN FURNACE OPERATOR) Only the most recent of2 resultswithin the [...] BLOOD SPECIMEN / Unknown 10/11/2024 2:11 PM MELT DOWN FURNACE OPERATOR 10/11/2024 2:12 PM MELT DOWN FURNACE OPERATOR Yao Vail MD HEMATOLOGY Final Result [employer] [facility] [address] [place] [address], [facility] [address] [place] [address] * COVID/FLU/RSV PANEL (10/11/2024 2:04 PM MELT DOWN FURNACE OPERATOR) COVID 19 [facility] Negative Negative 10/11/2024 11:37 PM MELT DOWN FURNACE OPERATOR [facility] Comment:All PCR tests are chauhan bject to false negative result due to variability in viral load and collection technique. A negative result does not rule out a SARS-CoV-2 infection. Clinical correlation required. INFLUENZA A PCR Negative 11:37 PM MELT DOWN FURNACE OPERATOR [facility] INFLUENZA B PCR Negative 11:37 PM MELT DOWN FURNACE OPERATOR [facility] Respiratory Syncytial Virus Negative 10/11/2024 11:37 PM MELT DOWN FURNACE OPERATOR [facility] Swab NASOPHARYNGEAL SWAB / Unknown Non-Blood / Unknown 10/11/2024 2:04 PM MELT DOWN FURNACE OPERATOR 10/11/2024 2:04 PM MELT DOWN FURNACE OPERATOR Yao Vail MD MICROBIOLOGY Final Result [facility] [address] [place] [address], * TSH (10/06/2024 4:26 PM MELT DOWN FURNACE OPERATOR) Only the most recent of2 resultswithin the time period is included. Pathologist [facility] TSH 1.63 mIU/L [facility] [place] Comment: Reference Range > or = 20 Years 0.40-4.50 Ranges First trimester 0.26-2.66 Second trimester 0.55-2.73 Third trimester 0.43-2.91 Blood BLOOD SPECIMEN / Unknown 10/06/2024 4:26 PM MELT DOWN FURNACE OPERATOR 10/06/2024 4:28 PM MELT DOWN FURNACE OPERATOR Narrative [facility] - 10/07/2024 5:08 AM MELT DOWN FURNACE OPERATOR FASTING:NO FASTING: NO Ward GONZALEZ CHEMISTRY Final Resu lt [employer] [address] [id number], [facility] [address] [place] [address] * T3,TOTAL (10/06/2024 4:26 PM MELT DOWN FURNACE OPERATOR) Only the most recent of2 resultswithin the time period is included. T3, TOTAL 106 76 - 181 ng/dL [facility] Marco Antonio Blood BLOOD SPECIMEN / Unknown 10/06/2024 4:26 PM MELT DOWN FURNACE OPERATOR 10/06/2024 4:28 PM MELT DOWN FURNACE OPERATOR Narrative [facility] - 10/07/2024 5:08 AM MELT DOWN FURNACE OPERATOR FASTING:NO FASTING: NO Ward GONZALEZ CHEMISTRY Final Resu lt [facility] [facility] [address] [place] [address], [place] [phone] [facility] [address] [place] [address] * ALT (SGPT) (10/06/2024 4:26 PM MELT DOWN FURNACE OPERATOR) ALT 15 6 - 29 U/L [facility] clarissa Coatse Blood BLOOD SPECIMEN / Unknown 10/06/2024 4:26 PM MELT DOWN FURNACE OPERATOR 10/06/2024 4:28 PM MELT DOWN FURNACE OPERATOR Narrative [facility] - 10/07/2024 3:29 AM MELT DOWN FURNACE OPERATOR FASTING:NO FASTING: NO Ward GONZALEZ CHEMISTRY Final Resu lt [facility] [address] [place] [address], [place] [phone] [facility] [address] [place] [address] * AST (SGOT) (10/06/2024 4:26 PM MELT DOWN FURNACE OPERATOR) AST 19 10 - 35 U/L [facility] d Marco Antonio Blood BLOOD SPECIMEN / Unknown 10/06/2024 4:26 PM MELT DOWN FURNACE OPERATOR 10/06/2024 4:28 PM MELT DOWN FURNACE OPERATOR Narrative [facility] - 10/07/2024 3:29 AM MELT DOWN FURNACE OPERATOR FASTING:NO FASTING: NO Ward GONZALEZ CHEMISTRY Final Resu lt Performing Organization Address [facility]/ZIP Co de Phone Number [facility] [address] [place] [address], [facility] [address] [place] [address] * T4,FREE (10/06/2024 4:26 PM MELT DOWN FURNACE OPERATOR) Only the most recent of2 resultswithin the time period is included. T4, FREE 0.9 0.8 - 1.8 ng/dL [facility] [place] Blood BLOOD SPECIMEN / Unknown 10/06/2024 4:26 PM MELT DOWN FURNACE OPERATOR 10/06/2024 4:28 PM MELT DOWN FURNACE OPERATOR Narrative [facility] - 10/07/2024 5:08 AM MELT DOWN FURNACE OPERATOR FASTING:NO FASTING: NO Ward GONZALEZ CHEMISTRY Final Resu lt Performing Organization Address [facility]/ZIP Co de Phone Number [employer] [facility] [address] [place] [address], [employer] [facility] [address] [place] [address] * HOME SLEEP TEST TYPE 3 PORTABLE (09/18/2024 11:59 PM MELT DOWN FURNACE OPERATOR) Ward Medrano MD - 09/18/2024 11:59 PM MELT DOWN FURNACE OPERATOR Ward Castillo MD 09/19/2024 4:53 PM Home Sleep Test Name: Kailey Newman Location: [facility] Study notes: This is a single [...] and interpreted by a Diplomate of the [place] [employer]. Raw summary data [...] [facility] Final Result * SAP HANA ARCHITECT THIN PREP PAP SCREEN IMAGED [[id number]] (01/10/2024 12:13 PM CDT) Case Report Gynecologic Cytology Report Case: [id number] Authorizing Provider: Jovanna Kline DO Collected: 01/10/2024 1213 Ordering Location: [facility] Received: 01/10/2024 1213 Clinic First Screen: Charo Paredes Specimen: SAP HANA ARCHITECT ThinPrep Vial Screening, Cervical 01/20/2024 8:40 AM CDT [facility] INTERPRETATION/ RESULT NEGATIVE FOR INTRAEPITHELIAL LESION OR MALIGNANCY (NIL) (none) 01/20/2024 8:40 AM CDT [facility] IMEN ADEQUACY Satisfactory for evaluation Endocervical component present 01/20/2024 8:40 AM CDT [facility] [facility] HPV REQUEST HPV and PAP 01/20/2024 8:40 AM CDT [facility] Date of LMP postmenopausal 8:40 AM CDT [facility] [facility] Last Pap Date 02/25/18 01/20/2024 8:40 AM CDT [facility] Last Pap Result NIL 8:40 AM CDT [facility] Abnormal Pap or Grimsley Bx in last 5 years No 01/20/2024 8:40 AM CDT [facility] Menstrual Status Postmenopausal 01/20/2024 8:40 AM CDT [facility] Grimsley Bx Done Today No 01/20/2024 8:40 AM CDT [facility] Additional Information None given 01/20/2024 8:40 AM CDT [facility] Comment: [facility], Central Laboratory - [address], [place] [address] and [facility] - [address] [place] [address], [place] [address] and [facility] - [address] [place] [place] [address] [facility] - [address], [place] [address] Automated Review Successful 01/20/2024 8:40 AM CDT [facility] Comment:Specimen processed s uccessfully by automated armored car guard device, ThinPrep Imaging System, [employer] ANCILLARY TESTING SAP HANA ARCHITECT HPV Ordered, Please see separate report 01/20/2024 8:40 AM CDT [facility] Note The pap test is [...] and malignant lesions. 01/20/2024 8:40 AM T [facility] Other (Cervical) Non-Blood / Unknown 01/10/2024 12:13 PM CDT 01/10/2024 12:13 PM CDT us Jovanna Kline DO PATHOLOGY/CYTOLOGY Final Resu lt [facility] [address] [place] [address], * LIPID PANEL W REFLEX MEASURED LDL (01/10/2024 12:04 PM CDT) CHOLESTEROL,TOTAL 171 100 - 199 mg/dL 01/11/2024 9:36 AM T [facility] Comment: Cholesterol, Total Reference Ranges Desirable <200 mg/dL Borderline 200-239 mg/dL High >=240 mg/dL TRIGLYCERIDES 116 <150 mg/dL 01/11/2024 9:36 AM CDT [facility] HDL CHOLESTEROL 64 >40 mg/dL 9:36 AM CDT [facility] NON-HDL CHOLESTEROL 107 <145 mg/dl 01/11/2024 9:36 AM T [facility] CHOL/HDL RATIO 2.67 <4.50 01/11/2024 9:36 AM CDT [facility] LDL CHOLESTEROL 84 <=130 mg/dL 01/11/2024 9:36 AM CDT [facility] VLDL CHOLESTEROL 23 <=30 mg/dL 01/11/2024 9:36 AM CDT [facility] PROVIDER ORDERED STATUS RANDOM 01/11/2024 9:36 AM CDT [facility] Blood BLOOD SPECIMEN / Unknown Venipuncture / Unknown 01/10/2024 12:04 PM CDT 01/10/2024 12:05 PM CDT us Jovanna Kline DO CHEMISTRY Final Result [facility] [address] [place] [address], [place] * XR MAMMO ERIKA BILAT SCREEN [...] care provider. XR MAMMO ERIKA BILAT SCREEN [[id number]] CLINICAL HISTORY: This is an asymptomatic 53 y.o. patient. INDICATION FOR EXAM: Mammogram Screening. TECHNIQUE: CC & MLO views were obtained. This study was evaluated with the assistance of Computer-Aided Detection. Breast Tomosynthesis was used in interpretation. COMPARISON FILM: Yes 06/19/22 [facility] 04/30/21 [facility] FINDINGS: The breasts are heterogeneously dense, which may obscure small masses. There are no dominant masses, suspicious micro calcifications or areas of architectural distortion. us Jovanna Kline DO MAMMO Final Result * SDNA-FIT EXTERNAL (COLOGUARD) [[id number]] (12/16/2023 7:40 AM CDT) NONINV COLON CA DNA+OCC BLD SCRN STL-IMP Negative Negative 12/23/2023 5:48 PM CDT [facility] (CLIA #:[id number]) Comment: NEGATIVE TEST RESULT. A negative Cologuard [...] (Radha Mehta al, N Engl J Med 2014;370(14):9508-6728) The normal value (reference range) for this assay is negative. COLOGUARD RE-SCREENING RECOMMENDATION: Periodic colorectal cancer screening is an important part of preventive healthcare for asymptomatic individuals at average risk for colorectal cancer. Following a negative Cologuard result, the [place] [employer] and U.S. Multi-Society Task Force screening guidelines recommend a Cologuard re-screening interval of 3 years. References: [place] [employer] Guideline for Colorectal Cancer Screening: https://www.cancer.org/cancer/batel-ftvgyn-kokyui/wgyxuiybm-pvkqzurev-mxscwsl/ac s-rec ommendations.html.; Bala DK, Fozia CR, Gonzalo HardinK, Colorectal Cancer Screening: Recommendations for Physicians and Patients from the U.S. Multi-Society Task Force on Colorectal Cancer Screening , Am J Gastroenterology 2017; 112:4628-1027. TEST DESCRIPTION: Composite algorithmic analysis of stool [...] (Radha Mehta al, N Engl J Med 2014;370(14):0397-2514.) Cologuard may produce a false negative or false positive result (no colorectal cancer or precancerous polyp present at colonoscopy follow up). A negative Cologuard test result does not guarantee the absence of CRC or advanced adenoma (pre-cancer). The current Cologuard screening interval is every 3 years. ([place] [employer] Society and U.S. Multi-Society Task Force). Cologuard performance data in a 10,000 patient pivotal study using colonoscopy as the reference method can be accessed at the following location: www.Rev.Rivalry/results. Additional description of the Cologuard test process, warnings and precautions can be found at www.Bebooguard.com. Stool specimen (specimen) (Rectum) 12/16/2023 7:40 AM CDT 12/17/2023 12:25 PM CDT us Jovanna Kline DO URINE Final Result [facility] (CLIA #:[id number]) Theresa [address] [place] [address], * LC HCV ANTIBODY RFX TO QUANT PCR (12/03/2022 12:00 PM CDT) Pathologist [facility] HCV Ab Non Reactive Non Reactive 12/05/2022 3:[address] [facility] ([facility]) Blood BLOOD SPECIMEN / Unknown Venipuncture / Unknown 12/03/2022 12:00 PM CDT 12/03/2022 12:02 PM CDT [facility] ([facility]) - 12/05/2022 3:08 PM CDT Performed at: [address] [place] [address] [id number] Process Trainer: Nelson Ruff MD, Phone: [phone] Justin GONZALEZ LABORATORY Fin al Result Performing Organization Address City/[facility]/ZIP Co de Phone Number [facility] ([facility]) [address] [place] [address], * HIV-1/O/2, 4TH GENERATION (12/03/2022 12:00 PM CDT) [facility] HIV Scr 4th Gen Non Reactive Non Reactive 12/05/2022 12:[address] [facility] ([facility]) Comment: HIV Negative HIV-1/HIV-2 antibodies and HIV-1 p24 antigen were NOT detected. There is no laboratory evidence of HIV infection. Blood BLOOD SPECIMEN / Unknown Venipuncture / Unknown 12/03/2022 12:00 PM CDT 12/03/2022 12:02 PM CDT [facility] ([facility]) - 12/05/2022 12:08 PM CDT Performed at: [address] [place] [address] [id number] Process Trainer: Nelson Ruff MD, Phone: [phone] Justin [facility]ORAT[facility] Fin al Result Performing Organization Address City/[facility]/ZIP Co de Phone Number 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
[2024-10-16] MEDS: 0.9 % SODIUM CHLORIDE 1000 ml 1,000 ML IV (03:03)
[2024-10-16] MEDS: LORazepam 2 MG/ML inj 0.5 MG IVP (03:04)
[2024-10-16] MEDS: KETAMINE 50 MG/0.5 ML 20 MG in 0.9 % SODIUM CHLORIDE 100 ml 100 ML 200.4 MG IVPB (03:05)
[2024-10-16 03:15] LABS: Basophils Percent Auto 0.3 % (0.0-3.0); Eosinophils Percent Auto 1.7 % (0.0-7.0); Hematocrit 42.7 % (33.0-51.0); Hemoglobin* 13.6 gm/dL (12.0-16.0); Immature Granulocytes Pct Auto 0.8 %; Lactate* 1.1 mmol/L (0.5-1.9); Lymphocytes Percent Auto 9.3 % (20-44); Mean Corpuscular HGB Conc 32 gm/dL (32-36); Mean Corpuscular Hemoglobin 29 pg (26-34); Mean Corpuscular Volume 89 fL (80-100); Monocytes Percent Auto 4.5 % (0.0-11.0); Neutrophils Percent Auto 83.4 % (42.0-72.0); Platelet Count* 252 K/uL (140-440); RDW Coefficient of Variation % 13.9 % (11.5-15.5); Red Blood Count 4.78 m/uL (4.00-5.20); White Blood Count* 16.91 K/uL (4.50-11.00)
[2024-10-16 03:16] LABS: Slide Review Reflex No
[2024-10-16 03:32] LABS: Chloride* 101 mmol/L (96-114)
[2024-10-16 03:33] LABS: Sodium* 137 mmol/L (135-149)
[2024-10-16 03:35] LABS: Blood Urea Nitrogen* 8 mg/dL (7-30); Creatinine* 0.7 mg/dL (0.5-1.5); Est. Creatinine Clearance* 78.41; Estimated Glomerular Filt Rate 102 ml/min
[2024-10-16 03:36] LABS: Anion Gap 7 mEq/L (7-15); Calcium* 9.3 mg/dL (8.4-10.6); Carbon Dioxide* 29 mmol/L (20-32); Glucose* 138 mg/dL (60-115)
[2024-10-16 03:39] LABS: C Reactive Protein* 1.5 mg/dL (0.5-1.0)
[2024-10-16 04:08] LABS: CDIFFEPI 027 PRESUMPTIVE NEGATIVE (Negative)
[2024-10-16 04:23] LABS: C.Difficile POSITIVE (Negative)
== END 2024-10-16 07:35 | disposition home or self-care (01) ==
PROVIDERS: Emergency Provider Family Medicine; PCP Family Medicine
DX: R53.1 Weakness (principal); B96.89 Other specified bacterial agents as the cause of diseases classified elsewhere
CPT/HCPCS: 36415; 72131; 80048; 80306; 81001; 83605; 85025; 86140; 87040; 87493; 87631; 96365; 99284; J2060; J3490; J7030

== ENCOUNTER 2024-10-19 12:04 | Emergency (ER) | payer BC, SELFPAY ==
--- OUTSIDE RECORDS SUMMARY | 2024-10-19 12:06 | XMS_ITS | Clinical Summary ---
Author Organization [facility] Address [address] [place] [address] Care Team Providers Care Aviation Consultant Name Role Phone Jolly Calabrese Unavailable [phone] Jovanna Kline DO Primary Care Provider Ward Che Unavailable [phone] Allergies Active Allergy Reactions Criticality Noted Date Comments Adhesive Rash 07/25/2021 Meperidine Hallucinations 09/08/2016 Hydrocodone Rash,Itching 11/15/2010 Sulfa (Sulfonamide Antibiotics) Stomach Upset 09/08/2016 Sulfamethoxazole Other - Describe In Comment Field 11/15/2010 Cerner listed no reaction. Medications phenazopyridine (PYRIDIUM) 100 mg tabletIndications :Chronic interstitial cystitis Take 1 tablet by mouth 3 times daily after meals. As needed for painful urination. 10 tablet 5 018 Active cyclobenzaprine (FLEXERIL) 10 mg tabletIndications :Fibromyalgia Take 1 Tablet (10 mg) by mouth 2 times daily if needed for Muscle Spasm. 60 Tablet 5 024 Active estradioL (ESTRACE) 1 mg tabletIndications :Vasomotor symptoms due to menopause Take 1 Tablet (1 mg) by mouth once daily. 90 Tablet 3 024 Active estradioL (ESTRACE) 0.01% (0.1 mg/g) vaginal creamIndications: Vaginal atrophy Insert 1 g into the vagina every Wednesday and Wednesday. Use a pea sized amount on labia at bedtime 42.5 g 2 024 Active fluconazole (DIFLUCAN) 150 mg tabletIndications :Vaginal yeast infection Take one tablet now and repeat 1 tablet in 72 hours if symptoms have not resolved. 2 Tablet 024 Active methIMAzole (TAPAZOLE) 5 mg tabletIndications :Graves' disease Take 1 Tablet (5 mg) by mouth once daily. 90 Tablet 1 025 Active pregabalin (LYRICA) 150 mg capsuleIndication s:Fibromyalgia TAKE 1 CAPSULE BY MOUTH IN THE AM AND 2 CAPSULES BY MOUTH IN THE EVENING BEFORE BEDTIME 90 Capsule 5 025 Active metoclopramide HCl (REGLAN) 10 mg tabletIndications :Nausea Take 1 Tablet (10 mg) by mouth every 6 hours if needed for Nausea/Vomitin g. 12 Tablet 025 Active HYDROmorphone 2 mg tabletIndications :Flank pain,Bladder pain Take 1 tablet twice daily as needed for 3 days, then once daily as needed for 4 days, then discontinue. 10 Tablet 025 Active fidaxomicin (DIFICID) 200 mg tabletIndications :Clostridioides difficile infection Take 200 mg by mouth two times daily. for 10 days - only received 5 days supply thus far from pharmacy 4 doses taken thus far 025 Active amitriptyline 25 mg tablet Take 50 mg by mouth at bedtime. Active clotrimazole (MYCELEX TY) 10 mg trocheIndications :Oral thrush Dissolve 1 Tablet (10 mg) in the mouth 5 times daily for 14 days. 70 Tablet 025 2024 Active nystatin powder (MYCOSTATIN) powderIndications :Candidiasis of anus Apply 1 Strip topically to affected area(s) 3 times daily. 60 g 5 018 2024 Discontinued (*Patient states no longer taking) medication order composerIndicatio ns:Dyspareunia in female,Pelvic floor tension Diazepam [address] 1 vaginal suppository into the vagina once nightly or as directed 14 Suppository 021 2024 Discontinued (*Patient states no longer taking) lidocaine (XYLOCAINE) 2 % gelIndications:Pe lvic floor tension Insert into the urethra once daily if needed (for use with Therawand). 30 mL 1 021 2024 Discontinued (*Patient states no longer taking) triamcinolone (ARISTOCORT; KENALOG) 0.1 % creamIndications: Rash Apply topically to affected area(s) 3 times daily. 80 g 2 022 2024 Discontinued (Pharmacist change per medication history (E-cancel not sent)) hydrOXYzine HCL (ATARAX) 25 mg tabletIndications :Anxiety disorder, unspecified type,Itching Take 1 Tablet (25 mg) by mouth every 6 hours if needed for Itching. 30 Tablet 2 022 2024 Discontinued (*Patient states no longer taking) ondansetron (ZOFRAN) 8 mg tabletIndications :Nausea Take 1 Tablet (8 mg) by mouth every 8 hours if needed for Nausea/Vomitin g. 30 Tablet 022 2024 Discontinued (*Patient states no longer taking) nystatin (MYCOSTATIN) ointmentIndicatio ns:Yeast dermatitis Apply topically to affected area(s) two times daily. 60 g 023 2024 Discontinued (*Patient states no longer taking) diazePAM (Valium) 5 mg tablet take 1 suppository per rectum as needed for rectal spasms 2024 Discontinued (*Patient states no longer taking) Lactobacillus acidophilus 10 billion cell cap take as directed 2024 Discontinued (*Patient states no longer taking) valACYclovir (VALTREX) 1 gram tabletIndications :History of herpes genitalis Take 1 Tablet (1 g) by mouth once daily. 90 Tablet 023 2024 Discontinued (Pharmacist change per medication history (E-cancel not sent)) polyethylene glycol-electrolyt e (GOLYTELY) 236-22.74-6.74 -5.86 gram suspensionIndicat ions:Encounter for screening colonoscopy Drink 2 liters the day before the procedure and 2 liters 6 hours prior to procedure. 4000 mL 023 2024 Discontinued (*Patient states no longer taking) atenoloL (TENORMIN) 25 mg tabletIndications :Tachycardia,Hype rthyroidism Take 1 tablet (25 mg) once daily; take up to 1 additional tablet (25 mg) daily as needed for heart rate >100. 90 Tablet 2 024 2024 Discontinued (Pharmacist change per medication history (E-cancel not sent)) oxyCODONE (ROXICODONE) 5 mg immediate release tabletIndications :Chronic pain syndrome Take 1 Tablet (5 mg) by mouth 3 times daily if needed for Pain (May use 2 tablets for severe pain as needed). 30 Tablet 024 2024 Discontinued (Pharmacist change per medication history (E-cancel not sent)) nortriptyline (PAMELOR) 25 mg capsuleIndication s:Fibromyalgia,Ch ronic pain syndrome Take 1 Capsule (25 mg) by mouth at bedtime. 90 Capsule 3 025 2024 Discontinued (*Patient states no longer taking) methenamine hippurate (HIPREX) 1 gram tabletIndications :Recurrent UTI Take 1 Tablet (1 g) by mouth two times daily. 180 Tablet 3 2024 Discontinued (Pharmacist change per medication history (E-cancel not sent)) fluconazole (DIFLUCAN) 150 mg tabletIndications :Vaginal discharge Take one tablet now and repeat second tablet in 72 hours if symptoms persist 2 Tablet 2024 Discontinued (Pharmacist change per medication history (E-cancel not sent)) ciprofloxacin (CIPRO) 500 mg tablet Take 1 Tablet by mouth two times daily. 025 2024 Discontinued (*Patient states no longer taking) ondansetron (ZOFRAN ODT) [address] 4 mg on the tongue every 8 hours if needed for Nausea/Vomitin g. 2024 Discontinued (*Patient states no longer taking) HYDROmorphone 2 mg tabletIndications :Flank pain,Bladder pain Take 1 Tablet (2 mg) by mouth every 4 hours if needed for Pain. 12 Tablet 025 2024 Discontinued (Reorder (E-cancel not sent)) Hospital, Clinic, or Other Facility Administered Medication Ordered Dose Route Frequency Start Date End Date Status ketorolac 30 mg injection (TORADOL)Indications:Flank pain 30 mg IM ONE TIME 10/11/2024 10/11/2024 Ended Active Problems Problem Noted Date Diagnosed Date C. difficile colitis 10/17/2024 Right facial numbness 10/17/2024 Weakness 10/17/2024 Generalized pain 10/17/2024 Painful bladder spasm 10/17/2024 Frequent urination 10/17/2024 Nausea 10/17/2024 Recurrent UTI 06/29/2024 Overview (06/29/2024): Cipro works [...] Encounters Date Type Department Care Team Description 10/19/2024 Nurse Triage [facility] [address] [place] [address] Jovanna Kline Jeimy, DO Dizzy 10/19/2024 Patient Outreach [facility] [address] [place] [address] Marcela Alexandra, RN Primary RN Care Management; Hospital F/U (LACE 52) 10/18/2024 Nurse Triage [facility] [address] [place] [address] Sir Klinei Jemiy, DO Mouth/Lip Problem 10/17/2024 8:22 PM CDT - 10/18/2024 11:21 AM CDT Emergency [facility] [address] [place] [address] Rufus Echevarria MD [facility], [facility] Of Joaquin Coelho MD Puchalski, Jessica Leigh, PA Generalized weakness (Primary Dx); Back pain, unspecified back location, unspecified back pain laterality, unspecified chronicity; C. difficile colitis; Facial numbness; Generalized pain Discharge Disposition: Home Self Care 10/17/2024 Travel 10/17/2024 Telephone [facility] [address] [place] [address] Sir Klinei Jeimy, DO Results 10/16/2024 E-Visit [facility] [address] [place] [address] Eliud Jovanna Jeimy, DO Cdiff 10/13/2024 8:30 AM TANK CAR LO[employer]ER - 10/13/2024 10:46 AM [facility] Emergency [address] [address] Sacha Wren MD Flank pain (Primary Dx); Bladder pain; Nausea Discharge Disposition: Home Self Care 10/13/[address] [address] Amie Lindo MD Questions (appointment//nurse visit) 10/13/[address] [facility] [address] [place] [address] Amie Lindo MD Appointment 10/13/2024 Travel 10/12/2024 10:14 AM TANK CAR LO[employer]ER - 10/12/2024 1:51 PM TANK CAR LO[employer]ER Emergency [facility] [address] [place] [address] Miko Siddiqui MD Pain of upper extremity, unspecified laterality (Primary Dx); Back pain, unspecified back location, unspecified back pain laterality, unspecified chronicity; Myalgia; Nausea; Abdominal pain, unspecified abdominal location Discharge Disposition: Home Self Care 10/12/2024 Nurse Triage [facility] [address] [facility] [address] [place] [address] Amie Lindo MD Medication Management (methenamine hippurate (HIPREX) 1 gram tablet) 10/11/2024 3:00 PM TANK CAR [employer]ER Ancillary Procedure [address] [address] 10/11/2024 1:15 PM T[employer] CAR [employer] Office Visit [address] [address] Yao Vail MD ER Follow up ([facility], 10/09/2024, UTI - symptoms getting worse) 10/11/2024 Travel 10/11/2024 Nurse Triage [address] [address] Jovanna Kline, Flank Pain; Urinary Tract Infection 10/06/2024 Travel 09/21/2024 2:20 PM T[employer]ER E-Visit [address] [address] Jovanna Kline, eVisit for Vaginal Discharge / Irritation 09/19/2024 7:30 AM T[employer]ER Nurse/Clinic Staff Only [address] [address] Testing (HST Return/Download.) 09/18/2024 2:15 PM TANK CAR [employer]ER Nurse/Clinic Staff Only [address] [address] Testing (HST Set-up) 09/18/2024 Procedure Only [address] [address] Ward Castillo MD Results (HST) 09/18/2024 Travel 09/04/2024 Refill [facility] [address] [facility] [place] [address] Jovanna Kline, Refill Request (Pregabalin) 08/24/2024 3:00 PM TANK CAR LO[employer]ER Office Visit [facility] [address] [facility] [address] [place] [address] Amie Lindo MD Consult (Recurring UTI) 08/24/2024 Travel 08/18/2024 2:10 PM TANK CAR [employer]ER Office Visit [facility] [address] [place] [address] Jovanna Kline, Medication Management (Oxycodone renew - change amitriptyline to nortriptyline due to weight gain) 08/18/2024 Travel 08/08/2024 4:15 PM TANK CAR LOADER Orders Only [facility] [address] [facility] [address] Lab, Marilou <No scans attached> 08/08/2024 Travel 08/07/2024 Refill [facility] [address] [facility] [address] Jovanna Kline, Refill Request (Pregabalin) from Last 3 Months Immunizations Immunization Administration [...] or yelled at (see row info)? No 10/17/2024 Interpersonal Safety Abuse 12 - 18 Not on file 10/17/2024 Interpersonal Safety Ambulatory Vulnerability No t on file 10/17/2024 Utilities Answer Date Recorded Do you have trouble paying f or utilities (for example, heat, electricity, water, phone)? 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 Not on file Not on file Not on file Obstetrics History Para Term AB IAB SAB Ectopic Multiple Livin g Live Births 4 4 4 Date Outcome GA Total Labor Labor/2nd/3rd Weight Sex Type Anes PTL Jeimy A1 A5 Name Clin Term Term Term Term Last Filed Vital Signs Vital Sign Reading Time Taken Comments Blood Pressure 129/81 10/18/2024 9:14 AM CDT Pulse 86 10/18/2024 9:14 AM CDT Temperature 36.1 C (97 F) 10/18/2024 1:12 AM CDT Respiratory Rate 18 10/18/2024 1:12 AM CDT Oxygen Saturation 96% 10/18/2024 9:14 AM CDT Inhaled Oxygen Concentration - - Weight 73.9 kg (163 lb) 10/18/2024 12:49 AM CDT Height 154.9 cm (5' 1) 10/18/2024 12:49 AM CDT Body Mass Index 30.8 10/18/2024 12:49 AM CDT Plan of Treatment Upcoming Encounters Date Type Department Care Team (Late st Contact Info) Description 10/24/2024 1:45 PM CDT Office Visit [facility] [address] [place] [address] Jovanna Kline DO [address] [place] [address] 10/27/2024 2:20 PM CDT Telemedicine [address] [place] [address] Ward Che PA [address] [place] [address] [place] [address] 11/13/2024 4:00 PM CDT Office Visit [facility] [address] [place] [address] Ward Castillo MD [address] [place] [address] Health Maintenance Due Date Last Done Comments Pneumococcal series for age 50+ (1 of 1 - PCV) 2019 COVID-19 vaccine series ( - 2023-25 season) 2024 Influenza Vaccine (#1) 2024 3, 06/23/2010, 04/23/2009, Additional history exists Mammogram for age 45-75 01/09/2025 01/10/20 24, 06/19/2022, 04/30/2021, Additional history exists Depression screening for age 12+ 01/10/2025 01/11/2024, 01/10/2024, 12/03/2022, Additional history exists BMI (ht and wt on same day) for age 18+ 08/24/2025 08/24/2024, 01/10/2024, 04/21/2023, Additional history exists Tetanus booster 01/14/2026 01/15/2016, 12/31/2004 Fecal testing sDNA-FIT ([place] guard) for age 45-75 12/15/2026 12/16/2023, 05/23/2020 Lipids for age 45-75 01/09/2029 01/10/2024, 04/24/2020, 11/10/2018 Pap test for age 21-65 01/09/2029 , 01/10/2024, 02/25/2018, Additional history exists Tdap Completed 01/15/2016 Zoster (shingles) series for age 50+ Completed 06/25/2020, 04/24/2020 HIV for age 15-65 Completed 12/03/2022 Hepatitis C screening for ag e 18-79 Completed 12/03/2022 Procedures Procedure Name Priority Date/Time Associated Diagnosis Comments LACTATE SCREEN ISTAT W SHUKLA STAT 10/17/2024 9:54 PM CDT URINALYSIS MICROSCOPIC STAT 10/17/2024 9:25 PM CDT CBC WITH AUTO DIFFERENTIAL STAT 10/17/2024 9:25 PM CDT EXTRA TUBE SHUKLA ON ICE STAT 10/17/2024 9:25 PM CDT UA W/ SEDIMENT EXAM REFLEXED PER CRITERIA STAT 10/17/2024 9:25 PM CDT PROCALCITONIN STAT 10/17/2024 9:25 PM CDT PROTIME-INR STAT 10/17/2024 9:25 PM CDT COMP METABOLIC PANEL STAT 10/17/2024 9:25 PM CDT BLOOD CULTURE STAT 10/17/2024 9:25 PM CDT BLOOD CULTURE STAT 10/17/2024 9:25 PM CDT CBC WITH AUTO DIFFERENTIAL STAT 10/17/2024 9:25 PM CDT ISTAT LACTATE SCREEN STAT 10/17/2024 9:25 PM CDT UA W/ SEDIMENT EXAM REFLEXED PER CRITERIA STAT 10/13/2024 9:10 AM TANK CAR LOADER PROCALCITONIN STAT 10/13/2024 8:57 AM TANK CAR LOADER C-REACTIVE PROTEIN STAT 10/13/2024 8: 57 AM TANK CAR LOADER CBC W PLT NO DIFF STAT 10/13/2024 8:5 7 AM TANK CAR LOADER TROPONIN T (HS) ONE TIME Timed 10/12/2024 12:43 PM TANK CAR LOADER EKG 12 LEAD STAT 10/12/2024 10:52 AM TANK CAR LOADER TROPONIN T (HS) ACUTE W/2HR REFLEX STAT 10/12/2024 10:43 AM TANK CAR LOADER HEPATIC FUNCTION PANEL STAT 10/12/2024 10:43 AM TANK CAR LOADER LIPASE STAT 10/12/2024 10:43 AM TANK CAR LOADER BASIC METABOLIC PANEL STAT 10/12/2024 10:43 AM TANK CAR LOADER CBC W PLT NO DIFF STAT 10/12/2024 10: [address] ABDOMEN PELVIS STONE PROTOCOL WO STAT 10/11/2024 2:31 PM TANK CAR LOADER Flank pain [facility] P[facility]IP ([facility]) Routine 10/11/2024 2:13 PM TANK CAR LOADER Flank pain URINALYSIS MICROSCOPIC Routine 10/11/2024 2:11 PM TANK CAR LOADER Flank pain URINE CULTURE Routine 10/11/2024 2:11 PM TANK CAR LOADER Flank pain CBC WITH AUTO DIFFERENTIAL Routine 10/11/2024 2:11 PM TANK CAR LOADER Flank pain HEPATIC FUNCTION PANEL Routine 10/11/2024 2:11 PM TANK CAR LOADER Flank pain BASIC METABOLIC PANEL Routine 10/11/2024 2:11 PM TANK CAR LOADER Flank pain COVID/FLU/RSV PANEL Routine 10/11/2024 2 :04 PM TANK CAR LO[employer]ER Cough, unspecified type ALT (SGPT) Routine 10/06/2024 4:26 PM TANK CAR LOADER Graves' disease AST (SGOT) Routine 10/06/2024 4:26 PM TANK CAR LOADER Graves' disease CBC WITH AUTO DIFFERENTIAL Routine 10/06/2024 4:26 PM TANK CAR LOADER Graves' disease T3,TOTAL Routine 10/06/2024 4:26 PM TANK CAR LOADER Graves' disease T4,FREE Routine 10/06/2024 4:26 PM TANK CAR LOADER Graves' disease TSH Routine 10/06/2024 4:26 PM TANK CAR LOADER Graves' disease HOME SLEEP TEST TYPE 3 PORTABLE Routine 09/18/2024 11:59 PM TANK CAR LOADER Suspected sleep apnea TSH Routine 08/08/2024 4:11 PM TANK CAR LOADER Graves' disease T3,TOTAL Routine 08/08/2024 4:11 PM TANK CAR LOADER Graves' disease T4,FREE Routine 08/08/2024 4:11 PM TANK CAR LOADER Graves' disease FLOORING PROFESSIONAL THIN PREP PAP SCREEN IMAGED Routine 01/10/2024 [...] Recently Relevant to Health Maintenance Results * LACTATE SCREEN ISTAT W SHUKLA (10/17/2024 9:54 PM CDT) Pathologist [facility] LACTATE VENOUS SCREEN ISTAT <1.8 <=2.0 10/17/2024 9:58 PM CDT [facility] LACTATE SCREEN VENOUS POCT 1.1 <=2.0 10/17/2024 9:58 PM CDT [facility] Blood BLOOD SPECIMEN / Unknown 10/17/2024 9:54 PM CDT 10/17/2024 9:58 PM CDT Rufus Echevarria MD LABORATORY Geetha l Result [facility] [address] [place] [address], * EXTRA TUBE SHUKLA ON ICE (10/17/2024 9:25 PM CDT) Blood BLOOD SPECIMEN / Unknown Non-Lab Venipuncture / Unknown 10/17/2024 9:25 PM CDT 10/17/2024 9:35 PM CDT Rufus Echevarria MD LABORATORY Geetha l Result [facility] [address] [place] [address], * CBC WITH AUTO DIFFERENTIAL (10/17/2024 9:25 PM CDT) WHITE BLOOD COUNT 8.2 4.5 - 11.0 thou/cu mm 10/17/2024 9:52 PM CDT [facility] RED BLOOD COUNT 4.76 4.00 - 5.20 mil/cu mm 10/17/2024 9:52 PM CDT [facility] HEMOGLOBIN 13.5 12.0 - 16.0 g/dL 10/17/2024 9:52 PM CDT [facility] HEMATOCRIT 42.0 33.0 - 51.0 % 10/17/2024 9:52 PM CDT [facility] MCV 88 80 - 100 fL 10/17/2024 9:52 PM CDT [facility] MCH 28.4 26.0 - 34.0 pg 10/17/2024 9:52 PM CDT [facility] MCHC 32.1 32.0 - 36.0 g/dL 10/17/2024 9:52 PM CDT [facility] RDW 13.7 11.5 - 15.5 % 10/17/2024 9:52 PM CDT [facility] PLATELET COUNT 280 140 - 440 thou/cu mm 10/17/2024 9:52 PM CDT [facility] MPV 10.1 6.5 - 11.0 fL 10/17/2024 9:52 PM CDT [facility] NRBC 0.0 % 10/17/2024 9:52 PM CDT [facility] ABS NRBC 0.0 thou /cu mm 10/17/2024 9:52 PM CDT [facility] % NEUT 70.7 % 10/17/2024 9:52 PM CDT [facility] % LYMPH 21.0 % 10/17/2024 9:52 PM CDT [facility] % MONO 6.3 % 10/17/2024 9:52 PM CDT [facility] % EOS 1.3 % 10/17/2024 9:52 PM CDT [facility] % BASO 0.6 % 10/17/2024 9:52 PM CDT [facility] % IMMATURE GRAN (METAS,MYELOS,[place] OS) 0.1 % 10/17/2024 9:52 PM CDT [facility] ABSOLUTE NEUTROPHILS 5.8 1.7 - 7.0 thou/cu mm 10/17/2024 9:52 PM CDT [facility] ABSOLUTE LYMPHOCYTES 1.7 0.9 - 2.9 thou/cu mm 10/17/2024 9:52 PM CDT [facility] ABSOLUTE MONOCYTES 0.5 <0.9 thou/cu mm 10/17/2024 9:52 PM CDT [facility] ABSOLUTE EOSINOPHILS 0.1 <0.5 thou/cu mm 10/17/2024 9:52 PM CDT [facility] ABSOLUTE BASOPHILS 0.1 <0.3 thou/cu mm 10/17/2024 9:52 PM CDT [facility] ABSOLUTE IMMATURE GRANULOCYTES(MET ,MYELOS,PROS) 0.0 <0.3 thou/cu mm 10/17/2024 9:52 PM CDT [facility] Blood BLOOD SPECIMEN / Unknown Non-Lab Venipuncture / Unknown 10/17/2024 9:25 PM CDT 10/17/2024 9:35 PM CDT us Rufus Echevarria MD HEMATOLOGY Geetha l Result [facility] [address] [place] [address], [place] * PROCALCITONIN (10/17/2024 9:25 PM CDT) Only the most recent of2 resultswithin the time period is included. PROCALCITONIN 0.03 ng/ml 10/17/2024 10:12 PM T [facility] Blood BLOOD SPECIMEN / Unknown Non-Lab Venipuncture / Unknown 10/17/2024 9:25 PM CDT 10/17/2024 9:[address] [facility] - 10/17/2024 10:12 PM CDT Procalcitonin for initial assessment of Lower Respiratory [...] any concentrations < 2 ng/mL are obtained. Rufus Echevarria MD SEND OUTS Geetha l Result Performing Organization Address [facility] Co de Phone Number [facility] [address] [place] [id number], [place] * URINALYSIS MICROSCOPIC (10/17/2024 9:25 PM CDT) Only the most recent of2 resultswithin the time period is included. RBC 0-2 0-2, None Seen /HPF 10/17/2024 10:25 PM CDT [facility] WBC 0-2 0-2, 3-5, None Seen /HPF 10/17/2024 10:25 PM CDT [facility] BACTERIA None Seen None Seen, Rare, Few Bacteria/ HPF 10/17/2024 10:25 PM CDT [facility] EPITHELIAL CELLS None Seen None Seen, Few Epi/HPF 10/17/2024 10:25 PM CDT [facility] HYALINE CASTS 0-2 0-2, 3-5 /LPF 10/17/2024 10:25 PM CDT [facility] Urine URINE SPECIMEN / Unknown Non-Blood / Unknown 10/17/2024 9:25 PM CDT 10/17/2024 9:36 PM CDT Rufus Echevarria MD URINE Geetha l Result Performing Organization Address [facility] Co de Phone Number [facility] [address] [place] [phone], [place] * (ABNORMAL) URINALYSIS W RELEX MICROSCOPIC IF POSITIVE (10/17/2024 9:25 PM CDT) Only the most recent of2 resultswithin the time period is included. COLOR Yellow Yellow Color 10/17/2024 10:25 PM CDT [facility] CLARITY Clear Clear Clarity 10/17/2024 10:25 PM CDT [facility] SPECIFIC GRAVITY,URINE <=1.005(A) 1.010, 1.015, 1.020, 1.025 10/17/2024 10:25 PM CDT [facility] PH,URINE 8.0 6.0, 7.0, 8.0, 5.5, 6.5, 7.5, 8.5 10/17/2024 10:25 PM CDT [facility] UROBILINOGEN, QUALITATIVE Normal Normal EU/dl 10/17/2024 10:25 PM CDT [facility] PROTEIN, URINE Negative Negative mg/dL 10/17/2024 10:25 PM CDT [facility] GLUCOSE, URINE Negative Negative mg/dL 10/17/2024 10:25 PM CDT [facility] KETONES,URINE Negative Negative mg/dL 10/17/2024 10:25 PM CDT [facility] BILIRUBIN,URI NE Negative Negative 10/17/2024 10:25 PM CDT [facility] OCCULT BLOOD,URINE Negative Negative 10/17/2024 10:25 PM CDT [facility] NITRITE Positive(A) Negative 10/17/2024 10:25 PM CDT [facility] LEUKOCYTE ESTERASE Negative Negative 10/17/2024 10:25 PM CDT [facility] Urine URINE SPECIMEN / Unknown Non-Blood / Unknown 10/17/2024 9:25 PM CDT 10/17/2024 9:36 PM CDT us Rufus Echevarria MD URINE Geetha l Result [facility] [address] [place] [address], * PROTIME-INR (10/17/2024 9:25 PM CDT) INR 1.0 <1.3 10/17/2024 9:59 PM CDT [facility] PROTIME 11.3 10.6 - 12.4 sec 10/17/2024 9:59 PM CDT [facility] Blood BLOOD SPECIMEN / Unknown Non-Lab Venipuncture / Unknown 10/17/2024 9:25 PM CDT 10/17/2024 9:35 PM CDT Narrative [facility] - 10/17/2024 9:59 PM CDT Therapeutic Range 2.0-3.0 for most anticoagulated patients 2.5-3.5 [...] if the patient is on UFH. Rufus Echevarria MD HEMATOLOGY Geetha l Result [facility] [address] [place] [address], * (ABNORMAL) COMP METABOLIC PANEL (10/17/2024 9:25 PM CDT) SODIUM 139 136 - 145 mmol/L 10/17/2024 10:00 PM CDT [facility] POTASSIUM 4.4 3.5 - 5.1 mmol/L 10/17/2024 10:00 PM CDT [facility] CHLORIDE 103 98 - 107 mmol/L 10/17/2024 10:00 PM CDT [facility] CO2,TOTAL 26 22 - 29 mmol/L 10/17/2024 10:00 PM T [facility] ANION GAP 10 5 - 18 10/17/2024 10:00 PM T [facility] GLUCOSE 129(H) 70 - 99 mg/dL 10/17/2024 10:00 PM CDT [facility] CALCIUM 9.5 8.8 - 10.4 mg/dL 10/17/2024 10:00 PM [facility] Comment: Reference ranges for this test were updated on 06/13/2024 to reflect our healthy population more accurately. Reference range changes are not retroactively applied to results, but previous results using the same methodology can be interpreted in the context of the new reference range. BUN 4(L) 6 - 20 mg/dL 10/17/2024 10:00 PM [facility] CREATININE 0.77 0.50 - 0.90 mg/dL 10/17/2024 10:00 PM [facility] BUN/CREAT RATIO 5(L) 10 - 20 10:00 PM [facility] eGFR >90 >90 mL/min/1. 73m2 10/17/2024 10:00 PM [facility] Comment:As of 2021, eG FR is calculated by the CKD-EPI creatinine equation without race adjustment. eGFR can be influenced by muscle mass, exercise, and diet. The reported eGFR is an estimation only and is only applicable if the renal function is stable. ALBUMIN 4.2 4.0 - 4.9 g/dL 10/17/2024 10:00 PM [facility] PROTEIN,TOTAL 7.3 6.0 - 8.0 g/dL 10/17/2024 10:00 PM [facility] BILIRUBIN,TOTAL 0.5 0.0 - 1.2 mg/dL 10/17/2024 10:00 PM [facility] ALK PHOSPHATASE 46 35 - 104 IU/L 10/17/2024 10:00 PM [facility] ALT (SGPT) 14 10 - 35 IU/L 10/17/2024 10:00 PM [facility] AST (SGOT) 17 10 - 35 IU/L 10/17/2024 10:00 PM [facility] Blood BLOOD SPECIMEN / Unknown Non-Lab Venipuncture / Unknown 10/17/2024 9:25 PM CDT 10/17/2024 9:35 PM CDT us Rufus Echevarria MD CHEMISTRY Geetha l Result [facility] 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 WHITE BLOOD COUNT 10.0 4.5 - 11.0 thou/cu mm 10/13/2024 9:37 AM [facility] RED BLOOD COUNT 5.09 4.00 - 5.20 mil/cu mm 10/13/2024 9:37 AM [facility] HEMOGLOBIN 14.2 12.0 - 16.0 g/dL 10/13/2024 9:37 AM [facility] HEMATOCRIT 45.0 33.0 - 51.0 % 10/13/2024 9:37 AM [facility] MCV 88 80 - 100 fL 10/13/2024 9:37 AM [facility] MCH 27.9 26.0 - 34.0 pg 10/13/2024 9:37 AM [facility] MCHC 31.6(L) 32.0 - 36.0 g/dL 10/13/2024 9:37 AM [facility] RDW 14.7 11.5 - 15.5 % 10/13/2024 9:37 AM [facility] PLATELET COUNT 266 140 - 440 thou/cu mm 10/13/2024 9:37 AM [facility] MPV 10.5 6.5 - 11.0 fL 10/13/2024 9:37 AM [facility] Blood BLOOD SPECIMEN / Unknown Butterfly / Unknown 10/13/2024 8:57 AM TANK CAR LOADER 10/13/2024 9:33 AM TANK CAR LOADER us Sacha Wren MD HEMATOLOGY Geetha l Result [facility] [address] [place] [address] * (ABNORMAL) C-REACTIVE PROTEIN (10/13/2024 8:57 AM TANK CAR LOADER) [facility] C-REACTIVE PROTEIN 1.3(H) <0.5 mg/dL 10/13/2024 9:35 AM TANK CAR LOADER [facility] Blood BLOOD SPECIMEN / Unknown Butterfly / Unknown 10/13/2024 8:57 AM TANK CAR LOADER 10/13/2024 9:15 AM TANK CAR LOADER us Sacha Wren MD CHEMISTRY Geetha l Result Performing Organization Address [facility] Co de Phone Number [facility] [address] [place] [address] * TROPONIN T (HS) ONE TIME (10/12/2024 12:43 PM TANK CAR LOADER) [facility] TROPONIN T HS 7 6-10 ng/L ng/L 10/12/2024 1:07 PM TANK CAR LOADER [facility] Blood BLOOD SPECIMEN / Unknown Butterfly / Unknown 10/12/2024 12:43 PM TANK CAR LOADER 10/12/2024 12:46 PM TANK CAR LOADER us Miok Siddiqui MD CHEMISTRY Final R esult Performing Organization Address [facility] de Phone Number [facility] [address] [place] [phone] * EKG 12 LEAD (10/12/2024 10:52 AM TANK CAR LOADER) [facility] Interpretation Normal sinus rhythm Normal ECG When compared with ECG of 03-Jan-2024 12:43, No significant change was found no ST elevation BEYOND NOW Ventricular Rate 84 BPM BEYOND NOW Atrial Rate 84 BPM BEYOND NOW P-R Interval 138 ms BEYOND NOW QRS Duration 70 ms BEYOND NOW QT 360 ms BEYOND NOW QTc 425 ms BEYOND NOW P [place] 53 degrees BEYOND NOW R [place] 51 degrees BEYOND NOW T [place] 44 degrees BEYOND NOW 10/12/2024 10:5 2 AM TANK CAR LOADER 10/12/2024 11:15 AM TANK CAR LOADER us Miko Siddiqui MD EKG ORD Final R esult [place] NOW [place], [place] * TROPONIN T (HS) ACUTE W/2HR REFLEX (10/12/2024 10:43 AM TANK CAR LOADER) TROPONIN T HS <6 6-10 ng/L ng/L 10/12/2024 11:11 AM TANK CAR LOADER [facility] Blood BLOOD SPECIMEN / Unknown Venipuncture / Unknown 10/12/2024 10:43 AM TANK CAR LOADER 10/12/2024 10:48 AM TANK CAR LOADER Narrative [facility] - 10/12/2024 11:11 AM TANK CAR LOADER hs-cTnT (Elecsys Troponin T Gen 5) concentration [...] population. Miko Siddiqui MD CHEMISTRY Final R esult Performing Organization Address [facility] Co de Phone Number [facility] [address] [place] [address] * LIPASE (10/12/2024 10:43 AM TANK CAR LOADER) [facility] LIPASE 29.8 13.0 - 60.0 IU/L 10/12/2024 11:11 AM [facility] Blood BLOOD SPECIMEN / Unknown Venipuncture / Unknown 10/12/2024 10:43 AM TANK CAR LOADER 10/12/2024 10:48 AM TANK CAR LOADER Miko Siddiqui MD CHEMISTRY Final R esult Performing Organization Address [facility] Co de Phone Number [facility] [address] [place] [address] * HEPATIC FUNCTION PANEL (10/12/2024 10:43 AM TANK CAR LOADER) Only the most recent of2 resultswithin the time period is included. [facility] ALBUMIN 4.5 4.0 - 4.9 g/dL 10/12/2024 11:11 AM [facility] PROTEIN,TOTAL 7.6 6.0 - 8.0 g/dL 10/12/2024 11:11 AM [facility] BILIRUBIN,TOTAL 0.5 0.0 - 1.2 mg/dL 10/12/2024 11:11 AM [facility] BILIRUBIN,DIRECT 0.2 0.0 - 0.2 mg/dL 10/12/2024 11:11 AM [facility] BILIRUBIN,INDIRE CT 0.3 0.2 - 0.8 mg/dL 10/12/2024 11:11 AM [facility] ALK PHOSPHATASE 46 35 - 104 IU/L 10/12/2024 11:11 AM [facility] ALT (SGPT) 13 10 - 35 IU/L 10/12/2024 11:11 AM [facility] AST (SGOT) 19 10 - 35 IU/L 10/12/2024 11:11 AM [facility] Blood BLOOD SPECIMEN / Unknown Venipuncture / Unknown 10/12/2024 10:43 AM TANK CAR LOADER 10/12/2024 10:48 AM [facility] Miko Siddiqui MD CHEMISTRY Final R esult [facility] [address] [place] [address] * (ABNORMAL) BASIC METABOLIC PANEL (10/12/2024 10:43 AM [facility]) Only the most recent of2 resultswithin the time period is included. SODIUM 138 136 - 145 mmol/L 10/12/2024 11:11 AM [facility] POTASSIUM 4.4 3.5 - 5.1 mmol/L 10/12/2024 11:11 AM [facility] CHLORIDE 104 98 - 107 mmol/L 10/12/2024 11:11 AM [facility] CO2,TOTAL 27 22 - 29 mmol/L 10/12/2024 11:11 AM [facility] ANION GAP 7 5 - 18 10/12/2024 11:11 AM [facility] GLUCOSE 125(H) 70 - 99 mg/dL 10/12/2024 11:11 AM [facility] CALCIUM 9.4 8.8 - 10.4 mg/dL 10/12/2024 11:11 AM [facility] Comment: Reference ranges for this test were updated on 06/13/2024 to reflect our healthy population more accurately. Reference range changes are not retroactively applied to results, but previous results using the same methodology can be interpreted in the context of the new reference range. BUN 4(L) 6 - 20 mg/dL 10/12/2024 11:11 AM [facility] CREATININE 0.76 0.50 - 0.90 mg/dL 10/12/2024 11:11 AM [facility] BUN/CREAT RATIO 5(L) 10 - 20 11:11 AM [facility] eGFR >90 >90 mL/min/1. 73m2 10/12/2024 11:11 AM [facility] Comment:As of 2021, eG FR is calculated by the CKD-EPI creatinine equation without race adjustment. eGFR can be influenced by muscle mass, exercise, and diet. The reported eGFR is an estimation only and is only applicable if the renal function is stable. Blood BLOOD SPECIMEN / Unknown Venipuncture / Unknown 10/12/2024 10:43 AM TANK CAR LOADER 10/12/2024 10:48 AM TANK CAR LOADER Miko Siddiqui MD CHEMISTRY Final R esult [facility] [address] [place] [address] * CT ABDOMEN PELVIS STONE PROTOCOL WO (10/11/2024 2:31 PM TANK CAR LOADER) Anatomical Region Laterality Modality Abdomen, Pelvis, AORTA, LIVER, SPLEEN Computed Tomography 10/11/2024 3:00 PM TANK CAR LOADER Impressions 10/11/2024 3:00 PM TANK CAR LOADER No acute intra-abdominal process identified. No renal stones. No hydronephrosis. Please note that all CT scans at this facility use dose modulation, iterative reconstruction, and/or weight-based dosing when appropriate to reduce radiation dose to as low as reasonably achievable. Dictated by Kamran Blanco MD @ 10/11/2024 3:00:01 PM (Electronically Signed) Narrative 10/11/2024 3:00 PM TANK CAR LOADER For Patients: As a result of the [...] masses. Bones: Unremarkable for age. Procedure Note Kamran Blanco MD - 10/11/2024 For Patients: As a [...] MD @ 10/11/2024 3:00:01 PM (Electronically Signed) us Yao Vail MD CT Final Result * POCT Urinalysis Dipstick Only (10/11/2024 2:13 PM TANK CAR LOADER) PH 6.0 5.0 - 8.0 [facility] SPECIFIC GRAVITY < OR = 1.005 1.001 - 1.035 [facility] Comment: Specific [place] values resulted are outside the analytical measurement range of this device. Recommend repeat/additional testing as clinically indicated. GLUCOSE NEGATIVE NEGATIVE [facility] BILIRUBIN NEGATIVE NEGATIVE [facility] KETONES NEGATIVE NEGATIVE [facility] OCCULT BLOOD NEGATIVE NEGATIVE [facility] PROTEIN NEGATIVE NEGATIVE [facility] NITRITE NEGATIVE NEGATIVE [facility] LEUKOCYTE ESTERASE NEGATIVE NEGATIVE [facility] Urine URINE SPECIMEN / Unknown 10/11/2024 2:13 PM TANK CAR LOADER 10/11/2024 2:13 PM TANK CAR LOADER us Yao Vail MD URINE Final Result Performing Organization Address City/[facility]/ZIP Co de Phone Number [facility] [address] [place] [address], [facility] [address] [place] [address] * URINE CULTURE (10/11/2024 2:11 PM TANK CAR LOADER) CULTURE No growth (<1,000 CFU/mL) 10/13/2024 9:31 AM TANK CAR LOADER [facility] Urine URINE SPECIMEN / Unknown Non-Blood / Unknown 10/11/2024 2:11 PM TANK CAR LOADER 10/11/2024 2:11 PM TANK CAR LOADER us Yao Vail MD MICROBIOLOGY Final Result [facility] [address] [place] [id number], * CBC AND DIFFERENTIAL (10/11/2024 2:11 PM TANK CAR LOADER) Only the most recent of2 resultswithin the [...] BLOOD SPECIMEN / Unknown 10/11/2024 2:11 PM TANK CAR LOADER 10/11/2024 2:12 PM TANK CAR LOADER us Yao Vail MD HEMATOLOGY Final Result [employer] [facility] [address] [place] [address], [place] [phone] [facility] [address] [place] [address] * COVID/FLU/RSV PANEL (10/11/2024 2:04 PM TANK CAR LOADER) Pathologist [facility] COVID 19 [facility] Negative Negative 10/11/2024 11:37 PM TANK CAR LOADER [facility] Comment:All PCR tests are chauhan bject to false negative result due to variability in viral load and collection technique. A negative result does not rule out a SARS-CoV-2 infection. Clinical correlation required. INFLUENZA A PCR Negative 11:37 PM TANK CAR LOADER [facility] INFLUENZA B PCR Negative 11:37 PM TANK CAR LOADER [facility] Respiratory Syncytial Virus Negative 10/11/2024 11:37 PM TANK CAR LOADER [facility] Swab NASOPHARYNGEAL SWAB / Unknown Non-Blood / Unknown 10/11/2024 2:04 PM TANK CAR LOADER 10/11/2024 2:04 PM TANK CAR LOADER us Yao Vail MD MICROBIOLOGY Final Result [facility] [address] [place] [address], * TSH (10/06/2024 4:26 PM TANK CAR LOADER) Only the most recent of2 resultswithin the time period is included. TSH 1.63 mIU/L [facility] Comment: Reference Range > or = 20 Years 0.40-4.50 Ranges First trimester 0.26-2.66 Second trimester 0.55-2.73 Third trimester 0.43-2.91 Blood BLOOD SPECIMEN / Unknown 10/06/2024 4:26 PM TANK CAR LOADER 10/06/2024 4:28 PM TANK CAR LOADER Narrative [facility] - 10/07/2024 5:08 AM TANK CAR LOADER FASTING:NO FASTING: NO Ward GONZALEZ CHEMISTRY Final Resu lt [facility] [address] [place] [address], [place] [phone] [facility] [place] [address] [address] * T3,TOTAL (10/06/2024 4:26 PM TANK CAR LOADER) Only the most recent of2 resultswithin the time period is included. T3, TOTAL 106 76 - 181 ng/dL [facility] Antonio Blood BLOOD SPECIMEN / Unknown 10/06/2024 4:26 PM TANK CAR LOADER 10/06/2024 4:28 PM TANK CAR LOADER Narrative [facility] - 10/07/2024 5:08 AM TANK CAR LOADER FASTING:NO FASTING: NO Ward GONZALEZ CHEMISTRY Final Resu lt Performing Organization Address [facility]/ZIP Co de Phone Number [facility] [address] [place] [address], [place] [phone] [facility] [place] [address] [place] [address] * ALT (SGPT) (10/06/2024 4:26 PM TANK CAR LOADER) ALT 15 6 - 29 U/L [facility] Blood BLOOD SPECIMEN / Unknown 10/06/2024 4:26 PM TANK CAR LOADER 10/06/2024 4:28 PM TANK CAR LOADER Narrative [facility] - 10/07/2024 3:29 AM TANK CAR LOADER FASTING:NO FASTING: NO Ward GONZALEZ CHEMISTRY Final Resu lt [facility] [address] [place] [address], [place] [phone] [facility] [place] [address] [address] * AST (SGOT) (10/06/2024 4:26 PM TANK CAR LOADER) AST 19 10 - 35 U/L [facility] Blood BLOOD SPECIMEN / Unknown 10/06/2024 4:26 PM TANK CAR LOADER 10/06/2024 4:28 PM TANK CAR LOADER Narrative [facility] - 10/07/2024 3:29 AM TANK CAR LOADER FASTING:NO FASTING: NO Ward GONZALEZ CHEMISTRY Final Resu lt Performing Organization Address [facility]/ZIP Co de Phone Number [facility] [address] [place] [address], [facility] [place] [address] [address] * T4,FREE (10/06/2024 4:26 PM TANK CAR LOADER) Only the most recent of2 resultswithin the time period is included. T4, FREE 0.9 0.8 - 1.8 ng/dL [facility] Blood BLOOD SPECIMEN / Unknown 10/06/2024 4:26 PM TANK CAR LOADER 10/06/2024 4:28 PM TANK CAR LOADER Narrative [facility] - 10/07/2024 5:08 AM TANK CAR LOADER FASTING:NO FASTING: NO Ward GONZALEZ CHEMISTRY Final Resu lt [facility] [address] [place] [address], [facility] [address] [address] * HOME SLEEP TEST TYPE 3 PORTABLE (09/18/2024 11:59 PM TANK CAR LOADER) aWrd Medrano MD - 09/18/2024 11:59 PM Ward Remy MD 09/19/2024 4:53 PM Home Sleep Test Name: Kailey Newman Location: [facility] notes: This is a single night home [...] and interpreted by a Diplomate of the [place] [employer]. Raw summary data [...] is accepted, but not the former. Ward Pelayoomate, Board of Sleep Medicine Recording Information Recording [...] Kline DO SLEEP CENTER Final Result * FLOORING PROFESSIONAL THIN PREP PAP SCREEN IMAGED [[id number]] (01/10/2024 12:13 PM CDT) Case Report Gynecologic Cytology Report Case: [id number] Authorizing Provider: Jovanna Kline DO Collected: 01/10/2024 1213 Ordering Location: [facility] Received: 01/10/2024 1213 Clinic First Screen: Charo Paredes Specimen: FLOORING PROFESSIONAL ThinPrep Vial Screening, Cervical 01/20/2024 8:40 AM CDT [facility] INTERPRETATION/ RESULT NEGATIVE FOR INTRAEPITHELIAL LESION OR MALIGNANCY (NIL) (none) 01/20/2024 8:40 AM CDT [facility] IMEN ADEQUACY Satisfactory for evaluation Endocervical component present 01/20/2024 8:40 AM CDT [facility] HPV REQUEST HPV and PAP 01/20/2024 8:40 AM CDT [facility] Date of LMP postmenopausal 4 8:40 AM CDT [facility] Last Pap Date 02/25/18 01/20/2024 8:40 AM CDT [facility] Last Pap Result NIL 8:40 AM CDT [facility] Abnormal Pap or [place] Bx in last 5 years No 01/20/2024 8:40 AM CDT [facility] Menstrual Status Postmenopausal 01/20/2024 8:40 AM CDT [facility] [place] Bx Done Today No 01/20/2024 8:40 AM CDT [facility] Additional Information None given 01/20/2024 8:40 AM CDT [facility] Comment: Cytology is screened at [facility] - [address], [place] [address] and [facility] - [address], [place] [address] and [facility] - [address] [place] [address] Interpreted at [facility] - [address], [place] [address] Automated Review Successful 01/20/2024 8:40 AM CDT [facility] Comment:Specimen processed s uccessfully by automated naturalization examiner device, ThinPrep Imaging System, [employer] ANCILLARY TESTING FLOORING PROFESSIONAL HPV Ordered, Please see separate report 01/20/2024 8:40 AM CDT [facility] Note The pap test is a [...] and malignant lesions. 01/20/2024 8:40 AM CDT [facility] Other (Cervical) Non-Blood / Unknown 01/10/2024 12:13 PM CDT 01/10/2024 12:13 PM CDT us Jovanna Kline DO PATHOLOGY/CYTOLOGY Final Resu lt [facility] [address] [place] [address], [place] * LIPID PANEL W REFLEX MEASURED LDL (01/10/2024 12:04 PM CDT) CHOLESTEROL,TOTAL 171 100 - 199 mg/dL 01/11/2024 9:36 AM CDT [facility] Comment: Cholesterol, Total Reference Ranges Desirable <200 mg/dL Borderline 200-239 mg/dL High >=240 mg/dL TRIGLYCERIDES 116 <150 mg/dL 01/11/2024 9:36 AM CDT [facility] HDL CHOLESTEROL 64 >40 mg/dL 9:36 AM CDT [facility] NON-HDL CHOLESTEROL 107 <145 mg/dl 01/11/2024 9:36 AM CDT [facility] CHOL/HDL RATIO 2.67 <4.50 01/11/2024 9:36 AM CDT [facility] LDL CHOLESTEROL 84 <=130 mg/dL 01/11/2024 9:36 AM CDT [facility] VLDL CHOLESTEROL 23 <=30 mg/dL 01/11/2024 9:36 AM CDT [facility] PROVIDER ORDERED STATUS RANDOM 01/11/2024 9:36 AM CDT [facility] Blood BLOOD SPECIMEN / Unknown Venipuncture / Unknown 01/10/2024 12:04 PM CDT 01/10/2024 12:05 PM CDT us Jovanna Kline DO CHEMISTRY Final Result [facility] [address] [place] [address], [place] * XR MAMMO ERIKA BILAT SCREEN [...] care provider. XR MAMMO ERIKA BILAT SCREEN [[id number]] CLINICAL HISTORY: This is an asymptomatic 53 [...] MAMMO Final Result * SDNA-FIT EXTERNAL (COLOGUARD) [[id number]] (12/16/2023 7:40 AM CDT) NONINV COLON CA DNA+OCC BLD SCRN STL-IMP Negative Negative 12/23/2023 5:48 PM CDT [employer] (CLIA #:[id number]) Comment: NEGATIVE TEST RESULT. A negative Cologuard [...] screened with both Cologuard and colonoscopy. (Radha Thomas et al, N Engl J Med 2014;370(14):4255-6760) The normal value (reference range) for this assay is negative. COLOGUARD RE-SCREENING RECOMMENDATION: Periodic colorectal cancer screening is an important part of preventive healthcare for asymptomatic individuals at average risk for colorectal cancer. Following a negative Cologuard result, the [place] [employer] and U.S. Multi-Society Task Force screening guidelines recommend a Cologuard re-screening interval of 3 years. References: [place] [employer] Guideline for Colorectal Cancer Screening: https://www.cancer.org/cancer/vodkq-apxamd-acrvfa/moghubzre-mnuokyytx-cwvogld/ac s-rec ommendations.html.; Bala SMITH Fozia PITTS, Gonzalo HardinK, Colorectal Cancer Screening: Recommendations for Physicians and Patients from the U.S[place] Multi-Society Task Force on Colorectal Cancer Screening , Am J Gastroenterology 2017; 112:7154-8312. TEST DESCRIPTION: Composite algorithmic analysis of stool [...] (Radha Mehta al, N Engl J Med 2014;370(14):6327-3104.) Cologuard may produce a false negative or false positive result (no colorectal cancer or precancerous polyp present at colonoscopy follow up). A negative Cologuard test result does not guarantee the absence of CRC or advanced adenoma (pre-cancer). The current Cologuard screening interval is every 3 years. ([place] [employer] and [place] Multi-Society Task Force). Cologuard performance data in a 10,000 patient pivotal study using colonoscopy as the reference method can be accessed at the following location: [email or web address]. Additional description of the Cologuard test process, warnings and precautions can be found at [email or web address].[email or web address].com. Stool specimen (specimen) ([facility]) 12/16/2023 7:40 AM CDT 12/17/2023 12:25 PM CDT us Jovanna Kline DO URINE Final Result [facility] (CLIA #:[id number]) [place] [address], [place] [phone] * LC HCV ANTIBODY RFX TO QUANT PCR (12/03/2022 12:00 PM CDT) Pathologist [facility] HCV Ab Non Reactive Non Reactive 12/05/2022 3:08 PM CDT [facility] Blood BLOOD SPECIMEN / Unknown Venipuncture / Unknown 12/03/2022 12:00 PM CDT 12/03/2022 12:02 PM CDT Narrative [facility] - 12/05/2022 3:08 PM CDT Performed at: [address] [place] [address] [id number] Tile Layer Drainage: Nelson Ruff MD, Phone: [phone] [facility] Fin al Result Performing Organization Address City/[facility] Co de Phone Number [facility] ([facility]) [address] [place] [phone], * LC HIV-1/O/2, 4TH GENERATION (12/03/2022 12:00 PM CDT) [facility] HIV Scr 4th Gen Non Reactive Non Reactive 12/05/2022 12:08 PM CDT [facility] Comment: HIV Negative HIV-1/HIV-2 antibodies and HIV-1 p24 antigen were NOT detected. There is no laboratory evidence of HIV infection. Blood BLOOD SPECIMEN / Unknown Venipuncture / Unknown 12/03/2022 12:00 PM CDT 12/03/2022 12:02 PM CDT Narrative [facility] - 12/05/2022 12:08 PM CDT Performed at: - [facility] [address] [place], [place] [id number] Tile Layer Drainage: Nelson Ruff MD, Phone: [phone] [facility] Fin al Result [facility] ([facility]) [facility] [place] [address], from Last 3 Months or Most Recently Relevant to Health Maintenance Additional Health Concerns Infection Onset Date Last Indicated CLOSTRIDIUM DIFFICILE Comment:Order Enteric Precautions + C diff test on 10/16/24 (outside facility); patient to remain in Enteric Precautions for duration of 10/17/24 hospitalization. Enteric Precautions are not required on subsequent admissions provided: 1) >3 weeks since positive C diff test; 2) diarrhea resolved; and 3) patient has completed CDI antibiotics (excluding vanco taper). C. diff testing or Enteric Precautions are not required on subsequent admissions unless patient is presenting with C diff symptoms 10/18/2024 10/18/2024 Insurance [facility] Advance Directives * Full Code (Latest Code Status on File) Date Activated Date Inactivated Comments 10/17/2024 11:11 PM 10/18/2024 1:27 PM Question Answer Comments Code Status Discussion: Reviewed Preferences Care Teams Aviation Consultant Relationship Specialty Start Date End Date Shaqra, Jovanna Jeimy, DO [address] [place] [address] PCP - General Family Practice 09/02/22 Jolly Calabrese PA Physician Reinforcing Bar Setter 10/23/21 Ward Che PA [address] [place] [address] Endocrinology Physician Reinforcing Bar Setter 06/29/24
--- OUTSIDE RECORDS SUMMARY | 2024-10-19 12:07 | XMS_ITS | Data Portability ---
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 Plan of Treatment Reminders Order Date Submit Date Provider Last Modified By Organization Details Last Modified Time Details Appointments None recorded. Lab urinalysi s, dipstick 2022 023 [facility], [address], [address], [place], [address], 3 15:54:11 urinalysi s, microscop ic 2022 023 [facility], [address], [address], [place], [address], 4 05:01:52 culture, urine 2022 023 [facility], [address], [address], [place], [address], 3 11:21:33 urinalysi s, dipstick 2022 023 [facility], [address], [address], [place], [address], 3 16:23:41 culture, urine 2022 023 [facility], [address], [address], [place], [address], 3 15:46:03 infectiou s disease panel 2022 023 [email or web address], [address] [facility], [address], [place], [address], 3 15:19:39 Referral [email or web address] logy physical therapy referral - Please call patient to schedule Pelvic Floor Physical Therapy. Thank you 2022 023 [email or web address] [facility], [address], [place], [address], 3 14:20:24 Procedures None recorded. Surgeries None recorded. Imaging US, renal 2022 023 [facility], [address] [place], [address], 3 11:12:02 Medication Orders compounde d medicatio n 2022 023 [facility], [address] [place] [address], [address], [place], [place], [id number], 3 20:38:35 nitrofura ntoin macrocrys андрей 50 mg capsule 2022 023 [id number], [address] [place], [place], [id number], 3 16:54:58 Patient TargetsNo targets recorded. Patient Instructions Encounter Date Encounter Id Patient Instructions Last Modified By Organization Details Last Modified Time 01/14/2023 [id number] Recurrent UTIs: -Discussed recurrent UTIs and gave [...] have her see Dr. Arreguin for cysto. [email or web address] Not available 01/14/2023 17:02:42 04/05/2023 [id number] cystoscopy negative fu with Kierra as needed [...] uriscan NEGATI VE negati ve Not Available [facility] [address] [facility] [address], [place], [address], 01/14/2023 16:23:41 01/15/2001/14/2023 UA WITHO UT MICRO - CS URISC AN bilirubin - uriscan NEGATI VE mg/dL negati ve Not Available [facility] [address] [facility] [address], [place], [address], 01/14/2023 16:23:41 01/15/20 23 01/14/2023 UA WITHO UT MICRO - CS URISC AN urobilinogen - uriscan NORMAL mg/dL normal Not Available [facility] [address] [place] [address] [address], [place], [address], 01/14/2023 16:23:41 01/15/20 23 01/14/2023 UA WITHO UT MICRO - CS URISC AN ketones - uriscan NEGATI VE mg/dL negati ve Not Available [facility] [address] [place] [address] [address], [place], [address], 01/14/2023 16:23:41 01/15/20 23 01/14/2023 UA WITHO UT MICRO - CS URISC AN protein - uriscan NEGATI VE mg/dL negati ve Not Available [facility] [address] [place] [address] [address], [place], [address], 01/14/2023 16:23:41 01/15/20 23 01/14/2023 UA WITHO UT MICRO - CS URISC AN nitrites - uriscan NEGATI VE negati ve Not Available [facility] [address] [place] [address] [address], [place], [address], 01/14/2023 16:23:41 01/15/20 23 01/14/2023 UA WITHO UT MICRO - CS URISC AN glucose - uriscan NEGATI VE mg/dL negati ve Not Available [facility] [address] [place] [address] [address], [place], [address], 01/14/2023 16:23:41 01/15/20 23 01/14/2023 UA WITHO UT MICRO - CS URISC AN pH - uriscan 5.50 5.00-9 .00 Not Available [facility] [address] [place] [address] [address], [place], [address], 01/14/2023 16:23:41 01/15/20 23 01/14/2023 UA WITHO UT MICRO - CS URISC AN sp. gravity - uriscan 1.01 1.01-1 .03 Not Available [facility] [address] [facility] [address], [place], [address], 01/14/2023 16:23:41 01/15/20 23 01/14/2023 UA WITHO UT MICRO - CS URISC AN leukocytes - uriscan NEGATI VE negati ve Not Available [facility] [address] [place] [address] [address], [place], [address], 01/14/2023 16:23:41 01/15/20 23 01/14/2023 UA WITHO UT MICRO - CS URISC AN color - uriscan YELLOW lt. yellow ;yello w Not Available [facility] [address] [place] [address] [address], [place], [address], 01/14/2023 16:23:41 01/15/20 23 01/14/2023 UA WITHO UT MICRO - CS URISC AN clarity - uriscan CLEAR clear Not Available [facility] [address] [place] [address] [address], [place], [address], 01/14/2023 16:23:41 01/15/20 23 01/14/2023 UA WITHO [...] for provi abram revie w. Not Available [facility] [address], [place], [address], 01/14/2023 16:23:41 01/15/20 23 01/14/2023 URINE CULTU RE final report MICROB IOLOGY RESULT S abnormal SOURC E [facility] KNOWN ALLER GIES see chart TREAT MENT see chart MEDIA PLATE D AT: Media plate d on 023 @ 3:54 PM COLON Y COUNT 20,00 0-50, 000 cfu/m l RESUL T Esche angela a coli (Isol ate 1) Sensi tivit y Toña sis Inola te 1 ----- ----- ----- ----- ----- [...] s Desk Refer ence or from [facility] actur er. S= Susce ptibl e;I= [...] for provi abram revie w. Not Available [facility] [address] [facility] [address], [place], [address], 01/17/2023 15:46:03 04/05/20 23 04/05/2023 UA WITHO UT MICRO - CS URISC AN blood - uriscan NEGATI VE negati ve Not Available [facility] [address] [place] [address] [address], [place], [address], 04/05/2023 15:54:11 04/05/20 23 04/05/2023 UA WITHO UT MICRO - CS URISC AN bilirubin - uriscan NEGATI VE mg/dL negati ve Not Available [facility] [address] [facility] [address], [place], [address], 04/05/2023 15:54:11 04/05/20 23 04/05/2023 UA WITHO UT MICRO - CS URISC AN urobilinogen - uriscan NORMAL mg/dL normal Not Available [facility] [address] [facility] [address], [place], [address], 04/05/2023 15:54:11 04/05/20 23 04/05/2023 UA WITHO UT MICRO - CS URISC AN ketones - uriscan NEGATI VE mg/dL negati ve Not Available [facility] [address] [facility] [address], [place], [address], 04/05/2023 15:54:11 04/05/20 23 04/05/2023 UA WITHO UT MICRO - CS URISC AN protein - uriscan NEGATI VE mg/dL negati ve Not Available [facility] [address] [place] [address] [address], [place], [address], 04/05/2023 15:54:11 04/05/20 23 04/05/2023 UA WITHO UT MICRO - CS URISC AN nitrites - uriscan NEGATI VE negati ve Not Available [facility] [address] [place] [address] [address], [place], [address], 04/05/2023 15:54:11 04/05/20 23 04/05/2023 UA WITHO UT MICRO - CS URISC AN glucose - uriscan NEGATI VE mg/dL negati ve Not Available [facility] [address] [place] [address] [address], [place], [address], 04/05/2023 15:54:11 04/05/20 23 04/05/2023 UA WITHO UT MICRO - CS URISC AN pH - uriscan 5.50 5.00-9 .00 Not Available [facility] [address] [place] [address] [address], [place], [address], 04/05/2023 15:54:11 04/05/20 23 04/05/2023 UA WITHO UT MICRO - CS URISC AN sp. gravity - uriscan <=1.01 1.01-1 .03 Not Available [facility] [address] [place] [address] [address], [place], [address], 04/05/2023 15:54:11 04/05/20 23 04/05/2023 UA WITHO UT MICRO - CS URISC AN leukocytes - uriscan NEGATI VE negati ve Not Available [facility] [address] [place] [address] [address], [place], [address], 04/05/2023 15:54:11 04/05/20 23 04/05/2023 UA WITHO UT MICRO - CS URISC AN color - uriscan YELLOW lt. yellow ;yello w Not Available [facility] [address] [facility] [address], [place], [address], 04/05/2023 15:54:11 04/05/20 23 04/05/2023 UA WITHO UT MICRO - CS URISC AN clarity - uriscan CLEAR clear Not Available [facility] [address], [place], [address], 04/05/2023 15:54:11 04/05/2004/05/2023 UA WITHO UT MICRO [...] for provi abram revie w. Not Available [facility] [address] [facility] [address], [place], [address], 04/05/2023 15:54:11 04/05/20 23 04/05/2023 URINE CULTU RE final report MICROB IOLOGY RESULT S SOURC E [facility]iz [facility] KNOWN ALLER GIES see chart [...] for provi abram revie w. Not Available [facility] [address] [facility] [address], [place], [address], 04/07/2023 11:21:33 01/07/20 23 10/16/2021 CT, abdom en + pelvi s, w/o contr ast No observ ation record ed. [email or web address] Not Available 2022 12:36:55 01/07/20 23 03/05/2022 US, abdom en, limit ed No observ ation record ed. [email or web address] Not Available 2022 12:36:55 01/19/20 23 01/18/2023 US, renal No observ ation record ed. [email or web address] [address], [address], 01/18/2023 12:50:36 Result Notes None recorded. Procedures Surgical History Date Name Laterality Status Provider Name and Address Organization Details Recorded Time 023 Cystoscopy- female completed Nona Arreguin MD [address] [facility], [place], [address], [place] [facility] 03/31/2023 15:39:24 023 In and Out Catheterization- female completed Nona Arreguin MD [address] [facility],[address], [place], [address], [facility] 04/05/2023 15:44:49 023 Past Data Reviewed completed LISA IYER [address] [facility],[address], [place], [address], [facility] 01/13/2023 14:23:39 023 In and Out Catheterization- female completed LISA IYER [address] [facility],[address], [place], [address], [facility] 01/14/2023 16:59:22 020 Oncology colorectal scr [...] available 01/06/2023 12:36:55 01/18/2023 US, renal completed [email or web address] [address], [address], 01/18/2023 12:50:36 Procedure Notes None recorded. Medical [...] Address Organization Details Last Updated DateTime 01/14/2023 [id number] 57766 g 26.5 kg/m2 157.48 cm Not Available [...] When Did You Quit Smoking? 1-5yearssincel sultana [email or web address] Information not available 01/14/2023 Number Of Pregnancies [...] available 2022 16:55:38 Medical History Condition Response High Blood Pressure [...] Time zoster recombinant 04/24/2020 completed DEACON Dexter [facility] 01/14/2023 16:12:49 zoster recombinant 06/25/2020 completed DEACON Dexter - [facility] 01/14/2023 16:12:49 Past Encounters Encounter ID Performer Location Encounter Start Date Encounter Closed Date Diagnosis/Indication Diagnosis SNOMED-CT Code Diagnosis ICD10 Code Diagnosis Note [id number] LISA IYER [employer] [address] [place] [address],[facility] e [address] [place] [phone] 01/14/2023 16:10:00 01/14/2023 17:10:08 Recurrent urinary tract infection 724022084 N39.0 new, worse Pelvic and perineal pain 271650815 R10.2 chronic, worse 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, worse [id number] MD Renée [facility] [address] [place] [phone] 04/05/2023 15:26:30 04/05/2023 15:52:22 Pelvic and perineal pain 989943354 R10.2 chronic, worse Myalgia of pelvic floor 922414718 M79.18 chronic, worse Chronic cystitis 1702987 2 N30.20 chornic worse Health Concerns Section Related Observation LastModified by Organization Detai ls LastModified Time None Recorded Concern Status LastModified by Organization Details LastModified Time None Recorded Advance Directives Directive None Recorded Payers Encounter Date Sequence Insurance Name Policy Number Policy Abrams Covered Member ID Abrams Member ID Guarantor Name 01/14/2023 1 [facility] [id number] Vince Newman [id number] Kailey Newman 04/05/2023 1 [facility] [id number] Vince Newman [id number] Kailey A Trent Notes Date Note [...] taking this.History of IC - diagnosed in [place]. No scope recently. Last one at least [...] 6Incontinence Impact Questionnaire (IIQ-7): 0 LISA IYER [address] [place] [address],[facility] [address], [address], [facility] 01/14/2023 17:02:53 04/05/2023 text/html Patient seen [...] taking this.History of IC - diagnosed in [place]. No scope recently. Last one at least [...] on elavil --stopped Nona Arreguin MD [address] [facility],[address], [place], [address], [facility] - [facility] 04/05/2023 15:45:43 OBGyn Episode No OBEpisode recorded.
[2024-10-19 12:14] VITALS: BP 149/105; PULSE 120; RESP 16; TEMP 36.6; O2SAT 97
--- NOTE | 2024-10-19 12:48 | ED.GENADULT ---
HPI - General Adult General Chief complaint: Nausea/Vomiting Stated complaint: C-Diff positive, severe nausea Time Seen by Provider: 10/19/24 12:40 History of Present Illness HPI narrative: This 54-year-old female comes in with severe abdominal pain related to recent Clostridium difficile infection. She also states that she has chronic interstitial cystitis. She has been on antibiotics recently and was diagnosed with C diff a few days ago. She has currently stopped other antibiotics and is now taking Dificid. She does have pain medicine at home but states that it was not working or that she was not able to take it. She does report nausea and vomiting. She arrives here with normal vital signs but does have tachycardia a as she is rather agitated about her abdominal pain. Related Data Home Medications ?Medication ?Instructions ?Recorded ?Confirmed amitriptyline 10 mg tablet mg PO 01/11/24 03/18/24 cyclobenzaprine 10 mg tablet 10 mg PO QPM 01/11/24 03/18/24 estradiol 0.01% (0.1 mg/gram) vaginal QPM 01/11/24 03/18/24 vaginal cream liothyronine 5 mcg tablet mcg PO 01/11/24 03/18/24 metoclopramide HCl 10 mg tablet 10 mg PO Q6H PRN nausea/vomiting 01/11/24 03/18/24 nitrofurantoin macrocrystal 50 mg 50 mg PO DAILY 01/11/24 03/18/24 capsule oxycodone 5 mg tablet PO 01/11/24 03/18/24 pregabalin 150 mg capsule 150 mg PO BID 01/11/24 03/18/24 triamcinolone acetonide 0.1 % 1 applic topical BID-TID 01/11/24 03/18/24 topical cream valacyclovir 1 gram tablet 1,000 mg PO DAILY 01/11/24 03/18/24 Previous Rx's ?Medication ?Instructions ?Recorded atenolol 50 mg tablet 50 mg PO DAILY #30 tabs 01/11/24 fluconazole 150 mg tablet 150 mg PO Q3D 2 doses #2 tabs 03/18/24 nystatin 100,000 unit/gram topical 1 applic topical BID #30 grams 03/18/24 cream ciprofloxacin HCl 500 mg tablet 500 mg PO BID #14 tabs 10/09/24 (Cipro) fluconazole 100 mg tablet 100 mg PO DAILY #10 tabs 10/09/24 (Diflucan) hyoscyamine sulfate 0.125 mg tablet 0.25 mg (2 x 0.125 mg) PO QID PRN 10/14/24 cramping #30 tabs fidaxomicin 200 mg tablet (Dificid) 200 mg PO BID 10 days #20 tabs 10/16/24 hydromorphone 2 mg tablet 2 mg PO Q6H #7 tabs 10/19/24 Allergies Allergy/AdvReac Type Severity Reaction Status Date / Time adhesive Allergy Unknown Verified 10/19/24 12:14 hydrocodone Allergy Unknown Verified 10/19/24 12:14 meperidine (From Demerol) Allergy Unknown Verified 10/19/24 12:14 Sulfa (Sulfonamide Allergy Unknown Verified 10/19/24 12:14 Antibiotics) Review of Systems Status of ROS: Reports: 10 or more systems reviewed and unremarkable except as noted in History and below Narrative: Constitutional: No fevers, no weight gain or loss. Eyes: No discharge. No vision changes. HENT: No congestion, no sore throat, no ear pain. Cardiovascular: No chest pain, no palpitations. Respiratory: No shortness of breath, no wheezes, no cough. Gastrointestinal: Abdominal pain radiating to her lower back with vomiting and diarrhea. Genitourinary: No dysuria, no hematuria. Musculoskeletal: Normal range of motion. Skin: No rashes, no pruritis. Neurological: No dizziness, weakness, sensory change, speech change. Endo/Heme/Allergies: No bruising or bleeding. No polydipsia. Pysch: no suicidality, no anxiety, no insomnia. All other systems reviewed and are negative. [facility] Social History Smoking Status: Current some day smoker How often do you have a drink containing alcohol: never AUDIT-C Alcohol total score: 0 Non-prescribed substance use: marijuana (any form) Exam Narrative: Exam Narrative: Constitutional: Well-developed, well-nourished, no acute distress. HEENT: Normocephalic, atraumatic. Neck: Normal range of motion. Nontender. Supple. Heart: Regular. No murmurs. Normal rate. Intact distal pulses. Lungs: Clear to auscultation. No chest discomfort. No wheezes, rhonchi, or rales. Abdomen: Normal bowel sounds. No rebound tenderness. Diffuse abdominal pain. Genitalia: Deferred. Back: No midline tenderness. Normal range of motion. Extremities: Normal range of motion. No injury. Skin: Intact. No rash. Warm. No erythema or pallor. Neurologic: No altered sensation. No weakness. Alert and oriented. Psychiatric: No suicidality. No anxiety or depression. No insomnia. Nursing notes and vitals signs are reviewed. Const: Vital Signs, click to edit/add: Vital Signs - 24 hr 10/19/24 12:14 Temperature 98 F Pulse Rate [Pulse Oximeter] 120 H Respiratory Rate 16 Blood Pressure [Ri ght Upper Arm] 149/105 H Pulse Oximetry 97 Oxygen Delivery Me thod Room Air Course Vital Signs Vital signs: Initial Vital Signs Temperature 98 F 10/19/24 12:14 Temperature Source Temporal Artery Scan 10/19/24 12:14 Pulse Rate 120 H 10/19/24 12:14 Respiratory Rate 16 10/19/24 12:14 Blood Pressure 149/105 H 10/19/24 12:14 Blood Pressure Mean 119 H 10/19/24 12:14 Blood Pressure Position Sitting 10/19/24 12:14 Pulse Oximetry 97 10/19/24 12:14 Oxygen Delivery Method Room Air 10/19/24 12:14 Vital Signs Temperature 98 F 10/19/24 12:14 Pulse Rate 120 H 10/19/24 12:14 Respiratory Rate 16 10/19/24 12:14 Blood Pressure 149/105 H 10/19/24 12:14 Pulse Oximetry 97 10/19/24 12:14 Oxygen Delivery Method Room Air 10/19/24 12:14 Temperature 98 F 10/19/24 12:14 Pulse Rate 120 H 10/19/24 12:14 Respiratory Rate 16 10/19/24 12:14 Blood Pressure 149/105 H 10/19/24 12:14 Pulse Oximetry 97 10/19/24 12:14 Oxygen Delivery Method Room Air 10/19/24 12:14 Medications Administered Medications: Discontinued Medications Generic Name Dose Route Start Last Admin Trade Name Freq PRN Reason Stop Dose Admin Hydromorphone HCl 0.5 mg 10/19/24 12:44 10/19/24 13:27 Hydromorphone 0.5 Mg/0.5 Ml Inj IVP 10/19/24 12:45 0.5 mg ONCE ONE Administration Sodium Chloride 1,000 mls @ 1,000 mls/hr 10/19/24 12:45 10/19/24 13:23 0.9 % Sodium Chloride 1000 Ml IV 10/19/24 13:44 1,000 mls/hr .Q1H TAM Administration Ketorolac Tromethamine 30 mg 10/19/24 12:44 10/19/24 13:23 Ketorolac 30 Mg/Ml Inj IVP 10/19/24 12:45 30 mg ONCE ONE Administration Ondansetron HCl 4 mg 10/19/24 12:44 10/19/24 13:23 Ondansetron 2 Mg/Ml Inj IVP 10/19/24 12:45 4 mg ONCE ONE Administration Phenazopyridine HCl 200 mg 10/19/24 14:03 10/19/24 14:10 Phenazopyridine Hcl 200 Mg Tablet PO 10/19/24 14:04 200 mg ONCE ONE Administration Medical Decision Making MDM Narrative Medical decision making narrative: This patient comes in reporting severe pain in her abdomen. She has by her report interstitial cystitis with frequent urges to urinate. She reports frequent infections and has been on several antibiotics recently. She now has developed Clostridium difficile and has discontinued all other antibiotics except for Dificid. She comes in with nausea and severe abdominal pain. An IV was established where she did receive 30 mg of Toradol and 0.5 mg of Dilaudid which brought sufficient relief to her symptoms. She also received IV fluids. Lab results returned with reassuring findings. The patient is requesting a Garsia catheter because she states she is unable to sleep with her hyperactive bladder. She has a follow-up appointment with her primary physician in 5 days. She is okay to be discharged home. I did administer 1 further dose of Dilaudid 0.5 mg and prescribed a few tablets of oral dose of Dilaudid 1 mg to be used as needed until her appointment with her primary physician. She understands that we will not be involved in ongoing pain management in this regard but is encouraged to return if worsening. Lab Data Labs: Lab Results 10/19/24 Range/Units 12:55 WBC 8.98 (4.50-11.00) K/uL RBC 5.21 H (4.00-5.20) m/uL Hgb 14.8 (12.0-16.0) gm/dL Hct 45.6 (33.0-51.0) % MCV 88 (80-100) fL MCH 28 (26-34) pg MCHC 33 (32-36) gm/dL RDW Coeff of Lauri 13.5 (11.5-15.5) % Plt Count 269 (140-440) K/uL Neut % (Auto) 78.5 H (42.0-72.0) % Lymph % (Auto) 13.0 L (20-44) % [place] % (Auto) 6.3 (0.0-11.0) % Eos % (Auto) 1.3 (0.0-7.0) % Baso % (Auto) 0.7 (0.0-3.0) % Neut # (Auto) 7.00 (1.7-7.0) K/uL Lymph # (Auto) 1.20 (0.90-2.90) K/uL [place] # (Auto) 0.60 (0.00-0.90) K/UL Eos # (Auto) 0.12 (0.00-0.50) K/uL Baso # (Auto) 0.06 (0.00-0.30) K/uL Abs Immat Gran (auto) 0.02 (0.00-0.30) K/uL Imm/Tot Granulo (auto) 0.2 % Sodium 137 (135-149) mmol/L Potassium 4.1 (3.6-5.1) mmol/L Chloride 99 (96-114) mmol/L Carbon Dioxide 28 (20-32) mmol/L Anion Gap 10 (7-15) mEq/L BUN 6 L (7-30) mg/dL Creatinine 0.8 (0.5-1.5) mg/dL Estimated GFR 87 ml/min Glucose 150 H (60-115) mg/dL Calcium 9.9 (8.4-10.6) mg/dL Discharge Plan Discharge Clinical Impression: Abdominal pain, C. difficile colitis, Overactive bladder Patient Disposition: Home w/ Parent or Adult Condition: Improved Additional Instructions: Take medication as needed and directed. Follow up with primary physician as scheduled or return if worsening. Prescriptions: New hydromorphone 2 mg tablet 2 mg PO Q6H Qty: 7 0RF No Action nystatin 100,000 unit/gram cream 1 applic topical BID Qty: 30 0RF fluconazole 150 mg tablet 150 mg PO Q3D Qty: 2 0RF Rx Instructions: Take one tablet on first day. OK to repeat dose in 72 hours if symptoms persist. Follow up if symptoms persist after second dose. cyclobenzaprine 10 mg tablet 10 mg PO QPM nitrofurantoin macrocrystal 50 mg capsule 50 mg PO DAILY valacyclovir 1 gram tablet 1,000 mg PO DAILY liothyronine 5 mcg tablet PO triamcinolone acetonide 0.1 % cream 1 applic topical BID-TID amitriptyline 10 mg tablet PO estradiol 0.01 % (0.1 mg/gram) cream vaginal QPM metoclopramide HCl 10 mg tablet 10 mg PO Q6H PRN (Reason: nausea/vomiting) oxycodone 5 mg tablet PO pregabalin 150 mg capsule 150 mg PO BID atenolol 50 mg tablet 50 mg PO DAILY Qty: 30 3RF hyoscyamine sulfate 0.125 mg tablet 0.25 mg PO QID PRN (Reason: cramping) Qty: 30 0RF fluconazole [Diflucan] 100 mg tablet 100 mg PO DAILY Qty: 10 0RF ciprofloxacin HCl [Cipro] 500 mg tablet 500 mg PO BID Qty: 14 0RF Dificid 200 mg tablet 200 mg PO BID 10 Days Qty: 20 0RF Follow Up/Referrals: Jovanna Kline DO [Primary Care Provider] - Stand Alone Forms: [facility] Info Instructions
[2024-10-19 13:20] LABS: Basophils Absolute Auto 0.06 K/uL (0.00-0.30); Basophils Percent Auto 0.7 % (0.0-3.0); Eosinophils Absolute Auto 0.12 K/uL (0.00-0.50); Eosinophils Percent Auto 1.3 % (0.0-7.0); Hematocrit 45.6 % (33.0-51.0); Hemoglobin* 14.8 gm/dL (12.0-16.0); Immature Granulocytes Abs Auto 0.02 K/uL (0.00-0.30); Immature Granulocytes Pct Auto 0.2 %; Mean Corpuscular HGB Conc 33 gm/dL (32-36); Mean Corpuscular Hemoglobin 28 pg (26-34); Mean Corpuscular Volume 88 fL (80-100); Monocytes Percent Auto 6.3 % (0.0-11.0); Neutrophils Percent Auto 78.5 % (42.0-72.0); Platelet Count* 269 K/uL (140-440); RDW Coefficient of Variation % 13.5 % (11.5-15.5); Red Blood Count 5.21 m/uL (4.00-5.20); White Blood Count* 8.98 K/uL (4.50-11.00)
[2024-10-19 13:22] LABS: Slide Review Reflex No
[2024-10-19] MEDS: ONDANSETRON 2 MG/ML inj 4 MG IVP (13:23)
[2024-10-19] MEDS: KETOROLAC 30 MG/ML inj IVP (13:23)
[2024-10-19] MEDS: 0.9 % SODIUM CHLORIDE 1000 ml 1,000 ML IV (13:23)
[2024-10-19] MEDS: HYDROmorphone 0.5 mg/0.5 ml inj IVP ×2 (13:27→14:20)
[2024-10-19 13:30] VITALS: PULSE 102; O2SAT 98
[2024-10-19 13:31] LABS: Chloride* 99 mmol/L (96-114); Sodium* 137 mmol/L (135-149)
[2024-10-19 13:32] LABS: Potassium* 4.1 mmol/L (3.6-5.1)
[2024-10-19 13:34] LABS: Anion Gap 10 mEq/L (7-15); Blood Urea Nitrogen* 6 mg/dL (7-30); Carbon Dioxide* 28 mmol/L (20-32); Creatinine* 0.8 mg/dL (0.5-1.5); Estimated Glomerular Filt Rate 87 ml/min
[2024-10-19 13:35] LABS: Calcium* 9.9 mg/dL (8.4-10.6); Glucose* 150 mg/dL (60-115)
[2024-10-19] MEDS: PHENAZOPYRIDINE HCL 200 MG TABLET PO (14:10)
--- OUTSIDE RECORDS SUMMARY | 2024-10-19 14:37 | XMS_ITS | Clinical Summary ---
Author Organization [facility] Address [address] [place] [address] Care Team Providers Care [place] Cutting Machine Operator Name Role Phone Jolly Calabrese Unavailable [phone] Jovanna Kline DO Primary Care Provider [phone] Ward Che Unavailable [phone] Allergies Active Allergy Reactions Criticality Noted Date [...] Department Care Team Description 10/19/2024 Nurse Triage [facility] [address] [place] [address] Jovanna Kline Jeimy, DO Dizzy 10/19/2024 Patient Outreach [facility] [address] [place] [address] Marcela Alexandra, RN Primary RN Care Management; Hospital F/U (LACE 52) 10/18/2024 Nurse Triage [facility] [address] [place] [address] Sir Klinei Jeimy, DO Mouth/Lip Problem 10/17/2024 8:22 PM CDT - 10/18/2024 11:21 AM CDT Emergency [facility] [address] [place] [address] Rufus Echevarria MD [facility], [facility] Hospitalists Of Joaquin Coelho MD Puchalski, Jessica Leigh, PA Generalized weakness (Primary Dx); Back pain, unspecified back location, unspecified back pain laterality, unspecified chronicity; C. difficile colitis; Facial numbness; Generalized pain Discharge Disposition: Home Self Care 10/17/2024 Travel 10/17/2024 Telephone [facility] [address] [place] [address] Sir Klinei Jeimy, DO Results 10/16/2024 E-Visit [facility] [address] [place] [address] Eliud Jovanna Jeimy, DO Cdiff 10/13/2024 8:30 AM THERMAL CUTTING TRACER MACHINE OPERATOR - 10/13/2024 10:46 AM [facility] Emergency [address] [address] Sacha Wren MD Flank pain (Primary Dx); Bladder pain; Nausea Discharge Disposition: Home Self Care 10/13/[address] [address] Amie Lindo MD Questions (appointment//nurse visit) 10/13/[address] [facility] [address] [place] [address] Amie Lindo MD Appointment 10/13/2024 Travel 10/12/2024 10:14 AM THERMAL CUTTING TRACER MACHINE OPERATOR - 10/12/2024 1:51 PM THERMAL CUTTING TRACER MACHINE OPERATOR Emergency [facility] [address] [place] [address] Miko Siddiqui MD Pain of upper extremity, unspecified laterality (Primary Dx); Back pain, unspecified back location, unspecified back pain laterality, unspecified chronicity; Myalgia; Nausea; Abdominal pain, unspecified abdominal location Discharge Disposition: Home Self Care 10/12/2024 Nurse Triage [facility] [address] [facility] [address] [place] [address] Amie Lindo MD Medication Management (methenamine hippurate (HIPREX) 1 gram tablet) 10/11/2024 3:00 PM THERMAL CUTTING TRACER MACHINE OPERATOR Ancillary Procedure [address] [address] 10/11/2024 1:15 PM THERMAL CUTTING TRACER MACHINE OPERATOR Office Visit [address] [address] Yao Vail MD ER Follow up ([facility], 10/09/2024, UTI - symptoms getting worse) 10/11/2024 Travel 10/11/2024 Nurse Triage [address] [address] Jovanna Kline, Flank Pain; Urinary Tract Infection 10/06/2024 Travel 09/21/2024 2:20 PM THERMAL CUTTING TRACER MACHINE OPERATOR E-Visit [address] [address] Jovanna Kline, eVisit for Vaginal Discharge / Irritation 09/19/2024 7:30 AM THERMAL CUTTING TRACER MACHINE OPERATOR Nurse/Clinic Staff Only [address] [address] Testing (HST Return/Download.) 09/18/2024 2:15 PM THERMAL CUTTING TRACER MACHINE OPERATOR Nurse/Clinic Staff Only [address] [address] Testing (HST Set-up) 09/18/2024 Procedure Only [address] [address] Ward Castillo MD Results (HST) 09/18/2024 Travel 09/04/2024 Refill [facility] [address] [place] [address] Jovanna Kline, Refill Request (Pregabalin) 08/24/2024 3:00 PM THERMAL CUTTING TRACER MACHINE OPERATOR Office Visit [facility] [address] [facility] [address] [place] [address] Amie Lindo MD Consult (Recurring UTI) 08/24/2024 Travel 08/18/2024 2:10 PM THERMAL CUTTING TRACER MACHINE OPERATOR Office Visit [facility] [address] [facility] [place] [address] Jovanna Kline, Medication Management (Oxycodone renew - change amitriptyline to nortriptyline due to weight gain) 08/18/2024 Travel 08/08/2024 4:15 PM THERMAL CUTTING TRACER MACHINE OPERATOR Orders Only [facility] [address] [facility] [place] [address] Lab, Marilou <No scans attached> 08/08/2024 Travel 08/07/2024 Refill [facility] [address] [place] [address] Jovanna Kline, Refill Request (Pregabalin) from Last [...] on file Legal Sex Female 4:43 PM THERMAL CUTTING TRACER MACHINE OPERATOR Gender Identity Not on file Sexual Orientation Not on file 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 file Not on file [...] Description 10/24/2024 1:45 PM CDT Office Visit [facility] [address] [place] [address] Jovanna Kline DO [address] [place] [address] 10/27/2024 2:20 PM CDT Telemedicine [address] [place] [address] Ward Che PA [address] [place] [address] [place] [address] 11/13/2024 4:00 PM CDT Office Visit [facility] [address] [place] [address] Ward Castillo MD [address] [place] [address] Health Maintenance Due Date Last Done Comments [...] booster 01/14/2026 01/15/2016, 12/31/2004 Fecal testing sDNA-FIT ([place] guard) for age 45-75 12/15/2026 12/16/2023, 05/23/2020 [...] REFLEXED PER CRITERIA STAT 10/13/2024 9:10 AM THERMAL CUTTING TRACER MACHINE OPERATOR PROCALCITONIN STAT 10/13/2024 8:57 AM THERMAL CUTTING TRACER MACHINE OPERATOR C-REACTIVE PROTEIN STAT 10/13/2024 8: 57 AM THERMAL CUTTING TRACER MACHINE OPERATOR CBC W PLT NO DIFF STAT 10/13/2024 8:5 7 AM THERMAL CUTTING TRACER MACHINE OPERATOR TROPONIN T (HS) ONE TIME Timed 10/12/2024 12:43 PM THERMAL CUTTING TRACER MACHINE OPERATOR EKG 12 LEAD STAT 10/12/2024 10:52 AM THERMAL CUTTING TRACER MACHINE OPERATOR TROPONIN T (HS) ACUTE W/2HR REFLEX STAT 10/12/2024 10:43 AM THERMAL CUTTING TRACER MACHINE OPERATOR HEPATIC FUNCTION PANEL STAT 10/12/2024 10:43 AM THERMAL CUTTING TRACER MACHINE OPERATOR LIPASE STAT 10/12/2024 10:43 AM THERMAL CUTTING TRACER MACHINE OPERATOR BASIC METABOLIC PANEL STAT 10/12/2024 10:43 AM THERMAL CUTTING TRACER MACHINE OPERATOR CBC W PLT NO DIFF STAT 10/12/2024 10: 43 AM THERMAL CUTTING TRACER MACHINE OPERATOR CT ABDOMEN PELVIS STONE PROTOCOL WO STAT 10/11/2024 2:31 PM THERMAL CUTTING TRACER MACHINE OPERATOR Flank pain [facility]IC [facility] P[facility] DIP ([facility]) Routine 10/11/2024 2:13 PM THERMAL CUTTING TRACER MACHINE OPERATOR Flank pain URINALYSIS MICROSCOPIC Routine 10/11/2024 2:11 PM THERMAL CUTTING TRACER MACHINE OPERATOR Flank pain URINE CULTURE Routine 10/11/2024 2:11 PM THERMAL CUTTING TRACER MACHINE OPERATOR Flank pain CBC WITH AUTO DIFFERENTIAL Routine 10/11/2024 2:11 PM THERMAL CUTTING TRACER MACHINE OPERATOR Flank pain HEPATIC FUNCTION PANEL Routine 10/11/2024 2:11 PM THERMAL CUTTING TRACER MACHINE OPERATOR Flank pain BASIC METABOLIC PANEL Routine 10/11/2024 2:11 PM THERMAL CUTTING TRACER MACHINE OPERATOR Flank pain COVID/FLU/RSV PANEL Routine 10/11/2024 2 :04 PM THERMAL CUTTING TRACER MACHINE OPERATOR Cough, unspecified type ALT (SGPT) Routine 10/06/2024 4:26 PM THERMAL CUTTING TRACER MACHINE OPERATOR Graves' disease AST (SGOT) Routine 10/06/2024 4:26 PM THERMAL CUTTING TRACER MACHINE OPERATOR Graves' disease CBC WITH AUTO DIFFERENTIAL Routine 10/06/2024 4:26 PM THERMAL CUTTING TRACER MACHINE OPERATOR Graves' disease T3,TOTAL Routine 10/06/2024 4:26 PM THERMAL CUTTING TRACER MACHINE OPERATOR Graves' disease T4,FREE Routine 10/06/2024 4:26 PM THERMAL CUTTING TRACER MACHINE OPERATOR Graves' disease TSH Routine 10/06/2024 4:26 PM THERMAL CUTTING TRACER MACHINE OPERATOR Graves' disease HOME SLEEP TEST TYPE 3 PORTABLE Routine 09/18/2024 11:59 PM THERMAL CUTTING TRACER MACHINE OPERATOR Suspected sleep apnea TSH Routine 08/08/2024 4:11 PM THERMAL CUTTING TRACER MACHINE OPERATOR Graves' disease T3,TOTAL Routine 08/08/2024 4:11 PM THERMAL CUTTING TRACER MACHINE OPERATOR Graves' disease T4,FREE Routine 08/08/2024 4:11 PM THERMAL CUTTING TRACER MACHINE OPERATOR Graves' disease FUR SEWER THIN PREP PAP SCREEN IMAGED Routine 01/10/2024 [...] W SHUKLA (10/17/2024 9:54 PM CDT) Pathologist [facility] LACTATE VENOUS SCREEN ISTAT <1.8 <=2.0 10/17/2024 9:58 PM CDT [facility] LACTATE SCREEN VENOUS POCT 1.1 <=2.0 10/17/2024 9:58 PM CDT [facility] Blood BLOOD SPECIMEN / Unknown 10/17/2024 9:54 PM CDT 10/17/2024 9:58 PM CDT Rufus Echevarria MD LABORATORY Geetha l Result [facility] [address] [place] [address], * EXTRA TUBE SHUKLA ON ICE (10/17/2024 9:25 PM CDT) Blood BLOOD SPECIMEN / Unknown Non-Lab Venipuncture / Unknown 10/17/2024 9:25 PM CDT 10/17/2024 9:35 PM CDT Rufus Echevarria MD LABORATORY Geetha l Result [facility] [address] [place] [address], * CBC WITH AUTO DIFFERENTIAL (10/17/2024 9:25 PM CDT) WHITE BLOOD COUNT 8.2 4.5 - 11.0 thou/cu mm 10/17/2024 9:52 PM CDT [facility] RED BLOOD COUNT 4.76 4.00 - 5.20 mil/cu mm 10/17/2024 9:52 PM CDT [facility] HEMOGLOBIN 13.5 12.0 - 16.0 g/dL 10/17/2024 9:52 PM CDT [facility] HEMATOCRIT 42.0 33.0 - 51.0 % 10/17/2024 9:52 PM CDT [facility] MCV 88 80 - 100 fL 10/17/2024 9:52 PM CDT [facility] MCH 28.4 26.0 - 34.0 pg 10/17/2024 9:52 PM CDT [facility] MCHC 32.1 32.0 - 36.0 g/dL 10/17/2024 9:52 PM CDT [facility] RDW 13.7 11.5 - 15.5 % 10/17/2024 9:52 PM CDT [facility] PLATELET COUNT 280 140 - 440 thou/cu mm 10/17/2024 9:52 PM CDT [facility] MPV 10.1 6.5 - 11.0 fL 10/17/2024 9:52 PM CDT [facility] NRBC 0.0 % 10/17/2024 9:52 PM CDT [facility] ABS NRBC 0.0 thou /cu mm 10/17/2024 9:52 PM CDT [facility] % NEUT 70.7 % 10/17/2024 9:52 PM CDT [facility] % LYMPH 21.0 % 10/17/2024 9:52 PM CDT [facility] % MONO 6.3 % 10/17/2024 9:52 PM CDT [facility] % EOS 1.3 % 10/17/2024 9:52 PM CDT [facility] % BASO 0.6 % 10/17/2024 9:52 PM CDT [facility] % IMMATURE GRAN (METAS,MYELOS,IL OS) 0.1 % 10/17/2024 9:52 PM CDT [facility] ABSOLUTE NEUTROPHILS 5.8 1.7 - 7.0 thou/cu mm 10/17/2024 9:52 PM CDT [facility] ABSOLUTE LYMPHOCYTES 1.7 0.9 - 2.9 thou/cu mm 10/17/2024 9:52 PM CDT [facility] ABSOLUTE MONOCYTES 0.5 <0.9 thou/cu mm 10/17/2024 9:52 PM CDT [facility] ABSOLUTE EOSINOPHILS 0.1 <0.5 thou/cu mm 10/17/2024 9:52 PM CDT [facility] ABSOLUTE BASOPHILS 0.1 <0.3 thou/cu mm 10/17/2024 9:52 PM CDT [facility] ABSOLUTE IMMATURE GRANULOCYTES(MET ,MYELOS,PROS) 0.0 <0.3 thou/cu mm 10/17/2024 9:52 PM CDT [facility] Blood BLOOD SPECIMEN / Unknown Non-Lab Venipuncture / Unknown 10/17/2024 9:25 PM CDT 10/17/2024 9:35 PM CDT us Rufus Echevarria MD HEMATOLOGY Geetha l Result [facility] [address] [place] [address], [place] * PROCALCITONIN (10/17/2024 9:25 PM CDT) Only the most recent of2 resultswithin the time period is included. PROCALCITONIN 0.03 ng/ml 10/17/2024 10:12 PM T [facility] Blood BLOOD SPECIMEN / Unknown Non-Lab Venipuncture / Unknown 10/17/2024 9:25 PM CDT 10/17/2024 9:35 PM CDT [facility] LABORAT[facility] - 10/17/2024 10:12 PM CDT Procalcitonin [...] OUTS Geetha l Result Performing Organization Address [facility] Co de Phone Number [facility] [address] [place] [id number], [place] * URINALYSIS MICROSCOPIC (10/17/2024 9:25 PM CDT) Only the most recent of2 resultswithin the time period is included. RBC 0-2 0-2, None Seen /HPF 10/17/2024 10:25 PM CDT [facility] WBC 0-2 0-2, 3-5, None Seen /HPF 10/17/2024 10:25 PM CDT [facility] BACTERIA None Seen None Seen, Rare, Few Bacteria/ HPF 10/17/2024 10:25 PM CDT [facility] EPITHELIAL CELLS None Seen None Seen, Few Epi/HPF 10/17/2024 10:25 PM CDT [facility] HYALINE CASTS 0-2 0-2, 3-5 /LPF 10/17/2024 10:25 PM CDT [facility] Urine URINE SPECIMEN / Unknown Non-Blood / Unknown 10/17/2024 9:25 PM CDT 10/17/2024 9:36 PM CDT Rufus Echevarria MD URINE Geetha l Result Performing Organization Address [facility] Co de Phone Number [facility] [address] [place] [id number], [place] * (ABNORMAL) URINALYSIS W RELEX MICROSCOPIC IF POSITIVE (10/17/2024 9:25 PM CDT) Only the most recent of2 resultswithin the time period is included. COLOR Yellow Yellow Color 10/17/2024 10:25 PM CDT [facility] CLARITY Clear Clear Clarity 10/17/2024 10:25 PM CDT [facility] SPECIFIC GRAVITY,URINE <=1.005(A) 1.010, 1.015, 1.020, 1.025 10/17/2024 10:25 PM CDT [facility] PH,URINE 8.0 6.0, 7.0, 8.0, 5.5, 6.5, 7.5, 8.5 10/17/2024 10:25 PM CDT [facility] UROBILINOGEN, QUALITATIVE Normal Normal EU/dl 10/17/2024 10:25 PM CDT [facility] PROTEIN, URINE Negative Negative mg/dL 10/17/2024 10:25 PM CDT [facility] GLUCOSE, URINE Negative Negative mg/dL 10/17/2024 10:25 PM CDT [facility] KETONES,URINE Negative Negative mg/dL 10/17/2024 10:25 PM CDT [facility] BILIRUBIN,URI NE Negative Negative 10/17/2024 10:25 PM CDT [facility] OCCULT BLOOD,URINE Negative Negative 10/17/2024 10:25 PM CDT [facility] NITRITE Positive(A) Negative 10/17/2024 10:25 PM CDT [facility] LEUKOCYTE ESTERASE Negative Negative 10/17/2024 10:25 PM CDT [facility] Urine URINE SPECIMEN / Unknown Non-Blood / Unknown 10/17/2024 9:25 PM CDT 10/17/2024 9:36 PM CDT us Rufus Echevarria MD URINE Geetha l Result [facility] [address] [place] [address], * PROTIME-INR (10/17/2024 9:25 PM CDT) INR 1.0 <1.3 10/17/2024 9:59 PM CDT [facility] PROTIME 11.3 10.6 - 12.4 sec 10/17/2024 9:59 PM CDT [facility] Blood BLOOD SPECIMEN / Unknown Non-Lab Venipuncture / Unknown 10/17/2024 9:25 PM CDT 10/17/2024 9:35 PM CDT Narrative [facility] - 10/17/2024 9:59 PM CDT Therapeutic [...] Rufus Echevarria MD HEMATOLOGY Geetha l Result [facility] [address] [place] [address], * (ABNORMAL) COMP METABOLIC PANEL (10/17/2024 9:25 PM CDT) SODIUM 139 136 - 145 mmol/L 10/17/2024 10:00 PM CDT [facility] POTASSIUM 4.4 3.5 - 5.1 mmol/L 10/17/2024 10:00 PM CDT [facility] CHLORIDE 103 98 - 107 mmol/L 10/17/2024 10:00 PM CDT [facility] CO2,TOTAL 26 22 - 29 mmol/L 10/17/2024 10:00 PM T [facility] ANION GAP 10 5 - 18 10/17/2024 10:00 PM T [facility] GLUCOSE 129(H) 70 - 99 mg/dL 10/17/2024 10:00 PM CDT [facility] CALCIUM 9.5 8.8 - 10.4 mg/dL 10/17/2024 10:00 PM [facility] Comment: Reference ranges for this test were updated on 06/13/2024 to reflect our healthy population more accurately. Reference range changes are not retroactively applied to results, but previous results using the same methodology can be interpreted in the context of the new reference range. BUN 4(L) 6 - 20 mg/dL 10/17/2024 10:00 PM [facility] TRA [facility]ORATORY CREATININE 0.77 0.50 - 0.90 mg/dL 10/17/2024 10:00 PM [facility] BUN/CREAT RATIO 5(L) 10 - 20 10:00 PM [facility] eGFR >90 >90 mL/min/1. 73m2 10/17/2024 10:00 PM [facility] Comment:As of 2021, eG FR is calculated by the CKD-EPI creatinine equation without race adjustment. eGFR can be influenced by muscle mass, exercise, and diet. The reported eGFR is an estimation only and is only applicable if the renal function is stable. ALBUMIN 4.2 4.0 - 4.9 g/dL 10/17/2024 10:00 PM [facility] PROTEIN,TOTAL 7.3 6.0 - 8.0 g/dL 10/17/2024 10:00 PM [facility] BILIRUBIN,TOTAL 0.5 0.0 - 1.2 mg/dL 10/17/2024 10:00 PM [facility] ALK PHOSPHATASE 46 35 - 104 IU/L 10/17/2024 10:00 PM [facility] ALT (SGPT) 14 10 - 35 IU/L 10/17/2024 10:00 PM [facility] AST (SGOT) 17 10 - 35 IU/L 10/17/2024 10:00 PM [facility] Blood BLOOD SPECIMEN / Unknown Non-Lab Venipuncture / Unknown 10/17/2024 9:25 PM CDT 10/17/2024 9:35 PM CDT us Rufus Echevarria MD CHEMISTRY Geetha l Result [facility] [address] [place] [address], [place] * (ABNORMAL) CBC W PLT NO DIFF (10/13/2024 8:57 AM THERMAL CUTTING TRACER MACHINE OPERATOR) Only the most recent of2 resultswithin the time period is included. WHITE BLOOD COUNT 10.0 4.5 - 11.0 thou/cu mm 10/13/2024 9:37 AM [facility] RED BLOOD COUNT 5.09 4.00 - 5.20 mil/cu mm 10/13/2024 9:37 AM [facility] HEMOGLOBIN 14.2 12.0 - 16.0 g/dL 10/13/2024 9:37 AM [facility] HEMATOCRIT 45.0 33.0 - 51.0 % 10/13/2024 9:37 AM [facility] MCV 88 80 - 100 fL 10/13/2024 9:37 AM [facility] MCH 27.9 26.0 - 34.0 pg 10/13/2024 9:37 AM [facility] MCHC 31.6(L) 32.0 - 36.0 g/dL 10/13/2024 9:37 AM [facility] RDW 14.7 11.5 - 15.5 % 10/13/2024 9:37 AM [facility] PLATELET COUNT 266 140 - 440 thou/cu mm 10/13/2024 9:37 AM [facility] MPV 10.5 6.5 - 11.0 fL 10/13/2024 9:37 AM [facility] Blood BLOOD SPECIMEN / Unknown Butterfly / Unknown 10/13/2024 8:57 AM THERMAL CUTTING TRACER MACHINE OPERATOR 10/13/2024 9:33 AM THERMAL CUTTING TRACER MACHINE OPERATOR us Sacha Wren MD HEMATOLOGY Geetha l Result [facility] [address] [place] [address] * (ABNORMAL) C-REACTIVE PROTEIN (10/13/2024 8:57 AM THERMAL CUTTING TRACER MACHINE OPERATOR) [facility] C-REACTIVE PROTEIN 1.3(H) <0.5 mg/dL 10/13/2024 9:35 AM THERMAL CUTTING TRACER MACHINE OPERATOR [facility] Blood BLOOD SPECIMEN / Unknown Butterfly / Unknown 10/13/2024 8:57 AM THERMAL CUTTING TRACER MACHINE OPERATOR 10/13/2024 9:15 AM THERMAL CUTTING TRACER MACHINE OPERATOR us Sacha Wren MD CHEMISTRY Geetha l Result Performing Organization Address [facility] Co de Phone Number [facility] [address] [place] [address] * TROPONIN T (HS) ONE TIME (10/12/2024 12:43 PM THERMAL CUTTING TRACER MACHINE OPERATOR) [facility] TROPONIN T HS 7 6-10 ng/L ng/L 10/12/2024 1:07 PM THERMAL CUTTING TRACER MACHINE OPERATOR [facility] Blood BLOOD SPECIMEN / Unknown Butterfly / Unknown 10/12/2024 12:43 PM THERMAL CUTTING TRACER MACHINE OPERATOR 10/12/2024 12:46 PM THERMAL CUTTING TRACER MACHINE OPERATOR us Miko Siddiqui MD CHEMISTRY Final R esult Performing Organization Address [facility] de Phone Number [facility] [address] [place] [phone] * EKG 12 LEAD (10/12/2024 10:52 AM THERMAL CUTTING TRACER MACHINE OPERATOR) [facility] Interpretation Normal sinus rhythm Normal ECG When compared with ECG of 03-Jan-2024 12:43, No significant change was found no ST elevation BEYOND NOW Ventricular Rate 84 BPM BEYOND NOW Atrial Rate 84 BPM BEYOND NOW P-R Interval 138 ms BEYOND NOW QRS Duration 70 ms BEYOND NOW QT 360 ms BEYOND NOW QTc 425 ms BEYOND NOW P [place] 53 degrees BEYOND NOW R [place] 51 degrees BEYOND NOW T [place] 44 degrees BEYOND NOW 10/12/2024 10:5 2 AM THERMAL CUTTING TRACER MACHINE OPERATOR 10/12/2024 11:15 AM THERMAL CUTTING TRACER MACHINE OPERATOR us Miko Siddiqui MD EKG ORD Final R esult [place] NOW [place], [place] * TROPONIN T (HS) ACUTE W/2HR REFLEX (10/12/2024 10:43 AM THERMAL CUTTING TRACER MACHINE OPERATOR) TROPONIN T HS <6 6-10 ng/L ng/L 10/12/2024 11:11 AM THERMAL CUTTING TRACER MACHINE OPERATOR [facility] Blood BLOOD SPECIMEN / Unknown Venipuncture / Unknown 10/12/2024 10:43 AM THERMAL CUTTING TRACER MACHINE OPERATOR 10/12/2024 10:48 AM THERMAL CUTTING TRACER MACHINE OPERATOR Narrative [facility] - 10/12/2024 11:11 AM THERMAL CUTTING TRACER MACHINE OPERATOR hs-cTnT (Elecsys Troponin T Gen 5) [...] CHEMISTRY Final R esult Performing Organization Address [facility] Co de Phone Number [facility] [address] [place] [address] * LIPASE (10/12/2024 10:43 AM THERMAL CUTTING TRACER MACHINE OPERATOR) [facility] LIPASE 29.8 13.0 - 60.0 IU/L 10/12/2024 11:11 AM [facility] Blood BLOOD SPECIMEN / Unknown Venipuncture / Unknown 10/12/2024 10:43 AM THERMAL CUTTING TRACER MACHINE OPERATOR 10/12/2024 10:48 AM THERMAL CUTTING TRACER MACHINE OPERATOR Miko Siddiqui MD CHEMISTRY Final R esult Performing Organization Address [facility] Co de Phone Number [facility] [address] [place] [address] * HEPATIC FUNCTION PANEL (10/12/2024 10:43 AM THERMAL CUTTING TRACER MACHINE OPERATOR) Only the most recent of2 resultswithin the time period is included. [facility] ALBUMIN 4.5 4.0 - 4.9 g/dL 10/12/2024 11:11 AM [facility] PROTEIN,TOTAL 7.6 6.0 - 8.0 g/dL 10/12/2024 11:11 AM [facility] BILIRUBIN,TOTAL 0.5 0.0 - 1.2 mg/dL 10/12/2024 11:11 AM [facility] BILIRUBIN,DIRECT 0.2 0.0 - 0.2 mg/dL 10/12/2024 11:11 AM [facility] BILIRUBIN,INDIRE CT 0.3 0.2 - 0.8 mg/dL 10/12/2024 11:11 AM [facility] ALK PHOSPHATASE 46 35 - 104 IU/L 10/12/2024 11:11 AM [facility] ALT (SGPT) 13 10 - 35 IU/L 10/12/2024 11:11 AM [facility] AST (SGOT) 19 10 - 35 IU/L 10/12/2024 11:11 AM [facility] Blood BLOOD SPECIMEN / Unknown Venipuncture / Unknown 10/12/2024 10:43 AM THERMAL CUTTING TRACER MACHINE OPERATOR 10/12/2024 10:48 AM [facility] Miko Siddiqui MD CHEMISTRY Final R esult [facility] [address] [place] [address] * (ABNORMAL) BASIC METABOLIC PANEL (10/12/2024 10:43 AM [facility]) Only the most recent of2 resultswithin the time period is included. SODIUM 138 136 - 145 mmol/L 10/12/2024 11:11 AM [facility] POTASSIUM 4.4 3.5 - 5.1 mmol/L 10/12/2024 11:11 AM [facility] CHLORIDE 104 98 - 107 mmol/L 10/12/2024 11:11 AM [facility] CO2,TOTAL 27 22 - 29 mmol/L 10/12/2024 11:11 AM [facility] ANION GAP 7 5 - 18 10/12/2024 11:11 AM [facility] GLUCOSE 125(H) 70 - 99 mg/dL 10/12/2024 11:11 AM [facility] CALCIUM 9.4 8.8 - 10.4 mg/dL 10/12/2024 11:11 AM [facility] Comment: Reference ranges for this test were updated on 06/13/2024 to reflect our healthy population more accurately. Reference range changes are not retroactively applied to results, but previous results using the same methodology can be interpreted in the context of the new reference range. BUN 4(L) 6 - 20 mg/dL 10/12/2024 11:11 AM [facility] CREATININE 0.76 0.50 - 0.90 mg/dL 10/12/2024 11:11 AM [facility] BUN/CREAT RATIO 5(L) 10 - 20 11:11 AM [facility] eGFR >90 >90 mL/min/1. 73m2 10/12/2024 11:11 AM [facility] Comment:As of 2021, eG FR is calculated by the CKD-EPI creatinine equation without race adjustment. eGFR can be influenced by muscle mass, exercise, and diet. The reported eGFR is an estimation only and is only applicable if the renal function is stable. Blood BLOOD SPECIMEN / Unknown Venipuncture / Unknown 10/12/2024 10:43 AM THERMAL CUTTING TRACER MACHINE OPERATOR 10/12/2024 10:48 AM THERMAL CUTTING TRACER MACHINE OPERATOR Miko Siddiqui MD CHEMISTRY Final R esult [facility] [address] [place] [address] * CT ABDOMEN PELVIS STONE PROTOCOL WO (10/11/2024 2:31 PM THERMAL CUTTING TRACER MACHINE OPERATOR) Anatomical Region Laterality Modality Abdomen, Pelvis, AORTA, LIVER, SPLEEN Computed Tomography 10/11/2024 3:00 PM THERMAL CUTTING TRACER MACHINE OPERATOR Impressions 10/11/2024 3:00 PM THERMAL CUTTING TRACER MACHINE OPERATOR No acute intra-abdominal process identified. No renal stones. No hydronephrosis. Please note that all CT scans at this facility use dose modulation, iterative reconstruction, and/or weight-based dosing when appropriate to reduce radiation dose to as low as reasonably achievable. Dictated by Kamran Blanco MD @ 10/11/2024 3:00:01 PM (Electronically Signed) Narrative 10/11/2024 3:00 PM THERMAL CUTTING TRACER MACHINE OPERATOR For Patients: As a result of [...] POCT Urinalysis Dipstick Only (10/11/2024 2:13 PM THERMAL CUTTING TRACER MACHINE OPERATOR) PH 6.0 5.0 - 8.0 [facility] SPECIFIC GRAVITY < OR = 1.005 1.001 - 1.035 [facility] Comment: Specific [place] values resulted are outside the analytical measurement range of this device. Recommend repeat/additional testing as clinically indicated. GLUCOSE NEGATIVE NEGATIVE [facility] BILIRUBIN NEGATIVE NEGATIVE [facility] KETONES NEGATIVE NEGATIVE [facility] OCCULT BLOOD NEGATIVE NEGATIVE [facility] PROTEIN NEGATIVE NEGATIVE [facility] NITRITE NEGATIVE NEGATIVE [facility] LEUKOCYTE ESTERASE NEGATIVE NEGATIVE [facility] Urine URINE SPECIMEN / Unknown 10/11/2024 2:13 PM THERMAL CUTTING TRACER MACHINE OPERATOR 10/11/2024 2:13 PM THERMAL CUTTING TRACER MACHINE OPERATOR us Yao Vail MD URINE Final Result Performing Organization Address City/[facility]/ZIP Co de Phone Number [facility] [address] [place] [address], [facility] [address] [place] [address] * URINE CULTURE (10/11/2024 2:11 PM THERMAL CUTTING TRACER MACHINE OPERATOR) CULTURE No growth (<1,000 CFU/mL) 10/13/2024 9:31 AM THERMAL CUTTING TRACER MACHINE OPERATOR [facility] Urine URINE SPECIMEN / Unknown Non-Blood / Unknown 10/11/2024 2:11 PM THERMAL CUTTING TRACER MACHINE OPERATOR 10/11/2024 2:11 PM THERMAL CUTTING TRACER MACHINE OPERATOR us Yao Vail MD MICROBIOLOGY Final Result [facility] [address] [place] [address], * CBC AND DIFFERENTIAL (10/11/2024 2:11 PM THERMAL CUTTING TRACER MACHINE OPERATOR) Only the most recent of2 resultswithin [...] BLOOD SPECIMEN / Unknown 10/11/2024 2:11 PM THERMAL CUTTING TRACER MACHINE OPERATOR 10/11/2024 2:12 PM THERMAL CUTTING TRACER MACHINE OPERATOR us Yao Vail MD HEMATOLOGY Final Result [facility] [address] [place] [address], [place] [phone] [facility] [address] [place] [address] * COVID/FLU/RSV PANEL (10/11/2024 2:04 PM THERMAL CUTTING TRACER MACHINE OPERATOR) Pathologist [facility] COVID 19 [facility] Negative Negative 10/11/2024 11:37 PM THERMAL CUTTING TRACER MACHINE OPERATOR [facility] Comment:All PCR tests are chauhan bject to false negative result due to variability in viral load and collection technique. A negative result does not rule out a SARS-CoV-2 infection. Clinical correlation required. INFLUENZA A PCR Negative 11:37 PM THERMAL CUTTING TRACER MACHINE OPERATOR [facility] INFLUENZA B PCR Negative 11:37 PM THERMAL CUTTING TRACER MACHINE OPERATOR [facility] Respiratory Syncytial Virus Negative 10/11/2024 11:37 PM THERMAL CUTTING TRACER MACHINE OPERATOR [facility] Swab NASOPHARYNGEAL SWAB / Unknown Non-Blood / Unknown 10/11/2024 2:04 PM THERMAL CUTTING TRACER MACHINE OPERATOR 10/11/2024 2:04 PM THERMAL CUTTING TRACER MACHINE OPERATOR us Yao Vail MD MICROBIOLOGY Final Result [facility] [address] [place] [address], * TSH (10/06/2024 4:26 PM THERMAL CUTTING TRACER MACHINE OPERATOR) Only the most recent of2 resultswithin the time period is included. TSH 1.63 mIU/L [facility] Comment: Reference Range > or = 20 Years 0.40-4.50 Ranges First trimester 0.26-2.66 Second trimester 0.55-2.73 Third trimester 0.43-2.91 Blood BLOOD SPECIMEN / Unknown 10/06/2024 4:26 PM THERMAL CUTTING TRACER MACHINE OPERATOR 10/06/2024 4:28 PM THERMAL CUTTING TRACER MACHINE OPERATOR Narrative [facility] - 10/07/2024 5:08 AM THERMAL CUTTING TRACER MACHINE OPERATOR FASTING:NO FASTING: NO Ward GONZALEZ CHEMISTRY Final Resu lt [facility] [address] [place] [address], [place] [phone] [facility] [address] [facility] [place] [address] * T3,TOTAL (10/06/2024 4:26 PM THERMAL CUTTING TRACER MACHINE OPERATOR) Only the most recent of2 resultswithin the time period is included. T3, TOTAL 106 76 - 181 ng/dL [facility] Marco Antonio Blood BLOOD SPECIMEN / Unknown 10/06/2024 4:26 PM THERMAL CUTTING TRACER MACHINE OPERATOR 10/06/2024 4:28 PM THERMAL CUTTING TRACER MACHINE OPERATOR Narrative [facility] - 10/07/2024 5:08 AM THERMAL CUTTING TRACER MACHINE OPERATOR FASTING:NO FASTING: NO Ward GONZALEZ CHEMISTRY Final Resu lt Performing Organization Address [facility]/ZIP Co de Phone Number [facility] [address] [place] [address], [place] [phone] [facility] [address] [facility] [place] [address] * ALT (SGPT) (10/06/2024 4:26 PM THERMAL CUTTING TRACER MACHINE OPERATOR) ALT 15 6 - 29 U/L [facility] Marco Antonoi Blood BLOOD SPECIMEN / Unknown 10/06/2024 4:26 PM THERMAL CUTTING TRACER MACHINE OPERATOR 10/06/2024 4:28 PM THERMAL CUTTING TRACER MACHINE OPERATOR Narrative [facility] - 10/07/2024 3:29 AM THERMAL CUTTING TRACER MACHINE OPERATOR FASTING:NO FASTING: NO Ward GONZALEZ CHEMISTRY Final Resu lt [facility] [address] [place] [address], [place] [phone] [facility] [facility] [address] [place] [address] * AST (SGOT) (10/06/2024 4:26 PM THERMAL CUTTING TRACER MACHINE OPERATOR) AST 19 10 - 35 U/L [facility] Blood BLOOD SPECIMEN / Unknown 10/06/2024 4:26 PM THERMAL CUTTING TRACER MACHINE OPERATOR 10/06/2024 4:28 PM THERMAL CUTTING TRACER MACHINE OPERATOR Narrative [facility] - 10/07/2024 3:29 AM THERMAL CUTTING TRACER MACHINE OPERATOR FASTING:NO FASTING: NO Ward GONZALEZ CHEMISTRY Final Resu lt Performing Organization Address [facility]/ZIP Co de Phone Number [facility] [address] [place] [address], [facility] [address] [place] [address] * T4,FREE (10/06/2024 4:26 PM THERMAL CUTTING TRACER MACHINE OPERATOR) Only the most recent of2 resultswithin the time period is included. T4, FREE 0.9 0.8 - 1.8 ng/dL [facility] Blood BLOOD SPECIMEN / Unknown 10/06/2024 4:26 PM THERMAL CUTTING TRACER MACHINE OPERATOR 10/06/2024 4:28 PM THERMAL CUTTING TRACER MACHINE OPERATOR Narrative [facility] - 10/07/2024 5:08 AM THERMAL CUTTING TRACER MACHINE OPERATOR FASTING:NO FASTING: NO Ward GONZALEZ CHEMISTRY Final Resu lt [facility] [address] [place] [address], [facility] [address] [place] [address] * HOME SLEEP TEST TYPE 3 PORTABLE (09/18/2024 11:59 PM THERMAL CUTTING TRACER MACHINE OPERATOR) Ward Medrano MD - 09/18/2024 11:59 PM Ward Remy MD 09/19/2024 4:53 PM Home Sleep Test Name: Kailey Newman Location: [facility] notes: This is a single night home [...] and interpreted by a Diplomate of the [employer]. Raw summary data [...] Kline DO SLEEP CENTER Final Result * FUR SEWER THIN PREP PAP SCREEN IMAGED [[id number]] (01/10/2024 12:13 PM CDT) Case Report Gynecologic Cytology Report Case: [id number] Authorizing Provider: Jovanna Kline DO Collected: 01/10/2024 1213 Ordering Location: [facility] Received: 01/10/2024 1213 Clinic First Screen: Charo Paredes Specimen: FUR SEWER ThinPrep Vial Screening, Cervical 01/20/2024 8:40 AM CDT [email or web address]AL [facility] INTERPRETATION/ RESULT NEGATIVE FOR INTRAEPITHELIAL LESION OR MALIGNANCY (NIL) (none) 01/20/2024 8:40 AM CDT [facility] IMEN ADEQUACY Satisfactory for evaluation Endocervical component present 01/20/2024 8:40 AM CDT [email or web address] HPV REQUEST HPV and PAP 01/20/2024 8:40 AM CDT [email or web address] Date of LMP postmenopausal 4 8:40 AM CDT [email or web address] Last Pap Date 02/25/18 01/20/2024 8:40 AM CDT [email or web address] Last Pap Result NIL 8:40 AM CDT [facility] Abnormal Pap or Thornton Bx in last 5 years No 01/20/2024 8:40 AM CDT [facility] Menstrual Status Postmenopausal 01/20/2024 8:40 AM CDT [email or web address] Thornton Bx Done Today No 01/20/2024 8:40 AM CDT [facility] Additional Information None given 01/20/2024 8:40 AM CDT [facility] Comment: Cytology is screened at [facility] - [address], [place] [address] and [facility] - [address], [place] [address] [facility] - [address] [place] [address] Interpreted at [facility] - [address], [place] [address] Automated Review Successful 01/20/2024 8:40 AM CDT [facility] Comment:Specimen processed s uccessfully by automated bridge design engineer device, ThinPrep Imaging System, [employer] ANCILLARY TESTING FUR SEWER HPV Ordered, Please see separate report 01/20/2024 8:40 AM CDT [facility] Note The pap test is a [...] and malignant lesions. 01/20/2024 8:40 AM CDT [facility] Other (Cervical) Non-Blood / Unknown 01/10/2024 12:13 PM CDT 01/10/2024 12:13 PM CDT us Jovanna Kline DO PATHOLOGY/CYTOLOGY Final Resu lt [facility] [address] [place] [address], [place] * LIPID PANEL W REFLEX MEASURED LDL (01/10/2024 12:04 PM CDT) CHOLESTEROL,TOTAL 171 100 - 199 mg/dL 01/11/2024 9:36 AM CDT [facility] Comment: Cholesterol, Total Reference Ranges Desirable <200 mg/dL Borderline 200-239 mg/dL High >=240 mg/dL TRIGLYCERIDES 116 <150 mg/dL 01/11/2024 9:36 AM CDT [facility] HDL CHOLESTEROL 64 >40 mg/dL 9:36 AM CDT [facility] NON-HDL CHOLESTEROL 107 <145 mg/dl 01/11/2024 9:36 AM CDT [facility] CHOL/HDL RATIO 2.67 <4.50 01/11/2024 9:36 AM CDT [facility] LDL CHOLESTEROL 84 <=130 mg/dL 01/11/2024 9:36 AM CDT [facility] VLDL CHOLESTEROL 23 <=30 mg/dL 01/11/2024 9:36 AM CDT [facility] PROVIDER ORDERED STATUS RANDOM 01/11/2024 9:36 AM CDT [facility] Blood BLOOD SPECIMEN / Unknown Venipuncture / Unknown 01/10/2024 12:04 PM CDT 01/10/2024 12:05 PM CDT us Jovanna Kline DO CHEMISTRY Final Result [facility] [address] [place] [address], [place] * XR MAMMO ERIKA BILAT SCREEN [...] care provider. XR MAMMO ERIKA BILAT SCREEN [[id number]] CLINICAL HISTORY: This is an asymptomatic 53 [...] MAMMO Final Result * SDNA-FIT EXTERNAL (COLOGUARD) [[id number]] (12/16/2023 7:40 AM CDT) NONINV COLON CA DNA+OCC BLD SCRN STL-IMP Negative Negative 12/23/2023 5:48 PM CDT [facility] (CLIA #:[id number]) Comment: NEGATIVE TEST RESULT. A negative Cologuard [...] Thomas et al, N Engl J Med 2014;370(14):0643-4658) The normal value (reference range) for this assay is negative. COLOGUARD RE-SCREENING RECOMMENDATION: Periodic colorectal cancer screening is an important part of preventive healthcare for asymptomatic individuals at average risk for colorectal cancer. Following a negative Cologuard result, the Chinese Cancer Society and U.S. Multi-Society Task Force screening guidelines recommend a Cologuard re-screening interval of 3 years. References: [employer] Cancer Society Guideline for Colorectal Cancer Screening: https://www.cancer.org/cancer/orvjp-uhleek-lgqwwq/rfuvcawmv-ncibqiaam-ptqohwc/ac s-rec ommendations.html.; Bala SMITH Fozia PITTS, Gonzalo HardinK, Colorectal Cancer Screening: Recommendations for Physicians and Patients from the U.S. Multi-Society Task Force on Colorectal Cancer Screening , Am J Gastroenterology 2017; 112:8202-6230. TEST DESCRIPTION: Composite algorithmic analysis of stool [...] (Radha Mehta al, N Engl J Med 2014;370(14):8174-7606.) Cologuard may produce a false negative or false positive result (no colorectal cancer or precancerous polyp present at colonoscopy follow up). A negative Cologuard test result does not guarantee the absence of CRC or advanced adenoma (pre-cancer). The current Cologuard screening interval is every 3 years. (Chinese Cancer Society and U.S. Multi-Society Task Force). Cologuard performance data in a 10,000 patient pivotal study using colonoscopy as the reference method can be accessed at the following location: www.[employer] X Train/results. Additional description of the Cologuard test process, warnings and precautions can be found at [email or web address].[email or web address].com. Stool specimen (specimen) (Rectum) 12/16/2023 7:40 AM CDT 12/17/2023 12:25 PM CDT us Jovanna Kline DO URINE Final Result [facility] (CLIA #:[id number]) [place] [address], [place] [phone] * LC HCV ANTIBODY RFX TO QUANT PCR (12/03/2022 12:00 PM CDT) Pathologist [facility] HCV Ab Non Reactive Non Reactive 12/05/2022 3:08 PM CDT [facility] ([facility]) Blood BLOOD SPECIMEN / Unknown Venipuncture / Unknown 12/03/2022 12:00 PM CDT 12/03/2022 12:02 PM CDT Narrative [facility] - 12/05/2022 3:08 PM CDT Performed at: [address] [place] [id number] Agricultural Purchasing Agent: Nelson Ruff MD, Phone: [phone] [facility] Fin al Result Performing Organization Address City/[facility] Co de Phone Number [facility] ([facility]) [address] [place] [address], * LC HIV-1/O/2, 4TH GENERATION (12/03/2022 12:00 PM CDT) [facility] HIV Scr 4th Gen Non Reactive Non Reactive 12/05/2022 12:08 PM CDT [facility]) Comment: HIV Negative HIV-1/HIV-2 antibodies and HIV-1 p24 antigen were NOT detected. There is no laboratory evidence of HIV infection. Blood BLOOD SPECIMEN / Unknown Venipuncture / Unknown 12/03/2022 12:00 PM CDT 12/03/2022 12:02 PM CDT Narrative [facility] ([facility]) - 12/05/2022 12:08 PM CDT Performed at: - [facility] [address] [place], [place] [id number] Agricultural Purchasing Agent: Nelson Ruff MD, Phone: [phone] [facility] Fin al Result [facility] ([facility]) [facility] [place] [address], from Last 3 Months or Most Recently [...] with C diff symptoms 10/18/2024 10/18/2024 Insurance [facility] Advance Directives * Full Code (Latest Code Status on File) Date Activated Date Inactivated Comments 10/17/2024 11:11 PM 10/18/2024 1:27 PM Question Answer Comments Code Status Discussion: Reviewed Preferences Care Teams [employer] Cutting Machine Operator Relationship Specialty Start Date End Date Shaqra, Jovanna Jeimy, DO [address] [place] [address] PCP - General Family Practice 09/02/22 Jolly Calabrese PA Physician Inserter Operator 10/23/21 Ward Che PA [address] [place] [address] Endocrinology Physician Inserter Operator 06/29/24
== END 2024-10-19 15:29 | disposition home or self-care (01) ==
LOC: ED 14:35
PROVIDERS: Emergency Provider Emergency Medicine Emergency Medical Services; PCP Family Medicine
DX: K52.9 Noninfective gastroenteritis and colitis, unspecified (principal); A04.72 Enterocolitis due to Clostridium difficile, not specified as recurrent; N32.81 Overactive bladder
CPT/HCPCS: 36415; 80048; 85025; 96374; 96375; 99284; A9270; J1171; J1885; J2405; J7030

== ENCOUNTER 2024-10-19 23:13 | Emergency (ER) | payer BC, SELFPAY ==
--- OUTSIDE RECORDS SUMMARY | 2024-10-19 23:16 | XMS_ITS | Clinical Summary ---
Author Organization [facility] Address [address] [place] [address] Care Team Providers Care Procurement Buyer Name Role Phone Jolly Calabrese Unavailable [phone] Jovanna Kline DO Primary Care Provider Ward Che Unavailable [phone] Allergies Active Allergy Reactions Criticality Noted Date [...] Department Care Team Description 10/19/2024 Nurse Triage [facility] [address] [place] [address] Jovanna Kline Jeimy, DO Dizzy 10/19/2024 Patient Outreach [facility] [address] [place] [address] Marcela Alexandra, RN Primary RN Care Management; Hospital F/U (LACE 52) 10/18/2024 Nurse Triage [facility] [address] [place] [address] Sir Klinei Jeimy, DO Mouth/Lip Problem 10/17/2024 8:22 PM CDT - 10/18/2024 11:21 AM CDT Emergency [facility] [address] [place] [address] Rufus Echevarria MD [facility] [place] [facility], [facility] Of Joaquin Coelho MD Puchalski, Jessica Leigh, PA Generalized weakness (Primary Dx); Back pain, unspecified back location, unspecified back pain laterality, unspecified chronicity; C. difficile colitis; Facial numbness; Generalized pain Discharge Disposition: Home Self Care 10/17/2024 Travel 10/17/2024 Telephone [facility] [address] [place] [address] Sir Klinei Jeimy, DO Results 10/16/2024 E-Visit [facility] [address] [place] [address] Eliud Jovanna Jeimy, DO Cdiff 10/13/2024 8:30 AM SANITARIAN INSPECTOR - 10/13/2024 10:46 AM [facility] Emergency [address] [address] Sacha Wren MD Flank pain (Primary Dx); Bladder pain; Nausea Discharge Disposition: Home Self Care 10/13/[address] [address] Amie Lindo MD Questions (appointment//nurse visit) 10/13/[address] [facility] [address] [place] [address] Amie Lindo MD Appointment 10/13/2024 Travel 10/12/2024 10:14 AM SANITARIAN INSPECTOR - 10/12/2024 1:51 PM SANITARIAN INSPECTOR Emergency [facility] [address] [place] [address] Miko Siddiqui MD Pain of upper extremity, unspecified laterality (Primary Dx); Back pain, unspecified back location, unspecified back pain laterality, unspecified chronicity; Myalgia; Nausea; Abdominal pain, unspecified abdominal location Discharge Disposition: Home Self Care 10/12/2024 Nurse Triage [facility] [address] [facility] [address] [place] [address] Amie Lindo MD Medication Management (methenamine hippurate (HIPREX) 1 gram tablet) 10/11/2024 3:00 PM SANITARIAN INSPECTOR Ancillary Procedure [address] [address] 10/11/2024 1:15 PM SANITARIAN INSPECTOR Office Visit [address] [address] Yao Vail MD ER Follow up ([facility], 10/09/2024, UTI - symptoms getting worse) 10/11/2024 Travel 10/11/2024 Nurse Triage [address] [address] Jovanna Kline, Flank Pain; Urinary Tract Infection 10/06/2024 Travel 09/21/2024 2:20 PM SANITARIAN INSPECTOR E-Visit [address] [address] Jovanna Kline, eVisit for Vaginal Discharge / Irritation 09/19/2024 7:30 AM SANITARIAN INSPECTOR Nurse/Clinic Staff Only [address] [address] Testing (HST Return/Download.) 09/18/2024 2:15 PM SANITARIAN INSPECTOR Nurse/Clinic Staff Only [address] [address] Testing (HST Set-up) 09/18/2024 Procedure Only [address] [address] Ward Castillo MD Results (HST) 09/18/2024 Travel 09/04/2024 Refill [facility] [address] [facility] [place] [address] Jovanna Kline, Refill Request (Pregabalin) 08/24/2024 3:00 PM SANITARIAN INSPECTOR Office Visit [facility] [address] [facility] [address] [place] [address] Amie Lindo MD Consult (Recurring UTI) 08/24/2024 Travel 08/18/2024 2:10 PM SANITARIAN INSPECTOR Office Visit [facility] [address] [place] [address] Jovanna Kline, Medication Management (Oxycodone renew - change amitriptyline to nortriptyline due to weight gain) 08/18/2024 Travel 08/08/2024 4:15 PM SANITARIAN INSPECTOR Orders Only [facility] [address] [facility] [place] [address] Lab, Marilou <No scans attached> 08/08/2024 Travel 08/07/2024 Refill [facility] [address] [facility] [place] [address] Jovanna Kline, Refill Request (Pregabalin) from Last [...] on file Legal Sex Female 4:43 PM SANITARIAN INSPECTOR Gender Identity Not on file Sexual Orientation Not on file 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 Not on file [...] Description 10/24/2024 1:45 PM CDT Office Visit [facility] [address] [place] [address] Jovanna Kline DO [address] [place] [address] 10/27/2024 2:20 PM CDT Telemedicine [address] [place] [address] Ward Che PA [address] [place] [address] [place] [address] 11/13/2024 4:00 PM CDT Office Visit [facility] [address] [place] [address] Ward Castillo MD [address] [place] [address] Health Maintenance Due Date Last Done Comments [...] booster 01/14/2026 01/15/2016, 12/31/2004 Fecal testing sDNA-FIT ([place] guard) for age 45-75 12/15/2026 12/16/2023, 05/23/2020 [...] REFLEXED PER CRITERIA STAT 10/13/2024 9:10 AM SANITARIAN INSPECTOR PROCALCITONIN STAT 10/13/2024 8:57 AM SANITARIAN INSPECTOR C-REACTIVE PROTEIN STAT 10/13/2024 8: 57 AM SANITARIAN INSPECTOR CBC W PLT NO DIFF STAT 10/13/2024 8:5 7 AM SANITARIAN INSPECTOR TROPONIN T (HS) ONE TIME Timed 10/12/2024 12:43 PM SANITARIAN INSPECTOR EKG 12 LEAD STAT 10/12/2024 10:52 AM SANITARIAN INSPECTOR TROPONIN T (HS) ACUTE W/2HR REFLEX STAT 10/12/2024 10:43 AM SANITARIAN INSPECTOR HEPATIC FUNCTION PANEL STAT 10/12/2024 10:43 AM SANITARIAN INSPECTOR LIPASE STAT 10/12/2024 10:43 AM SANITARIAN INSPECTOR BASIC METABOLIC PANEL STAT 10/12/2024 10:43 AM SANITARIAN INSPECTOR CBC W PLT NO DIFF STAT 10/12/2024 10: [address] ABDOMEN PELVIS STONE PROTOCOL WO STAT 10/11/2024 2:31 PM SANITARIAN INSPECTOR Flank pain [facility] P[facility] DIP ([facility]) Routine 10/11/2024 2:13 PM SANITARIAN INSPECTOR Flank pain URINALYSIS MICROSCOPIC Routine 10/11/2024 2:11 PM SANITARIAN INSPECTOR Flank pain URINE CULTURE Routine 10/11/2024 2:11 PM SANITARIAN INSPECTOR Flank pain CBC WITH AUTO DIFFERENTIAL Routine 10/11/2024 2:11 PM SANITARIAN INSPECTOR Flank pain HEPATIC FUNCTION PANEL Routine 10/11/2024 2:11 PM SANITARIAN INSPECTOR Flank pain BASIC METABOLIC PANEL Routine 10/11/2024 2:11 PM SANITARIAN INSPECTOR Flank pain COVID/FLU/RSV PANEL Routine 10/11/2024 2 :04 PM SANITARIAN INSPECTOR Cough, unspecified type ALT (SGPT) Routine 10/06/2024 4:26 PM SANITARIAN INSPECTOR Graves' disease AST (SGOT) Routine 10/06/2024 4:26 PM SANITARIAN INSPECTOR Graves' disease CBC WITH AUTO DIFFERENTIAL Routine 10/06/2024 4:26 PM SANITARIAN INSPECTOR Graves' disease T3,TOTAL Routine 10/06/2024 4:26 PM SANITARIAN INSPECTOR Graves' disease T4,FREE Routine 10/06/2024 4:26 PM SANITARIAN INSPECTOR Graves' disease TSH Routine 10/06/2024 4:26 PM SANITARIAN INSPECTOR Graves' disease HOME SLEEP TEST TYPE 3 PORTABLE Routine 09/18/2024 11:59 PM SANITARIAN INSPECTOR Suspected sleep apnea TSH Routine 08/08/2024 4:11 PM SANITARIAN INSPECTOR Graves' disease T3,TOTAL Routine 08/08/2024 4:11 PM SANITARIAN INSPECTOR Graves' disease T4,FREE Routine 08/08/2024 4:11 PM SANITARIAN INSPECTOR Graves' disease VOCATIONAL REHAB CONSULTANT THIN PREP PAP SCREEN IMAGED Routine 01/10/2024 [...] SHUKLA (10/17/2024 9:54 PM CDT) Pathologist [facility] [place] LACTATE VENOUS SCREEN ISTAT <1.8 <=2.0 10/17/2024 9:58 PM CDT [facility] LACTATE SCREEN VENOUS POCT 1.1 <=2.0 10/17/2024 9:58 PM CDT [facility] Blood BLOOD SPECIMEN / Unknown 10/17/2024 9:54 PM CDT 10/17/2024 9:58 PM CDT Rufus Echevarria MD LABORATORY Geetha l Result [facility] [address] [place] [address], * EXTRA TUBE SHUKLA ON ICE (10/17/2024 9:25 PM CDT) Blood BLOOD SPECIMEN / Unknown Non-Lab Venipuncture / Unknown 10/17/2024 9:25 PM CDT 10/17/2024 9:35 PM CDT Rufus Echevarria MD LABORATORY Geetha l Result [facility] [address] [place] [address], * CBC WITH AUTO DIFFERENTIAL (10/17/2024 9:25 PM CDT) WHITE BLOOD COUNT 8.2 4.5 - 11.0 thou/cu mm 10/17/2024 9:52 PM CDT [facility] RED BLOOD COUNT 4.76 4.00 - 5.20 mil/cu mm 10/17/2024 9:52 PM CDT [facility] HEMOGLOBIN 13.5 12.0 - 16.0 g/dL 10/17/2024 9:52 PM CDT [facility] HEMATOCRIT 42.0 33.0 - 51.0 % 10/17/2024 9:52 PM CDT [facility] MCV 88 80 - 100 fL 10/17/2024 9:52 PM CDT [facility] MCH 28.4 26.0 - 34.0 pg 10/17/2024 9:52 PM CDT [facility] MCHC 32.1 32.0 - 36.0 g/dL 10/17/2024 9:52 PM CDT [facility] RDW 13.7 11.5 - 15.5 % 10/17/2024 9:52 PM CDT [facility] PLATELET COUNT 280 140 - 440 thou/cu mm 10/17/2024 9:52 PM CDT [facility] MPV 10.1 6.5 - 11.0 fL 10/17/2024 9:52 PM CDT [facility] NRBC 0.0 % 10/17/2024 9:52 PM CDT [facility] ABS NRBC 0.0 thou /cu mm 10/17/2024 9:52 PM CDT [facility] % NEUT 70.7 % 10/17/2024 9:52 PM CDT [facility] % LYMPH 21.0 % 10/17/2024 9:52 PM CDT [facility] % MONO 6.3 % 10/17/2024 9:52 PM CDT [facility] % EOS 1.3 % 10/17/2024 9:52 PM CDT [facility] % BASO 0.6 % 10/17/2024 9:52 PM CDT [facility] % IMMATURE GRAN (METAS,MYELOS,KY OS) 0.1 % 10/17/2024 9:52 PM CDT [facility] ABSOLUTE NEUTROPHILS 5.8 1.7 - 7.0 thou/cu mm 10/17/2024 9:52 PM CDT [facility] ABSOLUTE LYMPHOCYTES 1.7 0.9 - 2.9 thou/cu mm 10/17/2024 9:52 PM CDT [facility] ABSOLUTE MONOCYTES 0.5 <0.9 thou/cu mm 10/17/2024 9:52 PM CDT [facility] ABSOLUTE EOSINOPHILS 0.1 <0.5 thou/cu mm 10/17/2024 9:52 PM CDT [facility] ABSOLUTE BASOPHILS 0.1 <0.3 thou/cu mm 10/17/2024 9:52 PM CDT [facility] ABSOLUTE IMMATURE GRANULOCYTES(MET ,MYELOS,PROS) 0.0 <0.3 thou/cu mm 10/17/2024 9:52 PM CDT [facility] Blood BLOOD SPECIMEN / Unknown Non-Lab Venipuncture / Unknown 10/17/2024 9:25 PM CDT 10/17/2024 9:35 PM CDT us Rufus Echevarria MD HEMATOLOGY Geetha l Result [facility] [address] [place] [address], [place] * PROCALCITONIN (10/17/2024 9:25 PM CDT) Only the most recent of2 resultswithin the time period is included. PROCALCITONIN 0.03 ng/ml 10/17/2024 10:12 PM T [facility] Blood BLOOD SPECIMEN / Unknown Non-Lab Venipuncture / Unknown 10/17/2024 9:25 PM CDT 10/17/2024 9:35 PM CDT [facility]AT[facility] - 10/17/2024 10:12 PM CDT [...] OUTS Geetha l Result Performing Organization Address [facility] Co de Phone Number [facility] [address] [place] [address], [place] * URINALYSIS MICROSCOPIC (10/17/2024 9:25 PM CDT) Only the most recent of2 resultswithin the time period is included. RBC 0-2 0-2, None Seen /HPF 10/17/2024 10:25 PM CDT [facility] WBC 0-2 0-2, 3-5, None Seen /HPF 10/17/2024 10:25 PM CDT [facility] BACTERIA None Seen None Seen, Rare, Few Bacteria/ HPF 10/17/2024 10:25 PM CDT [facility] EPITHELIAL CELLS None Seen None Seen, Few Epi/HPF 10/17/2024 10:25 PM CDT [facility] HYALINE CASTS 0-2 0-2, 3-5 /LPF 10/17/2024 10:25 PM CDT [facility] Urine URINE SPECIMEN / Unknown Non-Blood / Unknown 10/17/2024 9:25 PM CDT 10/17/2024 9:36 PM CDT Rufus Echevarria MD URINE Geetha l Result Performing Organization Address [facility] Co de Phone Number [facility] [address] [place] [address], [place] * (ABNORMAL) URINALYSIS W RELEX MICROSCOPIC IF POSITIVE (10/17/2024 9:25 PM CDT) Only the most recent of2 resultswithin the time period is included. COLOR Yellow Yellow Color 10/17/2024 10:25 PM CDT [facility] CLARITY Clear Clear Clarity 10/17/2024 10:25 PM CDT [facility] SPECIFIC GRAVITY,URINE <=1.005(A) 1.010, 1.015, 1.020, 1.025 10/17/2024 10:25 PM CDT [facility] PH,URINE 8.0 6.0, 7.0, 8.0, 5.5, 6.5, 7.5, 8.5 10/17/2024 10:25 PM CDT [facility] UROBILINOGEN, QUALITATIVE Normal Normal EU/dl 10/17/2024 10:25 PM CDT [facility] PROTEIN, URINE Negative Negative mg/dL 10/17/2024 10:25 PM CDT [facility] GLUCOSE, URINE Negative Negative mg/dL 10/17/2024 10:25 PM CDT [facility] KETONES,URINE Negative Negative mg/dL 10/17/2024 10:25 PM CDT [facility] BILIRUBIN,URI NE Negative Negative 10/17/2024 10:25 PM CDT [facility] OCCULT BLOOD,URINE Negative Negative 10/17/2024 10:25 PM CDT [facility] NITRITE Positive(A) Negative 10/17/2024 10:25 PM CDT [facility] LEUKOCYTE ESTERASE Negative Negative 10/17/2024 10:25 PM CDT [facility] Urine URINE SPECIMEN / Unknown Non-Blood / Unknown 10/17/2024 9:25 PM CDT 10/17/2024 9:36 PM CDT us Rufus Echevarria MD URINE Geetha l Result [facility] [address] [place] [address], * PROTIME-INR (10/17/2024 9:25 PM CDT) INR 1.0 <1.3 10/17/2024 9:59 PM CDT [facility] PROTIME 11.3 10.6 - 12.4 sec 10/17/2024 9:59 PM CDT [facility] Blood BLOOD SPECIMEN / Unknown Non-Lab Venipuncture / Unknown 10/17/2024 9:25 PM CDT 10/17/2024 9:35 PM CDT Narrative [facility] - 10/17/2024 9:59 PM CDT Therapeutic [...] Rufus Echevarria MD HEMATOLOGY Geetha l Result [facility] [address] [place] [address], * (ABNORMAL) COMP METABOLIC PANEL (10/17/2024 9:25 PM CDT) SODIUM 139 136 - 145 mmol/L 10/17/2024 10:00 PM CDT [facility] POTASSIUM 4.4 3.5 - 5.1 mmol/L 10/17/2024 10:00 PM CDT [facility] CHLORIDE 103 98 - 107 mmol/L 10/17/2024 10:00 PM CDT [facility] CO2,TOTAL 26 22 - 29 mmol/L 10/17/2024 10:00 PM T [facility] ANION GAP 10 5 - 18 10/17/2024 10:00 PM T [facility] GLUCOSE 129(H) 70 - 99 mg/dL 10/17/2024 10:00 PM CDT [facility] CALCIUM 9.5 8.8 - 10.4 mg/dL 10/17/2024 10:00 PM [facility] Comment: Reference ranges for this test were updated on 06/13/2024 to reflect our healthy population more accurately. Reference range changes are not retroactively applied to results, but previous results using the same methodology can be interpreted in the context of the new reference range. BUN 4(L) 6 - 20 mg/dL 10/17/2024 10:00 PM [facility] CREATININE 0.77 0.50 - 0.90 mg/dL 10/17/2024 10:00 PM [facility] BUN/CREAT RATIO 5(L) 10 - 20 10:[address] [facility] eGFR >90 >90 mL/min/1. 73m2 10/17/2024 10:00 PM [facility] Comment:As of 2021, eG FR is calculated by the CKD-EPI creatinine equation without race adjustment. eGFR can be influenced by muscle mass, exercise, and diet. The reported eGFR is an estimation only and is only applicable if the renal function is stable. ALBUMIN 4.2 4.0 - 4.9 g/dL 10/17/2024 10:00 PM [facility] PROTEIN,TOTAL 7.3 6.0 - 8.0 g/dL 10/17/2024 10:00 PM [facility] BILIRUBIN,TOTAL 0.5 0.0 - 1.2 mg/dL 10/17/2024 10:00 PM [facility] ALK PHOSPHATASE 46 35 - 104 IU/L 10/17/2024 10:[address] [facility] ALT (SGPT) 14 10 - 35 IU/L 10/17/2024 10:00 PM [facility] AST (SGOT) 17 10 - 35 IU/L 10/17/2024 10:[address] [facility] Blood BLOOD SPECIMEN / Unknown Non-Lab Venipuncture / Unknown 10/17/2024 9:25 PM CDT 10/17/2024 9:35 PM CDT us Rufus Echevarria MD CHEMISTRY Geetha l Result [facility] [address] [place] [address], [place] * (ABNORMAL) CBC W PLT NO DIFF (10/13/2024 8:57 AM SANITARIAN INSPECTOR) Only the most recent of2 resultswithin the [...] 6.5 - 11.0 fL 10/13/2024 9:37 AM [facility] Blood BLOOD SPECIMEN / Unknown Butterfly / Unknown 10/13/2024 8:57 AM SANITARIAN INSPECTOR 10/13/2024 9:33 AM SANITARIAN INSPECTOR us Sacha Wren MD HEMATOLOGY Geetha l Result [facility] [address] [place] [address] * (ABNORMAL) C-REACTIVE PROTEIN (10/13/2024 8:57 AM SANITARIAN INSPECTOR) [facility] C-REACTIVE PROTEIN 1.3(H) <0.5 mg/dL 10/13/2024 9:35 AM SANITARIAN INSPECTOR [facility] Blood BLOOD SPECIMEN / Unknown Butterfly / Unknown 10/13/2024 8:57 AM SANITARIAN INSPECTOR 10/13/2024 9:15 AM SANITARIAN INSPECTOR us Sacha Wren MD CHEMISTRY Geetha l Result Performing Organization Address [facility] Co de Phone Number [facility] [address] [place] [address] * TROPONIN T (HS) ONE TIME (10/12/2024 12:43 PM SANITARIAN INSPECTOR) [facility] TROPONIN T HS 7 6-10 ng/L ng/L 10/12/2024 1:07 PM SANITARIAN INSPECTOR [facility] Blood BLOOD SPECIMEN / Unknown Butterfly / Unknown 10/12/2024 12:43 PM SANITARIAN INSPECTOR 10/12/2024 12:46 PM SANITARIAN INSPECTOR us Miko Siddiqui MD CHEMISTRY Final R esult Performing Organization Address [facility] de Phone Number [facility] [address] [place] [phone] * EKG 12 LEAD (10/12/2024 10:52 AM SANITARIAN INSPECTOR) [facility] Interpretation Normal sinus rhythm Normal ECG When compared with ECG of 03-Jan-2024 12:43, No significant change was found no ST elevation BEYOND NOW Ventricular Rate 84 BPM BEYOND NOW Atrial Rate 84 BPM BEYOND NOW P-R Interval 138 ms BEYOND NOW QRS Duration 70 ms BEYOND NOW QT 360 ms BEYOND NOW QTc 425 ms BEYOND NOW P [place] 53 degrees BEYOND NOW R [place] 51 degrees BEYOND NOW T [place] 44 degrees BEYOND NOW 10/12/2024 10:5 2 AM SANITARIAN INSPECTOR 10/12/2024 11:15 AM SANITARIAN INSPECTOR us Miko Siddiqui MD EKG ORD Final R esult [place] * TROPONIN T (HS) ACUTE W/2HR REFLEX (10/12/2024 10:43 AM SANITARIAN INSPECTOR) TROPONIN T HS <6 6-10 ng/L ng/L 10/12/2024 11:11 AM SANITARIAN INSPECTOR [facility] Blood BLOOD SPECIMEN / Unknown Venipuncture / Unknown 10/12/2024 10:43 AM SANITARIAN INSPECTOR 10/12/2024 10:48 AM SANITARIAN INSPECTOR Narrative [facility] - 10/12/2024 11:11 AM SANITARIAN INSPECTOR hs-cTnT (Elecsys Troponin T Gen 5) concentration [...] CHEMISTRY Final R esult Performing Organization Address [facility] Co de Phone Number [facility] [address] [place] [address] * LIPASE (10/12/2024 10:43 AM SANITARIAN INSPECTOR) [facility] LIPASE 29.8 13.0 - 60.0 IU/L 10/12/2024 11:11 AM [facility] Blood BLOOD SPECIMEN / Unknown Venipuncture / Unknown 10/12/2024 10:43 AM SANITARIAN INSPECTOR 10/12/2024 10:48 AM SANITARIAN INSPECTOR Miko Siddiqui MD CHEMISTRY Final R esult Performing Organization Address [facility] Co de Phone Number [facility] [address] [place] [address] * HEPATIC FUNCTION PANEL (10/12/2024 10:43 AM SANITARIAN INSPECTOR) Only the most recent of2 resultswithin the time period is included. [facility] ALBUMIN 4.5 4.0 - 4.9 g/dL 10/12/2024 [...] Unknown Venipuncture / Unknown 10/12/2024 10:43 AM SANITARIAN INSPECTOR 10/12/2024 10:48 AM [facility] Miko Siddiqui MD CHEMISTRY Final R esult [facility] [address] [place] [address] * (ABNORMAL) BASIC METABOLIC PANEL (10/12/2024 10:43 [...] Unknown Venipuncture / Unknown 10/12/2024 10:43 AM SANITARIAN INSPECTOR 10/12/2024 10:48 AM SANITARIAN INSPECTOR Miko Siddiqui MD CHEMISTRY Final R esult [facility] [address] [place] [address] * CT ABDOMEN PELVIS STONE PROTOCOL WO (10/11/2024 2:31 PM SANITARIAN INSPECTOR) Anatomical Region Laterality Modality Abdomen, Pelvis, AORTA, LIVER, SPLEEN Computed Tomography 10/11/2024 3:00 PM SANITARIAN INSPECTOR Impressions 10/11/2024 3:00 PM SANITARIAN INSPECTOR No acute intra-abdominal process identified. No renal stones. No hydronephrosis. Please note that all CT scans at this facility use dose modulation, iterative reconstruction, and/or weight-based dosing when appropriate to reduce radiation dose to as low as reasonably achievable. Dictated by Kamran Blanco MD @ 10/11/2024 3:00:01 PM (Electronically Signed) Narrative 10/11/2024 3:00 PM SANITARIAN INSPECTOR For Patients: As a result of the [...] POCT Urinalysis Dipstick Only (10/11/2024 2:13 PM SANITARIAN INSPECTOR) PH 6.0 5.0 - 8.0 [facility] SPECIFIC GRAVITY < OR = 1.005 1.001 - 1.035 [facility] Comment: Specific [place] values resulted are outside the analytical measurement range of this device. Recommend repeat/additional testing as clinically indicated. GLUCOSE NEGATIVE NEGATIVE [facility] BILIRUBIN NEGATIVE NEGATIVE [facility] KETONES NEGATIVE NEGATIVE [facility] OCCULT BLOOD NEGATIVE NEGATIVE [facility] PROTEIN NEGATIVE NEGATIVE [facility] NITRITE NEGATIVE NEGATIVE [facility] LEUKOCYTE ESTERASE NEGATIVE NEGATIVE [facility] Urine URINE SPECIMEN / Unknown 10/11/2024 2:13 PM SANITARIAN INSPECTOR 10/11/2024 2:13 PM SANITARIAN INSPECTOR us Yao Vail MD URINE Final Result Performing Organization Address City/[facility]/ZIP Co de Phone Number [facility] [address] [place] [address], [facility] [address] [place] [address] * URINE CULTURE (10/11/2024 2:11 PM SANITARIAN INSPECTOR) CULTURE No growth (<1,000 CFU/mL) 10/13/2024 9:31 AM SANITARIAN INSPECTOR [facility] Urine URINE SPECIMEN / Unknown Non-Blood / Unknown 10/11/2024 2:11 PM SANITARIAN INSPECTOR 10/11/2024 2:11 PM SANITARIAN INSPECTOR us Yao Vail MD MICROBIOLOGY Final Result [facility] [address] [place] [id number], * CBC AND DIFFERENTIAL (10/11/2024 2:11 PM SANITARIAN INSPECTOR) Only the most recent of2 resultswithin the [...] BLOOD SPECIMEN / Unknown 10/11/2024 2:11 PM SANITARIAN INSPECTOR 10/11/2024 2:12 PM SANITARIAN INSPECTOR us Yao Vail MD HEMATOLOGY Final Result [facility] [address] [place] [address], [place] [phone] [facility] [address] [place] [address] * COVID/FLU/RSV PANEL (10/11/2024 2:04 PM SANITARIAN INSPECTOR) Pathologist [facility] [place] COVID 19 [facility] Negative Negative 10/11/2024 11:37 PM SANITARIAN INSPECTOR [facility] Comment:All PCR tests are chauhan bject to false negative result due to variability in viral load and collection technique. A negative result does not rule out a SARS-CoV-2 infection. Clinical correlation required. INFLUENZA A PCR Negative 11:37 PM SANITARIAN INSPECTOR [facility] INFLUENZA B PCR Negative 11:37 PM SANITARIAN INSPECTOR [facility] Respiratory Syncytial Virus Negative 10/11/2024 11:37 PM SANITARIAN INSPECTOR [facility] Swab NASOPHARYNGEAL SWAB / Unknown Non-Blood / Unknown 10/11/2024 2:04 PM SANITARIAN INSPECTOR 10/11/2024 2:04 PM SANITARIAN INSPECTOR us Yao Vail MD MICROBIOLOGY Final Result [facility] [address] [place] [address], * TSH (10/06/2024 4:26 PM SANITARIAN INSPECTOR) Only the most recent of2 resultswithin the time period is included. TSH 1.63 mIU/L [facility] Comment: Reference Range > or = 20 Years 0.40-4.50 Ranges First trimester 0.26-2.66 Second trimester 0.55-2.73 Third trimester 0.43-2.91 Blood BLOOD SPECIMEN / Unknown 10/06/2024 4:26 PM SANITARIAN INSPECTOR 10/06/2024 4:28 PM SANITARIAN INSPECTOR Narrative [facility] - 10/07/2024 5:08 AM SANITARIAN INSPECTOR FASTING:NO FASTING: NO Ward GONZALEZ CHEMISTRY Final Resu lt [facility] [address] [place] [address], [place] [phone] [facility] [address] [facility] [place] [address] * T3,TOTAL (10/06/2024 4:26 PM SANITARIAN INSPECTOR) Only the most recent of2 resultswithin the time period is included. T3, TOTAL 106 76 - 181 ng/dL [facility] Marco Antonio Blood BLOOD SPECIMEN / Unknown 10/06/2024 4:26 PM SANITARIAN INSPECTOR 10/06/2024 4:28 PM SANITARIAN INSPECTOR Narrative [facility] - 10/07/2024 5:08 AM SANITARIAN INSPECTOR FASTING:NO FASTING: NO Ward GONZALEZ CHEMISTRY Final Resu lt Performing Organization Address [facility]/ZIP Co de Phone Number [facility] [address] [place] [address], [place] [phone] [facility] [address] [facility] [place] [address] * ALT (SGPT) (10/06/2024 4:26 PM SANITARIAN INSPECTOR) ALT 15 6 - 29 U/L [facility] Marco Antonio Blood BLOOD SPECIMEN / Unknown 10/06/2024 4:26 PM SANITARIAN INSPECTOR 10/06/2024 4:28 PM SANITARIAN INSPECTOR Narrative [facility] - 10/07/2024 3:29 AM SANITARIAN INSPECTOR FASTING:NO FASTING: NO Ward GONZALEZ CHEMISTRY Final Resu lt [facility] [address] [address], [place] [phone] [facility] [address] [place] [address] * AST (SGOT) (10/06/2024 4:26 PM SANITARIAN INSPECTOR) AST 19 10 - 35 U/L [facility] Bernard Blood BLOOD SPECIMEN / Unknown 10/06/2024 4:26 PM SANITARIAN INSPECTOR 10/06/2024 4:28 PM SANITARIAN INSPECTOR Narrative [facility] - 10/07/2024 3:29 AM SANITARIAN INSPECTOR FASTING:NO FASTING: NO Ward GONZALEZ CHEMISTRY Final Resu lt Performing Organization Address [facility]/ZIP Co de Phone Number [facility] [address] [place] [address], [facility] [address] [place] [address] * T4,FREE (10/06/2024 4:26 PM SANITARIAN INSPECTOR) Only the most recent of2 resultswithin the time period is included. T4, FREE 0.9 0.8 - 1.8 ng/dL [facility] Bernard Blood BLOOD SPECIMEN / Unknown 10/06/2024 4:26 PM SANITARIAN INSPECTOR 10/06/2024 4:28 PM SANITARIAN INSPECTOR Narrative [facility] - 10/07/2024 5:08 AM SANITARIAN INSPECTOR FASTING:NO FASTING: NO Ward GONZALEZ CHEMISTRY Final Resu lt [facility] [address] [place] [address], [facility] [address] [place] [address] * HOME SLEEP TEST TYPE 3 PORTABLE (09/18/2024 11:59 PM SANITARIAN INSPECTOR) Ward Medrano MD - 09/18/2024 11:59 PM Ward Remy MD 09/19/2024 4:53 PM Home Sleep Test Name: Kailey Newman Location: [facility] notes: This is a single night home [...] and interpreted by a Diplomate of the [place] [employer]. Raw summary data [...] Kline DO SLEEP CENTER Final Result * VOCATIONAL REHAB CONSULTANT THIN PREP PAP SCREEN IMAGED [[id number]] (01/10/2024 12:13 PM CDT) Case Report Gynecologic Cytology Report Case: [id number] Authorizing Provider: Jovanna Kline DO Collected: 01/10/2024 1213 Ordering Location: [facility] Received: 01/10/2024 1213 Clinic First Screen: Charo Paredes Specimen: VOCATIONAL REHAB CONSULTANT ThinPrep Vial Screening, Cervical 01/20/2024 8:40 AM CDT [facility] INTERPRETATION/ RESULT NEGATIVE FOR INTRAEPITHELIAL LESION OR MALIGNANCY (NIL) (none) 01/20/2024 8:40 AM CDT [facility] IMEN ADEQUACY Satisfactory for evaluation Endocervical component present 01/20/2024 8:40 AM CDT [facility] HPV REQUEST HPV and PAP 01/20/2024 8:40 AM CDT [facility] Date of LMP postmenopausal 4 8:40 AM CDT [facility] Last Pap Date 02/25/18 01/20/2024 8:40 AM CDT [facility] Last Pap Result NIL 8:40 AM CDT [facility] Abnormal Pap or [place] Bx in last 5 years No 01/20/2024 8:40 AM CDT [facility] Menstrual Status Postmenopausal 01/20/2024 8:40 AM CDT [facility] [place] Bx Done Today No 01/20/2024 8:40 AM CDT [facility] Additional Information None given 01/20/2024 8:40 AM CDT [facility] Comment: Cytology is screened at [facility] - [address], [place] [address] and [facility] - [address], [place] [address] and [facility] - [address] [place] [address] Interpreted at [facility] - [address], [place] [address] Automated Review Successful 01/20/2024 8:40 AM CDT [facility] Comment:Specimen processed s uccessfully by automated aircraft delivery checker device, ThinPrep Imaging System, [employer] ANCILLARY TESTING VOCATIONAL REHAB CONSULTANT HPV Ordered, Please see separate report 01/20/2024 8:40 AM CDT [facility] Note The pap test is a [...] and malignant lesions. 01/20/2024 8:[address] [facility] Other (Cervical) Non-Blood / Unknown 01/10/2024 12:13 PM CDT 01/10/2024 12:13 PM CDT us Jovanna Kline DO PATHOLOGY/CYTOLOGY Final Resu lt [facility] [address] [place] [address], [place] * LIPID PANEL W REFLEX MEASURED LDL (01/10/2024 12:04 PM CDT) CHOLESTEROL,TOTAL 171 100 - 199 mg/dL 01/11/2024 9:36 AM CDT [facility] Comment: Cholesterol, Total Reference Ranges Desirable <200 mg/dL Borderline 200-239 mg/dL High >=240 mg/dL TRIGLYCERIDES 116 <150 mg/dL 01/11/2024 9:36 AM CDT [facility] HDL CHOLESTEROL 64 >40 mg/dL 9:36 AM CDT [facility] NON-HDL CHOLESTEROL 107 <145 mg/dl 01/11/2024 9:36 AM CDT [facility] CHOL/HDL RATIO 2.67 <4.50 01/11/2024 9:36 AM CDT [facility] LDL CHOLESTEROL 84 <=130 mg/dL 01/11/2024 9:36 AM CDT [facility] VLDL CHOLESTEROL 23 <=30 mg/dL 01/11/2024 9:36 AM CDT [facility] PROVIDER ORDERED STATUS RANDOM 01/11/2024 9:36 AM CDT [facility] Blood BLOOD SPECIMEN / Unknown Venipuncture / Unknown 01/10/2024 12:04 PM CDT 01/10/2024 12:05 PM CDT us Jovanna Kline DO CHEMISTRY Final Result [facility] [address] [place] [address], [place] * XR MAMMO ERIKA BILAT SCREEN [...] care provider. XR MAMMO ERIKA BILAT SCREEN [[id number]] CLINICAL HISTORY: This is an asymptomatic 53 [...] MAMMO Final Result * SDNA-FIT EXTERNAL (COLOGUARD) [[id number]] (12/16/2023 7:40 AM CDT) NONINV COLON CA DNA+OCC BLD SCRN STL-IMP Negative Negative 12/23/2023 5:48 PM CDT [facility] (CLIA #:[id number]) Comment: NEGATIVE TEST RESULT. A negative Cologuard [...] Thomas et al, N Engl J Med 2014;370(14):1614-2558) The normal value (reference range) for this assay is negative. COLOGUARD RE-SCREENING RECOMMENDATION: Periodic colorectal cancer screening is an important part of preventive healthcare for asymptomatic individuals at average risk for colorectal cancer. Following a negative Cologuard result, the [place] [employer] Society and U.S. Multi-Society Task Force screening guidelines recommend a Cologuard re-screening interval of 3 years. References: [place] [employer] Guideline for Colorectal Cancer Screening: https://www.cancer.org/cancer/mwnkp-aggrcr-xngrwi/xdrcemedl-aovgyomhy-qdgheqj/ac s-rec ommendations.html.; Bala SMITH Fozia PITTS, Gonzalo HardinK, Colorectal Cancer Screening: Recommendations for Physicians and Patients from the U.S. Multi-Society Task Force on Colorectal Cancer Screening , Am J Gastroenterology 2017; 112:1764-6234. TEST DESCRIPTION: Composite algorithmic analysis of stool [...] (Radha Mehta al, N Engl J Med 2014;370(14):2247-1691.) Cologuard may produce a false negative or false positive result (no colorectal cancer or precancerous polyp present at colonoscopy follow up). A negative Cologuard test result does not guarantee the absence of CRC or advanced adenoma (pre-cancer). The current Cologuard screening interval is every 3 years. ([place] [employer] and U.S. Multi-Society Task Force). Cologuard performance data in a 10,000 patient pivotal study using colonoscopy as the reference method can be accessed at the following location: [email or web address]/results. Additional description of the Cologuard test process, warnings and precautions can be found at [email or web address]. Stool specimen (specimen) (Rectum) 12/16/2023 7:40 AM CDT 12/17/2023 12:25 PM CDT us Jovanna Kline DO URINE Final Result [facility] (CLIA #:[id number]) [place] [address], [place] [phone] * LC HCV ANTIBODY RFX TO QUANT PCR (12/03/2022 12:00 PM CDT) Pathologist [facility] HCV Ab Non Reactive Non Reactive 12/05/2022 3:08 PM CDT [facility]) Blood BLOOD SPECIMEN / Unknown Venipuncture / Unknown 12/03/2022 12:00 PM CDT 12/03/2022 12:02 PM CDT Narrative [facility]) - 12/05/2022 3:08 PM CDT Performed at: [address] [place] [id number] Surgical Services Manager: Nelson Ruff MD, Phone: [phone] [facility] Fin al Result Performing Organization Address City/[facility] Co de Phone Number [facility] ([facility]) [address] [place] [address], * LC HIV-1/O/2, 4TH GENERATION (12/03/2022 12:00 PM CDT) [facility] HIV Scr 4th Gen Non Reactive Non Reactive 12/05/2022 12:08 PM CDT [facility]) Comment: HIV Negative HIV-1/HIV-2 antibodies and HIV-1 p24 antigen were NOT detected. There is no laboratory evidence of HIV infection. Blood BLOOD SPECIMEN / Unknown Venipuncture / Unknown 12/03/2022 12:00 PM CDT 12/03/2022 12:[address] [facility] ([facility]) - 12/05/2022 12:08 PM CDT Performed at: - [facility] [address] [place], [place] [id number] Surgical Services Manager: Nelson Ruff MD, Phone: [phone] [facility] Fin al Result [facility] ([facility]) [facility] [place] [address], from Last 3 Months or Most Recently [...] with C diff symptoms 10/18/2024 10/18/2024 Insurance [facility] [place] Advance Directives * Full Code (Latest Code Status on File) Date Activated Date Inactivated Comments 10/17/2024 11:11 PM 10/18/2024 1:27 PM Question Answer Comments Code Status Discussion: Reviewed Preferences Care Teams Procurement Buyer Relationship Specialty Start Date End Date Shaqra, Jovanna Jeimy, DO [address] [place] [address] PCP - General Family Practice 09/02/22 Jolly Calabrese PA Physician Slusher Operator 10/23/21 Ward Che PA [address] [address] Endocrinology Physician Slusher Operator 06/29/24
[2024-10-19 23:18] VITALS: BP 141/71; PULSE 117; RESP 16; TEMP 36.4; O2SAT 96; BMI 29.5
--- OUTSIDE RECORDS SUMMARY | 2024-10-20 00:34 | XMS_ITS | Clinical Summary ---
Author Organization [facility] Address [address] [place] [address] Care Team Providers Care Portable Sawmill Operator Name Role Phone Jolly Calabrese Unavailable [phone] Jovanna Kline DO Primary Care Provider Ward Che Unavailable [phone] Allergies Active Allergy Reactions Criticality Noted Date [...] Department Care Team Description 10/19/2024 Nurse Triage [facility] [address] [place] [address] Jovanna Kline Jeimy, DO Dizzy 10/19/2024 Patient Outreach [facility] [address] [place] [address] Marcela Alexandra, RN Primary RN Care Management; Hospital F/U (LACE 52) 10/18/2024 Nurse Triage [facility] [address] [place] [address] Sir Klinei Jeimy, DO Mouth/Lip Problem 10/17/2024 8:22 PM CDT - 10/18/2024 11:21 AM CDT Emergency [facility] [address] [place] [address] Rufus Echevarria MD [facility], [facility] Jo[facility] Coelho MD Puchalski, Jessica Leigh, PA Generalized weakness (Primary Dx); Back pain, unspecified back location, unspecified back pain laterality, unspecified chronicity; C. difficile colitis; Facial numbness; Generalized pain Discharge Disposition: Home Self Care 10/17/2024 Travel 10/17/2024 Telephone [facility] [address] [place] [address] Sir Klinei Jeimy, DO Results 10/16/2024 E-Visit [facility] [address] [place] [address] Eliud Jovanna Jeimy, DO Cdiff 10/13/2024 8:30 AM RADIOLOGY TEACHER - 10/13/2024 10:46 AM [facility] Emergency [address] [address] Sacha Wren MD Flank pain (Primary Dx); Bladder pain; Nausea Discharge Disposition: Home Self Care 10/13/[address] [address] Amie Lindo MD Questions (appointment//nurse visit) 10/13/[address] [facility] [address] [place] [address] Aime Lindo MD Appointment 10/13/2024 Travel 10/12/2024 10:14 AM RADIOLOGY TEACHER - 10/12/2024 1:51 PM RADIOLOGY TEACHER Emergency [facility] [address] [place] [address] Miko Siddiqui MD Pain of upper extremity, unspecified laterality (Primary Dx); Back pain, unspecified back location, unspecified back pain laterality, unspecified chronicity; Myalgia; Nausea; Abdominal pain, unspecified abdominal location Discharge Disposition: Home Self Care 10/12/2024 Nurse Triage [facility] [address] [place] [address] Amie Lindo MD Medication Management (methenamine hippurate (HIPREX) 1 gram tablet) 10/11/2024 3:00 PM RADIOLOGY TEACHER Ancillary Procedure [address] [address] 10/11/2024 1:15 PM RADIOLOGY TEACHER Office Visit [address] [address] Yao Vail MD ER Follow up ([facility], 10/09/2024, UTI - symptoms getting worse) 10/11/2024 Travel 10/11/2024 Nurse Triage [address] [address] Jovanna Kline, Flank Pain; Urinary Tract Infection 10/06/2024 Travel 09/21/2024 2:20 PM RADIOLOGY TEACHER E-Visit [address] [address] Jovanna Kline, eVisit for Vaginal Discharge / Irritation 09/19/2024 7:30 AM RADIOLOGY TEACHER Nurse/Clinic Staff Only [address] [address] Testing (HST Return/Download.) 09/18/2024 2:15 PM RADIOLOGY TEACHER Nurse/Clinic Staff Only [address] [address] Testing (HST Set-up) 09/18/2024 Procedure Only [address] [address] Ward Castillo MD Results (HST) 09/18/2024 Travel 09/04/2024 Refill [facility] [address] [facility] [place] [address] Jovanna Kline, Refill Request (Pregabalin) 08/24/2024 3:00 PM RADIOLOGY TEACHER Office Visit [facility] [address] [facility] [address] [place] [address] Amie Lindo MD Consult (Recurring UTI) 08/24/2024 Travel 08/18/2024 2:10 PM RADIOLOGY TEACHER Office Visit [facility] [address] [place] [address] Jovanna Kline, Medication Management (Oxycodone renew - change amitriptyline to nortriptyline due to weight gain) 08/18/2024 Travel 08/08/2024 4:15 PM RADIOLOGY TEACHER Orders Only [facility] [address] [facility] [place] [address] Lab, Marilou <No scans attached> 08/08/2024 Travel 08/07/2024 Refill [facility] [address] [facility] [address] Jovanna Kline, Refill Request (Pregabalin) from Last [...] on file Legal Sex Female 4:43 PM RADIOLOGY TEACHER Gender Identity Not on file Sexual Orientation Not on file 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 Not on file [...] Description 10/24/2024 1:45 PM CDT Office Visit [facility] [address] [place] [address] Jovanna Kline DO [address] [place] [address] 10/27/2024 2:20 PM CDT Telemedicine [address] [place] [address] Ward Che PA [address] [place] [address] [place] [address] 11/13/2024 4:00 PM CDT Office Visit [facility] [address] [place] [address] Ward Castillo MD [address] [place] [address] Health Maintenance Due Date Last Done Comments [...] booster 01/14/2026 01/15/2016, 12/31/2004 Fecal testing sDNA-FIT ([place] guard) for age 45-75 12/15/2026 12/16/2023, 05/23/2020 [...] REFLEXED PER CRITERIA STAT 10/13/2024 9:10 AM RADIOLOGY TEACHER PROCALCITONIN STAT 10/13/2024 8:57 AM RADIOLOGY TEACHER C-REACTIVE PROTEIN STAT 10/13/2024 8: 57 AM RADIOLOGY TEACHER CBC W PLT NO DIFF STAT 10/13/2024 8:5 7 AM RADIOLOGY TEACHER TROPONIN T (HS) ONE TIME Timed 10/12/2024 12:43 PM RADIOLOGY TEACHER EKG 12 LEAD STAT 10/12/2024 10:52 AM RADIOLOGY TEACHER TROPONIN T (HS) ACUTE W/2HR REFLEX STAT 10/12/2024 10:43 AM RADIOLOGY TEACHER HEPATIC FUNCTION PANEL STAT 10/12/2024 10:43 AM RADIOLOGY TEACHER LIPASE STAT 10/12/2024 10:43 AM RADIOLOGY TEACHER BASIC METABOLIC PANEL STAT 10/12/2024 10:43 AM RADIOLOGY TEACHER CBC W PLT NO DIFF STAT 10/12/2024 10: [address] ABDOMEN PELVIS STONE PROTOCOL WO STAT 10/11/2024 2:31 PM RADIOLOGY TEACHER Flank pain URINALYSIS MACROSCOPIC - [facility] ONLY POC DIP (QUEST) Routine 10/11/2024 2:13 PM RADIOLOGY TEACHER Flank pain URINALYSIS MICROSCOPIC Routine 10/11/2024 2:11 PM RADIOLOGY TEACHER Flank pain URINE CULTURE Routine 10/11/2024 2:11 PM RADIOLOGY TEACHER Flank pain CBC WITH AUTO DIFFERENTIAL Routine 10/11/2024 2:11 PM RADIOLOGY TEACHER Flank pain HEPATIC FUNCTION PANEL Routine 10/11/2024 2:11 PM RADIOLOGY TEACHER Flank pain BASIC METABOLIC PANEL Routine 10/11/2024 2:11 PM RADIOLOGY TEACHER Flank pain COVID/FLU/RSV PANEL Routine 10/11/2024 2 :04 PM RADIOLOGY TEACHER Cough, unspecified type ALT (SGPT) Routine 10/06/2024 4:26 PM RADIOLOGY TEACHER Graves' disease AST (SGOT) Routine 10/06/2024 4:26 PM RADIOLOGY TEACHER Graves' disease CBC WITH AUTO DIFFERENTIAL Routine 10/06/2024 4:26 PM RADIOLOGY TEACHER Graves' disease T3,TOTAL Routine 10/06/2024 4:26 PM RADIOLOGY TEACHER Graves' disease T4,FREE Routine 10/06/2024 4:26 PM RADIOLOGY TEACHER Graves' disease TSH Routine 10/06/2024 4:26 PM RADIOLOGY TEACHER Graves' disease HOME SLEEP TEST TYPE 3 PORTABLE Routine 09/18/2024 11:59 PM RADIOLOGY TEACHER Suspected sleep apnea TSH Routine 08/08/2024 4:11 PM RADIOLOGY TEACHER Graves' disease T3,TOTAL Routine 08/08/2024 4:11 PM RADIOLOGY TEACHER Graves' disease T4,FREE Routine 08/08/2024 4:11 PM RADIOLOGY TEACHER Graves' disease MACHINE LEAD BURNER THIN PREP PAP SCREEN IMAGED Routine 01/10/2024 [...] W SHUKLA (10/17/2024 9:54 PM CDT) Pathologist [facility] LACTATE VENOUS SCREEN ISTAT <1.8 <=2.0 10/17/2024 9:58 PM CDT [facility] LACTATE SCREEN VENOUS POCT 1.1 <=2.0 10/17/2024 9:58 PM CDT [facility] Blood BLOOD SPECIMEN / Unknown 10/17/2024 9:54 PM CDT 10/17/2024 9:58 PM CDT Rufus Echevarria MD LABORATORY Geetha l Result [facility] [address] [place] [address], * EXTRA TUBE SHUKLA ON ICE (10/17/2024 9:25 PM CDT) Blood BLOOD SPECIMEN / Unknown Non-Lab Venipuncture / Unknown 10/17/2024 9:25 PM CDT 10/17/2024 9:35 PM CDT Rufus Echevarria MD LABORATORY Geetha l Result [facility] [address] [place] [address], * CBC WITH AUTO DIFFERENTIAL (10/17/2024 9:25 PM CDT) WHITE BLOOD COUNT 8.2 4.5 - 11.0 thou/cu mm 10/17/2024 9:52 PM CDT [facility] RED BLOOD COUNT 4.76 4.00 - 5.20 mil/cu mm 10/17/2024 9:52 PM CDT [facility] HEMOGLOBIN 13.5 12.0 - 16.0 g/dL 10/17/2024 9:52 PM CDT [facility] HEMATOCRIT 42.0 33.0 - 51.0 % 10/17/2024 9:52 PM CDT [facility] MCV 88 80 - 100 fL 10/17/2024 9:52 PM CDT [facility] MCH 28.4 26.0 - 34.0 pg 10/17/2024 9:52 PM CDT [facility] MCHC 32.1 32.0 - 36.0 g/dL 10/17/2024 9:52 PM CDT [facility] RDW 13.7 11.5 - 15.5 % 10/17/2024 9:52 PM CDT [facility] PLATELET COUNT 280 140 - 440 thou/cu mm 10/17/2024 9:52 PM CDT [facility] MPV 10.1 6.5 - 11.0 fL 10/17/2024 9:52 PM CDT [facility] NRBC 0.0 % 10/17/2024 9:52 PM CDT [facility] ABS NRBC 0.0 thou /cu mm 10/17/2024 9:52 PM CDT [facility] % NEUT 70.7 % 10/17/2024 9:52 PM CDT [facility] % LYMPH 21.0 % 10/17/2024 9:52 PM CDT [facility] % MONO 6.3 % 10/17/2024 9:52 PM CDT [facility] % EOS 1.3 % 10/17/2024 9:52 PM CDT [facility] % BASO 0.6 % 10/17/2024 9:52 PM CDT [facility] % IMMATURE GRAN (METAS,MYELOS,CA OS) 0.1 % 10/17/2024 9:52 PM CDT [facility] ABSOLUTE NEUTROPHILS 5.8 1.7 - 7.0 thou/cu mm 10/17/2024 9:52 PM CDT [facility] ABSOLUTE LYMPHOCYTES 1.7 0.9 - 2.9 thou/cu mm 10/17/2024 9:52 PM CDT [facility] ABSOLUTE MONOCYTES 0.5 <0.9 thou/cu mm 10/17/2024 9:52 PM CDT [facility] ABSOLUTE EOSINOPHILS 0.1 <0.5 thou/cu mm 10/17/2024 9:52 PM CDT [facility] ABSOLUTE BASOPHILS 0.1 <0.3 thou/cu mm 10/17/2024 9:52 PM CDT [facility] ABSOLUTE IMMATURE GRANULOCYTES(MET ,MYELOS,PROS) 0.0 <0.3 thou/cu mm 10/17/2024 9:52 PM CDT [facility] Blood BLOOD SPECIMEN / Unknown Non-Lab Venipuncture / Unknown 10/17/2024 9:25 PM CDT 10/17/2024 9:35 PM CDT us Rufus Echevarria MD HEMATOLOGY Geetha l Result [facility] [address] [place] [address], [place] * PROCALCITONIN (10/17/2024 9:25 PM CDT) Only the most recent of2 resultswithin the time period is included. PROCALCITONIN 0.03 ng/ml 10/17/2024 10:12 PM T [facility] Blood BLOOD SPECIMEN / Unknown Non-Lab Venipuncture / Unknown 10/17/2024 9:25 PM CDT 10/17/2024 9:35 PM CDT [facility] - 10/17/2024 10:12 PM CDT Procalcitonin [...] OUTS Geetha l Result Performing Organization Address [facility] Co de Phone Number [facility] [address] [place] [address], [place] * URINALYSIS MICROSCOPIC (10/17/2024 9:25 PM CDT) Only the most recent of2 resultswithin the time period is included. RBC 0-2 0-2, None Seen /HPF 10/17/2024 10:25 PM CDT [facility] WBC 0-2 0-2, 3-5, None Seen /HPF 10/17/2024 10:25 PM CDT [facility] BACTERIA None Seen None Seen, Rare, Few Bacteria/ HPF 10/17/2024 10:25 PM CDT [facility] EPITHELIAL CELLS None Seen None Seen, Few Epi/HPF 10/17/2024 10:25 PM CDT [facility] HYALINE CASTS 0-2 0-2, 3-5 /LPF 10/17/2024 10:25 PM CDT [facility] Urine URINE SPECIMEN / Unknown Non-Blood / Unknown 10/17/2024 9:25 PM CDT 10/17/2024 9:36 PM CDT Rufus Echevarria MD URINE Geetha l Result Performing Organization Address [facility] Co de Phone Number [facility] [address] [place] [address], [place] * (ABNORMAL) URINALYSIS W RELEX MICROSCOPIC IF POSITIVE (10/17/2024 9:25 PM CDT) Only the most recent of2 resultswithin the time period is included. COLOR Yellow Yellow Color 10/17/2024 10:25 PM CDT [facility] CLARITY Clear Clear Clarity 10/17/2024 10:25 PM CDT [facility] SPECIFIC GRAVITY,URINE <=1.005(A) 1.010, 1.015, 1.020, 1.025 10/17/2024 10:25 PM CDT [facility] PH,URINE 8.0 6.0, 7.0, 8.0, 5.5, 6.5, 7.5, 8.5 10/17/2024 10:25 PM CDT [facility] UROBILINOGEN, QUALITATIVE Normal Normal EU/dl 10/17/2024 10:25 PM CDT [facility] PROTEIN, URINE Negative Negative mg/dL 10/17/2024 10:25 PM CDT [facility] GLUCOSE, URINE Negative Negative mg/dL 10/17/2024 10:25 PM CDT [facility] KETONES,URINE Negative Negative mg/dL 10/17/2024 10:25 PM CDT [facility] BILIRUBIN,URI NE Negative Negative 10/17/2024 10:25 PM CDT [facility] OCCULT BLOOD,URINE Negative Negative 10/17/2024 10:25 PM CDT [facility] NITRITE Positive(A) Negative 10/17/2024 10:25 PM CDT [facility] LEUKOCYTE ESTERASE Negative Negative 10/17/2024 10:25 PM CDT [facility] Urine URINE SPECIMEN / Unknown Non-Blood / Unknown 10/17/2024 9:25 PM CDT 10/17/2024 9:36 PM CDT us Rufus Echevarria MD URINE Geetha l Result [facility] [address] [place] [address], * PROTIME-INR (10/17/2024 9:25 PM CDT) INR 1.0 <1.3 10/17/2024 9:59 PM CDT [facility] PROTIME 11.3 10.6 - 12.4 sec 10/17/2024 9:59 PM CDT [facility] Blood BLOOD SPECIMEN / Unknown Non-Lab Venipuncture / Unknown 10/17/2024 9:25 PM CDT 10/17/2024 9:35 PM CDT Narrative [facility] - 10/17/2024 9:59 PM CDT Therapeutic [...] Rufus Echevarria MD HEMATOLOGY Geetha l Result [facility] [address] [place] [address], * (ABNORMAL) COMP METABOLIC PANEL (10/17/2024 9:25 PM CDT) SODIUM 139 136 - 145 mmol/L 10/17/2024 10:00 PM CDT [facility] POTASSIUM 4.4 3.5 - 5.1 mmol/L 10/17/2024 10:00 PM CDT [facility] CHLORIDE 103 98 - 107 mmol/L 10/17/2024 10:00 PM CDT [facility] CO2,TOTAL 26 22 - 29 mmol/L 10/17/2024 10:00 PM T [facility] ANION GAP 10 5 - 18 10/17/2024 10:00 PM T [facility] GLUCOSE 129(H) 70 - 99 mg/dL 10/17/2024 10:00 PM CDT [facility] CALCIUM 9.5 8.8 - 10.4 mg/dL 10/17/2024 10:[address] [facility] Comment: Reference ranges for this test were updated on 06/13/2024 to reflect our healthy population more accurately. Reference range changes are not retroactively applied to results, but previous results using the same methodology can be interpreted in the context of the new reference range. BUN 4(L) 6 - 20 mg/dL 10/17/2024 10:[address] [facility] CREATININE 0.77 0.50 - 0.90 mg/dL 10/17/2024 10:[address] [facility] BUN/CREAT RATIO 5(L) 10 - 20 10:00 PM [facility] eGFR >90 >90 mL/min/1. 73m2 10/17/2024 10:[address] [facility] Comment:As of 2021, eG FR is calculated by the CKD-EPI creatinine equation without race adjustment. eGFR can be influenced by muscle mass, exercise, and diet. The reported eGFR is an estimation only and is only applicable if the renal function is stable. ALBUMIN 4.2 4.0 - 4.9 g/dL 10/17/2024 10:[address] [facility] PROTEIN,TOTAL 7.3 6.0 - 8.0 g/dL 10/17/2024 10:[address] [facility] BILIRUBIN,TOTAL 0.5 0.0 - 1.2 mg/dL 10/17/2024 10:[address] [facility] ALK PHOSPHATASE 46 35 - 104 IU/L 10/17/2024 10:00 PM [facility] ALT (SGPT) 14 10 - 35 IU/L 10/17/2024 10:[address] [facility] AST (SGOT) 17 10 - 35 IU/L 10/17/2024 10:00 PM [facility] Blood BLOOD SPECIMEN / Unknown Non-Lab Venipuncture / Unknown 10/17/2024 9:25 PM CDT 10/17/2024 9:35 PM CDT us Rufus Echevarria MD CHEMISTRY Geetha l Result [facility] [address] [place] [address], [place] * (ABNORMAL) CBC W PLT NO DIFF (10/13/2024 8:57 AM RADIOLOGY TEACHER) Only the most recent of2 resultswithin the time period is included. WHITE BLOOD COUNT 10.0 4.5 - 11.0 thou/cu mm 10/13/2024 9:37 AM [facility] RED BLOOD COUNT 5.09 4.00 - 5.20 mil/cu mm 10/13/2024 9:37 AM [facility] HEMOGLOBIN 14.2 12.0 - 16.0 g/dL 10/13/2024 9:37 AM [facility] HEMATOCRIT 45.0 33.0 - 51.0 % 10/13/2024 9:37 AM [facility] MCV 88 80 - 100 fL 10/13/2024 9:37 AM [facility] MCH 27.9 26.0 - 34.0 pg 10/13/2024 9:37 AM [facility] MCHC 31.6(L) 32.0 - 36.0 g/dL 10/13/2024 9:37 AM [facility] RDW 14.7 11.5 - 15.5 % 10/13/2024 9:37 AM [facility] PLATELET COUNT 266 140 - 440 thou/cu mm 10/13/2024 9:37 AM [facility] MPV 10.5 6.5 - 11.0 fL 10/13/2024 9:37 AM [facility] Blood BLOOD SPECIMEN / Unknown Butterfly / Unknown 10/13/2024 8:57 AM RADIOLOGY TEACHER 10/13/2024 9:33 AM RADIOLOGY TEACHER us Sacha Wren MD HEMATOLOGY Geetha l Result [facility] [address] [place] [address] * (ABNORMAL) C-REACTIVE PROTEIN (10/13/2024 8:57 AM RADIOLOGY TEACHER) [facility] C-REACTIVE PROTEIN 1.3(H) <0.5 mg/dL 10/13/2024 9:35 AM RADIOLOGY TEACHER [facility] Blood BLOOD SPECIMEN / Unknown Butterfly / Unknown 10/13/2024 8:57 AM RADIOLOGY TEACHER 10/13/2024 9:15 AM RADIOLOGY TEACHER us Sacha Wren MD CHEMISTRY Geetha l Result Performing Organization Address [facility] Co de Phone Number [facility] [address] [place] [address] * TROPONIN T (HS) ONE TIME (10/12/2024 12:43 PM RADIOLOGY TEACHER) [facility] TROPONIN T HS 7 6-10 ng/L ng/L 10/12/2024 1:07 PM RADIOLOGY TEACHER [facility] Blood BLOOD SPECIMEN / Unknown Butterfly / Unknown 10/12/2024 12:43 PM RADIOLOGY TEACHER 10/12/2024 12:46 PM RADIOLOGY TEACHER us Miko Siddiqui MD CHEMISTRY Final R esult Performing Organization Address [facility] de Phone Number [facility] [address] [place] [phone] * EKG 12 LEAD (10/12/2024 10:52 AM RADIOLOGY TEACHER) [facility] Interpretation Normal sinus rhythm Normal ECG When compared with ECG of 03-Jan-2024 12:43, No significant change was found no ST elevation BEYOND NOW Ventricular Rate 84 BPM BEYOND NOW Atrial Rate 84 BPM BEYOND NOW P-R Interval 138 ms BEYOND NOW QRS Duration 70 ms BEYOND NOW QT 360 ms BEYOND NOW QTc 425 ms BEYOND NOW P [place] 53 degrees BEYOND NOW R [place] 51 degrees BEYOND NOW T [place] 44 degrees BEYOND NOW 10/12/2024 10:5 2 AM RADIOLOGY TEACHER 10/12/2024 11:15 AM RADIOLOGY TEACHER us Miko Siddiqui MD EKG ORD Final R esult BEYOND NOW [place], [place] * TROPONIN T (HS) ACUTE W/2HR REFLEX (10/12/2024 10:43 AM RADIOLOGY TEACHER) TROPONIN T HS <6 6-10 ng/L ng/L 10/12/2024 11:11 AM RADIOLOGY TEACHER [facility] Blood BLOOD SPECIMEN / Unknown Venipuncture / Unknown 10/12/2024 10:43 AM RADIOLOGY TEACHER 10/12/2024 10:48 AM RADIOLOGY TEACHER Narrative [facility] - 10/12/2024 11:11 AM RADIOLOGY TEACHER hs-cTnT (Elecsys Troponin T Gen 5) concentration [...] CHEMISTRY Final R esult Performing Organization Address [facility] Co de Phone Number [facility] [address] [place] [address] * LIPASE (10/12/2024 10:43 AM RADIOLOGY TEACHER) [facility] LIPASE 29.8 13.0 - 60.0 IU/L 10/12/2024 11:11 AM [facility] Blood BLOOD SPECIMEN / Unknown Venipuncture / Unknown 10/12/2024 10:43 AM RADIOLOGY TEACHER 10/12/2024 10:48 AM RADIOLOGY TEACHER Miko Siddiqui MD CHEMISTRY Final R esult Performing Organization Address [facility] Co de Phone Number [facility] [address] [place] [address] * HEPATIC FUNCTION PANEL (10/12/2024 10:43 AM RADIOLOGY TEACHER) Only the most recent of2 resultswithin the time period is included. [facility] ALBUMIN 4.5 4.0 - 4.9 g/dL 10/12/2024 11:11 AM [facility] PROTEIN,TOTAL 7.6 6.0 - 8.0 g/dL 10/12/2024 11:11 AM [facility] BILIRUBIN,TOTAL 0.5 0.0 - 1.2 mg/dL 10/12/2024 11:11 AM [facility] BILIRUBIN,DIRECT 0.2 0.0 - 0.2 mg/dL 10/12/2024 11:11 AM [facility] BILIRUBIN,INDIRE CT 0.3 0.2 - 0.8 mg/dL 10/12/2024 11:11 AM [facility] ALK PHOSPHATASE 46 35 - 104 IU/L 10/12/2024 11:11 AM [facility] ALT (SGPT) 13 10 - 35 IU/L 10/12/2024 11:11 AM [facility] AST (SGOT) 19 10 - 35 IU/L 10/12/2024 11:11 AM [facility] Blood BLOOD SPECIMEN / Unknown Venipuncture / Unknown 10/12/2024 10:43 AM [employer] 10/12/2024 10:48 AM [facility] Miko Siddiqui MD CHEMISTRY Final R esult [facility] [address] [place] [address] * (ABNORMAL) BASIC METABOLIC PANEL (10/12/2024 10:43 AM [facility]) Only the most recent of2 resultswithin the time period is included. SODIUM 138 136 - 145 mmol/L 10/12/2024 11:11 AM [facility] POTASSIUM 4.4 3.5 - 5.1 mmol/L 10/12/2024 11:11 AM [facility] CHLORIDE 104 98 - 107 mmol/L 10/12/2024 11:11 AM [facility] CO2,TOTAL 27 22 - 29 mmol/L 10/12/2024 11:11 AM [facility] ANION GAP 7 5 - 18 10/12/2024 11:11 AM [facility] GLUCOSE 125(H) 70 - 99 mg/dL 10/12/2024 11:11 AM [facility] CALCIUM 9.4 8.8 - 10.4 mg/dL 10/12/2024 11:11 AM [facility] Comment: Reference ranges for this test were updated on 06/13/2024 to reflect our healthy population more accurately. Reference range changes are not retroactively applied to results, but previous results using the same methodology can be interpreted in the context of the new reference range. BUN 4(L) 6 - 20 mg/dL 10/12/2024 11:11 AM [facility] CREATININE 0.76 0.50 - 0.90 mg/dL 10/12/2024 11:11 AM [facility] BUN/CREAT RATIO 5(L) 10 - 20 11:11 AM [facility] eGFR >90 >90 mL/min/1. 73m2 10/12/2024 11:11 AM [facility] Comment:As of 2021, eG FR is calculated by the CKD-EPI creatinine equation without race adjustment. eGFR can be influenced by muscle mass, exercise, and diet. The reported eGFR is an estimation only and is only applicable if the renal function is stable. Blood BLOOD SPECIMEN / Unknown Venipuncture / Unknown 10/12/2024 10:43 AM RADIOLOGY TEACHER 10/12/2024 10:48 AM RADIOLOGY TEACHER Miko Siddiqui MD CHEMISTRY Final R esult [facility] [address] [place] [address] * CT ABDOMEN PELVIS STONE PROTOCOL WO (10/11/2024 2:31 PM RADIOLOGY TEACHER) Anatomical Region Laterality Modality Abdomen, Pelvis, AORTA, LIVER, SPLEEN Computed Tomography 10/11/2024 3:00 PM RADIOLOGY TEACHER Impressions 10/11/2024 3:00 PM RADIOLOGY TEACHER No acute intra-abdominal process identified. No renal stones. No hydronephrosis. Please note that all CT scans at this facility use dose modulation, iterative reconstruction, and/or weight-based dosing when appropriate to reduce radiation dose to as low as reasonably achievable. Dictated by Kamran Blanco MD @ 10/11/2024 3:00:01 PM (Electronically Signed) Narrative 10/11/2024 3:00 PM RADIOLOGY TEACHER For Patients: As a result of the [...] POCT Urinalysis Dipstick Only (10/11/2024 2:13 PM RADIOLOGY TEACHER) PH 6.0 5.0 - 8.0 [facility] SPECIFIC GRAVITY < OR = 1.005 1.001 - 1.035 [facility] Comment: Specific Schofield values resulted are outside the analytical measurement range of this device. Recommend repeat/additional testing as clinically indicated. GLUCOSE NEGATIVE NEGATIVE [facility] BILIRUBIN NEGATIVE NEGATIVE [facility] KETONES NEGATIVE NEGATIVE [facility] OCCULT BLOOD NEGATIVE NEGATIVE [facility] PROTEIN NEGATIVE NEGATIVE [facility] NITRITE NEGATIVE NEGATIVE [facility] LEUKOCYTE ESTERASE NEGATIVE NEGATIVE [facility] Urine URINE SPECIMEN / Unknown 10/11/2024 2:13 PM RADIOLOGY TEACHER 10/11/2024 2:13 PM RADIOLOGY TEACHER us Yao Vail MD URINE Final Result Performing Organization Address City/[facility]/ZIP Co de Phone Number [facility] [address] [place] [address], [facility] [address] [place] [address] * URINE CULTURE (10/11/2024 2:11 PM RADIOLOGY TEACHER) CULTURE No growth (<1,000 CFU/mL) 10/13/2024 9:31 AM RADIOLOGY TEACHER [facility] Urine URINE SPECIMEN / Unknown Non-Blood / Unknown 10/11/2024 2:11 PM RADIOLOGY TEACHER 10/11/2024 2:11 PM RADIOLOGY TEACHER us Yao Vail MD MICROBIOLOGY Final Result [facility] [address] [place] [address], * CBC AND DIFFERENTIAL (10/11/2024 2:11 PM RADIOLOGY TEACHER) Only the most recent of2 resultswithin the [...] BLOOD SPECIMEN / Unknown 10/11/2024 2:11 PM RADIOLOGY TEACHER 10/11/2024 2:12 PM RADIOLOGY TEACHER us Yao Vail MD HEMATOLOGY Final Result [employer] [facility] [address] [place] [address], [place] [phone] [facility] [address] [place] [address] * COVID/FLU/RSV PANEL (10/11/2024 2:04 PM RADIOLOGY TEACHER) Pathologist [facility] COVID 19 [facility]LEC[facility] Negative Negative 10/11/2024 11:37 PM RADIOLOGY TEACHER [facility] Comment:All PCR tests are chauhan bject to false negative result due to variability in viral load and collection technique. A negative result does not rule out a SARS-CoV-2 infection. Clinical correlation required. INFLUENZA A PCR Negative 11:37 PM RADIOLOGY TEACHER [facility] INFLUENZA B PCR Negative 11:37 PM RADIOLOGY TEACHER [facility] Respiratory Syncytial Virus Negative 10/11/2024 11:37 PM RADIOLOGY TEACHER [facility] Swab NASOPHARYNGEAL SWAB / Unknown Non-Blood / Unknown 10/11/2024 2:04 PM RADIOLOGY TEACHER 10/11/2024 2:04 PM RADIOLOGY TEACHER us Yao Vail MD MICROBIOLOGY Final Result [facility] [address] [place] [address], * TSH (10/06/2024 4:26 PM RADIOLOGY TEACHER) Only the most recent of2 resultswithin the time period is included. TSH 1.63 mIU/L [facility] Comment: Reference Range > or = 20 Years 0.40-4.50 Ranges First trimester 0.26-2.66 Second trimester 0.55-2.73 Third trimester 0.43-2.91 Blood BLOOD SPECIMEN / Unknown 10/06/2024 4:26 PM RADIOLOGY TEACHER 10/06/2024 4:28 PM RADIOLOGY TEACHER Narrative [facility] - 10/07/2024 5:08 AM RADIOLOGY TEACHER FASTING:NO FASTING: NO Ward GONZALEZ CHEMISTRY Final Resu lt [facility] [address] [facility] [place] [address], [place] [phone] [facility] [address] [place] [address] * T3,TOTAL (10/06/2024 4:26 PM RADIOLOGY TEACHER) Only the most recent of2 resultswithin the time period is included. T3, TOTAL 106 76 - 181 ng/dL [facility] Marco Antonio Blood BLOOD SPECIMEN / Unknown 10/06/2024 4:26 PM RADIOLOGY TEACHER 10/06/2024 4:28 PM RADIOLOGY TEACHER Narrative [facility] - 10/07/2024 5:08 AM RADIOLOGY TEACHER FASTING:NO FASTING: NO Ward GONZALEZ CHEMISTRY Final Resu lt Performing Organization Address [facility]/ZIP Co de Phone Number [facility] [address] [facility] [place] [address], [place] [phone] [facility] [address] [place] [address] * ALT (SGPT) (10/06/2024 4:26 PM RADIOLOGY TEACHER) ALT 15 6 - 29 U/L [facility] Marco Antonio Blood BLOOD SPECIMEN / Unknown 10/06/2024 4:26 PM RADIOLOGY TEACHER 10/06/2024 4:28 PM RADIOLOGY TEACHER Narrative [facility] - 10/07/2024 3:29 AM RADIOLOGY TEACHER FASTING:NO FASTING: NO Ward GONZALEZ CHEMISTRY Final Resu lt [facility] [address] [address], [place] [phone] [facility] [address] [place] [address] * AST (SGOT) (10/06/2024 4:26 PM RADIOLOGY TEACHER) AST 19 10 - 35 U/L [facility] Blood BLOOD SPECIMEN / Unknown 10/06/2024 4:26 PM RADIOLOGY TEACHER 10/06/2024 4:28 PM RADIOLOGY TEACHER Narrative [facility] - 10/07/2024 3:29 AM RADIOLOGY TEACHER FASTING:NO FASTING: NO Ward GONZALEZ CHEMISTRY Final Resu lt Performing Organization Address [facility]/ZIP Co de Phone Number [facility] [address] [address], [facility] [address] [place] [address] * T4,FREE (10/06/2024 4:26 PM RADIOLOGY TEACHER) Only the most recent of2 resultswithin the time period is included. T4, FREE 0.9 0.8 - 1.8 ng/dL [facility] Blood BLOOD SPECIMEN / Unknown 10/06/2024 4:26 PM RADIOLOGY TEACHER 10/06/2024 4:28 PM RADIOLOGY TEACHER Narrative [facility] - 10/07/2024 5:08 AM RADIOLOGY TEACHER FASTING:NO FASTING: NO Ward GONZALEZ CHEMISTRY Final Resu lt [facility] [address] [place] [address], [facility] [address] [place] [address] * HOME SLEEP TEST TYPE 3 PORTABLE (09/18/2024 11:59 PM RADIOLOGY TEACHER) Ward Medrano MD - 09/18/2024 11:59 PM Ward Remy MD 09/19/2024 4:53 PM Home Sleep Test Name: Kailey Newman Location: [facility] notes: This is a single night home [...] and interpreted by a Diplomate of the [place] [employer]. Raw summary data is scanned into this report as a separate document. An epoch by epoch review of the data has been performed by the interpreting physician. Scored following the AASM Manual for the Scoring of Sleep and Associated Events, V3. Respiratory Event Index (PRERNA) Oxygen Desaturation Index (AVN) REI4% 2.1 ODI4%: 3 REI3% 4.4 ODI3%: [...] Kline DO SLEEP CENTER Final Result * MACHINE LEAD BURNER THIN PREP PAP SCREEN IMAGED [[id number]] (01/10/2024 12:13 PM CDT) Case Report Gynecologic Cytology Report Case: [id number] Authorizing Provider: Jovanna Kline DO Collected: 01/10/2024 1213 Ordering Location: [facility] Received: 01/10/2024 1213 Clinic First Screen: Charo Paredes Specimen: MACHINE LEAD BURNER ThinPrep Vial Screening, Cervical 01/20/2024 8:40 AM CDT [facility] INTERPRETATION/ RESULT NEGATIVE FOR INTRAEPITHELIAL LESION OR MALIGNANCY (NIL) (none) 01/20/2024 8:40 AM CDT [facility] IMEN ADEQUACY Satisfactory for evaluation Endocervical component present 01/20/2024 8:40 AM CDT [facility] HPV REQUEST HPV and PAP 01/20/2024 8:40 AM CDT [facility] Date of LMP postmenopausal 4 8:40 AM CDT [facility] Last Pap Date 02/25/18 01/20/2024 8:40 AM CDT [facility] Last Pap Result NIL 8:40 AM CDT [facility] Abnormal Pap or [place] Bx in last 5 years No 01/20/2024 8:40 AM CDT [facility] Menstrual Status Postmenopausal 01/20/2024 8:40 AM CDT [facility] [place] Bx Done Today No 01/20/2024 8:40 AM CDT [facility] Additional Information None given 01/20/2024 8:40 AM CDT [facility] Comment: Cytology is screened at [facility] - [address], [place] [address] and [facility] - [address], [place] [address] and [facility] - [address] [place] [address] Interpreted at [facility] - [address], [place] [address] Automated Review Successful 01/20/2024 8:40 AM CDT [facility] Comment:Specimen processed s uccessfully by automated rivet heater gas device, ThinPrep Imaging System, [employer] ANCILLARY TESTING MACHINE LEAD BURNER HPV Ordered, Please see separate report 01/20/2024 8:40 AM CDT [facility] Note The pap test is a [...] and malignant lesions. 01/20/2024 8:40 AM CDT [facility] Other (Cervical) Non-Blood / Unknown 01/10/2024 12:13 PM CDT 01/10/2024 12:13 PM CDT us Jovanna Kline DO PATHOLOGY/CYTOLOGY Final Resu lt [facility] [address] [place] [address], [place] * LIPID PANEL W REFLEX MEASURED LDL (01/10/2024 12:04 PM CDT) CHOLESTEROL,TOTAL 171 100 - 199 mg/dL 01/11/2024 9:36 AM CDT [facility] Comment: Cholesterol, Total Reference Ranges Desirable <200 mg/dL Borderline 200-239 mg/dL High >=240 mg/dL TRIGLYCERIDES 116 <150 mg/dL 01/11/2024 9:36 AM CDT [facility] HDL CHOLESTEROL 64 >40 mg/dL 9:36 AM CDT [facility] NON-HDL CHOLESTEROL 107 <145 mg/dl 01/11/2024 9:36 AM CDT [facility] CHOL/HDL RATIO 2.67 <4.50 01/11/2024 9:36 AM CDT [facility] LDL CHOLESTEROL 84 <=130 mg/dL 01/11/2024 9:36 AM CDT [facility] VLDL CHOLESTEROL 23 <=30 mg/dL 01/11/2024 9:36 AM CDT [facility] PROVIDER ORDERED STATUS RANDOM 01/11/2024 9:36 AM CDT [facility] Blood BLOOD SPECIMEN / Unknown Venipuncture / Unknown 01/10/2024 12:04 PM CDT 01/10/2024 12:05 PM CDT us Jovanna Kline DO CHEMISTRY Final Result [facility] [address] [place] [address], [place] * XR MAMMO ERIKA BILAT SCREEN [...] care provider. XR MAMMO ERIKA BILAT SCREEN [[id number]] CLINICAL HISTORY: This is an asymptomatic 53 [...] MAMMO Final Result * SDNA-FIT EXTERNAL (COLOGUARD) [[id number]] (12/16/2023 7:40 AM CDT) NONINV COLON CA DNA+OCC BLD SCRN STL-IMP Negative Negative 12/23/2023 5:48 PM CDT [facility] (CLIA #:[id number]) Comment: NEGATIVE TEST RESULT. A negative Cologuard [...] Thomas et al, N Engl J Med 2014;370(14):1473-2377) The normal value (reference range) for this assay is negative. COLOGUARD RE-SCREENING RECOMMENDATION: Periodic colorectal cancer screening is an important part of preventive healthcare for asymptomatic individuals at average risk for colorectal cancer. Following a negative Cologuard result, the [place] [employer] Society and U.S. Multi-Society Task Force screening guidelines recommend a Cologuard re-screening interval of 3 years. References: [place] [employer] Guideline for Colorectal Cancer Screening: https://www.cancer.org/cancer/vsuli-xddzdz-qdxayh/jcvwxndix-ozbazlxnc-rrenbkw/ac s-rec ommendations.html.; Bala SMITH Fozia PITTS, Gonzalo HardinK, Colorectal Cancer Screening: Recommendations for Physicians and Patients from the U.S. Multi-Society Task Force on Colorectal Cancer Screening , Am J Gastroenterology 2017; 112:7140-6812. TEST DESCRIPTION: Composite algorithmic analysis of stool [...] (Radha Mehta al, N Engl J Med 2014;370(14):4843-9727.) Cologuard may produce a false negative or false positive result (no colorectal cancer or precancerous polyp present at colonoscopy follow up). A negative Cologuard test result does not guarantee the absence of CRC or advanced adenoma (pre-cancer). The current Cologuard screening interval is every 3 years. ([place] [employer] Society and U.S. Multi-Society Task Force). Cologuard performance data in a 10,000 patient pivotal study using colonoscopy as the reference method can be accessed at the following location: www.[employer].[place]/results. Additional description of the Cologuard test process, warnings and precautions can be found at www.Berylliumrd.com. Stool specimen (specimen) (Rectum) 12/16/2023 7:40 AM CDT 12/17/2023 12:25 PM CDT us Jovanna Kline DO URINE Final Result [facility] (CLIA #:[id number]) [place] [address], [place] [phone] * LC HCV ANTIBODY RFX TO QUANT PCR (12/03/2022 12:00 PM CDT) Pathologist [facility] HCV Ab Non Reactive Non Reactive 12/05/2022 3:08 PM CDT [facility] Blood BLOOD SPECIMEN / Unknown Venipuncture / Unknown 12/03/2022 12:00 PM CDT 12/03/2022 12:02 PM CDT Narrative [facility] - 12/05/2022 3:08 PM CDT Performed at: [address] [place] [id number] Steam Engineer: Nelson Ruff MD, Phone: [phone] [facility] Fin al Result Performing Organization Address City/[facility] Co de Phone Number [facility] ([facility]) [address] [place] [address], * LC HIV-1/O/2, 4TH GENERATION (12/03/2022 12:00 PM CDT) [facility] HIV Scr 4th Gen Non Reactive Non Reactive 12/05/2022 12:08 PM CDT [facility] Comment: HIV Negative HIV-1/HIV-2 antibodies and HIV-1 p24 antigen were NOT detected. There is no laboratory evidence of HIV infection. Blood BLOOD SPECIMEN / Unknown Venipuncture / Unknown 12/03/2022 12:00 PM CDT 12/03/2022 12:02 PM CDT Narrative [facility] ([facility]) - 12/05/2022 12:08 PM CDT Performed at: - [facility] [address] [place], [place] [id number] Steam Engineer: Nelson Ruff MD, Phone: [phone] [facility] Fin al Result 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
--- NOTE | 2024-10-20 00:35 | ED_ITS ---
HPI - Female Genitourinary General Date Seen: 10/20/24 Chief complaint: Urogenital Problems, Female Stated complaint: Cath not draining properly, seen earlier today Time Seen by Provider: 10/20/24 00:02 Source: patient and family Mode of arrival: ambulatory Limitations: no limitations History of Present Illness HPI Narrative: 54-year-old female who was seen earlier today with abdominal pain, Clostridium difficile colitis, chronic interstitial cystitis. She was having urinary symptoms and a catheter was placed. She was instructed to come back if she thought her catheter was not function copy pearly. She took a dose of azo so her urine is a red orange color. She thought her catheter was not draining but her ultrasound here shows an empty bladder with urine in her tubing. No fevers or chills. She is concerned about a rash on her abdomen in points out on two tiny red dots there are of no clinical significance. She has only had one loose stool. She took a Dilaudid at 10:00 p.m. and is sleepy during my encounter with her. Related Data Home Medications ?Medication ?Instructions ?Recorded ?Confirmed amitriptyline 10 mg tablet mg PO 01/11/24 03/18/24 cyclobenzaprine 10 mg tablet 10 mg PO QPM 01/11/24 03/18/24 estradiol 0.01% (0.1 mg/gram) vaginal QPM 01/11/24 03/18/24 vaginal cream liothyronine 5 mcg tablet mcg PO 01/11/24 03/18/24 metoclopramide HCl 10 mg tablet 10 mg PO Q6H PRN nausea/vomiting 01/11/24 03/18/24 nitrofurantoin macrocrystal 50 mg 50 mg PO DAILY 01/11/24 03/18/24 capsule oxycodone 5 mg tablet PO 01/11/24 03/18/24 pregabalin 150 mg capsule 150 mg PO BID 01/11/24 03/18/24 triamcinolone acetonide 0.1 % 1 applic topical BID-TID 01/11/24 03/18/24 topical cream valacyclovir 1 gram tablet 1,000 mg PO DAILY 01/11/24 03/18/24 Previous Rx's ?Medication ?Instructions ?Recorded atenolol 50 mg tablet 50 mg PO DAILY #30 tabs 01/11/24 fluconazole 150 mg tablet 150 mg PO Q3D 2 doses #2 tabs 03/18/24 nystatin 100,000 unit/gram topical 1 applic topical BID #30 grams 03/18/24 cream ciprofloxacin HCl 500 mg tablet 500 mg PO BID #14 tabs 10/09/24 (Cipro) fluconazole 100 mg tablet 100 mg PO DAILY #10 tabs 10/09/24 (Diflucan) hyoscyamine sulfate 0.125 mg tablet 0.25 mg (2 x 0.125 mg) PO QID PRN 10/14/24 cramping #30 tabs fidaxomicin 200 mg tablet (Dificid) 200 mg PO BID 10 days #20 tabs 10/16/24 hydromorphone 2 mg tablet 2 mg PO Q6H #7 tabs 10/19/24 Allergies Allergy/AdvReac Type Severity Reaction Status Date / Time adhesive Allergy Unknown Verified 10/19/24 12:14 hydrocodone Allergy Unknown Verified 10/19/24 12:14 meperidine (From Demerol) Allergy Unknown Verified 10/19/24 12:14 Sulfa (Sulfonamide Allergy Unknown Verified 10/19/24 12:14 Antibiotics) Review of Systems Narrative: She has chronic pain issues that are treated with amitriptyline, pregabalin, Dilaudid. She is not currently in any pain. Review of systems is otherwise noted to be negative. Her PCP is Dr. Kline. [facility] Social History Smoking Status: Current some day smoker How often do you have a drink containing alcohol: never AUDIT-C Alcohol total score: 0 Non-prescribed substance use: marijuana (any form) Exam Narrative: Exam Narrative: Vitals noted. She is laying on the card fully undressed. Her Garsia catheter is draining clear orange tinted urine. HEENT: Conjunctiva clear. Neck is supple without adenopathy, thyromegaly, carotid bruit. Lungs: Clear to auscultation in all cloud. No wheezes, rales, rhonchi. Heart: Regular rate and rhythm without murmur. Abdomen: Soft and nontender. No guarding, rigidity, rebound. Bowel sounds are normal. No palpable masses. Extremities: No cyanosis or edema. Good distal pulses. Skin: No abnormalities noted of the exposed skin. She has a couple of tiny red dots on her abdomen and right thigh either of no clinical significance. Neurologic: Awake, alert, fully oriented. Neurologic exam is nonfocal. Const: Vital Signs, click to edit/add: Vital Signs - 24 hr 10/19/24 23:18 Temperature 97.5 F L Pulse Rate [Pulse Oximeter] 117 H Respiratory Rate 16 Blood Pressure [Le ft Upper Arm] 141/71 H Pulse Oximetry 96 Oxygen Delivery Me thod Room Air Course Course ED Course: Patient seen and examined. Her catheters function properly. I listened to her wide variety of complaints but offered no treatment as she was fully evaluated earlier today. She does not need any pain medication. The pain medicine she took 2 hours ago is make her tired and she is anxious to get home and go to bed. Vital Signs Vital signs: Initial Vital Signs Temperature 97.5 F L 10/19/24 23:18 Temperature Source Temporal Artery Scan 10/19/24 23:18 Pulse Rate 117 H 10/19/24 23:18 Respiratory Rate 16 10/19/24 23:18 Blood Pressure 141/71 H 10/19/24 23:18 Blood Pressure Mean 94 10/19/24 23:18 Pulse Oximetry 96 10/19/24 23:18 Oxygen Delivery Method Room Air 10/19/24 23:18 Vital Signs Temperature 97.5 F L 10/19/24 23:18 Pulse Rate 117 H 10/19/24 23:18 Respiratory Rate 16 10/19/24 23:18 Blood Pressure 141/71 H 10/19/24 23:18 Pulse Oximetry 96 10/19/24 23:18 Oxygen Delivery Method Room Air 10/19/24 23:18 Temperature 97.5 F L 10/19/24 23:18 Pulse Rate 117 H 10/19/24 23:18 Respiratory Rate 16 10/19/24 23:18 Blood Pressure 141/71 H 10/19/24 23:18 Pulse Oximetry 96 10/19/24 23:18 Oxygen Delivery Method Room Air 10/19/24 23:18 Discharge Plan Discharge Clinical Impression: Chronic interstitial cystitis Patient Disposition: Home, Self-Care Condition: Stable Additional Instructions: Your catheter is functioning normally. Continue current meds. Follow up with PCP as scheduled. Prescriptions: No Action nystatin 100,000 unit/gram cream 1 applic topical BID Qty: 30 0RF fluconazole 150 mg tablet 150 mg PO Q3D Qty: 2 0RF Rx Instructions: Take one tablet on first day. OK to repeat dose in 72 hours if symptoms persist. Follow up if symptoms persist after second dose. cyclobenzaprine 10 mg tablet 10 mg PO QPM nitrofurantoin macrocrystal 50 mg capsule 50 mg PO DAILY valacyclovir 1 gram tablet 1,000 mg PO DAILY liothyronine 5 mcg tablet PO triamcinolone acetonide 0.1 % cream 1 applic topical BID-TID amitriptyline 10 mg tablet PO estradiol 0.01 % (0.1 mg/gram) cream vaginal QPM metoclopramide HCl 10 mg tablet 10 mg PO Q6H PRN (Reason: nausea/vomiting) oxycodone 5 mg tablet PO pregabalin 150 mg capsule 150 mg PO BID atenolol 50 mg tablet 50 mg PO DAILY Qty: 30 3RF hyoscyamine sulfate 0.125 mg tablet 0.25 mg PO QID PRN (Reason: cramping) Qty: 30 0RF fluconazole [Diflucan] 100 mg tablet 100 mg PO DAILY Qty: 10 0RF ciprofloxacin HCl [Cipro] 500 mg tablet 500 mg PO BID Qty: 14 0RF Dificid 200 mg tablet 200 mg PO BID 10 Days Qty: 20 0RF hydromorphone 2 mg tablet 2 mg PO Q6H Qty: 7 0RF Follow Up/Referrals: Jovanna Kline DO [Primary Care Provider] - Stand Alone Forms: [facility] Instructions
[2024-10-20 00:41] VITALS: BP 141/71; PULSE 117; RESP 16; TEMP 36.4
== END 2024-10-20 00:41 | disposition home or self-care (01) ==
LOC: ED 10-20 00:31
PROVIDERS: Emergency Provider Family Medicine; PCP Family Medicine
DX: N30.10 Interstitial cystitis (chronic) without hematuria (principal)
CPT/HCPCS: 51798; 99281; 99282; 99283

== ENCOUNTER 2024-10-21 11:19 | Outpatient (CLI) | payer BC, SELFPAY | END 2024-10-21 11:20 | disposition home or self-care (01) | LOC: AMB 10-23 10:35 | PROVIDERS: PCP Family Medicine; Visit Provider Emergency Medicine | DX: M54.50 Low back pain, unspecified (principal); T83.83XA Hemorrhage due to genitourinary prosthetic devices, implants and grafts, initial encounter | CPT/HCPCS: A0425; A0427 ==

== ENCOUNTER 2024-10-21 12:05 | Inpatient (IN) | payer BC, SELFPAY ==
[2024-10-21] VITALS (8 sets, daily range): BP systolic 136–149; BP diastolic 72–94; PULSE 71–82; RESP 14–18; TEMP 36.6; O2SAT 95–98; BMI 29.7; BMI 30.7
--- OUTSIDE RECORDS SUMMARY | 2024-10-21 12:07 | XMS_ITS | Data Portability ---
Author Organization [facility], [facility] Address [address] [place] [address] Care Team Providers Care Organic Chemist Name Role Phone MONICA CAO Primary Care Provider Assessment No assessment recorded. Plan of Treatment Reminders Order Date Submit Date Provider Last Modified By Organization Details Last Modified Time Details Appointments None recorded. Lab urinalysi s, dipstick [address] [facility], [address], [address], [place], [address], 3 15:54:11 urinalysi s, microscop ic [address] [facility], [address], [address], [place], [address], 4 05:01:52 culture, urine [address] [facility], [address], [address], [place], [address], 3 11:21:33 urinalysi s, dipstick [address] [facility], [address], [address], [place], [address], 3 16:23:41 culture, urine [address] [facility], [address], [address], [place], [address], 3 15:46:03 infectiou s disease panel 2022 023 [email or web address], [address], [address], [place], [address], 3 15:19:39 Referral urogyneco logy physical therapy referral - Please call patient to schedule Pelvic Floor Physical Therapy. Thank you 2022 023 [email or web address] [facility], [address], [place], [address], 3 14:20:24 Procedures None recorded. Surgeries None recorded. Imaging US, renal 2022 023 [facility], [address] [place], [address], 3 11:12:02 Medication Orders compounde d medicatio n 2022 023 [facility], [address] [place] [address], [address], [place], [place], [id number], 3 20:38:35 nitrofura ntoin macrocrys андрей 50 mg capsule 2022 023 [id number], [address] [place], [place], [id number], 3 16:54:58 Patient TargetsNo targets recorded. Patient Instructions Encounter Date Encounter Id Patient Instructions Last Modified By Organization Details Last Modified Time 01/14/2023 [id number] Recurrent UTIs: -Discussed recurrent UTIs and gave [...] have her see Dr. Arreguin for cysto. Not available 01/14/2023 17:02:42 04/05/2023 [id number] cystoscopy negative fu with Kierra as needed [...] uriscan NEGATI VE negati ve Not Available [facility] [address], [place], [address], 01/14/2023 16:23:41 01/15/2001/14/2023 UA WITHO UT MICRO - CS URISC AN bilirubin - uriscan NEGATI VE mg/dL negati ve Not Available [facility] [address], [place], [address], 01/14/2023 16:23:41 01/15/20 23 01/14/2023 UA WITHO UT MICRO - CS URISC AN urobilinogen - uriscan NORMAL mg/dL normal Not Available [facility] [address] [place] [address] [address], [place], [address], 01/14/2023 16:23:41 01/15/20 23 01/14/2023 UA WITHO UT MICRO - CS URISC AN ketones - uriscan NEGATI VE mg/dL negati ve Not Available [facility] [address] [place] [address] [address], [place], [address], 01/14/2023 16:23:41 01/15/20 23 01/14/2023 UA WITHO UT MICRO - CS URISC AN protein - uriscan NEGATI VE mg/dL negati ve Not Available [facility] [address] [place] [address] [address], [place], [address], 01/14/2023 16:23:41 01/15/20 23 01/14/2023 UA WITHO UT MICRO - CS URISC AN nitrites - uriscan NEGATI VE negati ve Not Available [facility] [address] [place] [address] [address], [place], [address], 01/14/2023 16:23:41 01/15/20 23 01/14/2023 UA WITHO UT MICRO - CS URISC AN glucose - uriscan NEGATI VE mg/dL negati ve Not Available [facility] [address] [place] [address] [address], [place], [address], 01/14/2023 16:23:41 01/15/20 23 01/14/2023 UA WITHO UT MICRO - CS URISC AN pH - uriscan 5.50 5.00-9 .00 Not Available [facility] [address] [place] [address] [address], [place], [address], 01/14/2023 16:23:41 01/15/20 23 01/14/2023 UA WITHO UT MICRO - CS URISC AN sp. gravity - uriscan 1.01 1.01-1 .03 Not Available [facility] [address], [place], [address], 01/14/2023 16:23:41 01/15/20 23 01/14/2023 UA WITHO UT MICRO - CS URISC AN leukocytes - uriscan NEGATI VE negati ve Not Available [facility] [address] [place] [address] [address], [place], [address], 01/14/2023 16:23:41 01/15/20 23 01/14/2023 UA WITHO UT MICRO - CS URISC AN color - uriscan YELLOW lt. yellow ;yello w Not Available [facility] [address] [place] [address] [address], [place], [address], 01/14/2023 16:23:41 01/15/20 23 01/14/2023 UA WITHO UT MICRO - CS URISC AN clarity - uriscan CLEAR clear Not Available [facility] [address] [place] [address] [address], [place], [address], 01/14/2023 16:23:41 01/15/20 23 01/14/2023 UA WITHO [...] for provi abram revie w. Not Available [facility] [address], [place], [address], 01/14/2023 16:23:41 01/15/20 23 01/14/2023 URINE CULTU RE final report MICROB IOLOGY RESULT S abnormal SOURC E [facility] KNOWN ALLER GIES see chart TREAT MENT see chart MEDIA PLATE D AT: Media plate d on 023 @ 3:54 PM COLON Y COUNT 20,00 0-50, 000 cfu/m l RESUL T Esche angela a coli (Isol ate 1) Sensi tivit y Toña sis [place] te 1 ----- ----- ----- ----- ----- [...] ulysses usage of the drugs . Infor asmmy olivia on doxyc yclin e and minoc yclin e can be found in the Physi jorgito' s Desk Refer ence or from the [facility] actur er. S= Susce ptibl e;I= Inter [...] for provi abram revie w. Not Available [facility] [address], [place], [address], 01/17/2023 15:46:03 04/05/20 23 04/05/2023 UA WITHO UT MICRO - CS URISC AN blood - uriscan NEGATI VE negati ve Not Available [facility] [address] [place] [address], [place], [address], 04/05/2023 15:54:11 04/05/20 23 04/05/2023 UA WITHO UT MICRO - CS URISC AN bilirubin - uriscan NEGATI VE mg/dL negati ve Not Available [facility] [address] [facility] [address], [place], [address], 04/05/2023 15:54:11 04/05/20 23 04/05/2023 UA WITHO UT MICRO - CS URISC AN urobilinogen - uriscan NORMAL mg/dL normal Not Available [facility] [address], [place], [address], 04/05/2023 15:54:11 04/05/20 23 04/05/2023 UA WITHO UT MICRO - CS URISC AN ketones - uriscan NEGATI VE mg/dL negati ve Not Available [facility] [address], [place], [address], 04/05/2023 15:54:11 04/05/20 23 04/05/2023 UA WITHO UT MICRO - CS URISC AN protein - uriscan NEGATI VE mg/dL negati ve Not Available [facility] [address] [place] [address] [address], [place], [address], 04/05/2023 15:54:11 04/05/20 23 04/05/2023 UA WITHO UT MICRO - CS URISC AN nitrites - uriscan NEGATI VE negati ve Not Available [facility] [address] [place] [address] [address], [place], [address], 04/05/2023 15:54:11 04/05/20 23 04/05/2023 UA WITHO UT MICRO - CS URISC AN glucose - uriscan NEGATI VE mg/dL negati ve Not Available [facility] [address] [place] [address] [address], [place], [address], 04/05/2023 15:54:11 04/05/20 23 04/05/2023 UA WITHO UT MICRO - CS URISC AN pH - uriscan 5.50 5.00-9 .00 Not Available [facility] [address] [place] [address], [place], [address], 04/05/2023 15:54:11 04/05/20 23 04/05/2023 UA WITHO UT MICRO - CS URISC AN sp. gravity - uriscan <=1.01 1.01-1 .03 Not Available [facility] [address] [place] [address] [address], [place], [address], 04/05/2023 15:54:11 04/05/20 23 04/05/2023 UA WITHO UT MICRO - CS URISC AN leukocytes - uriscan NEGATI VE negati ve Not Available [facility] [address] [place] [address], [place], [address], 04/05/2023 15:54:11 04/05/20 23 04/05/2023 UA WITHO UT MICRO - CS URISC AN color - uriscan YELLOW lt. yellow ;yello w Not Available [facility] [address], [place], [address], 04/05/2023 15:54:11 04/05/20 23 04/05/2023 UA WITHO UT MICRO - CS URISC AN clarity - uriscan CLEAR clear Not Available [facility] [address], [place], [address], 04/05/2023 15:54:11 04/05/2004/05/2023 UA WITHO UT MICRO [...] for provi abram revie w. Not Available [facility] [address], [place], [address], 04/05/2023 15:54:11 04/05/20 23 04/05/2023 URINE CULTU RE final report MICROB IOLOGY RESULT S SOURC E [facility] KNOWN ALLER GIES see [...] for provi abram revie w. Not Available [facility] [address], [place], [address], 04/07/2023 11:21:33 01/07/20 23 10/16/2021 CT, abdom en + pelvi s, w/o contr ast No observ ation record ed. [email or web address] Not Available 2022 12:36:55 01/07/20 23 03/05/2022 US, abdom en, limit ed No observ ation record ed. [email or web address] Not Available 2022 12:36:55 01/19/20 23 01/18/2023 US, renal No observ ation record ed. [email or web address] [address], [address], 01/18/2023 12:50:36 Result Notes None recorded. Procedures Surgical History Date Name Laterality Status Provider Name and Address Organization Details Recorded Time 023 Cystoscopy- female completed Nona Arreguin MD [address], [place], [address], [place] [facility] 03/31/2023 15:39:24 023 In and Out Catheterization- female completed Nona Arreguin MD [address], [place], [address], [facility] 04/05/2023 15:44:49 023 Past Data Reviewed completed LISA IYER [address], [place], [address], [facility] 01/13/2023 14:23:39 023 In and Out Catheterization- female completed LISA IYER [address], [place], [address], [facility] 01/14/2023 16:59:22 020 Oncology colorectal scr [...] available 01/06/2023 12:36:55 01/18/2023 US, renal completed [email or web address] [address], [address], 01/18/2023 12:50:36 Procedure Notes None recorded. Medical [...] Address Organization Details Last Updated DateTime 01/14/2023 [id number] 45333 g 26.5 kg/m2 157.48 cm Not Available [...] When Did You Quit Smoking? 1-5yearssincel sultana [id number] Information not available 01/14/2023 Number Of Pregnancies [...] Pressure N Kidney Stones N Depression Y Sexually Transmitted Infection Y Cancer N Bleeding Disorder N Lung Disease N GERD/Acid Reflux N High Cholesterol N Diabetes N Heart Disease N Gynecological History Statement/Question Response Irregular periods N Leaking urine with intercourse N Heavy periods N Sexually Active? Y Pain with intercourse Y Obstetrics History GPAL:G 0 P 0 0 0 0 Immunizations Vaccine Type Date Status Note Provider Nam e and Address Organization Details Recorded Time zoster recombinant 04/24/2020 completed DEACON Dexter [facility] 01/14/2023 16:12:49 zoster recombinant 06/25/2020 completed DEACON Dexter - [facility] 01/14/2023 16:12:49 Past Encounters Encounter ID Performer Location Encounter Start Date Encounter Closed Date Diagnosis/Indication Diagnosis SNOMED-CT Code Diagnosis ICD10 Code Diagnosis Note [id number] LISA IYER [employer] [address] [place] [address],[facility] e [address] [place] [phone] 01/14/2023 16:10:00 01/14/2023 17:10:08 Recurrent urinary tract infection 151974927 N39.0 new, worse Pelvic and perineal pain 483831813 R10.2 chronic, worse 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, worse [id number] MD Renée [employer] [address] [place] [phone] 04/05/2023 15:26:30 04/05/2023 15:52:22 Pelvic and perineal pain 453804801 R10.2 chronic, worse Myalgia of pelvic floor 232492954 M79.18 chronic, worse Chronic cystitis 6892307 2 N30.20 chornic worse Health Concerns Section Related Observation LastModified by Organization Detai ls LastModified Time None Recorded Concern Status LastModified by Organization Details LastModified Time None Recorded Advance Directives Directive None Recorded Payers Encounter Date Sequence Insurance Name Policy Number Policy Abrams Covered Member ID Abrams Member ID Guarantor Name 01/14/2023 1 [facility] [id number] Vince Newman [id number] Kailey Newman 04/05/2023 1 [facility] [id number] Vince Newman [id number] Kailey A Trent Notes Date Note [...] taking this.History of IC - diagnosed in [place]. No scope recently. Last one at least [...] 6Incontinence Impact Questionnaire (IIQ-7): 0 LISA IYER [address] [place] [address],[facility] [address], [address], [facility] - [facility] 01/14/2023 17:02:53 04/05/2023 text/html Patient seen [...] taking this.History of IC - diagnosed in [place]. No scope recently. Last one at least [...] on elavil --stopped Nona Arreguin MD [address], [place], [address], [facility] 04/05/2023 15:45:43 OBGyn Episode No OBEpisode recorded.
--- OUTSIDE RECORDS SUMMARY | 2024-10-21 12:07 | XMS_ITS | Clinical Summary ---
Author Organization [employer] [facility] Address [address] [place] [id number] Care Team Providers Care Wall Mirror Department Supervisor Name Role Phone Jolly Calabrese Unavailable Jovanna Kline DO Primary Care Provider [phone] Ward Che Unavailable [phone] Allergies Active Allergy Reactions Criticality Noted Date [...] Encounters Date Type Department Care Team Description 10/20/2024 Telephone [facility] [address] [place] [address] Jovanna Kline, DO Refill Request (Toradol) 10/19/2024 Nurse Triage [facility] [address] [place] [address] Shaqra, Jovanna Jeimy, DO Dizzy 10/19/2024 Patient Outreach [facility] [address] [place] [address] Marcela Alexandra, RN Primary RN Care Management; Hospital F/U (LACE 52) 10/18/2024 Nurse Triage [facility] [address] [place] [address] Shaqra, Jovanna Jeimy, DO Mouth/Lip Problem 10/17/2024 8:22 PM CDT - 10/18/2024 11:21 AM CDT Emergency [facility] [address] [place] [address] Rufus Echevarria MD [facility] [place], MD Pierre Maloney Jessica Leigh, PA Generalized weakness (Primary Dx); Back pain, unspecified back location, unspecified back pain laterality, unspecified chronicity; C. difficile colitis; Facial numbness; Generalized pain Discharge Disposition: Home Self Care 10/17/2024 Travel 10/17/2024 Telephone [facility] [address] [place] [address] Jadielqra, Jovanna Jeimy, DO Results 10/16/2024 E-Visit [facility] [address] [place] [address] Shaqra, Jovanna Jeimy, DO Cdiff 10/13/2024 8:30 AM CHRONOMETER REPAIRER - 10/13/2024 10:46 AM CHRONOMETER REPAIRER Emergency [facility] [address] [place] [address] Sacha Wren MD Flank pain (Primary Dx); Bladder pain; Nausea Discharge Disposition: Home Self Care 10/13/2024 Telephone [place] [phone] [facility] [address] [facility] [address] [place] [address] Amie Lindo MD Questions (appointment//nurse visit) 10/13/2024 Telephone [place] [phone] [facility] [address] [place] [address] Amie Lindo MD Appointment 10/13/2024 Travel 10/12/2024 10:14 AM CHRONOMETER REPAIRER - 10/12/2024 1:51 PM CHRONOMETER REPAIRER Emergency [facility] [address] [place] [address] Miko Siddiqui MD Pain of upper extremity, unspecified laterality (Primary Dx); Back pain, unspecified back location, unspecified back pain laterality, unspecified chronicity; Myalgia; Nausea; Abdominal pain, unspecified abdominal location Discharge Disposition: Home Self Care 10/12/2024 Nurse Triage [facility] [address] [facility] [address] [place] [address] Amie Lindo MD Medication Management (methenamine hippurate (HIPREX) 1 gram tablet) 10/11/2024 3:00 PM CHRONOMETER REPAIRER Ancillary Procedure [address] [address] 10/11/2024 1:15 PM CHRONOMETER REPAIRER Office Visit [facility] [address] [place] [address] Yao Vail MD ER Follow up ([facility], 10/09/2024, UTI - symptoms getting worse) 10/11/2024 Travel 10/11/2024 Nurse Triage [facility] [address] [place] [address] Sir Klinei Jeimy, DO Flank Pain; Urinary Tract Infection 10/06/2024 Travel 09/21/2024 2:20 PM CHRONOMETER REPAIRER E-Visit [facility] [address] [place] [address] Eliud Jovanna Jeimy, DO eVisit for Vaginal Discharge / Irritation 09/19/2024 7:30 AM CHRONOMETER REPAIRER Nurse/Clinic Staff Only [address] [address] Testing (HST Return/Download.) 09/18/2024 2:15 PM CHRONOMETER REPAIRER Nurse/Clinic Staff Only [address] [address] Testing (HST Set-up) 09/18/2024 Procedure Only [facility] [address] [facility] [address] Ward Castillo MD Results (HST) 09/18/2024 Travel 09/04/2024 Refill [facility] [address] [place] [address] Sir Klinei Jeimy, DO Refill Request (Pregabalin) 08/24/2024 3:00 PM CHRONOMETER REPAIRER Office Visit [facility] [address] [facility] [address] [place] [address] Amie Lindo MD Consult (Recurring UTI) 08/24/2024 Travel 08/18/2024 2:10 PM CHRONOMETER REPAIRER Office Visit [facility] [address] [place] [address] Sir Klinei Jeimy, DO Medication Management (Oxycodone renew - change amitriptyline to nortriptyline due to weight gain) 08/18/2024 Travel 08/08/2024 4:15 PM CHRONOMETER REPAIRER Orders Only [facility] [address] [place] [phone] Angela, Marilou <No scans attached> 08/08/2024 Travel 08/07/2024 Refill [facility] [address] [facility] [address] [place] Jovanna Jeimy, DO Refill Request (Pregabalin) from Last 3 [...] on file Legal Sex Female 4:43 PM CHRONOMETER REPAIRER Gender Identity Not on file Sexual Orientation Not on file 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 on file Not on file [...] Care Team (Late st Contact Info) Description 10/23/2024 11:15 AM CDT Office Visit [facility] [address] [place] [address] Ervin Rodriges MD [address] [place] [address] 10/24/2024 1:45 PM CDT Office Visit [facility] [address] [place] [address] Jovanna Kline DO [address] [place] [address] 10/27/2024 2:20 PM CDT Telemedicine [address] [place] [address] Ward Che PA [address] [place] [address] [place] [address] 11/13/2024 4:00 PM CDT Office Visit [facility] [address] [place] [address] Ward Castillo MD [address] [place] [address] Health Maintenance Due Date Last Done Comments Pneumococcal series for age 50+ (1 of 1 - PCV) 2019 COVID-19 vaccine series (1 - 2023- season) 2024 Influenza Vaccine (#1) 2024 3, 06/23/2010, 04/23/2009, Additional history exists Mammogram for age 45-75 01/09/2025 01/10/20 24, 06/19/2022, 04/30/2021, Additional history exists Depression screening for age 12+ 01/10/2025 01/11/2024, 01/10/2024, 12/03/2022, Additional history exists BMI (ht and wt on same day) for age 18+ 08/24/2025 08/24/2024, 01/10/2024, 04/21/2023, Additional history exists Tetanus booster 01/14/2026 01/15/2016, 12/31/2004 Fecal testing sDNA-FIT ([place] guard) for age 45-75 12/15/2026 12/16/2023, 05/23/2020 [...] REFLEXED PER CRITERIA STAT 10/13/2024 9:10 AM CHRONOMETER REPAIRER PROCALCITONIN STAT 10/13/2024 8:57 AM CHRONOMETER REPAIRER C-REACTIVE PROTEIN STAT 10/13/2024 8: 57 AM CHRONOMETER REPAIRER CBC W PLT NO DIFF STAT 10/13/2024 8:5 7 AM CHRONOMETER REPAIRER TROPONIN T (HS) ONE TIME Timed 10/12/2024 12:43 PM CHRONOMETER REPAIRER EKG 12 LEAD STAT 10/12/2024 10:52 AM CHRONOMETER REPAIRER TROPONIN T (HS) ACUTE W/2HR REFLEX STAT 10/12/2024 10:43 AM CHRONOMETER REPAIRER HEPATIC FUNCTION PANEL STAT 10/12/2024 10:43 AM CHRONOMETER REPAIRER LIPASE STAT 10/12/2024 10:43 AM CHRONOMETER REPAIRER BASIC METABOLIC PANEL STAT 10/12/2024 10:43 AM CHRONOMETER REPAIRER CBC W PLT NO DIFF STAT 10/12/2024 10: [address] ABDOMEN PELVIS STONE PROTOCOL WO STAT 10/11/2024 2:31 PM CHRONOMETER REPAIRER Flank pain URINALYSIS MACROSCOPIC - [facility] ONLY POC DIP (QUEST) Routine 10/11/2024 2:13 PM CHRONOMETER REPAIRER Flank pain URINALYSIS MICROSCOPIC Routine 10/11/2024 2:11 PM CHRONOMETER REPAIRER Flank pain URINE CULTURE Routine 10/11/2024 2:11 PM CHRONOMETER REPAIRER Flank pain CBC WITH AUTO DIFFERENTIAL Routine 10/11/2024 2:11 PM CHRONOMETER REPAIRER Flank pain HEPATIC FUNCTION PANEL Routine 10/11/2024 2:11 PM CHRONOMETER REPAIRER Flank pain BASIC METABOLIC PANEL Routine 10/11/2024 2:11 PM CHRONOMETER REPAIRER Flank pain COVID/FLU/RSV PANEL Routine 10/11/2024 2 :04 PM CHRONOMETER REPAIRER Cough, unspecified type ALT (SGPT) Routine 10/06/2024 4:26 PM CHRONOMETER REPAIRER Graves' disease AST (SGOT) Routine 10/06/2024 4:26 PM CHRONOMETER REPAIRER Graves' disease CBC WITH AUTO DIFFERENTIAL Routine 10/06/2024 4:26 PM CHRONOMETER REPAIRER Graves' disease T3,TOTAL Routine 10/06/2024 4:26 PM CHRONOMETER REPAIRER Graves' disease T4,FREE Routine 10/06/2024 4:26 PM CHRONOMETER REPAIRER Graves' disease TSH Routine 10/06/2024 4:26 PM CHRONOMETER REPAIRER Graves' disease HOME SLEEP TEST TYPE 3 PORTABLE Routine 09/18/2024 11:59 PM CHRONOMETER REPAIRER Suspected sleep apnea TSH Routine 08/08/2024 4:11 PM CHRONOMETER REPAIRER Graves' disease T3,TOTAL Routine 08/08/2024 4:11 PM CHRONOMETER REPAIRER Graves' disease T4,FREE Routine 08/08/2024 4:11 PM CHRONOMETER REPAIRER Graves' disease [employer] THIN PREP PAP SCREEN IMAGED Routine 01/10/2024 [...] ISTAT W SHUKLA (10/17/2024 9:54 PM CDT) LACTATE VENOUS SCREEN ISTAT <1.8 <=2.0 10/17/2024 9:58 PM CDT [facility] LACTATE SCREEN VENOUS POCT 1.1 <=2.0 10/17/2024 9:58 PM CDT [facility] Blood BLOOD SPECIMEN / Unknown 10/17/2024 9:54 PM CDT 10/17/2024 9:58 PM CDT Rufus Echevarria MD LABORATORY Geetha l Result [facility] [address] [place] [address], [place] * EXTRA TUBE SHUKLA ON ICE (10/17/2024 9:25 PM CDT) Blood BLOOD SPECIMEN / Unknown Non-Lab Venipuncture / Unknown 10/17/2024 9:25 PM CDT 10/17/2024 9:35 PM CDT us Rufus Echevarria MD LABORATORY Geetha l Result [facility] [address] [place] [address], [place] * CBC WITH AUTO DIFFERENTIAL (10/17/2024 9:25 PM CDT) Pathologist [facility] WHITE BLOOD COUNT 8.2 4.5 - 11.0 thou/cu mm 10/17/2024 9:52 PM CDT [facility] RED BLOOD COUNT 4.76 4.00 - 5.20 mil/cu mm 10/17/2024 9:52 PM CDT [facility] HEMOGLOBIN 13.5 12.0 - 16.0 g/dL 10/17/2024 9:52 PM CDT [facility] HEMATOCRIT 42.0 33.0 - 51.0 % 10/17/2024 9:52 PM CDT [facility] MCV 88 80 - 100 fL 10/17/2024 9:52 PM CDT [facility] MCH 28.4 26.0 - 34.0 pg 10/17/2024 9:52 PM CDT [facility] MCHC 32.1 32.0 - 36.0 g/dL 10/17/2024 9:52 PM CDT [facility] RDW 13.7 11.5 - 15.5 % 10/17/2024 9:52 PM CDT [facility] PLATELET COUNT 280 140 - 440 thou/cu mm 10/17/2024 9:52 PM CDT [facility] MPV 10.1 6.5 - 11.0 fL 10/17/2024 9:52 PM CDT [facility] NRBC 0.0 % 10/17/2024 9:52 PM CDT [facility] ABS NRBC 0.0 thou /cu mm 10/17/2024 9:52 PM CDT [facility] % NEUT 70.7 % 10/17/2024 9:52 PM CDT [facility] % LYMPH 21.0 % 10/17/2024 9:52 PM CDT [facility] % MONO 6.3 % 10/17/2024 9:52 PM CDT [facility] % EOS 1.3 % 10/17/2024 9:52 PM CDT [facility] % BASO 0.6 % 10/17/2024 9:52 PM CDT [facility] % IMMATURE GRAN (METAS,MYELOS,AZ OS) 0.1 % 10/17/2024 9:52 PM CDT [facility] ABSOLUTE NEUTROPHILS 5.8 1.7 - 7.0 thou/cu mm 10/17/2024 9:52 PM CDT [facility] ABSOLUTE LYMPHOCYTES 1.7 0.9 - 2.9 thou/cu mm 10/17/2024 9:52 PM CDT [facility] ABSOLUTE MONOCYTES 0.5 <0.9 thou/cu mm 10/17/2024 9:52 PM CDT [facility] ABSOLUTE EOSINOPHILS 0.1 <0.5 thou/cu mm 10/17/2024 9:52 PM CDT [facility] ABSOLUTE BASOPHILS 0.1 <0.3 thou/cu mm 10/17/2024 9:52 PM CDT [facility] ABSOLUTE IMMATURE GRANULOCYTES(MET ,MYELOS,PROS) 0.0 <0.3 thou/cu mm 10/17/2024 9:52 PM CDT [facility] Blood BLOOD SPECIMEN / Unknown Non-Lab Venipuncture / Unknown 10/17/2024 9:25 PM CDT 10/17/2024 9:35 PM CDT Rufus Echevarria MD HEMATOLOGY Geetha gonsalez Result [facility] [address] [place] [address], * PROCALCITONIN (10/17/2024 9:25 PM CDT) Only the most recent of2 resultswithin the time period is included. PROCALCITONIN 0.03 ng/ml 10/17/2024 10:12 PM CDT [facility] Blood BLOOD SPECIMEN / Unknown Non-Lab Venipuncture / Unknown 10/17/2024 9:25 PM CDT 10/17/2024 9:35 PM CDT Narrative [facility] - 10/17/2024 10:12 PM CDT Procalcitonin [...] obtained. Rufus Echevarria MD SEND OUTS Geetha wallace Result [facility] [address] [place] [address], [place] * URINALYSIS MICROSCOPIC (10/17/2024 9:25 PM CDT) Only the most recent of2 resultswithin the time period is included. RBC 0-2 0-2, None Seen /HPF 10/17/2024 10:25 PM CDT [facility] WBC 0-2 0-2, 3-5, None Seen /HPF 10/17/2024 10:25 PM CDT [facility] BACTERIA None Seen None Seen, Rare, Few Bacteria/ HPF 10/17/2024 10:25 PM CDT [facility] EPITHELIAL CELLS None Seen None Seen, Few Epi/HPF 10/17/2024 10:25 PM CDT [facility] HYALINE CASTS 0-2 0-2, 3-5 /LPF 10/17/2024 10:25 PM CDT [facility] Urine URINE SPECIMEN / Unknown Non-Blood / Unknown 10/17/2024 9:25 PM CDT 10/17/2024 9:36 PM CDT Rufus Echevarria MD URINE Geetha l Result [facility] [address] [place] [address], [place] * (ABNORMAL) URINALYSIS W RELEX MICROSCOPIC IF POSITIVE (10/17/2024 9:25 PM CDT) Only the most recent of2 resultswithin the time period is included. COLOR Yellow Yellow Color 10/17/2024 10:25 PM CDT [facility] CLARITY Clear Clear Clarity 10/17/2024 10:25 PM CDT [facility] SPECIFIC GRAVITY,URINE <=1.005(A) 1.010, 1.015, 1.020, 1.025 10/17/2024 10:25 PM CDT [facility] PH,URINE 8.0 6.0, 7.0, 8.0, 5.5, 6.5, 7.5, 8.5 10/17/2024 10:25 PM CDT [facility] UROBILINOGEN, QUALITATIVE Normal Normal EU/dl 10/17/2024 10:25 PM CDT [facility] PROTEIN, URINE Negative Negative mg/dL 10/17/2024 10:25 PM CDT [facility] GLUCOSE, URINE Negative Negative mg/dL 10/17/2024 10:25 PM CDT [facility] KETONES,URINE Negative Negative mg/dL 10/17/2024 10:25 PM CDT [facility] BILIRUBIN,URI NE Negative Negative 10/17/2024 10:25 PM CDT [facility] OCCULT BLOOD,URINE Negative Negative 10/17/2024 10:25 PM CDT [facility] NITRITE Positive(A) Negative 10/17/2024 10:25 PM CDT [facility] LEUKOCYTE ESTERASE Negative Negative 10/17/2024 10:25 PM CDT [facility] Urine URINE SPECIMEN / Unknown Non-Blood / Unknown 10/17/2024 9:25 PM CDT 10/17/2024 9:36 PM CDT Rufus Echevarria MD URINE Geetha l Result Performing Organization Address [facility] Co de Phone Number [facility] [address] [address], [place] * PROTIME-INR (10/17/2024 9:25 PM CDT) INR 1.0 <1.3 10/17/2024 9:59 PM CDT [facility] PROTIME 11.3 10.6 - 12.4 sec 10/17/2024 9:59 PM CDT [facility] Blood BLOOD SPECIMEN / Unknown Non-Lab Venipuncture / Unknown 10/17/2024 9:25 PM CDT 10/17/2024 9:35 PM CDT Narrative [facility] - 10/17/2024 9:59 PM CDT [...] Rufus Echevarria MD HEMATOLOGY Geetha l Result Performing Organization Address [facility] Co de Phone Number [facility] [address] [address], [place] * (ABNORMAL) COMP METABOLIC PANEL (10/17/2024 9:25 PM CDT) SODIUM 139 136 - 145 mmol/L 10/17/2024 10:00 PM CDT [facility] POTASSIUM 4.4 3.5 - 5.1 mmol/L 10/17/2024 10:00 PM CDT [facility] CHLORIDE 103 98 - 107 mmol/L 10/17/2024 10:00 PM T [facility] CO2,TOTAL 26 22 - 29 mmol/L 10/17/2024 10:00 PM [facility] ANION GAP 10 5 - 18 10/17/2024 10:00 PM [facility] GLUCOSE 129(H) 70 - 99 mg/dL 10/17/2024 10:00 PM [facility] CALCIUM 9.5 8.8 - 10.4 mg/dL 10/17/2024 10:00 PM [facility] Comment: Reference ranges for this test were updated on 06/13/2024 to reflect our healthy population more accurately. Reference range changes are not retroactively applied to results, but previous results using the same methodology can be interpreted in the context of the new reference range. BUN 4(L) 6 - 20 mg/dL 10/17/2024 10:00 PM [facility] CREATININE 0.77 0.50 - 0.90 mg/dL 10/17/2024 10:00 PM [facility] BUN/CREAT RATIO 5(L) 10 - 20 10:00 PM [facility] eGFR >90 >90 mL/min/1. 73m2 10/17/2024 10:00 PM [facility] Comment:As of 2021, eG FR is calculated by the CKD-EPI creatinine equation without race adjustment. eGFR can be influenced by muscle mass, exercise, and diet. The reported eGFR is an estimation only and is only applicable if the renal function is stable. ALBUMIN 4.2 4.0 - 4.9 g/dL 10/17/2024 10:00 PM T [facility] PROTEIN,TOTAL 7.3 6.0 - 8.0 g/dL 10/17/2024 10:00 PM [facility] BILIRUBIN,TOTAL 0.5 0.0 - 1.2 mg/dL 10/17/2024 10:00 PM CDT [facility] ALK PHOSPHATASE 46 35 - 104 IU/L 10/17/2024 10:00 PM CDT [facility] ALT (SGPT) 14 10 - 35 IU/L 10/17/2024 10:00 PM CDT [facility] AST (SGOT) 17 10 - 35 IU/L 10/17/2024 10:00 PM CDT [facility] Blood BLOOD SPECIMEN / Unknown Non-Lab Venipuncture / Unknown 10/17/2024 9:25 PM CDT 10/17/2024 9:35 PM CDT us Rufus Echevarria MD CHEMISTRY Geetha l Result [facility] [address] [place] [address], [place] * (ABNORMAL) CBC W PLT NO DIFF (10/13/2024 8:57 AM CHRONOMETER REPAIRER) Only the most recent of2 resultswithin the time period is included. WHITE BLOOD COUNT 10.0 4.5 - 11.0 thou/cu mm 10/13/2024 9:37 AM [facility] RED BLOOD COUNT 5.09 4.00 - 5.20 mil/cu mm 10/13/2024 9:37 AM [facility] HEMOGLOBIN 14.2 12.0 - 16.0 g/dL 10/13/2024 9:37 AM [facility] HEMATOCRIT 45.0 33.0 - 51.0 % 10/13/2024 9:37 AM [facility] MCV 88 80 - 100 fL 10/13/2024 9:37 AM [facility] MCH 27.9 26.0 - 34.0 pg 10/13/2024 9:37 AM [facility] MCHC 31.6(L) 32.0 - 36.0 g/dL 10/13/2024 9:37 AM [facility] RDW 14.7 11.5 - 15.5 % 10/13/2024 9:37 AM [facility] PLATELET COUNT 266 140 - 440 thou/cu mm 10/13/2024 9:37 AM CHRONOMETER REPAIRER [facility] MPV 10.5 6.5 - 11.0 fL 10/13/2024 9:37 AM CHRONOMETER REPAIRER [facility] Blood BLOOD SPECIMEN / Unknown Butterfly / Unknown 10/13/2024 8:57 AM CHRONOMETER REPAIRER 10/13/2024 9:33 AM CHRONOMETER REPAIRER Sacha Wren MD HEMATOLOGY Geetha l Result Performing Organization Address [facility]/ZIP Co de Phone Number [facility] [address] [place] [address] * (ABNORMAL) C-REACTIVE PROTEIN (10/13/2024 8:57 AM CHRONOMETER REPAIRER) Pathologist [facility] C-REACTIVE PROTEIN 1.3(H) <0.5 mg/dL 10/13/2024 9:35 AM CHRONOMETER REPAIRER [facility] Blood BLOOD SPECIMEN / Unknown Butterfly / Unknown 10/13/2024 8:57 AM CHRONOMETER REPAIRER 10/13/2024 9:15 AM CHRONOMETER REPAIRER Sacha Wren MD CHEMISTRY Geetha l Result Performing Organization Address [facility] de Phone Number [facility] [address] [place] [address] * TROPONIN T (HS) ONE TIME (10/12/2024 12:43 PM CHRONOMETER REPAIRER) TROPONIN T HS 7 6-10 ng/L ng/L 10/12/2024 1:07 PM CHRONOMETER REPAIRER [facility] Blood BLOOD SPECIMEN / Unknown Butterfly / Unknown 10/12/2024 12:43 PM CHRONOMETER REPAIRER 10/12/2024 12:46 PM CHRONOMETER REPAIRER Miko Siddiqui MD CHEMISTRY Final R esult Performing Organization Address [facility] Co de Phone Number [facility] [address] [place] [address] * EKG 12 LEAD (10/12/2024 10:52 AM CHRONOMETER REPAIRER) Pathologist [facility] Interpretation Normal sinus rhythm Normal ECG When compared with ECG of 03-Jan-2024 12:43, No significant change was found no ST elevation BEYOND NOW Ventricular Rate 84 BPM BEYOND NOW Atrial Rate 84 BPM BEYOND NOW P-R Interval 138 ms BEYOND NOW QRS Duration 70 ms BEYOND NOW QT 360 ms BEYOND NOW QTc 425 ms BEYOND NOW P [place] 53 degrees BEYOND NOW R [place] 51 degrees BEYOND NOW T [place] 44 degrees BEYOND NOW 10/12/2024 10:5 2 AM CHRONOMETER REPAIRER 10/12/2024 11:15 AM CHRONOMETER REPAIRER us Miko Siddiqui MD EKG ORD Final R esult BEYOND NOW [place], [place] * TROPONIN T (HS) ACUTE W/2HR REFLEX (10/12/2024 10:43 AM CHRONOMETER REPAIRER) [facility] TROPONIN T HS <6 6-10 ng/L ng/L 10/12/2024 11:11 AM CHRONOMETER REPAIRER [facility] Blood BLOOD SPECIMEN / Unknown Venipuncture / Unknown 10/12/2024 10:43 AM CHRONOMETER REPAIRER 10/12/2024 10:48 AM CHRONOMETER REPAIRER Narrative [facility] - 10/12/2024 11:11 AM CHRONOMETER REPAIRER hs-cTnT (Elecsys Troponin T Gen 5) concentration [...] population. Miko Siddiqui MD CHEMISTRY [facility] Performing Organization Address [facility] de Phone Number [facility] [address], [place] [phone] * LIPASE (10/12/2024 10:43 AM CHRONOMETER REPAIRER) Pathologist [facility] LIPASE 29.8 13.0 - 60.0 IU/L 10/12/2024 11:11 AM [facility] Blood BLOOD SPECIMEN / Unknown Venipuncture / Unknown 10/12/2024 10:43 AM CHRONOMETER REPAIRER 10/12/2024 10:48 AM CHRONOMETER REPAIRER Miko Siddiqui MD CHEMISTRY Final R esult Performing Organization Address [facility] de Phone Number [facility] [address], [place] [phone] * HEPATIC FUNCTION PANEL (10/12/2024 10:43 AM CHRONOMETER REPAIRER) Only the most recent of2 resultswithin the time period is included. ALBUMIN 4.5 4.0 - 4.9 g/dL 10/12/2024 11:11 AM [facility] PROTEIN,TOTAL 7.6 6.0 - 8.0 g/dL 10/12/2024 11:11 AM [facility] BILIRUBIN,TOTAL 0.5 0.0 - 1.2 mg/dL 10/12/2024 11:11 AM [facility] BILIRUBIN,DIRECT 0.2 0.0 - 0.2 mg/dL 10/12/2024 11:11 AM [facility] BILIRUBIN,INDIRE CT 0.3 0.2 - 0.8 mg/dL 10/12/2024 11:11 AM [facility] ALK PHOSPHATASE 46 35 - 104 IU/L 10/12/2024 11:11 AM [facility] ALT (SGPT) 13 10 - 35 IU/L 10/12/2024 11:11 AM [facility] AST (SGOT) 19 10 - 35 IU/L 10/12/2024 11:11 AM [facility] Blood BLOOD SPECIMEN / Unknown Venipuncture / Unknown 10/12/2024 10:43 AM [facility] 10/12/2024 10:48 AM [facility] Miko Siddiqui MD CHEMISTRY Final R esult [facility] [address] [place] [address] * (ABNORMAL) BASIC METABOLIC PANEL (10/12/2024 10:43 AM [facility]) Only the most recent of2 resultswithin the time period is included. SODIUM 138 136 - 145 mmol/L 10/12/2024 11:11 AM [facility] POTASSIUM 4.4 3.5 - 5.1 mmol/L 10/12/2024 11:11 AM [facility] CHLORIDE 104 98 - 107 mmol/L 10/12/2024 11:11 AM [facility] CO2,TOTAL 27 22 - 29 mmol/L 10/12/2024 11:11 AM [facility] ANION GAP 7 5 - 18 10/12/2024 11:11 AM [facility] GLUCOSE 125(H) 70 - 99 mg/dL 10/12/2024 11:11 AM [facility] CALCIUM 9.4 8.8 - 10.4 mg/dL 10/12/2024 11:11 AM [facility] Comment: Reference ranges for this test were updated on 06/13/2024 to reflect our healthy population more accurately. Reference range changes are not retroactively applied to results, but previous results using the same methodology can be interpreted in the context of the new reference range. BUN 4(L) 6 - 20 mg/dL 10/12/2024 11:11 AM [facility] CREATININE 0.76 0.50 - 0.90 mg/dL 10/12/2024 11:11 AM [facility] BUN/CREAT RATIO 5(L) 10 - 20 11:11 AM [facility] eGFR >90 >90 mL/min/1. 73m2 10/12/2024 11:11 AM [facility] Comment:As of 2021, eG FR is calculated by the CKD-EPI creatinine equation without race adjustment. eGFR can be influenced by muscle mass, exercise, and diet. The reported eGFR is an estimation only and is only applicable if the renal function is stable. Blood BLOOD SPECIMEN / Unknown Venipuncture / Unknown 10/12/2024 10:43 AM CHRONOMETER REPAIRER 10/12/2024 10:48 AM CHRONOMETER REPAIRER us Miko Siddiqui MD CHEMISTRY Final R esult [facility] [address] [place] [address] * CT ABDOMEN PELVIS STONE PROTOCOL WO (10/11/2024 2:31 PM CHRONOMETER REPAIRER) Anatomical Region Laterality Modality Abdomen, Pelvis, AORTA, LIVER, SPLEEN Computed Tomography 10/11/2024 3:00 PM CHRONOMETER REPAIRER Impressions 10/11/2024 3:00 PM CHRONOMETER REPAIRER No acute intra-abdominal process identified. No renal stones. No hydronephrosis. Please note that all CT scans at this facility use dose modulation, iterative reconstruction, and/or weight-based dosing when appropriate to reduce radiation dose to as low as reasonably achievable. Dictated by Kamran Blanco MD @ 10/11/2024 3:00:01 PM (Electronically Signed) Narrative 10/11/2024 3:00 PM CHRONOMETER REPAIRER For Patients: As a result of the [...] POCT Urinalysis Dipstick Only (10/11/2024 2:13 PM CHRONOMETER REPAIRER) [facility] PH 6.0 5.0 - 8.0 [facility] SPECIFIC GRAVITY < OR = 1.005 1.001 - 1.035 [facility] Comment: Specific [place] values resulted are outside the analytical measurement range of this device. Recommend repeat/additional testing as clinically indicated. GLUCOSE NEGATIVE NEGATIVE [facility] BILIRUBIN NEGATIVE NEGATIVE [facility] KETONES NEGATIVE NEGATIVE [facility] OCCULT BLOOD NEGATIVE NEGATIVE [facility] PROTEIN NEGATIVE NEGATIVE [facility] NITRITE NEGATIVE NEGATIVE [facility] LEUKOCYTE ESTERASE NEGATIVE NEGATIVE [facility] Urine URINE SPECIMEN / Unknown 10/11/2024 2:13 PM CHRONOMETER REPAIRER 10/11/2024 2:13 PM CHRONOMETER REPAIRER Yao Vail MD URINE Final Result [facility] [address] [place] [address], [facility] [address] [place] [address] * URINE CULTURE (10/11/2024 2:11 PM CHRONOMETER REPAIRER) [facility] CULTURE No growth (<1,000 CFU/mL) 10/13/2024 9:31 AM CHRONOMETER REPAIRER [facility] Urine URINE SPECIMEN / Unknown Non-Blood / Unknown 10/11/2024 2:11 PM CHRONOMETER REPAIRER 10/11/2024 2:11 PM CHRONOMETER REPAIRER Yao Vail MD MICROBIOLOGY Final Result [facility] [employer] [facility] [address] [place] [address], * CBC AND DIFFERENTIAL (10/11/2024 2:11 PM CHRONOMETER REPAIRER) Only the most recent of2 resultswithin the time period is included. [facility] WHITE BLOOD CELL COUNT 10.8 3.8 - [...] BLOOD SPECIMEN / Unknown 10/11/2024 2:11 PM CHRONOMETER REPAIRER 10/11/2024 2:12 PM CHRONOMETER REPAIRER us Yao Vail MD HEMATOLOGY Final Result Performing Organization Address City/[facility]/ZIP Co de Phone Number [facility] [address] [place] [address], [place] [phone] [facility] [address] [place] [address] * COVID/FLU/RSV PANEL (10/11/2024 2:04 PM CHRONOMETER REPAIRER) Pathologist [facility] COVID 19 [facility] MOLECULAR Negative Negative 10/11/2024 11:37 PM CHRONOMETER REPAIRER [facility] Comment:All PCR tests are chauhan bject to false negative result due to variability in viral load and collection technique. A negative result does not rule out a SARS-CoV-2 infection. Clinical correlation required. INFLUENZA A PCR Negative 11:37 PM CHRONOMETER REPAIRER [facility] INFLUENZA B PCR Negative 5 11:37 PM CHRONOMETER REPAIRER [facility] Respiratory Syncytial Virus Negative 10/11/2024 11:37 PM CHRONOMETER REPAIRER [facility] Swab NASOPHARYNGEAL SWAB / Unknown Non-Blood / Unknown 10/11/2024 2:04 PM CHRONOMETER REPAIRER 10/11/2024 2:04 PM CHRONOMETER REPAIRER us Yao Vail MD MICROBIOLOGY Final Result [facility] [address] [place] [address], [place] * TSH (10/06/2024 4:26 PM CHRONOMETER REPAIRER) Only the most recent of2 resultswithin the time period is included. [facility] TSH 1.63 mIU/L [facility] Antonio Comment: Reference Range > or = 20 Years 0.40-4.50 Ranges First trimester 0.26-2.66 Second trimester 0.55-2.73 Third trimester 0.43-2.91 Blood BLOOD SPECIMEN / Unknown 10/06/2024 4:26 PM CHRONOMETER REPAIRER 10/06/2024 4:28 PM CHRONOMETER REPAIRER Narrative [facility] - 10/07/2024 5:08 AM CHRONOMETER REPAIRER FASTING:NO FASTING: NO Ward GONZALEZ CHEMISTRY Final Resu lt [facility] [facility] [id number] [place] [address], [facility] [address] [facility] [place] [address] * T3,TOTAL (10/06/2024 4:26 PM CHRONOMETER REPAIRER) Only the most recent of2 resultswithin the time period is included. [facility] T3, TOTAL 106 76 - 181 ng/dL [facility] Blood BLOOD SPECIMEN / Unknown 10/06/2024 4:26 PM CHRONOMETER REPAIRER 10/06/2024 4:28 PM CHRONOMETER REPAIRER Narrative [facility] - 10/07/2024 5:08 AM CHRONOMETER REPAIRER FASTING:NO FASTING: NO Ward GONZALEZ CHEMISTRY Final Resu lt [facility] [address] [facility] [place] [address], [facility] [address] [facility] [place] [address] * ALT (SGPT) (10/06/2024 4:26 PM CHRONOMETER REPAIRER) ALT 15 6 - 29 U/L [facility] Antonio Blood BLOOD SPECIMEN / Unknown 10/06/2024 4:26 PM CHRONOMETER REPAIRER 10/06/2024 4:28 PM CHRONOMETER REPAIRER Narrative [facility] - 10/07/2024 3:29 AM CHRONOMETER REPAIRER FASTING:NO FASTING: NO Ward GONZALEZ CHEMISTRY Final Resu lt Performing Organization Address [facility]/State/ZIP Co de Phone Number [facility] [address] [place] [address], [place] [phone] [facility] [address] [place] [address] * AST (SGOT) (10/06/2024 4:26 PM CHRONOMETER REPAIRER) AST 19 10 - 35 U/L [facility] Marco Antonio Blood BLOOD SPECIMEN / Unknown 10/06/2024 4:26 PM CHRONOMETER REPAIRER 10/06/2024 4:28 PM CHRONOMETER REPAIRER Narrative [facility] - 10/07/2024 3:29 AM CHRONOMETER REPAIRER FASTING:NO FASTING: NO Ward GONZALEZ CHEMISTRY Final Resu lt Performing Organization Address [facility] de Phone Number [facility] [address] [place] [phone], [facility] [address] [place] [phone] * T4,FREE (10/06/2024 4:26 PM CHRONOMETER REPAIRER) Only the most recent of2 resultswithin the time period is included. T4, FREE 0.9 0.8 - 1.8 ng/dL [facility] Blood BLOOD SPECIMEN / Unknown 10/06/2024 4:26 PM CHRONOMETER REPAIRER 10/06/2024 4:28 PM CHRONOMETER REPAIRER Narrative [facility] - 10/07/2024 5:08 AM CHRONOMETER REPAIRER FASTING:NO FASTING: NO Ward GONZALEZ CHEMISTRY Final Resu lt [facility] [address] [place] [address], [facility] [address] [place] [address] * HOME SLEEP TEST TYPE 3 PORTABLE (09/18/2024 11:59 PM CHRONOMETER REPAIRER) Narrative Ward Castillo MD - 09/18/2024 11:59 PM CHRONOMETER REPAIRER Ward Castillo MD 09/19/2024 4:53 PM Home Sleep Test Name: Kailey Newman Location: [facility] notes: This is a single night home [...] and interpreted by a Diplomate of the [place] [employer]. Raw summary data [...] % Duration > 100 bpm: 0 m us Aurelia Kline DO SLEEP CENTER Final Result * [facility] THIN PREP PAP SCREEN IMAGED [[id number]] (01/10/2024 12:13 PM CDT) Case Report Gynecologic Cytology Report Case: [id number] Authorizing Provider: Jovanna Kline DO Collected: 01/10/2024 1213 Ordering Location: [facility] Received: 01/10/2024 1213 Clinic First Screen: Charo Paredes Specimen: [facility] ThinPrep Vial Screening, Cervical 01/20/2024 8:40 AM CDT [facility] INTERPRETATION/ RESULT NEGATIVE FOR INTRAEPITHELIAL LESION OR MALIGNANCY (NIL) (none) 01/20/2024 8:40 AM CDT [facility] ENTRAL LABORAT[facility] IMEN ADEQUACY Satisfactory for evaluation Endocervical component present 01/20/2024 8:40 AM CDT [facility] HPV REQUEST HPV and PAP 01/20/2024 8:40 AM CDT [facility] Date of LMP postmenopausal 8:40 AM CDT [facility] ENTRAL LABORATORY Last Pap Date 02/25/18 01/20/2024 8:40 AM CDT [facility] Last Pap Result NIL 8:40 AM CDT [facility] Abnormal Pap or [place] Bx in last 5 years No 01/20/2024 8:40 AM CDT [facility] Menstrual Status Postmenopausal 01/20/2024 8:40 AM CDT [facility] [place] Bx Done Today No 01/20/2024 8:40 AM CDT [facility] EN[facility]ORY Additional Information None given 01/20/2024 8:40 AM CDT [facility] Comment: Cytology is screened at [facility] Central Laboratory - [address], [place] [address] and [facility] - [address] [place] [address] and [facility] - [address] [place] [address] Interpreted at [facility], Central Laboratory - [address], [place] [address] Automated Review Successful 01/20/2024 8:40 AM CDT [facility] Comment:Specimen processed s uccessfully by automated certified medical transcriptionist device, ThinPrep Imaging System, [employer] ANCILLARY TESTING [facility] HPV Ordered, Please see separate report 01/20/2024 8:40 AM CDT [facility] Note The pap test is [...] and malignant lesions. 01/20/2024 8:40 AM CDT [facility] Other (Cervical) Non-Blood / Unknown 01/10/2024 12:13 PM CDT 01/10/2024 12:13 PM CDT Jovanna Kline DO PATHOLOGY/CYTOLOGY Final Resu lt [facility] [address] [place] [address], [place] * LIPID PANEL W REFLEX MEASURED LDL (01/10/2024 12:04 PM CDT) CHOLESTEROL,TOTAL 171 100 - 199 mg/dL 01/11/2024 9:36 AM CDT [facility] Comment: Cholesterol, Total Reference Ranges Desirable <200 mg/dL Borderline 200-239 mg/dL High >=240 mg/dL TRIGLYCERIDES 116 <150 mg/dL 01/11/2024 9:36 AM CDT [facility] HDL CHOLESTEROL 64 >40 mg/dL 9:36 AM CDT [facility] NON-HDL CHOLESTEROL 107 <145 mg/dl 01/11/2024 9:36 AM CDT [facility] CHOL/HDL RATIO 2.67 <4.50 01/11/2024 9:36 AM CDT [facility] LDL CHOLESTEROL 84 <=130 mg/dL 01/11/2024 9:36 AM CDT [facility] VLDL CHOLESTEROL 23 <=30 mg/dL 01/11/2024 9:36 AM CDT [facility] PROVIDER ORDERED STATUS RANDOM 01/11/2024 9:36 AM CDT [facility] Blood BLOOD SPECIMEN / Unknown Venipuncture / Unknown 01/10/2024 12:04 PM CDT 01/10/2024 12:05 PM CDT us Jovanna Kline DO CHEMISTRY Final Result [facility] [address] [place] [address], [place] * XR MAMMO ERIKA BILAT SCREEN [...] care provider. XR MAMMO ERIKA BILAT SCREEN [[id number]] CLINICAL HISTORY: This is an asymptomatic 53 y.o. patient. INDICATION FOR EXAM: Mammogram Screening. TECHNIQUE: CC & MLO views were obtained. This study was evaluated with the assistance of Computer-Aided Detection. Breast Tomosynthesis was used in interpretation. COMPARISON FILM: Yes 06/19/22 [facility] 04/30/21 [employer] FINDINGS: The breasts are heterogeneously dense, which may obscure small masses. There are no dominant masses, suspicious micro calcifications or areas of architectural distortion. us Jovanna Kline DO MAMMO Final Result * SDNA-FIT EXTERNAL (COLOGUARD) [[id number]] (12/16/2023 7:40 AM CDT) NONINV COLON CA DNA+OCC BLD SCRN STL-IMP Negative Negative 12/23/2023 5:48 PM CDT [facility] (CLIA #:[id number]) Comment: NEGATIVE TEST RESULT. A negative Cologuard [...] (Radha Mehta al, N Engl J Med 2014;370(14):3039-6248) The normal value (reference range) for this assay is negative. COLOGUARD RE-SCREENING RECOMMENDATION: Periodic colorectal cancer screening is an important part of preventive healthcare for asymptomatic individuals at average risk for colorectal cancer. Following a negative Cologuard result, the [place] Cancer Society and U.S. Multi-Society Task Force screening guidelines recommend a Cologuard re-screening interval of 3 years. References: [place] [employer] Guideline for Colorectal Cancer Screening: https://www.cancer.org/cancer/xyetu-igujkm-yayvmh/bhxnbpneq-vetxdthrr-xoodhzh/ac s-rec ommendations.html.; Bala DK, Fozia PITTS, Gonzalo HardinK, Colorectal Cancer Screening: Recommendations for Physicians and Patients from the U.S. Multi-Society Task Force on Colorectal Cancer Screening , Am J Gastroenterology 2017; 112:0181-2118. TEST DESCRIPTION: Composite algorithmic analysis of stool [...] (Radha Mehta al, N Engl J Med 2014;370(14):3741-5244.) Cologuard may produce a false negative or false positive result (no colorectal cancer or precancerous polyp present at colonoscopy follow up). A negative Cologuard test result does not guarantee the absence of CRC or advanced adenoma (pre-cancer). The current Cologuard screening interval is every 3 years. ([place] [employer] Society and U.S. Multi-Society Task Force). Cologuard performance data in a 10,000 patient pivotal study using colonoscopy as the reference method can be accessed at the following location: www.[employer]results. Additional description of the Cologuard test process, warnings and precautions can be found at www.colDashrd.com. Stool specimen (specimen) (Rectum) 12/16/2023 7:40 AM CDT 12/17/2023 12:25 PM CDT us Jovanna Kline DO URINE Final Result [facility] (CLIA #:[id number]) [place] [address], * LC HCV ANTIBODY RFX TO QUANT PCR (12/03/2022 12:00 PM CDT) Pathologist [facility] HCV Ab Non Reactive Non Reactive 12/05/2022 3:08 PM CDT [facility] Blood BLOOD SPECIMEN / Unknown Venipuncture / Unknown 12/03/2022 12:00 PM CDT 12/03/2022 12:02 PM CDT Narrative [facility] ([facility] - 12/05/2022 3:08 PM CDT Performed at: [address] [place] [id number] Electrical Engineering Director: Nelson Ruff MD, Phone: [phone] us Justin G[facility]ZALE[facility] LABORAT[facility] Fin al Result [facility] ([facility]) [address] [place] [address], * LC HIV-1/O/2, 4TH GENERATION (12/03/2022 12:00 PM CDT) Pathologist [facility] HIV Scr 4th Gen Non Reactive Non Reactive 12/05/2022 12:08 PM CDT [facility]) Comment: HIV Negative HIV-1/HIV-2 antibodies and HIV-1 p24 antigen were NOT detected. There is no laboratory evidence of HIV infection. Blood BLOOD SPECIMEN / Unknown Venipuncture / Unknown 12/03/2022 12:00 PM CDT 12/03/2022 12:02 PM CDT Narrative [facility] - 12/05/2022 12:08 PM CDT Performed at: - [facility] [employer] [place], [place] [id number] Electrical Engineering Director: Nelson Ruff MD, Phone: [phone] us Justin GON[facility]ORAT[facility] Fin al Result [facility]) [place] [address], from Last 3 Months or Most Recently [...] with C diff symptoms 10/18/2024 10/18/2024 Insurance [facility] Advance Directives * Full Code (Latest Code Status on File) Date Activated Date Inactivated Comments 10/17/2024 11:11 PM 10/18/2024 1:27 PM Question Answer Comments Code Status Discussion: Reviewed Preferences Care Teams [employer] Department Supervisor Relationship Specialty Start Date End Date Jovanna Kline DO [address] [place] [address] PCP - General Family Practice 09/02/22 Jolly Calabrese PA Physician Jewel Grinder 10/23/21 Ward Che PA [address] [place] [address] Endocrinology Physician Jewel Grinder 06/29/24
--- NOTE | 2024-10-21 12:29 | ED.GENADULT ---
HPI - General Adult General Date Seen: 10/21/24 Chief complaint: Back Injury/Pain Stated complaint: dehydration, possible infection Time Seen by Provider: 10/21/24 12:15 History of Present Illness HPI narrative: Patient is a 54-year-old woman here by EMS for evaluation of abdominal back and bladder pain. Her past medical history unknown for chronic pain on oxycodone and medical marijuana, interstitial cystitis. Recent ER visits include: October 09: Seen with urinary symptoms, diagnosed with UTI and prescribed Keflex and Diflucan October 14: Seen for ongoing cystitis symptoms, antibiotic was changed October 16, seen for back and abdominal pain, had a negative lumbar CT scan at that time. October 19 seen for ongoing abdominal pain and back pain, negative laboratory workup at that time. October 20 returned for evaluation of abdominal and back pain, no evaluation at that time. She does take oxycodone chronically, was given 12 tablets of Dilaudid by an outside physician on October 13, 10 tablets of Dilaudid by her primary doctor on October 16, an additional 7 tablets given out of the ER on October 19. She comes in today saying that she has ongoing abdominal and back pain, bladder pain. She has a catheter in place, which was placed in the past week or so secondary to her urinary symptoms. She says that there was blood in her urine earlier and she thinks the catheter was not draining. No reported fevers. Had 50 mcg of fentanyl in the ambulance, speech is a little slurred here and she is somewhat sleepy. She says that she has not taken any Dilaudid at home since last night, says she tried to take it this morning but 1st told me that she could not take it because she could not find the right pills, then told me that she did take it but she spit it up because she was using her yeast infection medication after that. She is currently being treated for C diff with Dificid. Not having problems with diarrhea. She says she feels somewhat weak and confused. Related Data Home Medications ?Medication ?Instructions ?Recorded ?Confirmed amitriptyline 10 mg tablet mg PO 01/11/24 03/18/24 cyclobenzaprine 10 mg tablet 10 mg PO QPM 01/11/24 03/18/24 estradiol 0.01% (0.1 mg/gram) vaginal QPM 01/11/24 03/18/24 vaginal cream liothyronine 5 mcg tablet mcg PO 01/11/24 03/18/24 metoclopramide HCl 10 mg tablet 10 mg PO Q6H PRN nausea/vomiting 01/11/24 03/18/24 nitrofurantoin macrocrystal 50 mg 50 mg PO DAILY 01/11/24 03/18/24 capsule oxycodone 5 mg tablet PO 01/11/24 03/18/24 pregabalin 150 mg capsule 150 mg PO BID 01/11/24 03/18/24 triamcinolone acetonide 0.1 % 1 applic topical BID-TID 01/11/24 03/18/24 topical cream valacyclovir 1 gram tablet 1,000 mg PO DAILY 01/11/24 03/18/24 Previous Rx's ?Medication ?Instructions ?Recorded atenolol 50 mg tablet 50 mg PO DAILY #30 tabs 01/11/24 fluconazole 150 mg tablet 150 mg PO Q3D 2 doses #2 tabs 03/18/24 nystatin 100,000 unit/gram topical 1 applic topical BID #30 grams 03/18/24 cream ciprofloxacin HCl 500 mg tablet 500 mg PO BID #14 tabs 10/09/24 (Cipro) fluconazole 100 mg tablet 100 mg PO DAILY #10 tabs 10/09/24 (Diflucan) hyoscyamine sulfate 0.125 mg tablet 0.25 mg (2 x 0.125 mg) PO QID PRN 10/14/24 cramping #30 tabs fidaxomicin 200 mg tablet (Dificid) 200 mg PO BID 10 days #20 tabs 10/16/24 hydromorphone 2 mg tablet 2 mg PO Q6H #7 tabs 10/19/24 Allergies Allergy/AdvReac Type Severity Reaction Status Date / Time adhesive Allergy Unknown Verified 10/21/24 12:13 hydrocodone Allergy Unknown Verified 10/21/24 12:13 meperidine (From Demerol) Allergy Unknown Verified 10/21/24 12:13 Sulfa (Sulfonamide Allergy Unknown Verified 10/21/24 12:13 Antibiotics) Review of Systems Status of ROS: Reports: 10 or more systems reviewed and unremarkable except as noted in History and below PFSH PFSH Social History Smoking Status: Current some day smoker How often do you have a drink containing alcohol: never AUDIT-C Alcohol total score: 0 Non-prescribed substance use: marijuana (any form) Exam Narrative: Exam Narrative: Vital signs reviewed In general, she is mildly somnolent but arouses easily, keeps her eyes closed the entire time that we talked. Head: Normocephalic, atraumatic. Eyes: Sclera clear. Pupils equal and reactive. ENT: Mucous membranes moist. Neck: Supple without adenopathy. Heart: Regular rate and rhythm without murmur. Lungs: Clear. No increased work of breathing, crackles or wheezes. Abdomen: Soft, nontender to palpation. Catheter in place. The urine in the tube looks normal. The urine in the bag looks the color of phenazopyridine. Extremities: Well perfused, pulses intact. No significant edema. Neurologic: Alert, conversant. Speech fluent, face symmetric. Moves all extremities equally. Skin: Warm, dry well perfused. Affect: Anxious Const: Vital Signs, click to edit/add: Vital Signs - 24 hr 10/21/24 12:14 Temperature 98 F Pulse Rate [Pulse Oximeter] 82 Respiratory Rate 18 Blood Pressure [Le ft Upper Arm] 136/84 Pulse Oximetry 97 Oxygen Delivery Me thod Room Air Course Course ED Course: I reviewed all of her recent labs as well as her prescription monitoring database. I had another conversation with her once her was in the room, she says she is able to feel calmer when he is there. I initially suggested that we take the catheter out as she is complaining of all this bladder irritation and pain as well as seen blood in her urine. She became extremely agitated, she says that the catheter is the only thing helping her bladder pain. I pointed out that she came in because of complaints of severe bladder pain but she says that I misunderstood that. She would like labs rechecked so I will recheck those for her. I have discussed with her that we have not yet found anything on her recent visits to suggest a serious problem aside from the C diff which is being treated. Urinalysis was sent and this shows 0-2 red cells, 0-2 white cells. It is positive for nitrates, of uncertain significance all things considered. Discussed with her that I think she is overmedicated. I do not want to use any further Dilaudid. I am willing to give her Toradol which she says works well for her. She was supposed see her primary doctor parent yesterday but they came here instead. Her acknowledges that they come in by ambulance because that way they do not have to sit in the lobby. She does have an appointment with her primary doctor on Wednesday and then I believe again on Wednesday. I am unwilling to prescribe any further narcotics as I do not think they were helping and I think they are actually making things somewhat worse. She does have some constipation now as well, I am going to start her on MiraLax. I will prescribe Toradol for home use for the next few days. She came in with a complaint of possible dehydration as well but says that yesterday she drank a ton of fluids and had a lot of urine output. I do not think she is likely significantly dehydrated. Vital signs are normal, exam is unremarkable. Will await results of lab testing. CBC shows a mildly elevated white blood cell count 13, fairly nonspecific. Lactate is normal at 0.7. Her metabolic panel is notable for a sodium of 123, this is acute the decreased compared to 2 days ago when it was 137. I suspect this is related to her significant hydration with water and juice yesterday. I do think with her complaint of weakness and confusion, we should keep her in the hospital to normalize her sodium. In reassessing her, she looks much better now, she is more alert. I do think narcotics are contributing to her sleepiness and confusion, the can not rule out that sodium is contributing. She also asked that we do a chest x-ray as she has been exposed to lot of people with pneumonia and she has developed a cough. I ordered chest x-ray, will also do a COVID influenza swab. Chest x-ray by my review is negative. Final radiology read is pending. COVID pending. Patient admitted to the hospitalist service. Vital Signs Vital signs: Initial Vital Signs Temperature 98 F 10/21/24 12:14 Temperature Source Temporal Artery Scan 10/21/24 12:14 Pulse Rate 82 10/21/24 12:14 Pulse Rhythm Regular 10/21/24 12:14 Respiratory Rate 18 10/21/24 12:14 Blood Pressure 136/84 10/21/24 12:14 Blood Pressure Mean 101 10/21/24 12:14 Blood Pressure Position Semi-Fowlers 10/21/24 12:14 Pulse Oximetry 97 10/21/24 12:14 Oxygen Delivery Method Room Air 10/21/24 12:14 Vital Signs Temperature 98 F 10/21/24 12:14 Pulse Rate 82 10/21/24 12:14 Respiratory Rate 18 10/21/24 12:14 Blood Pressure 136/84 10/21/24 12:14 Pulse Oximetry 97 10/21/24 12:14 Oxygen Delivery Method Room Air 10/21/24 12:14 Temperature 98 F 10/21/24 12:14 Pulse Rate 82 10/21/24 12:14 Respiratory Rate 18 10/21/24 12:14 Blood Pressure 136/84 10/21/24 12:14 Pulse Oximetry 97 10/21/24 12:14 Oxygen Delivery Method Room Air 10/21/24 12:14 Medications Administered Medications: Generic Name Dose Route Start Last Admin Trade Name Freq PRN Reason Stop Dose Admin Sodium Chloride 500 mls @ 500 mls/hr 10/21/24 13:51 10/21/24 14:16 0.9 % Sodium Chloride 500 Ml IV 10/21/24 14:50 500 mls/hr .Q1H ONE Administration Discontinued Medications Generic Name Dose Route Start Last Admin Trade Name Freq PRN Reason Stop Dose Admin Ketorolac Tromethamine 15 mg 10/21/24 12:55 10/21/24 13:23 Ketorolac 15 Mg/Ml Inj IVP 10/21/24 12:56 15 mg ONCE ONE Administration Medical Decision Making Lab Data Labs: Lab Results 10/21/24 10/21/24 Range/Units 12:24 13:04 WBC 13.19 H (4.50-11.00) K/uL RBC 4.63 (4.00-5.20) m/uL Hgb 13.2 (12.0-16.0) gm/dL Hct 40.0 (33.0-51.0) % MCV 86 (80-100) fL MCH 29 (26-34) pg MCHC 33 (32-36) gm/dL RDW Coeff of Lauri 12.8 (11.5-15.5) % Plt Count 239 (140-440) K/uL Neut % (Auto) 83.0 H (42.0-72.0) % Lymph % (Auto) 9.0 L (20-44) % [place] % (Auto) 5.5 (0.0-11.0) % Eos % (Auto) 2.0 (0.0-7.0) % Baso % (Auto) 0.3 (0.0-3.0) % Neut # (Auto) 10.90 H (1.7-7.0) K/uL Lymph # (Auto) 1.20 (0.90-2.90) K/uL [place] # (Auto) 0.70 (0.00-0.90) K/UL Eos # (Auto) 0.30 (0.00-0.50) K/uL Baso # (Auto) 0.00 (0.00-0.30) K/uL Abs Immat Gran (auto) 0.00 (0.00-0.30) K/uL Imm/Tot Granulo (auto) 0.2 % Sodium 123 L* (135-149) mmol/L Potassium 4.8 (3.6-5.1) mmol/L Chloride 90 L (96-114) mmol/L Carbon Dioxide 26 (20-32) mmol/L Anion Gap 7 (7-15) mEq/L BUN 10 (7-30) mg/dL Creatinine 0.8 (0.5-1.5) mg/dL Estimated Creat Clear 59.96 Estimated GFR 87 ml/min Glucose 107 (60-115) mg/dL Lactate 0.7 (0.5-1.9) mmol/L Calcium 8.3 L (8.4-10.6) mg/dL Total Bilirubin 0.8 (0.1-1.5) mg/dL Direct Bilirubin 0.1 (0.0-0.5) mg/dL AST 28 (12-35) U/L ALT 22 (4-35) U/L Alkaline Phosphatase 41 (40-150) U/L Total Protein 6.7 (6.0-8.3) g/dL Albumin 3.7 (3.3-5.0) g/dL Urine Color Yellow (Yellow) Urine Appearance Clear (Clear) Urine pH 7.5 (5.0-8.5) Ur Specific [place] 1.010 (1.000-1.030) Urine Protein Negative (Negative) Urine Glucose (UA) Negative (Negative) Urine Ketones Negative (Negative) Urine Blood 1+ A (Negative) Urine Nitrite Positive A (Negative) Urine Bilirubin Negative (Negative) Urine Urobilinogen 0.2 (0.2-1.0) Ur Leukocyte Esterase Negative (Negative) Urine RBC 0-2 (0-2) Urine WBC 0-2 (0-5) Ur Squamous Epith Cells Few (None-Few) Urine Bacteria None (None) Discharge Plan Discharge Prescriptions: No Action nystatin 100,000 unit/gram cream 1 applic topical BID Qty: 30 0RF fluconazole 150 mg tablet 150 mg PO Q3D Qty: 2 0RF Rx Instructions: Take one tablet on first day. OK to repeat dose in 72 hours if symptoms persist. Follow up if symptoms persist after second dose. cyclobenzaprine 10 mg tablet 10 mg PO QPM nitrofurantoin macrocrystal 50 mg capsule 50 mg PO DAILY valacyclovir 1 gram tablet 1,000 mg PO DAILY liothyronine 5 mcg tablet PO triamcinolone acetonide 0.1 % cream 1 applic topical BID-TID amitriptyline 10 mg tablet PO estradiol 0.01 % (0.1 mg/gram) cream vaginal QPM metoclopramide HCl 10 mg tablet 10 mg PO Q6H PRN (Reason: nausea/vomiting) oxycodone 5 mg tablet PO pregabalin 150 mg capsule 150 mg PO BID atenolol 50 mg tablet 50 mg PO DAILY Qty: 30 3RF hyoscyamine sulfate 0.125 mg tablet 0.25 mg PO QID PRN (Reason: cramping) Qty: 30 0RF fluconazole [Diflucan] 100 mg tablet 100 mg PO DAILY Qty: 10 0RF ciprofloxacin HCl [Cipro] 500 mg tablet 500 mg PO BID Qty: 14 0RF Dificid 200 mg tablet 200 mg PO BID 10 Days Qty: 20 0RF hydromorphone 2 mg tablet 2 mg PO Q6H Qty: 7 0RF Follow Up/Referrals: Jovanna Kline DO [Primary Care Provider] -
--- OUTSIDE RECORDS SUMMARY | 2024-10-21 12:37 | XMS_ITS | Clinical Summary ---
Author Organization [facility] Address [address] [place] [address] Care Team Providers Care Paper Baling Machine Operator Name Role Phone Jolly Calabrese Unavailable [phone] Jovanna Kline DO Primary Care Provider [phone] Ward Che Unavailable [phone] Allergies Active Allergy Reactions Criticality Noted Date [...] Type Department Care Team Description 10/20/2024 Telephone [facility] [address] [place] [address] Jovanna Kline, DO Refill Request (Toradol) 10/19/2024 Nurse Triage [facility] [address] [place] [address] Shaqra, Jovanna Jeimy, DO Dizzy 10/19/2024 Patient Outreach [facility] [address] [place] [address] Marcela Alexandra, RN Primary RN Care Management; Hospital F/U (LACE 52) 10/18/2024 Nurse Triage [facility] [address] [place] [address] Shaqra, Jovanna Jeimy, DO Mouth/Lip Problem 10/17/2024 8:22 PM CDT - 10/18/2024 11:21 AM CDT Emergency [facility] [address] [place] [address] Rufus Echevarria MD [facility], [facility], MD Pierre Maloney Jessica Leigh, PA Generalized weakness (Primary Dx); Back pain, unspecified back location, unspecified back pain laterality, unspecified chronicity; C. difficile colitis; Facial numbness; Generalized pain Discharge Disposition: Home Self Care 10/17/2024 Travel 10/17/2024 Telephone [facility] [address] [place] [address] Jadielqra, Jovanna Jeimy, DO Results 10/16/2024 E-Visit [facility] [address] [place] [address] Shaqra, Jovanna Jeimy, DO Cdiff 10/13/2024 8:30 AM ADULT REMEDIAL EDUCATION INSTRUCTOR - 10/13/2024 10:46 AM ADULT REMEDIAL EDUCATION INSTRUCTOR Emergency [facility] [address] [place] [address] Sacha Wren MD Flank pain (Primary Dx); Bladder pain; Nausea Discharge Disposition: Home Self Care 10/13/2024 Telephone [place] [id number] [facility] E [facility] [address] [place] [address] Amie Lindo MD Questions (appointment//nurse visit) 10/13/2024 Telephone [place] [id number] [facility] [address] [place] [address] Amie Lindo MD Appointment 10/13/2024 Travel 10/12/2024 10:14 AM ADULT REMEDIAL EDUCATION INSTRUCTOR - 10/12/2024 1:51 PM ADULT REMEDIAL EDUCATION INSTRUCTOR Emergency [facility] [address] [place] [address] Miko Siddiqui MD Pain of upper extremity, unspecified laterality (Primary Dx); Back pain, unspecified back location, unspecified back pain laterality, unspecified chronicity; Myalgia; Nausea; Abdominal pain, unspecified abdominal location Discharge Disposition: Home Self Care 10/12/2024 Nurse Triage [facility] [address] [facility] [address] [place] [address] Amie Lindo MD Medication Management (methenamine hippurate (HIPREX) 1 gram tablet) 10/11/2024 3:00 PM ADULT REMEDIAL EDUCATION INSTRUCTOR Ancillary Procedure [address] [address] 10/11/2024 1:15 PM ADULT REMEDIAL EDUCATION INSTRUCTOR Office Visit [facility] [address] [place] [address] Yao Vail MD ER Follow up ([facility], 10/09/2024, UTI - symptoms getting worse) 10/11/2024 Travel 10/11/2024 Nurse Triage [facility] [address] [place] [address] Sir Klinei Jeimy, DO Flank Pain; Urinary Tract Infection 10/06/2024 Travel 09/21/2024 2:20 PM ADULT REMEDIAL EDUCATION INSTRUCTOR E-Visit [facility] [address] [place] [address] Eliud Jovanna Jeimy, DO eVisit for Vaginal Discharge / Irritation 09/19/2024 7:30 AM ADULT REMEDIAL EDUCATION INSTRUCTOR Nurse/Clinic Staff Only [address] [address] Testing (HST Return/Download.) 09/18/2024 2:15 PM ADULT REMEDIAL EDUCATION INSTRUCTOR Nurse/Clinic Staff Only [address] [address] Testing (HST Set-up) 09/18/2024 Procedure Only [facility] [address] [facility] [address] Ward Castillo MD Results (HST) 09/18/2024 Travel 09/04/2024 Refill [facility] [address] [place] [address] Sir Klinei Jeimy, DO Refill Request (Pregabalin) 08/24/2024 3:00 PM ADULT REMEDIAL EDUCATION INSTRUCTOR Office Visit [facility] [address] [facility] [address] [place] [address] Amie Lindo MD Consult (Recurring UTI) 08/24/2024 Travel 08/18/2024 2:10 PM ADULT REMEDIAL EDUCATION INSTRUCTOR Office Visit [facility] [address] [place] [address] Sir Klinei Jeimy, DO Medication Management (Oxycodone renew - change amitriptyline to nortriptyline due to weight gain) 08/18/2024 Travel 08/08/2024 4:15 PM ADULT REMEDIAL EDUCATION INSTRUCTOR Orders Only [facility] [address] [place] [id number] Angela, Marilou <No scans attached> 08/08/2024 Travel 08/07/2024 Refill [facility] [address] [facility] [address] [place] Jovanna Jeimy, DO Refill Request (Pregabalin) [...] on file Legal Sex Female 4:43 PM ADULT REMEDIAL EDUCATION INSTRUCTOR Gender Identity Not on file Sexual Orientation Not on file 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 on file Not on file [...] Description 10/23/2024 11:15 AM CDT Office Visit [facility] [address] [place] [address] Ervin Rodriges MD [address] [place] [address] 10/24/2024 1:45 PM CDT Office Visit [facility] [address] [place] [address] Jovanna Kline DO [address] [place] [address] 10/27/2024 2:20 PM CDT Telemedicine [address] [place] [address] Ward Che PA [address] [place] [address] [place] [address] 11/13/2024 4:00 PM CDT Office Visit [facility] [address] [place] [address] Ward Castillo MD [address] [place] [address] Health Maintenance Due Date Last Done Comments [...] booster 01/14/2026 01/15/2016, 12/31/2004 Fecal testing sDNA-FIT (Mobile guard) for age 45-75 12/15/2026 12/16/2023, 05/23/2020 [...] REFLEXED PER CRITERIA STAT 10/13/2024 9:10 AM ADULT REMEDIAL EDUCATION INSTRUCTOR PROCALCITONIN STAT 10/13/2024 8:57 AM ADULT REMEDIAL EDUCATION INSTRUCTOR C-REACTIVE PROTEIN STAT 10/13/2024 8: 57 AM ADULT REMEDIAL EDUCATION INSTRUCTOR CBC W PLT NO DIFF STAT 10/13/2024 8:5 7 AM ADULT REMEDIAL EDUCATION INSTRUCTOR TROPONIN T (HS) ONE TIME Timed 10/12/2024 12:43 PM ADULT REMEDIAL EDUCATION INSTRUCTOR EKG 12 LEAD STAT 10/12/2024 10:52 AM ADULT REMEDIAL EDUCATION INSTRUCTOR TROPONIN T (HS) ACUTE W/2HR REFLEX STAT 10/12/2024 10:43 AM ADULT REMEDIAL EDUCATION INSTRUCTOR HEPATIC FUNCTION PANEL STAT 10/12/2024 10:43 AM ADULT REMEDIAL EDUCATION INSTRUCTOR LIPASE STAT 10/12/2024 10:43 AM ADULT REMEDIAL EDUCATION INSTRUCTOR BASIC METABOLIC PANEL STAT 10/12/2024 10:43 AM ADULT REMEDIAL EDUCATION INSTRUCTOR CBC W PLT NO DIFF STAT 10/12/2024 10: 43 AM ADULT REMEDIAL EDUCATION INSTRUCTOR CT ABDOMEN PELVIS STONE PROTOCOL WO STAT 10/11/2024 2:31 PM ADULT REMEDIAL EDUCATION INSTRUCTOR Flank pain URINALYSIS MACROSCOPIC - [facility] ONLY POC DIP (QUEST) Routine 10/11/2024 2:13 PM ADULT REMEDIAL EDUCATION INSTRUCTOR Flank pain URINALYSIS MICROSCOPIC Routine 10/11/2024 2:11 PM ADULT REMEDIAL EDUCATION INSTRUCTOR Flank pain URINE CULTURE Routine 10/11/2024 2:11 PM ADULT REMEDIAL EDUCATION INSTRUCTOR Flank pain CBC WITH AUTO DIFFERENTIAL Routine 10/11/2024 2:11 PM ADULT REMEDIAL EDUCATION INSTRUCTOR Flank pain HEPATIC FUNCTION PANEL Routine 10/11/2024 2:11 PM ADULT REMEDIAL EDUCATION INSTRUCTOR Flank pain BASIC METABOLIC PANEL Routine 10/11/2024 2:11 PM ADULT REMEDIAL EDUCATION INSTRUCTOR Flank pain COVID/FLU/RSV PANEL Routine 10/11/2024 2 :04 PM ADULT REMEDIAL EDUCATION INSTRUCTOR Cough, unspecified type ALT (SGPT) Routine 10/06/2024 4:26 PM ADULT REMEDIAL EDUCATION INSTRUCTOR Graves' disease AST (SGOT) Routine 10/06/2024 4:26 PM ADULT REMEDIAL EDUCATION INSTRUCTOR Graves' disease CBC WITH AUTO DIFFERENTIAL Routine 10/06/2024 4:26 PM ADULT REMEDIAL EDUCATION INSTRUCTOR Graves' disease T3,TOTAL Routine 10/06/2024 4:26 PM ADULT REMEDIAL EDUCATION INSTRUCTOR Graves' disease T4,FREE Routine 10/06/2024 4:26 PM ADULT REMEDIAL EDUCATION INSTRUCTOR Graves' disease TSH Routine 10/06/2024 4:26 PM ADULT REMEDIAL EDUCATION INSTRUCTOR Graves' disease HOME SLEEP TEST TYPE 3 PORTABLE Routine 09/18/2024 11:59 PM ADULT REMEDIAL EDUCATION INSTRUCTOR Suspected sleep apnea TSH Routine 08/08/2024 4:11 PM ADULT REMEDIAL EDUCATION INSTRUCTOR Graves' disease T3,TOTAL Routine 08/08/2024 4:11 PM ADULT REMEDIAL EDUCATION INSTRUCTOR Graves' disease T4,FREE Routine 08/08/2024 4:11 PM ADULT REMEDIAL EDUCATION INSTRUCTOR Graves' disease CLINICAL RESOURCE MANAGER THIN PREP PAP SCREEN IMAGED Routine 01/10/2024 [...] ISTAT <1.8 <=2.0 10/17/2024 9:58 PM CDT [facility] LACTATE SCREEN VENOUS POCT 1.1 <=2.0 10/17/2024 9:58 PM CDT [facility] Blood BLOOD SPECIMEN / Unknown 10/17/2024 9:54 PM CDT 10/17/2024 9:58 PM CDT Rufus Echevarria MD LABORATORY Geetha l Result [facility] [address] [place] [address], [place] * EXTRA TUBE SHUKLA ON ICE (10/17/2024 9:25 PM CDT) Blood BLOOD SPECIMEN / Unknown Non-Lab Venipuncture / Unknown 10/17/2024 9:25 PM CDT 10/17/2024 9:35 PM CDT us Rufus Echevarria MD LABORATORY Geetha l Result [facility] [address] [place] [address], [place] * CBC WITH AUTO DIFFERENTIAL (10/17/2024 9:25 PM CDT) Pathologist [facility] WHITE BLOOD COUNT 8.2 4.5 - 11.0 thou/cu mm 10/17/2024 9:52 PM CDT [facility] RED BLOOD COUNT 4.76 4.00 - 5.20 mil/cu mm 10/17/2024 9:52 PM CDT [facility] HEMOGLOBIN 13.5 12.0 - 16.0 g/dL 10/17/2024 9:52 PM CDT [facility] HEMATOCRIT 42.0 33.0 - 51.0 % 10/17/2024 9:52 PM CDT [facility] MCV 88 80 - 100 fL 10/17/2024 9:52 PM CDT [facility] MCH 28.4 26.0 - 34.0 pg 10/17/2024 9:52 PM CDT [facility] MCHC 32.1 32.0 - 36.0 g/dL 10/17/2024 9:52 PM CDT [facility] RDW 13.7 11.5 - 15.5 % 10/17/2024 9:52 PM CDT [facility] PLATELET COUNT 280 140 - 440 thou/cu mm 10/17/2024 9:52 PM CDT [facility] MPV 10.1 6.5 - 11.0 fL 10/17/2024 9:52 PM CDT [facility] NRBC 0.0 % 10/17/2024 9:52 PM CDT [facility] ABS NRBC 0.0 thou /cu mm 10/17/2024 9:52 PM CDT [facility] % NEUT 70.7 % 10/17/2024 9:52 PM CDT [facility] % LYMPH 21.0 % 10/17/2024 9:52 PM CDT [facility] % MONO 6.3 % 10/17/2024 9:52 PM CDT [facility] % EOS 1.3 % 10/17/2024 9:52 PM CDT [facility] % BASO 0.6 % 10/17/2024 9:52 PM CDT [facility] % IMMATURE GRAN (METAS,MYELOS,ND OS) 0.1 % 10/17/2024 9:52 PM CDT [facility] ABSOLUTE NEUTROPHILS 5.8 1.7 - 7.0 thou/cu mm 10/17/2024 9:52 PM CDT [facility] ABSOLUTE LYMPHOCYTES 1.7 0.9 - 2.9 thou/cu mm 10/17/2024 9:52 PM CDT [facility] ABSOLUTE MONOCYTES 0.5 <0.9 thou/cu mm 10/17/2024 9:52 PM CDT [facility] ABSOLUTE EOSINOPHILS 0.1 <0.5 thou/cu mm 10/17/2024 9:52 PM CDT [facility] ABSOLUTE BASOPHILS 0.1 <0.3 thou/cu mm 10/17/2024 9:52 PM CDT [facility] ABSOLUTE IMMATURE GRANULOCYTES(MET ,MYELOS,PROS) 0.0 <0.3 thou/cu mm 10/17/2024 9:52 PM CDT [facility] Blood BLOOD SPECIMEN / Unknown Non-Lab Venipuncture / Unknown 10/17/2024 9:25 PM CDT 10/17/2024 9:35 PM CDT Rufus Echevarria MD HEMATOLOGY Geetha gonsalez Result [facility] [address] [place] [address], * PROCALCITONIN (10/17/2024 9:25 PM CDT) Only the most recent of2 resultswithin the time period is included. PROCALCITONIN 0.03 ng/ml 10/17/2024 10:12 PM CDT [facility] Blood BLOOD SPECIMEN / Unknown Non-Lab Venipuncture / Unknown 10/17/2024 9:25 PM CDT 10/17/2024 9:35 PM CDT Narrative [facility] - 10/17/2024 10:12 PM CDT [...] Echevarria MD SEND OUTS Geetha wallace Result [facility] [address] [place] [address], [place] * URINALYSIS MICROSCOPIC (10/17/2024 9:25 PM CDT) Only the most recent of2 resultswithin the time period is included. RBC 0-2 0-2, None Seen /HPF 10/17/2024 10:25 PM CDT [facility] WBC 0-2 0-2, 3-5, None Seen /HPF 10/17/2024 10:25 PM CDT [facility] BACTERIA None Seen None Seen, Rare, Few Bacteria/ HPF 10/17/2024 10:25 PM CDT [facility] EPITHELIAL CELLS None Seen None Seen, Few Epi/HPF 10/17/2024 10:25 PM CDT [facility] HYALINE CASTS 0-2 0-2, 3-5 /LPF 10/17/2024 10:25 PM CDT [facility] Urine URINE SPECIMEN / Unknown Non-Blood / Unknown 10/17/2024 9:25 PM CDT 10/17/2024 9:36 PM CDT Rufus Echevarria MD URINE Geetha l Result [facility] [address] [place] [address], [place] * (ABNORMAL) URINALYSIS W RELEX MICROSCOPIC IF POSITIVE (10/17/2024 9:25 PM CDT) Only the most recent of2 resultswithin the time period is included. COLOR Yellow Yellow Color 10/17/2024 10:25 PM CDT [facility] CLARITY Clear Clear Clarity 10/17/2024 10:25 PM CDT [facility] SPECIFIC GRAVITY,URINE <=1.005(A) 1.010, 1.015, 1.020, 1.025 10/17/2024 10:25 PM CDT [facility] PH,URINE 8.0 6.0, 7.0, 8.0, 5.5, 6.5, 7.5, 8.5 10/17/2024 10:25 PM CDT [facility] UROBILINOGEN, QUALITATIVE Normal Normal EU/dl 10/17/2024 10:25 PM CDT [facility] PROTEIN, URINE Negative Negative mg/dL 10/17/2024 10:25 PM CDT [facility] GLUCOSE, URINE Negative Negative mg/dL 10/17/2024 10:25 PM CDT [facility] KETONES,URINE Negative Negative mg/dL 10/17/2024 10:25 PM CDT [facility] BILIRUBIN,URI NE Negative Negative 10/17/2024 10:25 PM CDT [facility] OCCULT BLOOD,URINE Negative Negative 10/17/2024 10:25 PM CDT [facility] NITRITE Positive(A) Negative 10/17/2024 10:25 PM CDT [facility] LEUKOCYTE ESTERASE Negative Negative 10/17/2024 10:25 PM CDT [facility] Urine URINE SPECIMEN / Unknown Non-Blood / Unknown 10/17/2024 9:25 PM CDT 10/17/2024 9:36 PM CDT Rufus Echevarria MD URINE Geetha l Result Performing Organization Address [facility] Co de Phone Number [facility] [address] [address], [place] * PROTIME-INR (10/17/2024 9:25 PM CDT) INR 1.0 <1.3 10/17/2024 9:59 PM CDT [facility] PROTIME 11.3 10.6 - 12.4 sec 10/17/2024 9:59 PM CDT [facility] Blood BLOOD SPECIMEN / Unknown Non-Lab Venipuncture / Unknown 10/17/2024 9:25 PM CDT 10/17/2024 9:35 PM CDT Narrative [facility] - 10/17/2024 9:59 PM CDT [...] HEMATOLOGY Geetha l Result Performing Organization Address [facility] Co de Phone Number [facility] [address] [address], [place] * (ABNORMAL) COMP METABOLIC PANEL (10/17/2024 9:25 PM CDT) SODIUM 139 136 - 145 mmol/L 10/17/2024 10:00 PM CDT [facility] POTASSIUM 4.4 3.5 - 5.1 mmol/L 10/17/2024 10:00 PM CDT [facility] CHLORIDE 103 98 - 107 mmol/L 10/17/2024 10:00 PM T [facility] CO2,TOTAL 26 22 - 29 mmol/L 10/17/2024 10:00 PM [facility] ANION GAP 10 5 - 18 10/17/2024 10:00 PM [facility] GLUCOSE 129(H) 70 - 99 mg/dL 10/17/2024 10:00 PM [facility] CALCIUM 9.5 8.8 - 10.4 mg/dL 10/17/2024 10:00 PM [facility] Comment: Reference ranges for this test were updated on 06/13/2024 to reflect our healthy population more accurately. Reference range changes are not retroactively applied to results, but previous results using the same methodology can be interpreted in the context of the new reference range. BUN 4(L) 6 - 20 mg/dL 10/17/2024 10:00 PM [facility] CREATININE 0.77 0.50 - 0.90 mg/dL 10/17/2024 10:00 PM [facility] BUN/CREAT RATIO 5(L) 10 - 20 10:00 PM [facility] eGFR >90 >90 mL/min/1. 73m2 10/17/2024 10:00 PM [facility] Comment:As of 2021, eG FR is calculated by the CKD-EPI creatinine equation without race adjustment. eGFR can be influenced by muscle mass, exercise, and diet. The reported eGFR is an estimation only and is only applicable if the renal function is stable. ALBUMIN 4.2 4.0 - 4.9 g/dL 10/17/2024 10:00 PM T [facility] PROTEIN,TOTAL 7.3 6.0 - 8.0 g/dL 10/17/2024 10:00 PM [facility] BILIRUBIN,TOTAL 0.5 0.0 - 1.2 mg/dL 10/17/2024 10:00 PM CDT [facility] ALK PHOSPHATASE 46 35 - 104 IU/L 10/17/2024 10:00 PM CDT [facility] ALT (SGPT) 14 10 - 35 IU/L 10/17/2024 10:00 PM CDT [facility] AST (SGOT) 17 10 - 35 IU/L 10/17/2024 10:00 PM CDT [facility] Blood BLOOD SPECIMEN / Unknown Non-Lab Venipuncture / Unknown 10/17/2024 9:25 PM CDT 10/17/2024 9:35 PM CDT us Rufus Echevarria MD CHEMISTRY Geetha l Result [facility] [address] [place] [address], [place] * (ABNORMAL) CBC W PLT NO DIFF (10/13/2024 8:57 AM ADULT REMEDIAL EDUCATION INSTRUCTOR) Only the most recent of2 resultswithin the time period is included. WHITE BLOOD COUNT 10.0 4.5 - 11.0 thou/cu mm 10/13/2024 9:37 AM [facility] RED BLOOD COUNT 5.09 4.00 - 5.20 mil/cu mm 10/13/2024 9:37 AM [facility] HEMOGLOBIN 14.2 12.0 - 16.0 g/dL 10/13/2024 9:37 AM [facility] HEMATOCRIT 45.0 33.0 - 51.0 % 10/13/2024 9:37 AM [facility] MCV 88 80 - 100 fL 10/13/2024 9:37 AM [facility] MCH 27.9 26.0 - 34.0 pg 10/13/2024 9:37 AM [facility] MCHC 31.6(L) 32.0 - 36.0 g/dL 10/13/2024 9:37 AM [facility] RDW 14.7 11.5 - 15.5 % 10/13/2024 9:37 AM [facility] PLATELET COUNT 266 140 - 440 thou/cu mm 10/13/2024 9:37 AM ADULT REMEDIAL EDUCATION INSTRUCTOR [facility] MPV 10.5 6.5 - 11.0 fL 10/13/2024 9:37 AM ADULT REMEDIAL EDUCATION INSTRUCTOR [facility] Blood BLOOD SPECIMEN / Unknown Butterfly / Unknown 10/13/2024 8:57 AM ADULT REMEDIAL EDUCATION INSTRUCTOR 10/13/2024 9:33 AM ADULT REMEDIAL EDUCATION INSTRUCTOR Sacha Wren MD HEMATOLOGY Geetha l Result Performing Organization Address [facility]/ZIP Co de Phone Number [facility] [address] [place] [address] * (ABNORMAL) C-REACTIVE PROTEIN (10/13/2024 8:57 AM ADULT REMEDIAL EDUCATION INSTRUCTOR) Pathologist [facility] C-REACTIVE PROTEIN 1.3(H) <0.5 mg/dL 10/13/2024 9:35 AM ADULT REMEDIAL EDUCATION INSTRUCTOR [facility] Blood BLOOD SPECIMEN / Unknown Butterfly / Unknown 10/13/2024 8:57 AM ADULT REMEDIAL EDUCATION INSTRUCTOR 10/13/2024 9:15 AM ADULT REMEDIAL EDUCATION INSTRUCTOR Sacha Wren MD CHEMISTRY Geetha l Result Performing Organization Address [facility] de Phone Number [facility] [address] [place] [address] * TROPONIN T (HS) ONE TIME (10/12/2024 12:43 PM ADULT REMEDIAL EDUCATION INSTRUCTOR) TROPONIN T HS 7 6-10 ng/L ng/L 10/12/2024 1:07 PM ADULT REMEDIAL EDUCATION INSTRUCTOR [facility] Blood BLOOD SPECIMEN / Unknown Butterfly / Unknown 10/12/2024 12:43 PM ADULT REMEDIAL EDUCATION INSTRUCTOR 10/12/2024 12:46 PM ADULT REMEDIAL EDUCATION INSTRUCTOR Miko Siddiqui MD CHEMISTRY Final R esult Performing Organization Address [facility] Co de Phone Number [facility] [address] [place] [address] * EKG 12 LEAD (10/12/2024 10:52 AM ADULT REMEDIAL EDUCATION INSTRUCTOR) Pathologist [facility] Interpretation Normal sinus rhythm Normal ECG When compared with ECG of 03-Jan-2024 12:43, No significant change was found no ST elevation BEYOND NOW Ventricular Rate 84 BPM BEYOND NOW Atrial Rate 84 BPM BEYOND NOW P-R Interval 138 ms BEYOND NOW QRS Duration 70 ms BEYOND NOW QT 360 ms BEYOND NOW QTc 425 ms BEYOND NOW P [place] 53 degrees BEYOND NOW R [place] 51 degrees BEYOND NOW T [place] 44 degrees BEYOND NOW 10/12/2024 10:5 2 AM ADULT REMEDIAL EDUCATION INSTRUCTOR 10/12/2024 11:15 AM ADULT REMEDIAL EDUCATION INSTRUCTOR us Miko Siddiqui MD EKG ORD Final R esult [place], [place] * TROPONIN T (HS) ACUTE W/2HR REFLEX (10/12/2024 10:43 AM ADULT REMEDIAL EDUCATION INSTRUCTOR) [facility] TROPONIN T HS <6 6-10 ng/L ng/L 10/12/2024 11:11 AM ADULT REMEDIAL EDUCATION INSTRUCTOR [facility] Blood BLOOD SPECIMEN / Unknown Venipuncture / Unknown 10/12/2024 10:43 AM ADULT REMEDIAL EDUCATION INSTRUCTOR 10/12/2024 10:48 AM ADULT REMEDIAL EDUCATION INSTRUCTOR Narrative [facility] - 10/12/2024 11:11 AM ADULT REMEDIAL EDUCATION INSTRUCTOR hs-cTnT (Elecsys Troponin T Gen 5) concentration [...] population. Miko Siddiqui MD CHEMISTRY Final R [email or web address] Performing Organization Address [facility] de Phone Number [facility] [address] [place], [place] [id number] * LIPASE (10/12/2024 10:43 AM ADULT REMEDIAL EDUCATION INSTRUCTOR) Pathologist [facility] LIPASE 29.8 13.0 - 60.0 IU/L 10/12/2024 11:11 AM [facility] Blood BLOOD SPECIMEN / Unknown Venipuncture / Unknown 10/12/2024 10:43 AM ADULT REMEDIAL EDUCATION INSTRUCTOR 10/12/2024 10:48 AM ADULT REMEDIAL EDUCATION INSTRUCTOR Miko Siddiqui MD CHEMISTRY Final R esult Performing Organization Address [facility] de Phone Number [facility] [address], [place] [phone] * HEPATIC FUNCTION PANEL (10/12/2024 10:43 AM ADULT REMEDIAL EDUCATION INSTRUCTOR) Only the most recent of2 resultswithin the time period is included. ALBUMIN 4.5 4.0 - 4.9 g/dL 10/12/2024 11:11 AM [facility] PROTEIN,TOTAL 7.6 6.0 - 8.0 g/dL 10/12/2024 11:11 AM [facility] BILIRUBIN,TOTAL 0.5 0.0 - 1.2 mg/dL 10/12/2024 11:11 AM [facility] BILIRUBIN,DIRECT 0.2 0.0 - 0.2 mg/dL 10/12/2024 11:11 AM [facility] BILIRUBIN,INDIRE CT 0.3 0.2 - 0.8 mg/dL 10/12/2024 11:11 AM [facility] ALK PHOSPHATASE 46 35 - 104 IU/L 10/12/2024 11:11 AM [facility] ALT (SGPT) 13 10 - 35 IU/L 10/12/2024 11:11 AM [facility] AST (SGOT) 19 10 - 35 IU/L 10/12/2024 11:11 AM [facility] Blood BLOOD SPECIMEN / Unknown Venipuncture / Unknown 10/12/2024 10:43 AM RUST 10/12/2024 10:48 AM RUST Miko Siddiqui MD CHEMISTRY Final R esult [facility] [address] [place] [address] * (ABNORMAL) BASIC METABOLIC PANEL (10/12/2024 10:43 AM RUST) Only the most recent of2 resultswithin the time period is included. SODIUM 138 136 - 145 mmol/L 10/12/2024 11:11 AM [facility] POTASSIUM 4.4 3.5 - 5.1 mmol/L 10/12/2024 11:11 AM [facility] CHLORIDE 104 98 - 107 mmol/L 10/12/2024 11:11 AM [facility] CO2,TOTAL 27 22 - 29 mmol/L 10/12/2024 11:11 AM [facility] ANION GAP 7 5 - 18 10/12/2024 11:11 AM [facility] GLUCOSE 125(H) 70 - 99 mg/dL 10/12/2024 11:11 AM [facility] CALCIUM 9.4 8.8 - 10.4 mg/dL 10/12/2024 11:11 AM [facility] Comment: Reference ranges for this test were updated on 06/13/2024 to reflect our healthy population more accurately. Reference range changes are not retroactively applied to results, but previous results using the same methodology can be interpreted in the context of the new reference range. BUN 4(L) 6 - 20 mg/dL 10/12/2024 11:11 AM [facility] CREATININE 0.76 0.50 - 0.90 mg/dL 10/12/2024 11:11 AM [facility] BUN/CREAT RATIO 5(L) 10 - 20 11:11 AM [facility] eGFR >90 >90 mL/min/1. 73m2 10/12/2024 11:11 AM [facility] Comment:As of 2021, eG FR is calculated by the CKD-EPI creatinine equation without race adjustment. eGFR can be influenced by muscle mass, exercise, and diet. The reported eGFR is an estimation only and is only applicable if the renal function is stable. Blood BLOOD SPECIMEN / Unknown Venipuncture / Unknown 10/12/2024 10:43 AM ADULT REMEDIAL EDUCATION INSTRUCTOR 10/12/2024 10:48 AM ADULT REMEDIAL EDUCATION INSTRUCTOR us Miko Siddiqui MD CHEMISTRY Final R esult [facility] [address] [place] [address] * CT ABDOMEN PELVIS STONE PROTOCOL WO (10/11/2024 2:31 PM ADULT REMEDIAL EDUCATION INSTRUCTOR) Anatomical Region Laterality Modality Abdomen, Pelvis, AORTA, LIVER, SPLEEN Computed Tomography 10/11/2024 3:00 PM ADULT REMEDIAL EDUCATION INSTRUCTOR Impressions 10/11/2024 3:00 PM ADULT REMEDIAL EDUCATION INSTRUCTOR No acute intra-abdominal process identified. No renal stones. No hydronephrosis. Please note that all CT scans at this facility use dose modulation, iterative reconstruction, and/or weight-based dosing when appropriate to reduce radiation dose to as low as reasonably achievable. Dictated by Kamran Blanco MD @ 10/11/2024 3:00:01 PM (Electronically Signed) Narrative 10/11/2024 3:00 PM ADULT REMEDIAL EDUCATION INSTRUCTOR For Patients: As a result of the [...] POCT Urinalysis Dipstick Only (10/11/2024 2:13 PM ADULT REMEDIAL EDUCATION INSTRUCTOR) [facility] PH 6.0 5.0 - 8.0 [facility] SPECIFIC GRAVITY < OR = 1.005 1.001 - 1.035 [facility] Comment: Specific [place] values resulted are outside the analytical measurement [...] URINE SPECIMEN / Unknown 10/11/2024 2:13 PM ADULT REMEDIAL EDUCATION INSTRUCTOR 10/11/2024 2:13 PM ADULT REMEDIAL EDUCATION INSTRUCTOR Yao Vail MD URINE Final Result [facility] [address] [place] [address], [facility] [address] [place] [address] * URINE CULTURE (10/11/2024 2:11 PM ADULT REMEDIAL EDUCATION INSTRUCTOR) [facility] CULTURE No growth (<1,000 CFU/mL) 10/13/2024 9:31 AM ADULT REMEDIAL EDUCATION INSTRUCTOR [facility] Urine URINE SPECIMEN / Unknown Non-Blood / Unknown 10/11/2024 2:11 PM ADULT REMEDIAL EDUCATION INSTRUCTOR 10/11/2024 2:11 PM ADULT REMEDIAL EDUCATION INSTRUCTOR Yao Vail MD MICROBIOLOGY Final Result [facility] [employer] [facility] [address] [place] [address], * CBC AND DIFFERENTIAL (10/11/2024 2:11 PM ADULT REMEDIAL EDUCATION INSTRUCTOR) Only the most recent of2 resultswithin the time period is included. [facility] WHITE BLOOD CELL COUNT 10.8 3.8 - [...] BLOOD SPECIMEN / Unknown 10/11/2024 2:11 PM ADULT REMEDIAL EDUCATION INSTRUCTOR 10/11/2024 2:12 PM ADULT REMEDIAL EDUCATION INSTRUCTOR us Yao Vail MD HEMATOLOGY Final Result Performing Organization Address City/[facility]/ZIP Co de Phone Number [facility] [address] [place] [address], [place] [phone] [facility] [address] [place] [address] * COVID/FLU/RSV PANEL (10/11/2024 2:04 PM ADULT REMEDIAL EDUCATION INSTRUCTOR) Pathologist [facility] COVID 19 [facility] MOLECULAR Negative Negative 10/11/2024 11:37 PM ADULT REMEDIAL EDUCATION INSTRUCTOR [facility] Comment:All PCR tests are chauhan bject to false negative result due to variability in viral load and collection technique. A negative result does not rule out a SARS-CoV-2 infection. Clinical correlation required. INFLUENZA A PCR Negative 11:37 PM ADULT REMEDIAL EDUCATION INSTRUCTOR [facility] INFLUENZA B PCR Negative 5 11:37 PM ADULT REMEDIAL EDUCATION INSTRUCTOR [facility] Respiratory Syncytial Virus Negative 10/11/2024 11:37 PM ADULT REMEDIAL EDUCATION INSTRUCTOR [facility] Swab NASOPHARYNGEAL SWAB / Unknown Non-Blood / Unknown 10/11/2024 2:04 PM ADULT REMEDIAL EDUCATION INSTRUCTOR 10/11/2024 2:04 PM ADULT REMEDIAL EDUCATION INSTRUCTOR us Yao Vail MD MICROBIOLOGY Final Result [facility] [address] [place] [address], [place] * TSH (10/06/2024 4:26 PM ADULT REMEDIAL EDUCATION INSTRUCTOR) Only the most recent of2 resultswithin the time period is included. [facility] TSH 1.63 mIU/L [facility] Marco Antonio Comment: Reference Range > or = 20 Years 0.40-4.50 Ranges First trimester 0.26-2.66 Second trimester 0.55-2.73 Third trimester 0.43-2.91 Blood BLOOD SPECIMEN / Unknown 10/06/2024 4:26 PM ADULT REMEDIAL EDUCATION INSTRUCTOR 10/06/2024 4:28 PM ADULT REMEDIAL EDUCATION INSTRUCTOR Narrative [facility] - 10/07/2024 5:08 AM ADULT REMEDIAL EDUCATION INSTRUCTOR FASTING:NO FASTING: NO Ward GONZALEZ CHEMISTRY Final Resu lt [facility] [id number] [place] [address], [facility] [address] [place] [address] * T3,TOTAL (10/06/2024 4:26 PM ADULT REMEDIAL EDUCATION INSTRUCTOR) Only the most recent of2 resultswithin the time period is included. [facility] T3, TOTAL 106 76 - 181 ng/dL tamycaCameron Bernard Blood BLOOD SPECIMEN / Unknown 10/06/2024 4:26 PM ADULT REMEDIAL EDUCATION INSTRUCTOR 10/06/2024 4:28 PM ADULT REMEDIAL EDUCATION INSTRUCTOR Narrative [facility] - 10/07/2024 5:08 AM ADULT REMEDIAL EDUCATION INSTRUCTOR FASTING:NO FASTING: NO Ward GONZALEZ CHEMISTRY Final Resu lt [facility] [address] [place] [address], [facility] [address] [facility] [place] [address] * ALT (SGPT) (10/06/2024 4:26 PM ADULT REMEDIAL EDUCATION INSTRUCTOR) ALT 15 6 - 29 U/L [facility] Marco Antonio Blood BLOOD SPECIMEN / Unknown 10/06/2024 4:26 PM ADULT REMEDIAL EDUCATION INSTRUCTOR 10/06/2024 4:28 PM ADULT REMEDIAL EDUCATION INSTRUCTOR Narrative [facility] - 10/07/2024 3:29 AM ADULT REMEDIAL EDUCATION INSTRUCTOR FASTING:NO FASTING: NO Ward GONZALEZ CHEMISTRY Final Resu lt Performing Organization Address [facility]/State/ZIP Co de Phone Number [facility] [address] [place] [address], [place] [phone] [facility] [address] [place] [address] * AST (SGOT) (10/06/2024 4:26 PM ADULT REMEDIAL EDUCATION INSTRUCTOR) AST 19 10 - 35 U/L [facility] Marco Antonio Blood BLOOD SPECIMEN / Unknown 10/06/2024 4:26 PM ADULT REMEDIAL EDUCATION INSTRUCTOR 10/06/2024 4:28 PM ADULT REMEDIAL EDUCATION INSTRUCTOR Narrative [facility] - 10/07/2024 3:29 AM ADULT REMEDIAL EDUCATION INSTRUCTOR FASTING:NO FASTING: NO Ward GONZALEZ CHEMISTRY Final Resu lt Performing Organization Address [facility] de Phone Number [facility] [address] [place] [phone], [facility] [address] [place] [phone] * T4,FREE (10/06/2024 4:26 PM ADULT REMEDIAL EDUCATION INSTRUCTOR) Only the most recent of2 resultswithin the time period is included. T4, FREE 0.9 0.8 - 1.8 ng/dL [facility] Marco Antonio Blood BLOOD SPECIMEN / Unknown 10/06/2024 4:26 PM ADULT REMEDIAL EDUCATION INSTRUCTOR 10/06/2024 4:28 PM ADULT REMEDIAL EDUCATION INSTRUCTOR Narrative [facility] - 10/07/2024 5:08 AM ADULT REMEDIAL EDUCATION INSTRUCTOR FASTING:NO FASTING: NO Ward GONZALEZ CHEMISTRY Final Resu lt [facility] [address] [place] [address], [facility] [address] [place] [address] * HOME SLEEP TEST TYPE 3 PORTABLE (09/18/2024 11:59 PM ADULT REMEDIAL EDUCATION INSTRUCTOR) Narrative Ward Castillo MD - 09/18/2024 11:59 PM ADULT REMEDIAL EDUCATION INSTRUCTOR Ward Castillo MD 09/19/2024 4:53 PM Home Sleep Test Name: Kailey Newman Location: [facility] notes: This is a single night home [...] and interpreted by a Diplomate of the [place] [employer] Sleep [employer]. Raw summary data [...] Kline DO SLEEP CENTER Final Result * CLINICAL RESOURCE MANAGER THIN PREP PAP SCREEN IMAGED [[id number]] (01/10/2024 12:13 PM CDT) Case Report Gynecologic Cytology Report Case: [id number] Authorizing Provider: Jovanna Kline DO Collected: 01/10/2024 1213 Ordering Location: [facility] Received: 01/10/2024 1213 Clinic First Screen: Charo Paredes Specimen: CLINICAL RESOURCE MANAGER ThinPrep Vial Screening, Cervical 01/20/2024 8:40 AM CDT [facility] INTERPRETATION/ RESULT NEGATIVE FOR INTRAEPITHELIAL LESION OR MALIGNANCY (NIL) (none) 01/20/2024 8:40 AM CDT [facility]AL [facility]OR[facility] IMEN ADEQUACY Satisfactory for evaluation Endocervical component present 01/20/2024 8:40 AM CDT [facility] HPV REQUEST HPV and PAP 01/20/2024 8:40 AM CDT [facility] Date of LMP postmenopausal 8:40 AM CDT [facility] SPEED[facility]O-[facility] EN[facility]AL LABORATORY Last Pap Date 02/25/18 01/20/2024 8:40 AM CDT [facility] Last Pap Result NIL 8:40 AM CDT [facility] Abnormal Pap or Vallecitos Bx in last 5 years No 01/20/2024 8:40 AM CDT [facility] Menstrual Status Postmenopausal 01/20/2024 8:[address] [facility] Vallecitos Bx Done Today No 01/20/2024 8:40 AM CDT [facility] ENTRNH LABORATORY Additional Information None given 01/20/2024 8:40 AM CDT [facility] Comment: Cytology is screened at [facility] - [address], [place] [address] [facility] - [address], [place] [address] and [facility] - [address] [place] [address] Interpreted at [facility], Central Laboratory - [address], [place] [address] Automated Review Successful 01/20/2024 8:40 AM CDT [facility] Comment:Specimen processed s uccessfully by automated waterproofer device, ThinPrep Imaging System, [email or web address] ANCILLARY TESTING CLINICAL RESOURCE MANAGER HPV Ordered, Please see separate report 01/20/2024 8:40 AM CDT [facility] Note The pap test is [...] and malignant lesions. 01/20/2024 8:40 AM CDT [facility] Other (Cervical) Non-Blood / Unknown 01/10/2024 12:13 PM CDT 01/10/2024 12:13 PM CDT Jovanna Kline DO PATHOLOGY/CYTOLOGY Final Resu lt [facility] [address] [place] [address], [place] * LIPID PANEL W REFLEX MEASURED LDL (01/10/2024 12:04 PM CDT) CHOLESTEROL,TOTAL 171 100 - 199 mg/dL 01/11/2024 9:36 AM CDT [facility] Comment: Cholesterol, Total Reference Ranges Desirable <200 mg/dL Borderline 200-239 mg/dL High >=240 mg/dL TRIGLYCERIDES 116 <150 mg/dL 01/11/2024 9:36 AM CDT [facility] HDL CHOLESTEROL 64 >40 mg/dL 9:36 AM CDT [facility] NON-HDL CHOLESTEROL 107 <145 mg/dl 01/11/2024 9:36 AM CDT [facility] CHOL/HDL RATIO 2.67 <4.50 01/11/2024 9:36 AM CDT [facility] LDL CHOLESTEROL 84 <=130 mg/dL 01/11/2024 9:36 AM CDT [facility] VLDL CHOLESTEROL 23 <=30 mg/dL 01/11/2024 9:36 AM CDT [facility] PROVIDER ORDERED STATUS RANDOM 01/11/2024 9:36 AM CDT [facility] Blood BLOOD SPECIMEN / Unknown Venipuncture / Unknown 01/10/2024 12:04 PM CDT 01/10/2024 12:05 PM CDT us Jovanna Kline DO CHEMISTRY Final Result [facility] [address] [place] [address], [place] * XR MAMMO ERIKA BILAT SCREEN [...] care provider. XR MAMMO ERIKA BILAT SCREEN [[id number]] CLINICAL HISTORY: This is an asymptomatic 53 y.o. patient. INDICATION FOR EXAM: Mammogram Screening. TECHNIQUE: CC & MLO views were obtained. This study was evaluated with the assistance of Computer-Aided Detection. Breast Tomosynthesis was used in interpretation. COMPARISON FILM: Yes 06/19/[address] [facility] 04/30/21 [employer] FINDINGS: The breasts are heterogeneously dense, which may obscure small masses. There are no dominant masses, suspicious micro calcifications or areas of architectural distortion. us Jovanna Kline DO MAMMO Final Result * SDNA-FIT EXTERNAL (COLOGUARD) [[id number]] (12/16/2023 7:40 AM CDT) NONINV COLON CA DNA+OCC BLD SCRN STL-IMP Negative Negative 12/23/2023 5:48 PM CDT [facility] (CLIA #:[id number]) Comment: NEGATIVE TEST RESULT. A negative Cologuard [...] (Radha Mehta al, N Engl J Med 2014;370(14):6193-1464) The normal value (reference range) for this assay is negative. COLOGUARD RE-SCREENING RECOMMENDATION: Periodic colorectal cancer screening is an important part of preventive healthcare for asymptomatic individuals at average risk for colorectal cancer. Following a negative Cologuard result, the [place] Cancer Society and U.S. Multi-Society Task Force screening guidelines recommend a Cologuard re-screening interval of 3 years. References: [place] [employer] Guideline for Colorectal Cancer Screening: https://www.cancer.org/cancer/golrs-nvnmyk-lyvyju/gdclngexi-qfofziqdf-awbptui/ac s-rec ommendations.html.; Bala DK, Fozia PITTS, Gonzalo HardinK, Colorectal Cancer Screening: Recommendations for Physicians and Patients from the U.S. Multi-Society Task Force on Colorectal Cancer Screening , Am J Gastroenterology 2017; 112:9182-2003. TEST DESCRIPTION: Composite algorithmic analysis of stool [...] (Radha Mehta al, N Engl J Med 2014;370(14):6774-0981.) Cologuard may produce a false negative or false positive result (no colorectal cancer or precancerous polyp present at colonoscopy follow up). A negative Cologuard test result does not guarantee the absence of CRC or advanced adenoma (pre-cancer). The current Cologuard screening interval is every 3 years. ([place] Cancer Society and U.S. Multi-Society Task Force). Cologuard performance data in a 10,000 patient pivotal study using colonoscopy as the reference method can be accessed at the following location: www.[email or web address].iConclude/results. Additional description of the Cologuard test process, warnings and precautions can be found at www.colPica8rd.com. Stool specimen (specimen) (Rectum) 12/16/2023 7:40 AM CDT 12/17/2023 12:25 PM CDT us Jovanna Kline DO URINE Final Result [facility] (CLIA #:[id number]) [place] [address], * LC HCV ANTIBODY RFX TO QUANT PCR (12/03/2022 12:00 PM CDT) Pathologist [facility] HCV Ab Non Reactive Non Reactive 12/05/2022 3:08 PM CDT [facility] ([facility]) Blood BLOOD SPECIMEN / Unknown Venipuncture / Unknown 12/03/2022 12:00 PM CDT 12/03/2022 12:02 PM CDT Narrative [facility] ([facility]) - 12/05/2022 3:08 PM CDT Performed at: [address] [place] [id number] Laborer Cheesemaking: Nelson Ruff MD, Phone: [phone] us Justin [facility]ORAT[facility] Fin al Result [facility] ([facility]) [address] [place] [address], * LC HIV-1/O/2, 4TH GENERATION (12/03/2022 12:00 PM CDT) Pathologist [facility] HIV Scr 4th Gen Non Reactive Non Reactive 12/05/2022 12:08 PM CDT [facility] ([facility]) Comment: HIV Negative HIV-1/HIV-2 antibodies and HIV-1 p24 antigen were NOT detected. There is no laboratory evidence of HIV infection. Blood BLOOD SPECIMEN / Unknown Venipuncture / Unknown 12/03/2022 12:00 PM CDT 12/03/2022 12:02 PM CDT Narrative [facility] ([facility]) - 12/05/2022 12:08 PM CDT Performed at: - [facility] [place], [place] [id number] Laborer Cheesemaking: Nelson Ruff MD, Phone: [phone] us Justin GONZALEZ LABORATORY Fin al Result [facility] ([facility]) [facility] [place] [address], from Last 3 Months or Most Recently [...] with C diff symptoms 10/18/2024 10/18/2024 Insurance [facility] NON-MS-ITS Advance Directives * Full Code (Latest Code Status on File) Date Activated Date Inactivated Comments 10/17/2024 11:11 PM 10/18/2024 1:27 PM Question Answer Comments Code Status Discussion: Reviewed Preferences Care Teams 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
[2024-10-21 12:40] LABS: Appearance Urine Clear (Clear); Bilirubin Urine Negative (Negative); Blood Urine 1+ (Negative); Color Urine Yellow (Yellow); Glucose Urine Negative (Negative); Ketones Urine Negative (Negative); Leukocyte Esterase Urine Negative (Negative); Nitrite Urine Positive (Negative); Protein Urine Negative (Negative); Urobilinogen Urine 0.2 (0.2-1.0); pH Urine 7.5 (5.0-8.5)
[2024-10-21 12:50] LABS: RBC Urine 0-2 (0-2); Squamous Epithelial Cell Urine Few (None-Few); WBC Urine 0-2 (0-5)
[2024-10-21 13:10] LABS: Lactate Sepsis w/Reflex* 0.7 mmol/L (0.5-1.9)
[2024-10-21 13:11] LABS: Basophils Percent Auto 0.3 % (0.0-3.0); Hemoglobin* 13.2 gm/dL (12.0-16.0); Immature Granulocytes Pct Auto 0.2 %; Mean Corpuscular HGB Conc 33 gm/dL (32-36); Mean Corpuscular Hemoglobin 29 pg (26-34); Mean Corpuscular Volume 86 fL (80-100); Monocytes Percent Auto 5.5 % (0.0-11.0); Platelet Count* 239 K/uL (140-440); RDW Coefficient of Variation % 12.8 % (11.5-15.5); Red Blood Count 4.63 m/uL (4.00-5.20); Slide Review Reflex No; White Blood Count* 13.19 K/uL (4.50-11.00)
[2024-10-21] MEDS: KETOROLAC 15 MG/ML inj IVP (13:23)
[2024-10-21 13:28] LABS: Albumin* 3.7 g/dL (3.3-5.0); Chloride* 90 mmol/L (96-114); Potassium* 4.8 mmol/L (3.6-5.1)
[2024-10-21 13:31] LABS: Alanine Aminotransferase* 22 U/L (4-35); Alkaline Phosphatase* 41 U/L (40-150); Anion Gap 7 mEq/L (7-15); Aspartate Amino Transferase* 28 U/L (12-35); Bilirubin Direct* 0.1 mg/dL (0.0-0.5); Bilirubin Total* 0.8 mg/dL (0.1-1.5); Blood Urea Nitrogen* 10 mg/dL (7-30); Calcium* 8.3 mg/dL (8.4-10.6); Carbon Dioxide* 26 mmol/L (20-32); Creatinine* 0.8 mg/dL (0.5-1.5); Est. Creatinine Clearance* 59.96; Estimated Glomerular Filt Rate 87 ml/min; Glucose* 107 mg/dL (60-115); Total Protein* 6.7 g/dL (6.0-8.3)
[2024-10-21 13:35] LABS: Sodium* 123 mmol/L (135-149)
--- NOTE | 2024-10-21 13:56 | CRLHL7_ITS ---
For Patients: As a result of the Cures Act, medical imaging exams and procedure reports are released immediately into your electronic medical record. You may view this report before your referring provider. If you have questions, please contact your health care provider. INDICATION: : Shortness of breath COMPARISON: None TECHNIQUE: One view(s) of the chest FINDINGS: The cardiomediastinal silhouette and pulmonary vasculature are unremarkable. There is no focal airspace consolidation, pleural effusion, or pneumothorax. No displaced fractures. IMPRESSION: No acute cardiopulmonary process. Dictated by Jt Julian MD @ 10/21/2024 2:30:40 PM (Electronically Signed)
[2024-10-21] MEDS: 0.9 % SODIUM CHLORIDE 500 ML 500 ML IV (14:16)
[2024-10-21 15:06] LABS: PCR FLU A Negative PCR FLU A (Negative); PCR FLU B Negative PCR FLU B (Negative); PCR RSV Negative PCR RSV (Negative); SARS PCR* Negative SARS-CoV-2 (Negative)
--- NOTE | 2024-10-21 15:23 | PM.IMHP1 ---
Hospitalist- H&P: HPI History of Present Illness Date Seen: 10/21/24 Chief complaint: dehydration, possible infection Narrative: Kailey Newman is a 54 year old woman who resides in a private residence with her and presents to our emergency department this morning at the behest of her due to increased confusion. Patient suffers from chronic pain, chronic interstitial cystitis, recurrent urinary tract infections, intermittent episodes of C difficile colitis, anxiety disorder. Since the 07 of October the patient has had at least 16 encounters with clinic and or emergency department through phone calls, clinic visits, emergency department visits. About half of these were phone calls and the other half were clinic visit plus emergency department visits. Additionally she has had multiple electronic medical record encounters through [employer]. Many of these encounters have been related to symptoms that she describes as feeling like she has urinary tract infection. Urine analysis and urine culture results have not demonstrated urinary tract infections and thus patient finally concluded that she has an exacerbation of her underlying chronic interstitial cystitis. She has been urinating 20 times daily until this past week when she has been urinating 25-35 times daily. Finally about 2 days ago she had a urethral catheter placed and she has been able to sleep. She has been trying to drink a lot of fluids thinking that she was dehydrated. She acknowledges she has been drinking several liters of water daily, sometimes mixed with hydrating salts. Two days ago her serum sodium was normal at 137 and today her serum sodium is down to 123. Patient was confused and disoriented this morning according to her, Adrián. This prompted them to make a decision to have her come in for further assessment. She presents to the emergency department via EMS. Over the course of last 2 weeks she has had multiple prescriptions of hydromorphone due to the bladder and flank pain she has been suffering from. Over the last few days her has been helping her with her medications. Ordinarily she sets up and administers her own medications. Patient and note that she has not had a bowel movement now for the past 6 days. Prior to that she had been having loose stools and had a stool sample that suggested that she was positive for C difficile colitis on 10/16/2024. Acknowledges utilizing prescribed hydromorphone for pain in since she has been utilizing this she has not had diarrhea any longer. Was started on a prescription of fidaxomicin (Dificid) 200 mg twice daily starting 10/16/2024, but she is not sure that she has been taking this as prescribed. Denies fevers. Denies any blood loss. Ordinarily utilizes medical marijuana for pain management but claims she has not utilized any of this for the last 2 weeks. She utilizes a service that is called IV drips and intermittently calls them to her home where they gave her IV fluids including Toradol, Zofran, vitamin B and vitamin-C infusion. She claims that the Toradol helps with her pain management more so than narcotics. Review of Systems Status of ROS: Reports: 6 or more systems reviewed and unremarkable except as noted in History and below [facility] Social History Smoking Status: Current some day smoker How often do you have a drink containing alcohol: never AUDIT-C Alcohol total score: 0 Non-prescribed substance use: marijuana (any form) Meds Home Medications and Allergies Home Medications ?Medication ?Instructions ?Recorded ?Confirmed ?Type cyclobenzaprine 10 mg tablet 10 mg PO BID PRN 01/11/24 10/21/24 History estradiol 0.01% (0.1 mg/gram) 1 g vaginal QPM 01/11/24 10/21/24 History vaginal cream pregabalin 150 mg capsule See Rx Instructions PO BID 01/11/24 10/21/24 History amitriptyline 50 mg tablet 50 mg PO HS 10/21/24 10/21/24 History methimazole 10 mg tablet 5 mg PO DAILY 10/21/24 10/21/24 History metoclopramide HCl 10 mg tablet 10 mg PO Q6H PRN 10/21/24 10/21/24 History nortriptyline 25 mg capsule 25 mg PO HS 10/21/24 10/21/24 History phenazopyridine 100 mg tablet 100 mg PO TID 10/21/24 10/21/24 History Home Medication Comments: Fidaxomicin 200 mg p.o. b.i.d. started 10/16/2024 Hydromorphone 2 mg tab p.o. q.6 hours p.r.n. Fluconazole 100 mg daily for 10 days starting 11/05/2024 Ciprofloxacin 500 mg p.o. b.i.d. x1 week starting 10/09/2024 Allergies Allergy/AdvReac Type Severity Reaction Status Date / Time adhesive Allergy Unknown Verified 10/21/24 12:13 hydrocodone Allergy Unknown Verified 10/21/24 12:13 meperidine (From Demerol) Allergy Unknown Verified 10/21/24 12:13 Sulfa (Sulfonamide Allergy Unknown Verified 10/21/24 12:13 Antibiotics) Exam Narrative: Exam Narrative: Appears disheveled. No acute distress. Alert and oriented to self, place, time, and although she is very talkative she is not entirely oriented to situation. Vision and hearing are adequate. Tympanic membranes normal. Midline nasal septum. Conjugate gaze. No conjunctival injection or icterus. Oropharynx remarkable for inflamed appearing tongue with the appearance of white thrush spots at the base and lateral aspect of tongue. Posterior pharynx is benign. Hard and soft palate are benign. Dentition in fair repair. Neck is supple. Midline trachea. No head neck lymphadenopathy. Lungs are clear to auscultation without wheezing, rhonchi, rales. Chest wall excursions are full. No CVA tenderness. Heart tones with regular rhythm, normal S1-S2, without murmur, gallop, rub. PMI not laterally displaced. Abdomen with active bowel sounds, soft. No rebound or guarding. Extremities without edema. Moves all 4 extremities. Cranial nerves 3-12 grossly normal. Skin is intact. Const: Vital Signs, click to edit/add: Vital Signs - 24 hr 10/21/24 12:14 10/21/24 13:00 10/21/24 14:26 Temperature 98 F 98 F Pulse Rate 82 Pulse Rate [Pulse Oximeter] 82 82 Respiratory Rate 18 14 18 Blood Pressure [Le ft Upper Arm] 136/84 136/84 Pulse Oximetry 97 98 Oxygen Delivery Me thod Room Air Hospitalist - H&P: Result Labs Labs: Short CBC 10/21/24 Range/Units 13:04 WBC 13.19 H (4.50-11.00) K/uL Hgb 13.2 (12.0-16.0) gm/dL Hct 40.0 (33.0-51.0) % Plt Count 239 (140-440) K/uL BMP 10/21/24 13:04 Sodium 123 L* Potassium 4.8 Chloride 90 L Carbon Dioxide 26 BUN 10 Creatinine 0.8 Glucose 107 Calcium 8.3 L Liver Function 10/21/24 Range/Units 13:04 Total Bilirubin 0.8 (0.1-1.5) mg/dL Direct Bilirubin 0.1 (0.0-0.5) mg/dL AST 28 (12-35) U/L ALT 22 (4-35) U/L Alkaline Phosphatase 41 (40-150) U/L Albumin 3.7 (3.3-5.0) g/dL Urine 10/21/24 Range/Units 12:24 Urine Color Yellow (Yellow) Urine Appearance Clear (Clear) Urine pH 7.5 (5.0-8.5) Ur Specific [place] 1.010 (1.000-1.030) Urine Protein Negative (Negative) Urine Glucose (UA) Negative (Negative) Assessment and Plan Assessment and plan (1) Acute hyponatremia: Problem comment: - sodium 137 on 10/19/2024. Sodium 123 on 10/21/2024. Most likely related to over zealous hydration efforts at home with water. - 1500 mL fluid restriction per 24 hours - 1 L normal saline over 8 hours then saline lock IV - serial sodium levels - discussed with patient and . Answered their questions. They expressed understanding. They are willing to proceed as specified. Status: Acute (2) Chronic pain: Problem comment: - will not make changes in regard to this at this time save ketorolac p.r.n. and monitor creatinine Status: Acute (3) Chronic interstitial cystitis: Problem comment: - continue with urethral catheter as presently instituted - continue with outpatient urology consultation and recommendation Status: Acute (4) Overactive bladder: Status: Acute (5) C. difficile colitis: Problem comment: - no diarrhea for 6 days, constipated - complete full course of fidaxomicin, started on 10/16/2024 and to be completed on 10/26/2024 Status: Acute Plan 1. Reviewed impression and recommendations with patient and 2. Recommended PT and OT assessment and recommendations which they are agreeable to 3. Continue with other supportive efforts 4. Answered their questions to their satisfaction 5. They are agreeable with above stated plans and recommendations Total Time Spent Total Time Spent: 70 minutes
[2024-10-21] MEDS: 0.9 % SODIUM CHLORIDE 1000 ml 1,000 ML 125 ML IV (16:32)
[2024-10-21] MEDS: ONDANSETRON 2 MG/ML inj 4 MG IVP (16:34)
[2024-10-21] MEDS: SODIUM CHLORIDE 0.9 % (FLUSH) 10 ML SYRINGE 5 ML IVF (16:34)
[2024-10-21] MEDS: CYCLOBENZAPRINE HCL 10 MG TABLET PO (18:15)
--- NOTE | 2024-10-21 18:53 | PC.NURSE ---
Shift Note: Pt admitted to M/S this afternoon. Moves well with SBA x1 but does need encouragement to ambulate to the BR instead of utilizing BSC. VS WNL and LS COA. Afebrile. Notable erythema, edema, and white film noted on pt's tongue. MD aware and pt is continuing medications prescribed prior to admission. C/o 5/10 low back pain. Pt was given Toradol in the Emergency Department and Flexeril this afternoon. Declined ice pack. Pt had her Adrián bring her home heating pad. Test Engineer [employer] informed pt and her home heating pads are against our facility's policy and offered an Aqua-K pad. Pt agreed to try this. Pt denies nausea and vomiting at this time, but was given a dose of zofran IVP shortly after arrival. No BM's at this time, enhanced precautions in place. Pt is on 1500cc FR, needs reminders about fluid allowances and is easily redirected.
[2024-10-21 19:24] LABS: Sodium* 128 mmol/L (135-149)
[2024-10-21] MEDS: AMITRIPTYLINE HCL 10 MG TABLET PO (20:37)
[2024-10-21] MEDS: PREGABALIN 100 MG CAPSULE 300 MG PO (20:39)
[2024-10-21] MEDS: FIDAXOMICIN 200 MG PO (20:40)
[2024-10-21] MEDS: CLOTRIMAZOLE 10 MG TROCHE SUBLINGUAL (20:46)
[2024-10-21] MEDS: KETOROLAC 30 MG/ML inj IVP (22:53)
[2024-10-22 02:38] VITALS: BP 138/86; PULSE 75; RESP 18; TEMP 36.4; O2SAT 96
[2024-10-22] MEDS: HYDROmorphone 2 MG TABLET PO (02:41)
--- NOTE | 2024-10-22 05:09 | PC.NURSE ---
Shift shift: Pt is alert and oriented,independent in room. Patient refused SCD. Appeared more oriented this shift. 1500ml fluid restriction observed. has been with patient throughout the night.
[2024-10-22] MEDS: KETOROLAC 30 MG/ML inj IVP (06:31)
[2024-10-22] MEDS: ONDANSETRON 2 MG/ML inj 4 MG IVP (06:32)
[2024-10-22 07:00] VITALS: PULSE 78; RESP 18; O2SAT 95
[2024-10-22 07:10] LABS: Hematocrit 42.7 % (33.0-51.0); Mean Corpuscular HGB Conc 33 gm/dL (32-36); Mean Corpuscular Hemoglobin 29 pg (26-34); Mean Corpuscular Volume 87 fL (80-100); Platelet Count* 260 K/uL (140-440); Red Blood Count 4.92 m/uL (4.00-5.20)
[2024-10-22 07:16] LABS: Chloride* 103 mmol/L (96-114); Sodium* 138 mmol/L (135-149)
[2024-10-22 07:17] LABS: Potassium* 4.6 mmol/L (3.6-5.1)
[2024-10-22 07:20] LABS: Anion Gap 7 mEq/L (7-15); Blood Urea Nitrogen* 7 mg/dL (7-30); Calcium* 9.1 mg/dL (8.4-10.6); Carbon Dioxide* 28 mmol/L (20-32); Creatinine* 0.7 mg/dL (0.5-1.5); Est. Creatinine Clearance* 68.52; Estimated Glomerular Filt Rate 102 ml/min; Glucose* 87 mg/dL (60-115)
[2024-10-22 07:27] LABS: Slide Review Reflex No
[2024-10-22] MEDS: 5 % DEXTROSE 1000 ML 1,000 ML 100 ML IV (08:45)
[2024-10-22] MEDS: methIMAzole 5 MG TABLET 10 MG PO (08:49)
[2024-10-22] MEDS: PREGABALIN 75 MG CAPSULE 150 MG PO (08:49)
[2024-10-22] MEDS: atenoloL 50 MG TABLET PO (08:49)
[2024-10-22] MEDS: CLOTRIMAZOLE 10 MG TROCHE SUBLINGUAL (08:50)
[2024-10-22] MEDS: FIDAXOMICIN 200 MG PO (08:51)
[2024-10-22] MEDS: SODIUM CHLORIDE 0.9 % (FLUSH) 10 ML SYRINGE 5 ML IVF (08:51)
[2024-10-22 08:58] VITALS: BP 147/93; PULSE 78; RESP 18; TEMP 36.3; O2SAT 97
--- NOTE | 2024-10-22 09:39 | PM.DS1 ---
DS: Providers Provider Date Seen: 10/22/24 Date of admission: 10/21/24 16:08 Primary care physician: Jovanna Kline DO Admitting Clinician: Shruti Soto MD Consults: 10/21/24 16:55 Consult to Studio Operations Manager [CONS] Routine Comment: Reason for Consult:: PT Requests Adv Dir Info Attending Physician on discharge: Jazmine Ramirez MD Date of Discharge: 10/22/24 DS: Diagnosis Discharge Diagnosis (1) Acute hyponatremia: Status: Acute Problem details: - sodium 137 on 10/19/2024. Sodium 123 on 10/21/2024. Most likely related to over zealous hydration efforts at home with water. - 1500 mL fluid restriction per 24 hours - 1 L normal saline over 8 hours then saline lock IV - serial sodium levels - sodium 138 on 10/22; low risk for ODS given acute nature of hyponatremia; however, given D5W prior to discharge 2/2 correction rate (2) Chronic pain: Status: Acute Problem details: - continue home medications and PCP f/u - did not receive any IV narcotics during stay (+ relief with IV Toradol) (3) Chronic interstitial cystitis: Status: Acute Problem details: - continue with urethral catheter as presently instituted - continue with outpatient urology consultation and recommendation (4) C. difficile colitis: Status: Acute Problem details: - no diarrhea for 6 days, constipated - complete full course of fidaxomicin, started on 10/16/2024 and to be completed on 10/26/2024 DS: Summary Hospital Course Hospital Course: Kailey was admitted to the hospital on 10/21/2024 for a new diagnosis of hyponatremia. This is presumably secondary to increased free water intake in the setting of recent catheter placement (for interstitial cystitis), had been attempting to flush. During stay, treated with fluid restriction and short course of IV normal saline. Sodium trend: - 137 on 10/19/24 - 123 on 10/21/24 1300 - 128 on 10/21/24 1900 - 138 on 10/22/24 0600 Given patient's rapid onset of hyponatremia and no history of liver disease, low risk for ODS; however, given rapid correction overnight on 10/21, she was treated with D5W prior to discharge. Recommend only drinking when thirsty, keeping up protein intake upon discharge. No evidence of UTI during stay, no changes to home medications. Otherwise medically appropriate for discharge home with close PCP and Urology follow-up on 10/22/2024. Status at Discharge Functional status at discharge: independent ambulation Overall status at discharge: patient is progressing back to baseline Time Spent with Patient Time attestation: Total time spent providing and/or coordinating discharge services: Time spent: Greater than 30 minutes Exam Narrative: Exam Narrative: GEN: Alert and oriented, nontoxic HEENT: EOMIs bilaterally, no scleral icterus CV: RRR, No concerning murmurs R: LCTA bilaterally without concerning wheezing Ext: wwp, no concerning edema Skin: No concerning skin lesions or rashes on exposed skin Neuro: No focal deficits Const: Vital Signs, click to edit/add: Vital Signs - 24 hr 10/21/24 12:14 10/21/24 13:00 10/21/24 14:26 Temperature 98 F 98 F Pulse Rate 82 Pulse Rate [Pulse Oximeter] 82 82 Respiratory Rate 18 14 18 Blood Pressure [Le ft Arm] Blood Pressure [Le ft Upper Arm] 136/84 136/84 Pulse Oximetry 97 98 Oxygen Delivery Me thod Room Air 10/21/24 14:44 10/21/24 15:00 10/21/24 18:16 Temperature 98 F Pulse Rate Pulse Rate [Pulse Oximeter] 71 71 Respiratory Rate 16 18 18 Blood Pressure [Le ft Arm] 149/94 H Blood Pressure [Le ft Upper Arm] Pulse Oximetry 97 96 Oxygen Delivery Me thod Room Air Room Air 10/21/24 19:00 10/21/24 22:45 10/21/24 22:45 Temperature 97.8 F Pulse Rate Pulse Rate [Pulse Oximeter] 76 75 Respiratory Rate 18 18 18 Blood Pressure [Le ft Arm] 145/83 H Blood Pressure [Le ft Upper Arm] Pulse Oximetry 96 95 Oxygen Delivery Me thod Room Air Room Air 10/21/24 22:45 10/22/24 02:38 10/22/24 07:00 Temperature 97.8 F 97.6 F Pulse Rate Pulse Rate [Pulse Oximeter] 75 75 Respiratory Rate 18 18 18 Blood Pressure [Le ft Arm] 148/72 H 138/86 Blood Pressure [Le ft Upper Arm] Pulse Oximetry 95 96 95 Oxygen Delivery Me thod Room Air Room Air Room Air 10/22/24 07:00 10/22/24 08:58 Temperature 97.3 F L Pulse Rate Pulse Rate [Pulse Oximeter] 78 78 Respiratory Rate 18 18 Blood Pressure [Le ft Arm] 147/93 H Blood Pressure [Le ft Upper Arm] Pulse Oximetry 97 Oxygen Delivery Me thod Room Air DS: Data Data Completed and Pending Labs on day of discharge: Labs from last 24 hours 10/22/24 10/21/24 10/21/24 06:03 19:05 14:17 WBC 9.10 RBC 4.92 Hgb 14.0 Hct 42.7 MCV 87 MCH 29 MCHC 33 RDW Coeff of Lauri Plt Count 260 Neut % (Auto) Lymph % (Auto) [place] % (Auto) Eos % (Auto) Baso % (Auto) Neut # (Auto) Lymph # (Auto) [place] # (Auto) Eos # (Auto) Baso # (Auto) Abs Immat Gran (auto) Imm/Tot Granulo (auto) Sodium 138 128 L Potassium 4.6 Chloride 103 Carbon Dioxide 28 Anion Gap 7 BUN 7 Creatinine 0.7 Estimated Creat Clear 68.52 Estimated GFR 102 Glucose 87 Lactate Calcium 9.1 Total Bilirubin Direct Bilirubin AST ALT Alkaline Phosphatase Total Protein Albumin Urine Color Urine Appearance Urine pH Ur Specific Max Urine Protein Urine Glucose (UA) Urine Ketones Urine Blood Urine Nitrite Urine Bilirubin Urine Urobilinogen Ur Leukocyte Esterase Urine RBC Urine WBC Ur Squamous Epith Cells Urine Bacteria SARS-CoV-2 (PCR) Negative SARS-CoV-2 Influenza Type A (PCR) Negative PCR FLU A Influenza Type B (PCR) Negative PCR FLU B RSV (PCR) Negative PCR RSV 10/21/24 10/21/24 13:04 12:24 WBC 13.19 H RBC 4.63 Hgb 13.2 Hct 40.0 MCV 86 MCH 29 MCHC 33 RDW Coeff of Lauri 12.8 Plt Count 239 Neut % (Auto) 83.0 H Lymph % (Auto) 9.0 L [place] % (Auto) 5.5 Eos % (Auto) 2.0 Baso % (Auto) 0.3 Neut # (Auto) 10.90 H Lymph # (Auto) 1.20 [place] # (Auto) 0.70 Eos # (Auto) 0.30 Baso # (Auto) 0.00 Abs Immat Gran (auto) 0.00 Imm/Tot Granulo (auto) 0.2 Sodium 123 L* Potassium 4.8 Chloride 90 L Carbon Dioxide 26 Anion Gap 7 BUN 10 Creatinine 0.8 Estimated Creat Clear 59.96 Estimated GFR 87 Glucose 107 Lactate 0.7 Calcium 8.3 L Total Bilirubin 0.8 Direct Bilirubin 0.1 AST 28 ALT 22 Alkaline Phosphatase 41 Total Protein 6.7 Albumin 3.7 Urine Color Yellow Urine Appearance Clear Urine pH 7.5 Ur Specific Max 1.010 Urine Protein Negative Urine Glucose (UA) Negative Urine Ketones Negative Urine Blood 1+ A Urine Nitrite Positive A Urine Bilirubin Negative Urine Urobilinogen 0.2 Ur Leukocyte Esterase Negative Urine RBC 0-2 Urine WBC 0-2 Ur Squamous Epith Cells Few Urine Bacteria None SARS-CoV-2 (PCR) Influenza Type A (PCR) Influenza Type B (PCR) RSV (PCR) Preliminary micro results at discharge 10/21/24 12:24 Urine Culture - Preliminary Urine Catheterized No growth. Discharge Plan Discharge Disposition: Home, Self-Care Date of Admission: 10/21/24 16:08 Attending Provider on Discharge: Jazmine Ramirez Primary Care Provider: Jovanna Kline Condition: Improved Anticipated Discharge Date/Time: 10/22/24 07:17 Discharge Medications: Continued cyclobenzaprine 10 mg tablet 10 mg PO BID PRN estradiol 0.01 % (0.1 mg/gram) cream 1 g vaginal QPM Patient Comments: INSERT 1 GM INTO THE VAGINA EVERY WEDNESDAY AND WEDNESDAY. USE A PEA SIZED AMOUNT ON LABIA AT BEDTIME pregabalin 150 mg capsule See Rx Instructions PO BID Rx Instructions: orally twice a day; take 1 capsule in the morning and 2 capsules at bedtime hyoscyamine sulfate 0.125 mg tablet 0.25 mg PO QID PRN (Reason: cramping) Qty: 30 0RF nortriptyline 25 mg capsule 25 mg PO HS metoclopramide HCl 10 mg tablet 10 mg PO Q6H PRN phenazopyridine 100 mg tablet 100 mg PO TID methimazole 10 mg tablet 5 mg PO DAILY fluconazole [Diflucan] 100 mg tablet 100 mg PO DAILY Qty: 10 0RF Dificid 200 mg tablet 200 mg PO BID 10 Days Qty: 20 0RF hydromorphone 2 mg tablet 2 mg PO Q6H Qty: 7 0RF Discharge Orders: Discharge Order (Routine); Ordered 10/22/24 Ordered By: Jazmine Ramirez Patient Education: Hyponatremia (DC) Additional Instructions: No changes to home medications. There's currently nothing growing on your urine culture, so no infection noted. Finish your course of Fidaxomicin for your C-Diff. Keep appointments with Dr. Kline and team on 10/23 and 10/24 to discuss Urology workup, home medications, diet, etc. Activity Level: Activity as Tolerated Discharge Diet: Regular Diet Detail: Keep water intake 1500-1800mL/day. Make sure you're eating adequate protein (consider adding in supplementation), limit caffeine and no ETOH (to help with symptoms of interstitial cystitis). Follow Up Appointments: Jovanna Kline, [Primary Care Provider] - (Already have appointments with Dr. Kline on 10/23 and 10/24 to discuss Urology workup, home medications, diet, etc.) Forms: [employer] Info Instructions
--- NOTE | 2024-10-22 11:12 | PC.NURSE ---
Discharge Note: Pt alert and oriented this morning. VSS, BP very mildly elevated. Pt denies headaches or CP. She does c/o of ongoing 4/10 discomfort in her lower back and pelvic region. PRN Toradol and Dilaudid given overnight last night. Pt also utilizing Aqua-K pad and repositioning herself PRN. Business Intelligence Analyst spent 45 minutes discussing hyponatremia, causes, treatments, and prevention as well as 1500cc FR. Pt verbalized understanding but continued to rephrase or repeat questions regarding free water intake and how it contributes to sodium imbalance. Business Intelligence Analyst engaged in lengthy education discussions with patient and her who did verbalize understanding. Pt was discharge to home via wheelchair in the care of her Adrián at 11:15.
--- NOTE | 2024-10-23 11:01 | PC.SOCIAL ---
Social Service Consult: SW left voicemail for patient with name and callback number to assist with questions patient had about advance care directives while she was inpatient.
== END 2024-10-22 11:28 | disposition home or self-care (01) | DRG 425 ==
LOC: ED 12:34 → MEDSURG 14:28
PROVIDERS: Admitting Provider Internal Medicine; Emergency Provider Emergency Medicine; PCP Family Medicine; Visit Provider Internal Medicine
DX: E87.1 Hypo-osmolality and hyponatremia (principal); G89.29 Other chronic pain; N30.10 Interstitial cystitis (chronic) without hematuria; N32.81 Overactive bladder; A04.71 Enterocolitis due to Clostridium difficile, recurrent
CPT/HCPCS: 36415; 71045; 80048; 80076; 81001; 83605; 84295; 85025; 85027; 87086; 87631; 99284; 99285; A9270; J1885; J2405; J7030; J7070

== ENCOUNTER 2025-03-27 10:16 | Outpatient (RCR) | payer BC, SELFPAY | END 2025-06-29 11:07 | disposition home or self-care (01) | PROVIDERS: PCP Family Medicine; Visit Provider Family Medicine | DX: R39.9 Unspecified symptoms and signs involving the genitourinary system (principal); N95.2 Postmenopausal atrophic vaginitis; N30.10 Interstitial cystitis (chronic) without hematuria; R35.0 Frequency of micturition; M25.552 Pain in left hip; M25.551 Pain in right hip; K59.00 Constipation, unspecified; Z51.89 Encounter for other specified aftercare | CPT/HCPCS: 97162; 97535 ==